=== PATIENT | male | born 1940 | race Caucasian/White ===

== ENCOUNTER → 2016-09-16 | Outpatient (CLI) | payer OTHER, MEDICARE ==
[~2016-09-16] MED LIST: APR25 PO; ASPI81TA28 PO; CARV25TA PO; CHOL200010 PO; CTP1X PO; ISOS60TA25 PO; LORA1TAB13 PO; MAGN400T5 PO; MULT-513 PO
[2016-09-16 11:06] LABS: BASO % 0.4 %; BASO ABS # 0.02 K/uL (0-0.2); COMPLETE YES; HEMATOCRIT 42.3 % (42-52); IG% 0.2 %; LYMPH % 22.7 %; LYMPH ABS # 1.27 K/uL (1.2-3.4); MEAN CELL VOLUME 86.5 fL (80-100); MEAN CORPUSCULAR HEMOGLOBIN 29.4 pg (25-34); MEAN PLATELET VOLUME 10.4 fL (7.4-10.4); MONO % 8.2 %; NEUT % 65.5 %; PLATELET COUNT 146 K/uL (130-400); RED BLOOD COUNT 4.89 M/uL (4.7-6.1); WHITE BLOOD COUNT 5.59 K/uL (4.8-10.8)
[2016-09-16 11:40] LABS: ESTIMATED AVERAGE GLUCOSE 120 mg/dl; HA1C FLAG Normal (Normal)
[2016-09-16 11:41] LABS: BLOOD UREA NITROGEN 22 mg/dl (7-18); BUN/CREATININE RATIO 17.1 (10-20); CALCIUM 10.7 mg/dl (8.5-10.1); CARBON DIOXIDE 28 mmol/L (21-32); CHLORIDE 106 mmol/L (98-107); GLUCOSE 87 mg/dl (70-99); MAGNESIUM 2.4 mg/dl (1.8-2.4); POTASSIUM 4.2 mmol/L (3.5-5.1); SODIUM 140 mmol/L (136-145)
[2016-09-16 11:46] LABS: CHOLESTEROL 123 mg/dl (0-200); CHOLESTEROL/HDL RATIO 2.1; HDL CHOLESTEROL 58 mg/dl; LDL CHOLESTEROL CALCULATED 50 mg/dl; PHOSPHORUS 2.1 mg/dl (2.5-4.9); TRIGLYCERIDES 76 mg/dl (0-150); VERY LOW DENSITY LIPOPROT CALC 15 mg/dl
[2016-09-16 12:34] LABS: URINE PROTIEN/CREAT RATIO 0.2 (0-0.2); URINE TOTAL PROTEIN 18.4 mg/dl (0-11.9)
[2016-09-16 13:23] LABS: URINE APPEARANCE CLEAR (CLEAR); URINE BILIRUBIN NEG (NEG); URINE COLOR YELLOW; URINE NITRITE NEG (NEG); URINE SPECIFIC GRAVITY 1.016 (1.000-1.030); UROBILINOGEN NEG (NEG); ZZUR CULT IF INDIC CLEAN CATCH NO
[2016-09-16 13:41] LABS: MANUAL MICROSCOPIC REQUIRED? NO; REVIEW REQ? NO
== END | disposition home or self-care (01) ==
LOC: C.LAB 10:19
PROVIDERS: ATTEND Internal Medicine Nephrology
DX: N18.3 Chronic kidney disease, stage 3 (moderate) (principal); R73.09 Other abnormal glucose; I42.8 Other cardiomyopathies

== ENCOUNTER → 2016-11-02 | Outpatient (CLI) | payer OTHER, MEDICARE | END | disposition home or self-care (01) | LOC: C.MAMM 14:05 | PROVIDERS: ATTEND Internal Medicine Nephrology | DX: N18.3 Chronic kidney disease, stage 3 (moderate) (principal); M85.89 Other specified disorders of bone density and structure, multiple sites; M81.0 Age-related osteoporosis without current pathological fracture ==

== ENCOUNTER → 2016-12-01 | Outpatient (CLI) | payer OTHER, MEDICARE ==
[2016-12-01 13:41] LABS: BLOOD UREA NITROGEN 23 mg/dl (7-18); BUN/CREATININE RATIO 16.4 (10-20); CALCIUM 10.6 mg/dl (8.5-10.1); CARBON DIOXIDE 29 mmol/L (21-32); CHLORIDE 107 mmol/L (98-107); GLUCOSE 77 mg/dl (70-99); MAGNESIUM 2.3 mg/dl (1.8-2.4); PHOSPHORUS 2.1 mg/dl (2.5-4.9); POTASSIUM 4.6 mmol/L (3.5-5.1); SODIUM 142 mmol/L (136-145)
[2016-12-02 17:58] LABS: ALBUMIN 3.6 G/DL (3.8-4.8); TOTAL PROTEIN 6.4 G/DL (6.2-8.3)
== END | disposition home or self-care (01) ==
LOC: C.LAB 11:18
PROVIDERS: ATTEND Internal Medicine Nephrology
DX: N18.3 Chronic kidney disease, stage 3 (moderate) (principal)

== ENCOUNTER → 2017-02-16 | Outpatient (CLI) | payer OTHER, MEDICARE ==
[2017-02-16 13:49] LABS: BLOOD UREA NITROGEN 27 mg/dl (7-18); CALCIUM 11.2 mg/dl (8.5-10.1); CARBON DIOXIDE 29 mmol/L (21-32); CHLORIDE 107 mmol/L (98-107); GLUCOSE 88 mg/dl (70-99); POTASSIUM 4.8 mmol/L (3.5-5.1); SODIUM 139 mmol/L (136-145)
== END | disposition home or self-care (01) ==
LOC: C.LAB 12:50
PROVIDERS: ATTEND Physician Assistant Medical
DX: E03.9 Hypothyroidism, unspecified (principal); I10 Essential (primary) hypertension

== ENCOUNTER → 2017-07-16 | Outpatient (CLI) | payer OTHER, MEDICARE ==
[~2017-07-16] MED LIST changes: -ISOS60TA25 PO
[2017-07-16 14:40] LABS: HEMATOCRIT 44.2 % (42-52); HEMOGLOBIN 14.7 g/dL (14.0-18.0); MEAN CELL VOLUME 90.9 fL (80-100); MEAN CORPUSCULAR HEMOGLOBIN 30.2 pg (25-34); MEAN CORPUSCULAR HGB CONC 33.3 g/dl (32-36); MEAN PLATELET VOLUME 10.7 fL (7.4-10.4); PLATELET COUNT 175 K/uL (130-400); RED CELL DISTRIBUTION WIDTH CV 13.9 % (11.5-14.5); RED CELL DISTRIBUTION WIDTH SD 46.5 fL (36.4-46.3)
[2017-07-16 16:28] LABS: ALBUMIN 3.6 gm/dl (3.4-5.0); ALT/SGPT 32 U/L (12-78); AST/SGOT 20 U/L (15-37); BLOOD UREA NITROGEN 26 mg/dl (7-18); CALCIUM 11.1 mg/dl (8.5-10.1); CARBON DIOXIDE 28 mmol/L (21-32); GLUCOSE 64 mg/dl (70-99); POTASSIUM 4.4 mmol/L (3.5-5.1); SODIUM 139 mmol/L (136-145)
[2017-07-16 16:32] LABS: ALKALINE PHOSPHATASE 75 U/L (45-117); TOTAL PROTEIN 7.1 gm/dl (6.4-8.2)
== END | disposition home or self-care (01) ==
LOC: C.LAB 13:44
PROVIDERS: ATTEND Physician Assistant Medical
DX: I12.9 Hypertensive chronic kidney disease with stage 1 through stage 4 chronic kidney disease, or unspecified chronic kidney disease (principal); M10.9 Gout, unspecified; N18.3 Chronic kidney disease, stage 3 (moderate); D64.9 Anemia, unspecified

== ENCOUNTER → 2017-08-24 | Outpatient (CLI) | payer OTHER, MEDICARE ==
[2017-08-24 13:09] LABS: ALBUMIN 3.5 gm/dl (3.4-5.0); ALT/SGPT 33 U/L (12-78); BLOOD UREA NITROGEN 44 mg/dl (7-18); CALCIUM 11.3 mg/dl (8.5-10.1); CARBON DIOXIDE 33 mmol/L (21-32); CREATININE 2.17 mg/dl (0.60-1.40); GLUCOSE 155 mg/dl (70-99); POTASSIUM 3.7 mmol/L (3.5-5.1); SODIUM 137 mmol/L (136-145)
[2017-08-24 13:12] LABS: ALKALINE PHOSPHATASE 80 U/L (45-117); AST/SGOT 16 U/L (15-37); TOTAL PROTEIN 6.7 gm/dl (6.4-8.2)
== END | disposition home or self-care (01) ==
LOC: C.LAB 10:57
PROVIDERS: ATTEND Internal Medicine
DX: I10 Essential (primary) hypertension (principal); I42.8 Other cardiomyopathies; E11.22 Type 2 diabetes mellitus with diabetic chronic kidney disease; R60.0 Localized edema

== ENCOUNTER → 2017-08-31 | Outpatient (CLI) | payer OTHER, MEDICARE ==
[2017-08-31 12:39] LABS: BLOOD UREA NITROGEN 44 mg/dl (7-18); CALCIUM 11.3 mg/dl (8.5-10.1); CARBON DIOXIDE 29 mmol/L (21-32); CREATININE 1.88 mg/dl (0.60-1.40); GLUCOSE 104 mg/dl (70-99); POTASSIUM 4.3 mmol/L (3.5-5.1); SODIUM 139 mmol/L (136-145)
== END | disposition home or self-care (01) ==
LOC: C.LAB 09:45
PROVIDERS: ATTEND Internal Medicine
DX: N18.3 Chronic kidney disease, stage 3 (moderate) (principal); I50.32 Chronic diastolic (congestive) heart failure; I42.8 Other cardiomyopathies; R60.0 Localized edema; E11.22 Type 2 diabetes mellitus with diabetic chronic kidney disease

== ENCOUNTER → 2017-11-12 | Outpatient (CLI) | payer OTHER, MEDICARE ==
[2017-11-12 13:15] LABS: BLOOD UREA NITROGEN 30 mg/dl (7-18); CALCIUM 11.2 mg/dl (8.5-10.1); CARBON DIOXIDE 31 mmol/L (21-32); CREATININE 1.73 mg/dl (0.60-1.40); GLUCOSE 84 mg/dl (70-99); POTASSIUM 4.7 mmol/L (3.5-5.1); SODIUM 140 mmol/L (136-145)
== END | disposition home or self-care (01) ==
LOC: C.LAB 11:10
PROVIDERS: ATTEND Internal Medicine Cardiovascular Disease
DX: I10 Essential (primary) hypertension (principal); I48.2 Chronic atrial fibrillation; I50.32 Chronic diastolic (congestive) heart failure

== ENCOUNTER 2018-07-26 10:03 | Inpatient (IN) ==
[2018-07-26] MEDS ORDERED: ACETAMINOPHEN 325 MG TAB PO PRN (12:02)
[2018-07-26] MEDS ORDERED: ALUMINUM/MAGNESIUM SUSP 30 ML UDC PO PRN (12:02)
[2018-07-26] MEDS ORDERED: LORazepam 0.5 MG TAB PO PRN (12:13)
--- NOTE | 2018-07-26 12:20 | History & Physical Report ---
Date of Service July 26, 2018 Assessment & Plan (1) Acute on chronic diastolic (congestive) heart failure: Direct admitted for Dr. Retana for diuresis. Has been building fluid up for almost 1 year per family. Echo in 06/2017 showed 55%, Grade 2 diastolic dysfunction, and elevated RV pressure with PA systolic pressure of 51. Unclear why he has such severe right-sided failure. - Bumex 1mg IV BID - Daily weights, I&Os - Monitor electrolytes and Cr - CXR & BNP - Salt and fluid restriction - Cardiology consult (2) Cellulitis: Sees Wound Clinic and gets home health for chronic RLE wound and recurrent cellulitis due to edema. On Cipro at present with a few more days left (~3 per patient). - Vancomycin - Wound RN consult - Wound swab/culture (3) Atrial fibrillation: Permanent afib with fairly well-controlled rates. Declines anticoagulation due to voodoo beliefs (Buddhist) and not wanting to need a blood transfusion. - Continue ASA - Continue Coreg (some indication it was recently increased, but last PCP note indicates 25mg BID) (4) Hypertension: On home Coreg and hydralazine. - Continue home meds - Monitor BP (5) ROLLY (obstructive sleep apnea): Family reports that Dr. Retana wanted overnight O2 monitoring as the patient has suspected ROLLY, and this could be contributing to his right-sided heart failure. - Order overnight O2 monitoring (6) CKD (chronic kidney disease) stage 3, GFR 30-59 ml/min: Baseline Cr ~1.4. - Monitor with diuresis (7) Ventricular fibrillation: Episode of v-fib arrest in 2011, s/p [facility] [facility] ICD. Was shocked 4 times in 04/2012 due to afib with RVR. - No inpatient needs unless per cardiology (8) Anxiety disorder: - Continue home lorazepam. (9) History of DVT (deep vein thrombosis): Prior DVT, though unknown timeframe. Has IVC filter, though again, not sure when it was implanted. - Lovenox 40mg daily for DVT ppx History of Present Illness Primary Care Provider: Fracisco Eddy MD 77yo M w/ complex cardiac history including non-ischemic cardiomyopathy with EF as low as 15%, afib with occasional RVR, v-fib arrest s/p ICD, DVT s/p IVC filter who presents as a direct admission from Dr. Retana for diuresis. Per patient and family, this has been ongoing for almost 1 year. The patient reports that his legs have gradually been gettin gmore swollen, now up to his thighs and abdomen. He reports some shortness of breath to me, but only with bending over; however, to Dr. Retana, he admitted to having shortness of breath with any ambulation over 50' or so. He denies any fevers, chills, abdominal pain, nausea or vomiting, or any focal weakness. Allergies Allergy/AdvReac Type Severity Reaction Status Date / Time adhesive Allergy Intermediate REDDENED, Verified 12/22/17 19:15 ITCHY SKIN ALL OPIOIDS Allergy Severe "SEVERE" Uncoded 12/22/17 19:15 DELIRIUM Home Medications Home Medications Medication Instructions Recorded Confirmed Type CARVEDILOL (COREG) 25 mg PO BID #0 tab 12/28/11 07/26/18 History MAGNESIUM OXIDE (MAG-OX) 400 mg PO BID #0 tab 05/17/12 07/26/18 History LORAZEPAM 0.5 mg PO Q12 PRN #0 03/14/13 07/26/18 History CHOLECALCIFEROL (VITAMIN D) 6,000 unit PO DAILY #0 12/10/07/26/18 History ASPIRIN (ASPIRIN EC) 81 mg PO DAILY #0 04/09/15 07/26/18 History Multivitamins/Minerals (Mvi With 1 tab PO DAILY #0 tab 04/09/15 07/26/18 History Minerals) HYDRALAZINE HCL (APRESOLINE) 50 mg PO BID #0 tab 12/22/17 07/26/18 History Past Med/Surg History Medical History Atrial fibrillation CKD (chronic kidney disease) DVT (deep venous thrombosis) S/p IVC filter Diastolic heart failure Hypertension Nonischemic cardiomyopathy Ventricular fibrillation Surgical History ICD (implantable cardioverter-defibrillator) in place 06/2011; [facility] device Family History Father Hypertension Social History Current Living Situation: Spouse Other Information That Helps Us Care for You: No Feels Safe at Home: Yes Smoking Status: Never smoker Do You Dip or Chew Tobacco: No Second Hand Exposure: No Tobacco Cessation Education Requested by Patient: No Hx Alcohol Use: No Hx Substance Use: No Beliefs That Will Affect Care: Roman Catholic Roman Catholic Beliefs: Jevovah's witness - No blood products Preferred Language: [place]ese Communication Ability: Effective Network Analyst Required: No Review of Systems Constitutional: + fatigue; no fever, no chills and no sweats Eyes: no diplopia Ear, Nose, Mouth, Throat: no ear trauma, no nasal discharge and no dental pain Respiratory: no cough, no chest congestion and no dyspnea Cardiovascular: + dyspnea, + dyspnea on exertion and + edema; no chest pain, no palpitations and no syncope Gastrointestinal: no abdominal pain, no belching, no constipation, no diarrhea/ loose stools, no blood in stools and no melena Musculoskeletal: no back pain, no joint pain and no muscle weakness Integumentary: no rash, no skin ulcer and no erythema Neurologic: no generalized weakness, no loss of sensation, no numbness and no paresthesia Psychiatric: no depression and no anxiety Endocrine: no fatigue, no polydipsia and no polyphagia Physical Exam 2 Constitutional: WD/WN, vitals as above Eyes: EOM intact bilaterally; no conjunctival abnormality ENMT: external ear and nose normal, oropharynx normal Neck: trachea midline, no thyromegaly normal visual inspection Respiratory: normal respiratory effort, lungs clear to auscultation no respiratory distress Cardiovascular: Rate/Rhythm: regular rate; + abnormal rhythm Heart Sounds: normal S1 and normal S2 Vessels: + JVD (Unable to tell) Extremities: + edema (4+ to upper thighs) Gastrointestinal (Abdomen): Inspection/Auscultation: abdomen normal to inspection; abdomen not distended Musculoskeletal: no cyanosis or clubbing, extremities motor strength 5/5 Skin: no rashes, warm and dry Neurologic: moves all extremities and awake Psychiatric: Orientation: alert, oriented to person and cooperative
[2018-07-26 12:29] LABS: Basophils # (auto) 0.01 K/uL (0-0.2); Basophils % (auto) 0.2 %; Eosinophils # (auto) 0.11 K/uL (0-0.5); Hemoglobin 11.3 g/dL (14.0-18.0); Immature Granulocytes # (auto) 0.01 K/uL (0.00-0.02); Immature Granulocytes % (auto) 0.2 %; Lymphocytes # (auto) 0.83 K/uL (1.2-3.4); Mean Corpuscular Hgb Conc 31.4 g/dL (32-36); Mean Corpuscular Volume 85.5 fL (80-100); Mean Platelet Volume 10.3 fL (7.4-10.4); Monocytes # (auto) 0.68 K/uL (0.11-0.59); Monocytes % (auto) 12.3 %; Neutrophils # (auto) 3.89 K/uL (1.4-6.5); Neutrophils % (auto) 70.3 %; Platelet Count 136 K/uL (130-400); RDW Coefficient of Variation 15.2 % (11.5-14.5); RDW Standard Deviation 46.9 fL (36.4-46.3); Red Blood Count 4.21 M/uL (4.7-6.1); White Blood Count 5.53 K/uL (4.8-10.8)
[2018-07-26 12:40] LABS: INR 1.2 (0.9-1.1); Prothrombin Time 12.3 Seconds (9.0-12.0)
[2018-07-26] MEDS ORDERED: VANCOMYCIN CONSULT ACTIVE PRN (12:44)
[2018-07-26 12:53] LABS: Albumin Level 3.2 gm/dl (3.4-5.0); BUN Creatinine Ratio 21.8 (10-20); Calcium 11.3 mg/dl (8.5-10.1); Creatinine Clr Calc Pharmacy 52.3 ml/min; Est GFR (African American) 46.8; Est GFR (Non-African American) 40.4; Potassium 4.3 mmol/L (3.5-5.1)
[2018-07-26 12:58] LABS: Albumin Globulin Ratio 0.8 (0.9-2); Bilirubin,Total 1.3 mg/dl (0.2-1); Globulin 3.8 gm/dl (2.5-4.0)
[2018-07-26] MEDS ORDERED: PNEUMOCOCCAL ADMINISTRATION CHARGE ONE (13:45)
[2018-07-26] MEDS ORDERED: PNEUMOCOCCAL POLYSACCHARIDES 25 MCG/0.5 ML VIAL/SYR IM ONE (13:45)
--- NOTE | 2018-07-26 13:54 | XRay Report ---
XR chest 2V routine CLINICAL HISTORY: CHF COMPARISON STUDY: 12/22/2017 FINDINGS: The heart is markedly enlarged. There is a left subclavian single chamber central venous pa cemaker present. There is been interval resolution of the previously identified pulmonary edema. Ther e is no focal pulmonary consolidation. There is minimal intrafissural fluid. There are tiny pleural e ffusions.[ IMPRESSION: 1. Cardiomegaly and tiny pleural effusions 2. No evidence of focal pulmonary consolidation 3. Interval resolution of the previous identified interstitial edema Electronically signed by: Daniel Hoffman M.D. 07/26/2018 1:53 PM
[2018-07-26] MEDS: AMLODIPINE BESYLATE 5 MG TAB PO SCH (14:06)
[2018-07-26] MEDS ORDERED: VANCOMYCIN HCL 2,500 MG in SODIUM CHLORIDE 0.9% 500 ML IV ONE (15:30)
[2018-07-26] MEDS: CEFAZOLIN 1000MG 1,000 MG/7.5 ML SYR IV SCH ×2 (16:24→23:33)
[2018-07-26] MEDS: BUMETANIDE 1 MG in SYRINGE 0 ML IV SCH (16:59)
--- NOTE | 2018-07-26 18:04 | Consultation Report ---
DATE OF CONSULTATION: 07/26/2018 07/26/2017 REQUESTING PHYSICIAN: Dr. Silvestre Hoffman. PLASTIC AND RECONSTRUCTIVE SURGEON: Donovan Retana DO, [facility]. REASON FOR CONSULTATION: Anasarca and right-sided heart failure. Dear Dr. Hoffman: Thank you for requesting cardiology consultation on Teodoro with regards to a severely dilated right ventricle, RV dysfunction, at least moderate pulmonary hypertension, anasarca, chronic atrial fibrillation, refusing anticoagulation, and a history of a nonischemic cardiomyopathy with a most recent ejection fraction in the range of 55%. As you know, he was seen in the office yesterday for progressive anasarca. He probably has at least 30 pounds of water weight in his legs. He also has had cellulitis of his lower extremities and also has oozing from his edema, especially involving the right leg with the use of Collin wraps. In the office yesterday, we gave him 80 mg of furosemide. He peed approximately 1300 mL. His creatinine yesterday in the office was 1.37. Today, it is up to 1.6. His mag was 2.3. Sodium 137, potassium of 4.7 with a BUN of 37. His belly seems softer today. He has chronic dyspnea and is short of breath walking more than 20 feet or so. He has a lightheadedness/dizziness, presyncope, syncope, chest pain, chest pressure, chest heaviness. He sleeps on 1-1/2 pillows on a regular basis. There is a discussion in his previous records about having sleep apnea, although he has refused CPAP in the past. In addition, he is not on anticoagulation as he is a Protestant and had a history of a previous bleed and is unwilling to consider anticoagulation again. His appetite has been so-so. His weight has been up. The rest of the review of systems otherwise negative. FAMILY HISTORY: Noncontributory. PAST MEDICAL HISTORY: 1. Nonischemic cardiomyopathy with ejection fraction as low as 15%. 2. Echocardiogram 06/2018 with a severely dilated right ventricle, RV dysfunction with at least moderate pulmonary hypertension with moderate tricuspid regurgitation and flattening of the intraventricular septum in both systole and diastole, consistent with RV pressure and volume overload. 3. Preserved left ventricular systolic function with type 2 diastolic dysfunction. 4. History of VFib arrest status post ICD. 5. Status post 4 ICD shocks in 04/2012 secondary to atrial fibrillation with a rapid ventricular response. 6. Chronic atrial fibrillation, refusing anticoagulation. 7. History of frequent PVCs with self-discontinuation of amiodarone. 8. Single chamber defibrillator 06/2011 [employer] [facility] device. 9. Cardiac catheterization 06/2011 without evidence of epicardial coronary artery disease. 10. Renal artery duplex with moderate renal artery stenosis, 10/2012, repeated in 2013, which was negative for stenosis. 11. History of DVT status post IVC filter. 12. Anasarca. 13. Hypercalcemia. 14. Lumbar spinal stenosis. 15. [id number] right-sided heart failure. MEDICATIONS: Reviewed in electronic medical record. ALLERGIES: ADHESIVE BANDAGES, NARCOTICS, OXYBUTYNIN, WHICH CAUSED HALLUCINATIONS. PHYSICAL EXAMINATION: GENERAL: He is awake, alert and oriented x3. He is chronically ill. VITAL SIGNS: His heart rate is 67, blood pressure 144/80, respirations 18, his sats 96% on room air. HEENT: Carotid upstrokes 2+, no evidence of carotid bruits. His jugular venous pressure was significantly elevated. His sclerae is anicteric. LUNGS: Decreased breath sounds in the bases bilaterally. No rales, rhonchi, or wheezing. HEART: Irregular rate and rhythm with occasional ectopy. There is a holosystolic murmur at the left sternal border, which increases with inspiration and a holosystolic murmur at the apex. ABDOMEN: Soft, distended. Positive bowel sounds, nontender. EXTREMITIES: Marked lower extremity edema to the thighs bilaterally. PSYCHIATRIC: His affect appeared appropriate. DIAGNOSTIC STUDIES: Today sodium 137, potassium 4.3, BUN 35, creatinine 1.61. His calcium is 11.3, proBNP was 5095, hemoglobin 11.3, platelet count 136. His white count is 5.53. IMPRESSION: 1. History of nonischemic cardiomyopathy with ejection fraction as low as 15%, now with preserved left ventricular systolic function and type 2 diastolic dysfunction. 2. Echocardiogram 06/2018 with a severely dilated right ventricle, RV dysfunction, moderate pulmonary hypertension with moderate tricuspid regurgitation and flattening of interventricular septum in systole and diastole. 3. History of atrial fibrillation arrest status post implantable cardioverter-defibrillator. 2. Status post 4 implantable cardioverter-defibrillator shocks in 04/2012 secondary to atrial fibrillation with a rapid ventricular response. 4. Chronic atrial fibrillation, refusing anticoagulation due to history of previous gastrointestinal bleed and being a Protestant. 5. History of frequent premature ventricular contractions with self-discontinuation of amiodarone. 6. Single chamber defibrillator 06/2011 [employer] [facility] device. 7. [id number] right-sided heart failure. As we discussed by phone, we will start Bumex IV 1 mg b.i.d. to try to achieve adequate diuresis. He did pee approximately 1300 mL yesterday after 80 mg of Lasix. As I discussed with Teodoro, we will have to accept some degree of progressive prerenal azotemia in order to help with his significant right-sided heart failure. His baseline creatinine is in the 1.6 range. I will add amlodipine 2.5 mg daily to his medical regimen to try to lower his pulmonary artery pressures. We will have to be very careful though he is likely significantly preload dependent and if we drop his preload too much, we may cause significant worsening of his renal function. Additionally, I recommended a nocturnal pulse oximetry tonight. If he has significant hypoxemia associated with sleep. Then at least treating his sleep apnea with oxygen will help prevent vasoconstriction from hypoxemia at night. In addition, if we show significant hypoxemia, He may be agreeable to a CPAP after a formal sleep study, which would allow us to also hopefully unload his right ventricle and improve his right-sided heart failure. As I discussed with him in the office if he just has worsening renal dysfunction, unable to get fluid, improve his right-sided heart failure, then his prognosis becomes poor. Thank you for allowing us to participate in his care. RL
[2018-07-26] MEDS: HydrALAZINE TAB 50 MG TAB PO SCH (21:01)
[2018-07-26] MEDS: CARVEDILOL 25 MG TAB PO SCH (21:01)
[2018-07-27] MEDS: ENOXAPARIN INJ 40 MG/0.4 ML SYR SQ SCH (06:06)
[2018-07-27 06:48] LABS: Hematocrit (blood only) 34.6 % (42-52); Hemoglobin 10.8 g/dL (14.0-18.0); Mean Corpuscular Hgb Conc 31.2 g/dL (32-36); Mean Corpuscular Volume 86.5 fL (80-100); Mean Platelet Volume 10.5 fL (7.4-10.4); Platelet Count 136 K/uL (130-400); RDW Coefficient of Variation 15.1 % (11.5-14.5); RDW Standard Deviation 47.9 fL (36.4-46.3); White Blood Count 4.99 K/uL (4.8-10.8)
[2018-07-27 06:55] LABS: Base Excess VBG 5.6 mEq/L; Oxygen Saturation VBG 60.4 %; pH VBG 7.42 (7.36-7.41)
[2018-07-27 07:22] LABS: BUN Creatinine Ratio 20.3 (10-20); Calcium 10.6 mg/dl (8.5-10.1); Creatinine Clr Calc Pharmacy 47.6 ml/min; Est GFR (African American) 41.7; Magnesium 2.3 mg/dl (1.8-2.4); Potassium 4.3 mmol/L (3.5-5.1)
[2018-07-27] MEDS: BUMETANIDE 1 MG in SYRINGE 0 ML IV SCH ×2 (07:46→18:17)
[2018-07-27] MEDS: CEFAZOLIN 1000MG 1,000 MG/7.5 ML SYR IV SCH ×3 (07:47→23:46)
[2018-07-27] MEDS: HydrALAZINE TAB 50 MG TAB PO SCH ×2 (07:48→20:21)
[2018-07-27] MEDS: CARVEDILOL 25 MG TAB PO SCH ×2 (07:48→20:21)
[2018-07-27] MEDS: AMLODIPINE BESYLATE 5 MG TAB PO SCH (07:48)
[2018-07-27] MEDS: ASPIRIN 81 MG ECTAB PO SCH (07:48)
[2018-07-27] MEDS: CHOLECALCIFEROL 1,000 UNITS TAB PO SCH (07:49)
[2018-07-27] MEDS ORDERED: VANCOMYCIN HCL 1,500 MG in SODIUM CHLORIDE 0.9% 500 ML IV SCH (08:00)
--- NOTE | 2018-07-27 08:37 | Cardiology Progress Note ---
Date of Service July 27, 2018 He has less swelling today. He denies any chest pain chest pressure chest heaviness. He denies any lightheadedness or dizziness. Denies a cough fevers chills or sweats. He has had some loose stools. In discussion with the nursing staff his I's and O's are not accurate as he has had some urination toilet. Physical Exam 2 Vital Signs (Past 24 Hours): Last Vital Signs Temp 36.7 C 07/27/18 07:23 Pulse 74 07/27/18 07:46 Resp 18 07/27/18 07:23 BP 123/77 07/27/18 07:46 Pulse Ox 92 07/27/18 07:23 PHYSICAL EXAMINATION: GENERAL: He is awake, alert and oriented x3. He is chronically ill. HEENT: Carotid upstrokes 2+, no evidence of carotid bruits. His jugular venous pressure was significantly elevated. His sclerae is anicteric. LUNGS: Decreased breath sounds in the bases bilaterally. No rales, rhonchi, or wheezing. HEART: Irregular rate and rhythm with occasional ectopy. There is a holosystolic murmur at the left sternal border, which increases with inspiration and a holosystolic murmur at the apex. ABDOMEN: Soft, distended. Positive bowel sounds, nontender. EXTREMITIES: Marked lower extremity edema to the thighs bilaterally. PSYCHIATRIC: His affect appeared appropriate. IMPRESSION: 1. History of nonischemic cardiomyopathy with ejection fraction as low as 15%, now with preserved left ventricular systolic function and type 2 diastolic dysfunction. 2. Echocardiogram 06/2018 with a severely dilated right ventricle, RV dysfunction, moderate pulmonary hypertension with moderate tricuspid regurgitation and flattening of interventricular septum in systole and diastole. 3. History of atrial fibrillation arrest status post implantable cardioverter-defibrillator. 2. Status post 4 implantable cardioverter-defibrillator shocks in 04/2012 secondary to atrial fibrillation with a rapid ventricular response. 4. Chronic atrial fibrillation, refusing anticoagulation due to history of previous gastrointestinal bleed and being a Sabianism. 5. History of frequent premature ventricular contractions with self-discontinuation of amiodarone. 6. Single chamber defibrillator 06/2011 [facility] device. 7. Arfuv-bn-nfqhlsz right-sided heart failure. He has significant hypoxemia overnight with a sat less than 90% 21% of the time. We will need to discuss with the hospitalist service. At a minimum he will need oxygen at night when he sleeps and ultimately he should consider CPAP at night after a sleep study to help unload his right ventricle. By unloading his right ventricle we hopefully can improve his right-sided heart failure. I would continue with his diuresis with a milligram of Bumex IV be. He has adequate blood pressure room his BUN is not increased significantly. His creatinine has risen slightly although his outpatient baseline in the past was around 1.6. As I discussed with the patient I think we will have to accept a creatinine of close to 2 in order to try to improve his right-sided heart failure. We will continue to monitor his BMP. Otherwise I would not make any changes to his medical regimen at this point. Again he refuses anticoagulation for his chronic atrial fibrillation.
--- NOTE | 2018-07-27 20:27 | Hospitalist Progress Note ---
Date of Service July 27, 2018 Assessment & Plan (1) Acute on chronic right-sided congestive heart failure: cor pulmonale - due to sleep-disordered breathing of long-standing nature? VTE? other? overnight oximetry study with significant hypoxia c/w sleep-disordered breathing. NC O2 at HS ordered; needs formal sleep study after d/c. appreciate Dr. Retana's consultation. continue diuresis. continue BB. Present on Admission?: Yes (2) Acute on chronic diastolic (congestive) heart failure: Appreciate Dr. Retana's consultation. See discussion above in right-sided CHF. Present on Admission?: Yes (3) Cellulitis: RLE with chronic wound. Wound care consult requested. Ancef IV. Follow culture. (4) Atrial fibrillation: Cont BB for rate control. He declines anticoagulation due to nondenominational beliefs. (5) Hypertension: Acceptable control Cont home meds (6) ROLLY (obstructive sleep apnea): Overnight oximetry study c/w sleep-disordered breathing. I have ordered 2 l NC O2 at HS. needs formal sleep study after d/c (7) CKD (chronic kidney disease) stage 3, GFR 30-59 ml/min: Mild rise in creatinine likely due to bumex IV BMP in am (8) Ventricular fibrillation: Episode of v-fib arrest in 2011, s/p [facility] ICD. Was shocked 4 times in 04/2012 due to afib with RVR. (9) Anxiety disorder: Continue home lorazepam. (10) History of DVT (deep vein thrombosis): IVC filter is in place, Dr. Stanton implanted years ago. lovenox daily while here updated by phone this evening PT, GORDON winters requested Subjective patient w/o complaints during the visit he was sitting in the wheelchair upon my arrival states the right ankle wound has been present for a year and he is followed by wound care clinic in [place] has take cipro for this wound of late denies dyspnea during the visit reports LE edema present for "long time" Constitutional: no fever Respiratory: no dyspnea Cardiovascular: no chest pain Physical Exam 2 Vital Signs (Past 24 Hours): Last Vital Signs Temp 36.7 C 07/27/18 18:40 Pulse 51 L 07/27/18 18:40 Resp 18 07/27/18 18:40 BP 123/71 07/27/18 18:40 Pulse Ox 92 07/27/18 18:40 Constitutional: well developed, well nourished and average body habitus; no acute distress and not ill appearing ENMT: external ear and nose normal, oropharynx normal Respiratory: Auscultation: + diminished lung sounds (bases); no rales, no rhonchi and no wheezes Cardiovascular: Rate/Rhythm: regular rate and regular rhythm Heart Sounds: normal S1 and normal S2 Vessels: + JVD (to nearly the jaw), posterior tibial pulses present and dorsalis pedis pulses present Extremities: + edema (to the thighs b/l ) Gastrointestinal (Abdomen): normal bowel sounds, soft, nontender, no hepatosplenomegaly Skin: distal RLE wrapped in dressing Psychiatric: A+Ox3, euthymic affect Results & Data Laboratory Results Laboratory Results - last 24 hr 07/27/18 07/27/18 07/27/18 03:30 06:36 06:36 WBC 4.99 RBC 4.00 L Hgb 10.8 L Hct 34.6 L MCV 86.5 MCH 27.0 MCHC 31.2 L RDW Std Deviation 47.9 H RDW Coeff of Joshua 15.1 H Plt Count 136 MPV 10.5 H VBG pH VBG pCO2 VBG pO2 VBG HCO3 VBG O2 Saturation VBG Base Excess Barometric Pressure Sodium 137 Potassium 4.3 Chloride 102 Carbon Dioxide 30 Anion Gap 5.0 BUN 36 H Creatinine 1.77 H Est Cr Clr Drug Dosing 47.6 Est GFR ( Amer) 41.7 Est GFR (Non-Af Amer) 36.0 BUN/Creatinine Ratio 20.3 H Glucose 89 Calcium 10.6 H Magnesium 2.3 Urine Microalbumin 96.7 07/27/18 06:40 WBC RBC Hgb Hct MCV MCH MCHC RDW Std Deviation RDW Coeff of Joshua Plt Count MPV VBG pH 7.42 H VBG pCO2 49 VBG pO2 32 VBG HCO3 31 VBG O2 Saturation 60.4 VBG Base Excess 5.6 Barometric Pressure 726.1 Sodium Potassium Chloride Carbon Dioxide Anion Gap BUN Creatinine Est Cr Clr Drug Dosing Est GFR ( Amer) Est GFR (Non-Af Amer) BUN/Creatinine Ratio Glucose Calcium Magnesium Urine Microalbumin _ (1) Atrial fibrillation Atrial fibrillation type: permanent Qualified Code(s): I48.2 - Chronic atrial fibrillation (2) Cellulitis Site of cellulitis: extremity Site of cellulitis of extremity: lower extremity Laterality: right Qualified Code(s): L03.115 - Cellulitis of right lower limb
[2018-07-28] MEDS: ENOXAPARIN INJ 40 MG/0.4 ML SYR SQ SCH (06:02)
[2018-07-28 06:26] LABS: BUN Creatinine Ratio 22.5 (10-20); Calcium 10.6 mg/dl (8.5-10.1); Creatinine Clr Calc Pharmacy 55.1 ml/min; Est GFR (African American) 49.7; Est GFR (Non-African American) 42.9; Magnesium 2.4 mg/dl (1.8-2.4); Potassium 4.1 mmol/L (3.5-5.1)
[2018-07-28] MEDS: CEFAZOLIN 1000MG 1,000 MG/7.5 ML SYR IV SCH (08:13)
[2018-07-28] MEDS: ASPIRIN 81 MG ECTAB PO SCH (08:14)
[2018-07-28] MEDS: CARVEDILOL 25 MG TAB PO SCH ×2 (08:14→20:33)
[2018-07-28] MEDS: CHOLECALCIFEROL 1,000 UNITS TAB PO SCH (08:14)
[2018-07-28] MEDS: BUMETANIDE 1 MG in SYRINGE 0 ML IV SCH ×2 (08:14→18:21)
[2018-07-28] MEDS: AMLODIPINE BESYLATE 5 MG TAB PO SCH ×2 (08:14→10:03)
[2018-07-28] MEDS: HydrALAZINE TAB 50 MG TAB PO SCH (08:15)
--- NOTE | 2018-07-28 09:24 | Cardiology Progress Note ---
Date of Service July 28, 2018 He looks slightly better this morning his thigh edema has improved his edema below the knee is mildly improved. He appears less dyspneic talking in sentences. Denies any chest pain chest pressure chest heaviness. Denies any PND orthopnea he did sleep with oxygen last night. He inquired with regards to ambulation. He denies any fevers or chills or sweats. He denies any palpitations with his chronic atrial fibrillation. Physical Exam 2 Vital Signs (Past 24 Hours): Last Vital Signs Temp 36.5 C 07/28/18 06:47 Pulse 67 07/28/18 08:11 Resp 24 07/28/18 06:47 BP 112/76 07/28/18 08:11 Pulse Ox 96 07/28/18 06:47 PHYSICAL EXAMINATION: GENERAL: He is awake, alert and oriented x3. He is chronically ill. HEENT: Carotid upstrokes 2+, no evidence of carotid bruits. His jugular venous pressure was significantly elevated. His sclerae is anicteric. LUNGS: Decreased breath sounds in the bases bilaterally. No rales, rhonchi, or wheezing. HEART: Irregular rate and rhythm with occasional ectopy. There is a holosystolic murmur at the left sternal border, which increases with inspiration and a holosystolic murmur at the apex. ABDOMEN: Soft, distended. Positive bowel sounds, nontender. EXTREMITIES: Moderate lower extremity edema with less edema in his thighs PSYCHIATRIC: His affect appeared appropriate. IMPRESSION: 1. History of nonischemic cardiomyopathy with ejection fraction as low as 15%, now with preserved left ventricular systolic function and type 2 diastolic dysfunction. 2. Echocardiogram 06/2018 with a severely dilated right ventricle, RV dysfunction, moderate pulmonary hypertension with moderate tricuspid regurgitation and flattening of interventricular septum in systole and diastole. 3. History of ventricular fibrillation arrest status post implantable cardioverter-defibrillator. 2. Status post 4 implantable cardioverter-defibrillator shocks in 04/2012 secondary to atrial fibrillation with a rapid ventricular response. 4. Chronic atrial fibrillation, refusing anticoagulation due to history of previous gastrointestinal bleed and being a Protestant. 5. History of frequent premature ventricular contractions with self-discontinuation of amiodarone. 6. Single chamber defibrillator 06/2011 [employer] [facility] device. 7. [id number] right-sided heart failure. His weight today was after he actually ate breakfast. It is still negative compared to yesterday. His creatinine is actually improved. Hopefully this is a combination of vasodilation from his calcium channel jane as well as the use of oxygen last night. In light of that it made the following recommendations: 1. Increase his amlodipine to 5 mg daily. 2. Increase his Bumex to 2 mg IV twice daily with close monitoring of his creatinine 3. Reduce his hydralazine to 25 mg twice daily Hopefully we can continue to diurese him without worsening his renal function. I again discussed with him as the hospitalist service did as well that he needs to have a formal sleep study as an outpatient and wear CPAP in order to unload his right ventricle. Without this he will just have progressive right-sided heart failure that is refractory to treatment. I discussed with him that life is about choices and ultimately it is his choice whether he wants to proceed with CPAP or continue to decline.
[2018-07-28] MEDS ORDERED: BUMETANIDE 1 MG in SYRINGE 0 ML IV ONE (09:45)
[2018-07-28] MEDS ORDERED: DOXYCYCLINE HYCLATE 100 MG CAP PO STA (15:33)
[2018-07-28] MEDS: DOXYCYCLINE HYCLATE 100 MG CAP PO SCH (20:34)
[2018-07-29] MEDS: ENOXAPARIN INJ 40 MG/0.4 ML SYR SQ SCH (06:49)
--- NOTE | 2018-07-29 07:39 | Hospitalist Progress Note ---
Date of Service late entry for visit - July 28, 2018 Assessment & Plan (1) Acute on chronic right-sided congestive heart failure: Volume status improving. cor pulmonale - due to sleep-disordered breathing of long-standing nature? VTE? other? overnight oximetry study with significant hypoxia c/w sleep-disordered breathing. NC O2 at HS ordered; needs formal sleep study after d/c. I have also ordered an AM ABG and if hypercarbia is present may be candidate for BIPAP at time of discharge. appreciate Dr. Retana's consultation. continue diuresis; repeat labs in am. continue BB. (2) Acute on chronic diastolic (congestive) heart failure: Appreciate Dr. Retana's consultation. See discussion above in right-sided CHF. (3) Cellulitis: RLE with chronic wound. Cellulitis resolved. Cx with coag negative staph. Stop ancef; change to doxycycline as most of our coag neg staph isolates are doxy sensitive. Wound care consult requested. (4) Atrial fibrillation: Controlled. Cont BB for rate control. He declines anticoagulation due to adventism beliefs. (5) Hypertension: Controlled Cont home meds (6) ROLLY (obstructive sleep apnea): Overnight oximetry study c/w sleep-disordered breathing. I have ordered 2 l NC O2 at HS. needs formal sleep study after d/c AM ABG tomorrow AM to see if hypercarbia is present; if yes we may be able to secure BIPAP at discharge (7) CKD (chronic kidney disease) stage 3, GFR 30-59 ml/min: Mild rise in creatinine likely due to bumex IV BMP in am for stability (8) Ventricular fibrillation: Episode of v-fib arrest in 2011, s/p [employer] ICD. Was shocked 4 times in 04/2012 due to afib with RVR. no ventricular dysrhythmias while here (9) Anxiety disorder: Continue home lorazepam. (10) Anemia: check iron studies, b12, folate in am may be chronic disease anemia due to CKD (11) History of DVT (deep vein thrombosis): IVC filter is in place, Dr. Stanton implanted years ago. lovenox daily while here updated at bedside today PT, OT Subjective patient w/o dyspnea he states he is "peeing alot" LE edema mildly better in his estimation at bedside with numerous questions Constitutional: no fever Respiratory: no cough and no dyspnea Cardiovascular: no chest pain Gastrointestinal: no abdominal pain Physical Exam 2 Vital Signs (Past 24 Hours): Last Vital Signs Temp 36.7 C 07/29/18 04:00 Pulse 78 07/29/18 04:00 Resp 20 07/29/18 04:00 BP 114/73 07/29/18 04:00 Pulse Ox 94 07/29/18 04:00 Constitutional: well developed, well nourished and average body habitus; no acute distress and not ill appearing ENMT: external ear and nose normal, oropharynx normal Respiratory: Auscultation: + diminished lung sounds (bases); no rales, no rhonchi and no wheezes Cardiovascular: Rate/Rhythm: regular rate and regular rhythm Heart Sounds: normal S1 and normal S2 Vessels: + JVD (to nearly the jaw), posterior tibial pulses present and dorsalis pedis pulses present Extremities: + edema (to the thighs b/l with a lymphedema appearance throughout) Gastrointestinal (Abdomen): normal bowel sounds, soft, nontender, no hepatosplenomegaly Skin: venous stasis hyperpigmentation on both shins; right posterior distal leg - near the achilles - <1cm area of ulceration with minimal exudate covering this ulcer; no cellulitis, no drainage, no odor Psychiatric: A+Ox3, euthymic affect _ (1) Cellulitis Site of cellulitis: extremity Site of cellulitis of extremity: lower extremity Site of cellulitis of trunk: Laterality: right Qualified Code(s): L03.115 - Cellulitis of right lower limb (2) Atrial fibrillation Atrial fibrillation type: permanent Qualified Code(s): I48.2 - Chronic atrial fibrillation
[2018-07-29 07:59] LABS: Allen Test Pos (Pos); HCO3 ABG 30 mmol/L (19-24); Oxygen Saturation ABG 95.2 % (90-95); PCO2 ABG 45 mmHg (35-46); PO2 ABG 77 mm/Hg (80-95); pH ABG 7.43 (7.35-7.45)
[2018-07-29] MEDS: CARVEDILOL 25 MG TAB PO SCH ×2 (08:16→21:07)
[2018-07-29] MEDS: ASPIRIN 81 MG ECTAB PO SCH (08:16)
[2018-07-29] MEDS: BUMETANIDE 1 MG in SYRINGE 0 ML IV SCH (08:17)
[2018-07-29] MEDS: AMLODIPINE BESYLATE 5 MG TAB PO SCH (08:17)
[2018-07-29] MEDS: CHOLECALCIFEROL 1,000 UNITS TAB PO SCH (08:18)
[2018-07-29] MEDS: DOXYCYCLINE HYCLATE 100 MG CAP PO SCH ×2 (08:18→21:08)
[2018-07-29 08:33] LABS: BUN Creatinine Ratio 20.8 (10-20); Calcium 10.3 mg/dl (8.5-10.1); Creatinine Clr Calc Pharmacy 49.2 ml/min; Est GFR (African American) 43.8; Est GFR (Non-African American) 37.8; Potassium 3.8 mmol/L (3.5-5.1)
[2018-07-29 08:38] LABS: Ferritin 85.6 ng/ml (8-388)
[2018-07-29 08:48] LABS: Folate (Folic Acid) 9.12 ng/ml (>5.38)
--- NOTE | 2018-07-29 09:05 | Cardiology Progress Note ---
Date of Service July 29, 2018 His legs are mildly improved this morning. He notes he urinated frequently yesterday. He denies any chest pain or chest pressure or shortness of breath. Denies any palpitations lightheadedness or dizziness. Physical Exam 2 Vital Signs (Past 24 Hours): Last Vital Signs Temp 36.5 C 07/29/18 08:13 Pulse 73 07/29/18 08:13 Resp 18 07/29/18 08:13 BP 139/85 07/29/18 08:13 Pulse Ox 95 07/29/18 08:13 PHYSICAL EXAMINATION: GENERAL: He is awake, alert and oriented x3. He is chronically ill. HEENT: Carotid upstrokes 2+, no evidence of carotid bruits. His jugular venous pressure was significantly elevated. His sclerae is anicteric. LUNGS: Decreased breath sounds in the bases bilaterally. No rales, rhonchi, or wheezing. HEART: Irregular rate and rhythm with occasional ectopy. There is a holosystolic murmur at the left sternal border, which increases with inspiration and a holosystolic murmur at the apex. ABDOMEN: Soft, distended. Positive bowel sounds, nontender. EXTREMITIES: Moderate lower extremity edema with less edema in his thighs PSYCHIATRIC: His affect appeared appropriate. IMPRESSION: 1. History of nonischemic cardiomyopathy with ejection fraction as low as 15%, now with preserved left ventricular systolic function and type 2 diastolic dysfunction. 2. Echocardiogram 06/2018 with a severely dilated right ventricle, RV dysfunction, moderate pulmonary hypertension with moderate tricuspid regurgitation and flattening of interventricular septum in systole and diastole. 3. History of ventricular fibrillation arrest status post implantable cardioverter-defibrillator. 2. Status post 4 implantable cardioverter-defibrillator shocks in 04/2012 secondary to atrial fibrillation with a rapid ventricular response. 4. Chronic atrial fibrillation, refusing anticoagulation due to history of previous gastrointestinal bleed and being a Zoroastrian. 5. History of frequent premature ventricular contractions with self-discontinuation of amiodarone. 6. Single chamber defibrillator 06/2011 [employer] [employer] device. 7. Hcllu-ej-yqysdbp right-sided heart failure. His creatinine is stable at 1.7. His weight is down a kilogram. I would change his Bumex to 2 mg in the morning and 1 mg in the evening. We will continue with amlodipine. His ABG this morning does not show significant hypercapnia. He will continue with oxygen nightly. I again discussed the importance of a formal sleep study as an outpatient and treatment with CPAP. He again remains reluctant to consider this. I discussed that if he does not treat his sleep apnea he will have refractory right-sided heart failure that will only progress further.
[2018-07-29] MEDS ORDERED: BUMETANIDE 1 MG in SYRINGE 0 ML IV ONE (09:45)
[2018-07-29] MEDS ORDERED: BUMETANIDE 1 MG in SYRINGE 0 ML IV SCH (15:00)
--- NOTE | 2018-07-29 20:46 | Hospitalist Progress Note ---
Date of Service July 29, 2018 Assessment & Plan (1) Acute on chronic right-sided congestive heart failure: Volume status improved. IV bumex today; then bumex 2mg PO BID starting in am; this was d/w Dr. Retana. Cont BB. cor pulmonale - due to sleep-disordered breathing of long-standing nature? VTE? other? overnight oximetry study with significant hypoxia c/w sleep-disordered breathing. NC O2 at HS ordered; needs formal sleep study after d/c. (2) Acute on chronic diastolic (congestive) heart failure: Appreciate Dr. Retana's consultation. See discussion above in right-sided CHF. (3) Cellulitis: RLE with chronic wound. Cellulitis resolved. Cx with coag negative staph. Cont doxy; stopped cipro. Appreciate wound care team recs. (4) Atrial fibrillation: Controlled. Cont BB for rate control. He declines anticoagulation due to anabaptism beliefs. (5) Hypertension: Controlled Cont home meds (6) ROLLY (obstructive sleep apnea): Overnight oximetry study c/w sleep-disordered breathing. Cont 2 l NC O2 at HS. needs formal sleep study after d/c ABG w/o significant hypercarbia - we cannot qualify him for BIPAP right from the hospital. (7) CKD (chronic kidney disease) stage 3, GFR 30-59 ml/min: creatinine relatively stable bmp in am (8) Ventricular fibrillation: Episode of v-fib arrest in 2011, s/p [employer] ICD. Was shocked 4 times in 04/2012 due to afib with RVR. no ventricular dysrhythmias while here (9) Anxiety disorder: Continue home lorazepam. (10) Anemia: b12, folate wnl trans sat on Fe studies <10% supplement Fe anemia likely due to CKD (11) History of DVT (deep vein thrombosis): IVC filter is in place, Dr. Stanton implanted years ago. lovenox daily while here updated at bedside today PT, OT state he can return home d/c home tomorrow AM Subjective patient feeling well today no dyspnea wound care has seen - continuing to recommend aquacel ag to RLE wound eating well he is aware of need for home O2 at night-time for sleep and need for formal sleep study at bedside and updated Constitutional: no fever Respiratory: no cough and no dyspnea Cardiovascular: + edema; no orthopnea and no paroxysmal nocturnal dyspnea Physical Exam 2 Vital Signs (Past 24 Hours): Last Vital Signs Temp 36.8 C 07/29/18 19:08 Pulse 77 07/29/18 19:08 Resp 22 07/29/18 19:08 BP 145/86 H 07/29/18 19:08 Pulse Ox 95 07/29/18 19:08 Constitutional: well developed, well nourished and average body habitus; no acute distress and not ill appearing ENMT: external ear and nose normal, oropharynx normal Respiratory: normal respiratory effort, lungs clear to auscultation Auscultation: no rales, no rhonchi and no wheezes Cardiovascular: Rate/Rhythm: regular rate; + abnormal rhythm (irregular ) Heart Sounds: normal S1 and normal S2 Vessels: + JVD (to nearly the jaw), posterior tibial pulses present and dorsalis pedis pulses present Extremities : + edema (to the thighs b/l with a lymphedema appearance throughout) no change in edema today Gastrointestinal (Abdomen): normal bowel sounds, soft, nontender, no hepatosplenomegaly Skin: venous stasis changes/hyperpigmentation both legs unchanged; no active cellulitis in any location Psychiatric: A+Ox3, euthymic affect Results & Data Laboratory Results Laboratory Results - last 24 hr 07/29/18 07/29/18 07/29/18 07:45 07:45 07:45 ABG pH 7.43 ABG pCO2 45 ABG pO2 77 L ABG HCO3 30 H ABG O2 Saturation 95.2 H ABG Base Excess 4.7 H Jerrell Test Pos Barometric Pressure 740.1 Oxygen Given ROOM AIR Sodium 136 Potassium 3.8 Chloride 101 Carbon Dioxide 29 Anion Gap 6.0 BUN 35 H Creatinine 1.70 H Est Cr Clr Drug Dosing 49.2 Est GFR ( Amer) 43.8 Est GFR (Non-Af Amer) 37.8 BUN/Creatinine Ratio 20.8 H Glucose 116 H Calcium 10.3 H Iron 36 TIBC 349 Transferrin 284 Transferrin % Sat 9 L Ferritin 85.6 Vitamin B12 659 Folate 9.12 _ (1) Atrial fibrillation Atrial fibrillation type: permanent Qualified Code(s): I48.2 - Chronic atrial fibrillation (2) Cellulitis Laterality: right Site of cellulitis: extremity Site of cellulitis of extremity: lower extremity Site of cellulitis of trunk: Qualified Code(s): L03.115 - Cellulitis of right lower limb
[2018-07-29] MEDS: POTASSIUM CHLORIDE 20 MEQ TABCR PO SCH (21:08)
[2018-07-30] MEDS: ENOXAPARIN INJ 40 MG/0.4 ML SYR SQ SCH (05:30)
[2018-07-30 06:56] LABS: Hematocrit (blood only) 34.6 % (42-52); Mean Corpuscular Hgb Conc 31.8 g/dL (32-36); Mean Corpuscular Volume 85.6 fL (80-100); Mean Platelet Volume 10.3 fL (7.4-10.4); Platelet Count 129 K/uL (130-400); RDW Coefficient of Variation 14.9 % (11.5-14.5); RDW Standard Deviation 46.9 fL (36.4-46.3); Red Blood Count 4.04 M/uL (4.7-6.1); White Blood Count 5.06 K/uL (4.8-10.8)
[2018-07-30 07:27] LABS: BUN Creatinine Ratio 22.4 (10-20); Calcium 10.6 mg/dl (8.5-10.1); Creatinine Clr Calc Pharmacy 54.4 ml/min; Est GFR (African American) 49.7; Est GFR (Non-African American) 42.9; Potassium 3.7 mmol/L (3.5-5.1)
[2018-07-30] MEDS: POTASSIUM CHLORIDE 20 MEQ TABCR PO SCH (08:12)
[2018-07-30] MEDS: ASPIRIN 81 MG ECTAB PO SCH (08:12)
[2018-07-30] MEDS: AMLODIPINE BESYLATE 5 MG TAB PO SCH (08:12)
[2018-07-30] MEDS: CARVEDILOL 25 MG TAB PO SCH (08:12)
[2018-07-30] MEDS: CHOLECALCIFEROL 1,000 UNITS TAB PO SCH (08:13)
[2018-07-30] MEDS: DOXYCYCLINE HYCLATE 100 MG CAP PO SCH (08:13)
[2018-07-30] MEDS ORDERED: BUMETANIDE 2 MG in SYRINGE 0 ML IV SCH (09:00)
[2018-07-30] MEDS ORDERED: BUMETANIDE 1 MG TAB PO SCH (09:00)
[2018-07-30] MEDS ORDERED: FERROUS SULFATE 325 MG TAB PO SCH (18:00)
--- NOTE | 2018-08-06 20:01 | Discharge Summary ---
Date of Service date of admission - July 26, 2018 date of discharge - July 30, 2018 Admission HPI Per Admitting Provider 77yo male with complex cardiac history including prior cardiomyopathy with EF as low as 15% now with normalized EF, chronic cor pulmonale, afib with occasional RVR, v-fib arrest s/p ICD, DVT s/p IVC filter, and CKD stage 3 who presents as a direct admission from Dr. Retana ([facility]) for diuresis. Per patient and family his struggles with fluid retention have been ongoing for almost 1 year. The patient reported that his legs have gradually been getting more swollen with fluid now up to his thighs and abdomen. He reported dyspnea on exertion as well. He denied any fevers, chills, abdominal pain, nausea or vomiting, or any focal weakness. Lastly, he has also been following with the wound care center in [place] for a right lower extremity ulceration. He is concerned that there is now skin infection of this same area. Principal Diagnosis acute/chronic right-sided congestive heart failure Discharge Exam Constitutional well developed, well nourished and average body habitus; no acute distress and not ill appearing ENMT external ear and nose normal, oropharynx normal Respiratory normal respiratory effort, lungs clear to auscultation Auscultation: no rales, no rhonchi and no wheezes Cardiovascular Rate/Rhythm: regular rate; + abnormal rhythm (irregular ) Heart Sounds: normal S1 and normal S2 Vessels: + JVD (to nearly the jaw), posterior tibial pulses present and dorsalis pedis pulses present Extremities: + edema (to the thighs b/l with a lymphedema appearance throughout) Gastrointestinal (Abdomen) normal bowel sounds, soft, nontender, no hepatosplenomegaly Skin venous stasis changes of both legs with hyperpigmentation; resolution of mild RLE cellulitis; ulceration posterior right achilles region, about 1cm in size or less, with no drainage or odor Psychiatric A+Ox3, euthymic affect Discharge Data Allergies Allergy/AdvReac Type Severity Reaction Status Date / Time adhesive Allergy Intermediate REDDENED, Verified 12/22/17 19:15 ITCHY SKIN ALL OPIOIDS Allergy Severe "SEVERE" Uncoded 12/22/17 19:15 DELIRIUM Consultations [facility] - Donovan Retana DO PT, OT Wound care team Hospital Course (1) Acute on chronic right-sided congestive heart failure: The patient was diuresed with IV bumex and had at least a net negative 3 kg weight loss while hospitalized. He was seen in consult by Dr. Donovan Retana, [facility], and recommended transitioning to bumex 2mg BID at discharge. Echo was deferred during this stay as he had undergone outpatient echo in early June 2018. This showed EF 55% with moderate RV dysfunction, severely dilated RV, and moderate pulmonary HTN. The cause of his cor pulmonale may be due to long-standing, untreated sleep- disordered breathing. He has a history of DVT but not PEs. The patient underwent an overnight oximetry study with significant hypoxia consistent with sleep-disordered breathing/ROLLY. He was advised to use 2 liters of NC O2 with sleep. A formal sleep study after discharge was also recommended. Home O2 was arranged for him. He did NOT need daytime O2. He will remain on beta jane as well. (2) Acute on chronic diastolic (congestive) heart failure: See discussion above in right-sided CHF. BPs were controlled while hospitalized. He was given CHF instructions at discharge, counseled to check daily weights, reminded about fluid/salt restriction, etc. (3) Cellulitis: RLE with chronic wound. Cellulitis resolved. Culture with coag negative staph. His previous cipro was STOPPED and he was changed to doxycycline. His wound looked very good during this stay. He was seen by the wound care team who recommended Aquacel Ag, ABD pad, and kerlix. Dressing changes can be made every 2-3 days. He will follow-up in the [place] [facility] after discharge. (4) Atrial fibrillation: Controlled during this stay. He will continue beta jane for rate control. He declines anticoagulation due to oriental orthodox beliefs. (5) Hypertension: Controlled; continue home meds. (6) ROLLY (obstructive sleep apnea): Overnight oximetry study was consistent with sleep-disordered breathing. Prescribed 2 liters NC O2 at HS and with naps. Needs formal sleep study after d/c. ABG w/o significant hypercarbia - we could not qualify him for BIPAP right from the hospital. (7) CKD (chronic kidney disease) stage 3, GFR 30-59 ml/min: Creatinine relatively stable during this stay with discharge creatinine of 1.5. (8) Ventricular fibrillation: Episode of v-fib arrest in 2011, s/p [employer] ICD. Was shocked 4 times in 04/2012 due to afib with RVR. no ventricular dysrhythmias while here. (9) Anxiety disorder: Continue home lorazepam. (10) Anemia: b12, folate wnl transferrin sat on Fe studies was <10% supplement iron after discharge anemia likely due to CKD (11) History of DVT (deep vein thrombosis): IVC filter is in place, Dr. Stanton implanted years ago. (12) Hypercalcemia: Likely due to hyperparathyroidism. intact PTH level was 283. Total calcium ranged from 10.3 to 11.3. He was asymptomatic from this. Calcium levels have been high at least since 2011. He will need continued surveillance of this issue. Total Time Total Time Spent Total Time Spent (In Minutes): 40 Total Time Includes: Examination of the Patient, Discharge Planning, Medication Reconciliation and Communication With Other Providers Discharge Plan Discharge Items Patient Disposition: Home - Home Health Services Reason For Visit: congestive heart failure; cellulitis of right leg Discharge Diagnosis: right-sided congestive heart failure - fluid improved; cellulitis and ulcer of right leg - improved. Discharge Goals: Diagnostic testing and Therapeutic intervention Activity: Resume your previous activity Non-emergency contact: Primary Care Provider and Market Specialist Call non-emergency contact if: you have any medication questions, your temperature is above 100.5, your wound has increased redness, your wound has increased drainage and your wound pain has increased Follow-up/Referrals: [facility] [Outside] - 08/01/18 11:00 am (Please, follow up at the [facility] on WednesdayAugust 01 at 11:00 am. *The wound clinic phone number is [phone].) Fracisco Eddy MD [Primary Care Provider] - 08/04/18 11:00 am (Please, follow up at Dr. Fracisco Eddy's office with Krissy Valdez PA-C, on August 04 at 11:00 am. *If you need to change this appointment, call the office at [phone].) Donovan Retana, [Physician] - (Please, follow up with Dr. Retana- his nurse is to call you with the appointment information. *If you have any questions, call the office at [phone].) Diet: Heart Healthy Fluids: 1800ml (7 cups) Addtl Provider Instructions: From Prasad Rosales - Hospitalist - You were treated for right-sided congestive heart failure, mild right leg cellulitis (skin infection), and your right lower leg ulcer was also treated. You improved with antibiotics, diuretics, and time. You were seen by your receiving specialist, Dr. Retana. At this time we recommend the followin. congestive heart failure - * please LOWER your hydralazine dose to 25mg twice a day * please ADD amlodipine 5mg once daily in the morning; new prescription provided * please START bumetanide 2mg twice a day; take your first dose upon return home today; it is best to take this first thing in the AM upon awakening, and then again in the late afternoon. This is your fluid pill to keep fluid from building up in your legs, etc. * take a potassium supplement twice a day; take your fist dose upon return home today 2. right leg skin infection - take doxycycline 100mg twice a day for 8 more days. This antibiotic can cause heartburn symptoms. It can also cause a rash if you go out in the sun. This is typically not a problem during this time of year. 3. right leg ulceration - continue the dressing changes as recommended by the [facility] Wound Care Team as well as the Wound Care Clinic in [place]. 4. Check your weight every day upon awakening. If you gain more than 3 pounds in 1-2 days I would assume this is fluid weight gain. If you see your weight rising please let Dr. Retana's office know right away. 5. Oxygen - please use 2 liters of Nasal Cannula oxygen at night during sleep and with naps. Your oxygen level testing during your sleep shows that your oxygen drops frequently below 90%. This is a sign you likely have sleep apnea. Please ask Dr. Eddy for a referral for a formal sleep study. 6. Congestive heart failure instructions - Call 911 and go to the Emergency Room if: * You have tightness or pain in your chest that does not go away with rest or Nitroglycerin * You are very short of breath even with rest Call your doctor if any of the following symptoms or problems start or get worse: * Shortness of breath or difficulty breathing * Wake up at night short of breath * Chest pain * Cough * Swelling of your hands, fee, or legs * More fatigued or tired with your normal activity * Palpitations - sudden fast heart beats WEIGHT * Weigh yourself every morning after using the bathroom. * Use the same scale. * Wear the same amount of clothing. * Write your weight down on your chart. * Call your doctor if you gain more than 3 pounds in 1-2 days. This is usually a sign of fluid weight gain. MEDICATIONS * Use this discharge instruction sheet for instructions. * Take your medications at the time your doctor ordered. * Do not skip a dose of your medicines. * If you miss a dose of medicine, take as soon as possible, but DO NOT DOUBLE A DOSE. * Read your medicine information when you get home. * Know all of the side effects of your medicine. * Call your doctor's office if you have any side effects. * Be sure all of your doctors know what medicine and herbs you take (including cold, flu, and herbal medicine). * Pain Medicine: If you do not get relief from your pain, please call your doctor for help. Take the following with you to your follow-up doctor appointments: * Weight Chart * Medication List * List of questions Do not drink excessive alcohol, beer or wine. 7. Follow-up - see separate section. 8. Take an [id number] iron supplement twice a day for 1-2 months. I have included the name and dose of this supplement. Ask the pharmacist to show you where it is on the shelf. Iron can cause constipation and cause your stools to look dark. 9. You have mildly elevated calcium levels in your blood. It has been like this for some time (well over a year). It is not in a dangerous range but Dr. Eddy and your other doctors can continue to monitor this over time. 10. Return to [facility] if - * your right leg skin infection is worsening * you have significant worsening of your fluid * you have worsening shortness of breath * you have fevers over 100.5 degrees * any other concerns Prescriptions: New doxycycline hyclate 100 mg Capsule 100 mg PO BID 8 Days Qty: 16 RF: 0 ferrous sulfate 325 mg (65 mg iron) Tablet,Delayed Release (Dr/Ec) 325 mg PO BID Qty: 60 RF: 1 amlodipine [Norvasc] 5 mg Tablet 5 mg PO QAM Qty: 30 RF: 2 potassium chloride [Klor-Con M20] 20 mEq Tablet,Er Particles/Crystals 20 meq PO BID Qty: 60 RF: 2 bumetanide 1 mg Tablet 2 mg PO BID Qty: 60 RF: 2 Continue CARVEDILOL (COREG) 25 MG tablet 25 mg PO BID Qty: 0 RF: 0 MAGNESIUM OXIDE (MAG-OX) 400 MG tablet 400 mg PO BID Qty: 0 RF: 0 LORAZEPAM 1 MG tablet 0.5 mg PO Q12 PRN (Reason: Anxiety) Qty: 0 RF: 0 CHOLECALCIFEROL (VITAMIN D) 2,000 UNIT capsule 6,000 unit PO DAILY Qty: 0 RF: 0 ASPIRIN (ASPIRIN EC) 81 MG tablet 81 mg PO DAILY Qty: 0 RF: 0 Multivitamins/Minerals (Mvi With Minerals) tablet 1 tab PO DAILY Qty: 0 RF: 0 Changed HYDRALAZINE HCL (APRESOLINE) 50 MG tablet 25 mg PO BID Qty: 60 RF: 0 Stand-Alone Forms: [facility]charge Orders: Discharge Order (Routine); Ordered 07/30/18 Ordered By: Prasad Rosales Admission Data Admit Date/Time: 07/26/18 11:18 Attending Provider: Prasad Rosales Admit Provider: Donovan Retana Primary Care Provider: Fracisco Eddy Other Providers: Donovan Retana Service: Telemetry Other Interventions: Discharge Summary Assessment (RN) Last Done: 07/30/18 12:19 Pending Studies at Discharge: No DC Date/Time DO NOT enter until pt leaves facility: 07/30/18 13:57
== END 2018-07-30 13:57 | disposition home health service (06) ==
LOC: SUATTDRO 11:18 → 2W 11:18

== ENCOUNTER 2018-09-06 16:02 | Inpatient (IN) ==
[2018-09-06] MEDS ORDERED: BUMETANIDE 1 MG in SYRINGE 0 ML IV SCH (16:30)
--- NOTE | 2018-09-06 16:50 | XRay Report ---
XR chest 1V portable CLINICAL HISTORY: Dyspnea COMPARISON STUDY: 09/01/2018 FINDINGS: The heart is enlarged. There is evidence for left atrial enlargement. There is a left subcl amarilis single chamber central venous pacemaker present. There is no focal pulmonary consolidation. The re are no pleural effusions. There is no overt failure. There is minimal right basilar atelectasis.[ IMPRESSION: 1. Stable moderate to marked cardiomegaly, with evidence of left atrial enlargement.. No overt failur e. No acute parenchymal consolidation. Electronically signed by: Daniel Hoffman M.D. 09/06/2018 4:49 PM
[2018-09-06 17:19] LABS: Basophils # (auto) 0.01 K/uL (0-0.2); Basophils % (auto) 0.2 %; Eosinophils % (auto) 4.3 %; Hemoglobin 9.8 g/dL (14.0-18.0); Immature Granulocytes # (auto) 0.01 K/uL (0.00-0.02); Immature Granulocytes % (auto) 0.2 %; Lymphocytes # (auto) 0.78 K/uL (1.2-3.4); Lymphocytes % (auto) 16.9 %; Mean Corpuscular Hgb Conc 31.6 g/dL (32-36); Mean Corpuscular Volume 86.1 fL (80-100); Mean Platelet Volume 10.9 fL (7.4-10.4); Monocytes # (auto) 0.49 K/uL (0.11-0.59); Monocytes % (auto) 10.6 %; Neutrophils # (auto) 3.12 K/uL (1.4-6.5); Neutrophils % (auto) 67.8 %; Platelet Count 107 K/uL (130-400); RDW Coefficient of Variation 16.7 % (11.5-14.5); RDW Standard Deviation 52.4 fL (36.4-46.3); White Blood Count 4.61 K/uL (4.8-10.8)
[2018-09-06 17:39] LABS: Alanine Aminotransferase 34 U/L (12-78); Aspartate Aminotransferase 18 U/L (15-37); BUN Creatinine Ratio 25.4 (10-20); Blood Urea Nitrogen 49 mg/dl (7-18); Calcium 10.3 mg/dl (8.5-10.1); Carbon Dioxide 27 mmol/L (21-32); Chloride 106 mmol/L (98-107); Creatinine Clr Calc Pharmacy 43.9 ml/min; Est GFR (Non-African American) 32.8; Glucose 104 mg/dl (70-99); Magnesium 2.4 mg/dl (1.8-2.4); Potassium 4.1 mmol/L (3.5-5.1); Sodium 139 mmol/L (136-145)
[2018-09-06 17:44] LABS: Albumin Globulin Ratio 0.8 (0.9-2); Alkaline Phosphatase 210 U/L (45-117); Globulin 3.7 gm/dl (2.5-4.0); Total Protein 6.7 gm/dl (6.4-8.2); Troponin I < 0.015 ng/ml (0-0.045)
--- NOTE | 2018-09-06 21:33 | History & Physical Report ---
Date of Service September 06, 2018 Assessment & Plan (1) CHF (congestive heart failure): Patient with history of right sided heart failure, severely dilated RV with RV dysfunction and moderate pulmonary hypertension. LV function is preserved. He presents today with complaint of increased LE edema, weight gain of approximately 20# in the last month, BOYER and decreased exercise tolerance. Physical exam significant for +JVD as well as 3+ edema with chronic skin changes. Lungs are clear. Patient is non-adherent with his home medications. He reports that he eats a low sodium diet at home. Per cardiology records his weight at home ranges 246 - 250#. Today he weighs in at 264# -Continue Carvedilol 25mg po BID -Bumex 2mg IV BID -Daily weights -Strict intake and output monitoring -Low Na diet as tolerated -BID BMP and Magnesium with repletion as needed, close monitoring of renal function (2) Hypertension: Blood pressure presently stable -Continue Carvedilol as above -Diuresis as above -Continue to monitor (3) Atrial fibrillation: History of chronic atrial fibrillation. Patient presently rate controlled. He continues to decline anticoagulation therapy. Patient follows with Cardiology, last seen 19 August 2018. -Continue Carvedilol 25mg po BID -Continue to monitor -EKG in AM (4) CKD (chronic kidney disease) stage 3, GFR 30-59 ml/min: Patient with CKD-III, BUN and Cr today 49 and 1.91, respectively, which is near baseline. He reports adequate UOP daily. Reports response to diuretic therapy -Diuresis as above -BID BMP with close monitoring of renal function and electrolytes -Avoid nephrotoxic agents -Renal dosing where appropriate (5) Anxiety disorder: Patient appears mildly anxious at present -Continue Ativan BID PRN (6) ROLLY (obstructive sleep apnea): Chronic. Patient states that he wears his CPAP occasionally at home. Sometimes it makes him feel claustrophobic and anxious -CPAP qHS -Encourage compliance with prescribed medical therapies (7) Hypercalcemia: Patient with mildlyl elevated calcium level today at 10.3, Albumin within normal range. Alkaline phos elevated at 210. Calcium has been elevated in the past -Check ionized calcium F/E/N - Diuresis as above. Monitor electrolytes and replete as needed. Low Na diet as tolerated Ppx - Lovenox Code - Full Dispo - Admit to medical floor History of Present Illness Chief Complaint: edema Primary Care Provider: Fracisco Eddy MD 77yo male with history of NICM, chronic diastolic CHF, CKD III, HTN, Hypothyroidism presenting with increase in bilateral LE edema and weight gain. Patient's and a family fried are at the bedside and provided details of the history as well. Patient has had longstanding history of bilateral LE edema. He follows with Cardiology and has had several adjustments made to his diuretic regimen in attempt to optimize medical management. However, patient states that it is very difficult for him to take his diuretic as prescribed as it frequently interferes with his activities of daily living and social outings. He is presently to be taking Bumex 2mg po qAM and 1 mg po qPM. He cannot clearly tell me how many doses he is missing per week. Reports that his legs have become quite swollen over the last few weeks with acute worsening over the last two days. He also reports difficulty ambulating due to his swollen, heavy legs as well as a 20# weight gain over the last month. Also with BOYER and decreased exercise tolerance. He denies chest pain, palpitations, abdominal pain, nausea, vomiting, diarrhea or constipation. Denies urinary complaints. Denies decrease in UOP or foamy urine. Patient with history of NICM with history of EF of 15% in the past. Has had recovery of EF, Echo 06/2018 with severely dilated RV with RV dysfunction, moderate pulmonary hypertension with moderate TR. Type II diastolic dysfunction. History of VF arrest s/p AICD placement. No AICD discharges reported. ER Course: Bumex 1mg IV Allergies Allergy/AdvReac Type Severity Reaction Status Date / Time adhesive Allergy Intermediate REDDENED, Verified 08/24/18 07:27 ITCHY SKIN ALL OPIOIDS Allergy Severe "SEVERE" Uncoded 08/24/18 07:27 DELIRIUM Home Medications Home Medications Medication Instructions Recorded Confirmed Type amlodipine 5 mg PO QAM 08/10/18 09/06/18 History aspirin 81 mg PO QAM 08/10/18 09/06/18 History bumetanide 2 mg PO QAM 08/10/18 09/06/18 History carvedilol 25 mg PO BID 08/10/18 09/06/18 History cholecalciferol (vitamin D3) 6,000 unit PO QAM 08/10/18 09/06/18 History ferrous sulfate 325 mg PO BID 08/10/18 09/06/18 History lorazepam 0.5 mg PO BID PRN 08/10/18 09/06/18 History magnesium oxide 400 mg PO QAM 08/10/18 09/06/18 History multivitamin with minerals 1 tab PO QAM 08/10/18 09/06/18 History amoxicillin 2,000 mg PO UD PRN 09/06/18 09/06/18 History bumetanide 1 mg PO QPM 09/06/18 09/06/18 History sertraline 25 mg PO DAILY 09/06/18 09/06/18 History Past Med/Surg History Medical History Anemia Anxiety Atrial fibrillation Basal cell carcinoma removed in office CKD (chronic kidney disease) DVT (deep venous thrombosis) S/p IVC filter Deep vein thrombosis Diastolic heart failure Hypertension Kidney stones Nonischemic cardiomyopathy recent hospital admission. see cardiology consult note for this patient. On home oxygen therapy 02 at 2L n/c hs Osteoarthritis Sleep apnea 02 at 2L n/c Spinal stenosis Ventricular fibrillation Surgical History Laurel filter in place @ [facility] History of blepharoplasty bilt History of cardiac cath at least 20yrs ago, no stents History of kidney surgery 06/30 right kidney removed--"bloody mass that was removed" History of tooth extraction History of total right knee replacement (TKR) ICD (implantable cardioverter-defibrillator) in place 06/2011; [facility] device Family History Father Hypertension Other No family history of adverse response to anesthesia Social History Preferred Language: Wolof Communication Ability: Effective Beliefs That Will Affect Care: Anabaptist marital status: Current Living Situation: Spouse Feels Safe at Home: Yes Smoking Status: Never smoker Hx Alcohol Use: Yes Hx Substance Use: No Review of Systems All systems reviewed & are unremarkable except as noted in HPI & below Physical Exam Vital Signs (Past 24 Hours): Last Vital Signs Temp 36.3 C L 09/06/18 16:08 Pulse 110 H 09/06/18 20:43 Resp 26 H 09/06/18 20:43 BP 140/71 09/06/18 20:43 Pulse Ox 97 09/06/18 20:43 Physical Exam: General: patient resting comfortably, NAD, non-toxic in appearance, AA&O x 4, anxious Skin: warm, dry, intact, no rashes HEENT: NC/AT, PERRL, EOMI, anicteric sclera, conjunctiva without injection, external ear normal to inspection and nontender, nares patent, moist mucus membranes, dentition intact, no oropharyngeal lesions, neck supple, trachea midline, no LAD, no thyromegaly, +JVD noted to the angle of the jaw on left with bed at 45 degrees Heart: +S1/S2, regular, no m/r/g Lungs: equal air entry bilaterally, no rales/rhonchi/wheezes Abd: +BS, soft, NT/ND, no masses/organomegaly/ascites, slight edema of abdominal wall Ext: warm, 2+ pulses in UE/LE bilaterally, 3+ edema of bilateral LEs, skin thickening with dull redness of bilateral LE, no crepitus/bullae/lymphangitic streaking Neuro: nonfocal, patient AA&O x 4, speech intact, no facial droop, moving all extremities on command with equal strength 5/5 Results & Data Laboratory Results Lab Results 09/06/18 09/06/18 Range/Units 17:00 17:00 WBC 4.61 L (4.8-10.8) K/uL RBC 3.60 L (4.7-6.1) M/uL Hgb 9.8 L (14.0-18.0) g/dL Hct 31.0 L (42-52) % MCV 86.1 (80-100) fL MCH 27.2 (25-34) pg MCHC 31.6 L (32-36) g/dL RDW Std Deviation 52.4 H (36.4-46.3) fL RDW Coeff of Joshua 16.7 H (11.5-14.5) % Plt Count 107 L (130-400) K/uL MPV 10.9 H (7.4-10.4) fL Immature Gran % (Auto) 0.2 % Neut % (Auto) 67.8 % Lymph % (Auto) 16.9 % [place] % (Auto) 10.6 % Eos % (Auto) 4.3 % Baso % (Auto) 0.2 % Immature Gran # (Auto) 0.01 (0.00-0.02) K/uL Neut # (Auto) 3.12 (1.4-6.5) K/uL Lymph # (Auto) 0.78 L (1.2-3.4) K/uL [place] # (Auto) 0.49 (0.11-0.59) K/uL Eos # (Auto) 0.20 (0-0.5) K/uL Baso # (Auto) 0.01 (0-0.2) K/uL Sodium 139 (136-145) mmol/L Potassium 4.1 (3.5-5.1) mmol/L Chloride 106 (98-107) mmol/L Carbon Dioxide 27 (21-32) mmol/L Anion Gap 5.0 (3-11) BUN 49 H (7-18) mg/dl Creatinine 1.91 H (0.6-1.4) mg/dl Est Cr Clr Drug Dosing 43.9 ml/min Est GFR ( Amer) 38.0 Est GFR (Non-Af Amer) 32.8 BUN/Creatinine Ratio 25.4 H (10-20) Glucose 104 H (70-99) mg/dl Calcium 10.3 H (8.5-10.1) mg/dl Magnesium 2.4 (1.8-2.4) mg/dl Total Bilirubin 1.0 (0.2-1) mg/dl AST 18 (15-37) U/L ALT 34 (12-78) U/L Alkaline Phosphatase 210 H (45-117) U/L Troponin I < 0.015 (0-0.045) ng/ml Total Protein 6.7 (6.4-8.2) gm/dl Albumin 3.0 L (3.4-5.0) gm/dl Globulin 3.7 (2.5-4.0) gm/dl Albumin/Globulin Ratio 0.8 L (0.9-2) Diagnostic Findings XR chest 1V portable CLINICAL HISTORY: Dyspnea COMPARISON STUDY: 09/01/2018 FINDINGS: The heart is enlarged. There is evidence for left atrial enlargement. There is a left subclavian single chamber central venous pacemaker present. There is no focal pulmonary consolidation. There are no pleural effusions. There is no overt failure. There is minimal right basilar atelectasis.[ IMPRESSION: 1. Stable moderate to marked cardiomegaly, with evidence of left atrial enlargement.. No overt failure. No acute parenchymal consolidation. Electronically signed by: Daniel Hoffman M.D. 09/06/2018 4:49 PM Dictated: 09/06/181645 Transcribed: 09/06/181645 ECG Additional Comments: The study shows atrial fibrillation with PVCs, rate of 75bpm, left axis deviation, GMY=459, GIp=553. Code Status & VTE Plan Code Status FULL VTE Prophylaxis Plan VTE Prophylaxis will be ordered: Yes Critical Care Time Critical Care Time: No (1) CHF (congestive heart failure) Heart failure chronicity: acute on chronic Heart failure type: unspecified Qualified Code(s): I50.9 - Heart failure, unspecified (2) Anxiety disorder Anxiety disorder type: unspecified anxiety disorder Qualified Code(s): F41.9 - Anxiety disorder, unspecified (3) Atrial fibrillation Atrial fibrillation type: permanent Qualified Code(s): I48.2 - Chronic atrial fibrillation (4) Hypertension Hypertension type: essential hypertension Qualified Code(s): I10 - Essential (primary) hypertension
--- NOTE | 2018-09-06 21:45 | Emergency Department Note ---
Entered by Amarjit Seo acting as a scribe for Paty Newsome MD History of Present Illness General Chief complaint: Shortness of Breath/Dyspnea Stated complaint: DIFFICULTY BREATHING, WALKING, HEART Source: patient and family History of Present Illness Onset (ago): day(s) (weight gain of 20 pounds since 08/24/18) Location: chest (lungs) Pain Consistency: + other (persistent) Quality: + other (weight gain and shortness of breath) Associated symptoms: + weakness and + other (diarrhea; denies rectal bleeding or black stools) The patient is a 77 year old male who presents to the Emergency Room with complaints of persistent weight gain and shortness of breath. Per medical records, the patient has gained about 20 pounds since 08/24/18. The patient reports that he has been gaining weight since the time of his recent cellulitis. He also reports persistent shortness of breath and weakness. He states that he regularly takes Bumex and reports a history of heart failure and atrial fibrillation. He notes that he has a pacemaker and regularly takes aspirin but no other blood thinners. He reports that he has also been feeling somewhat off-balance in the past couple months, and he notes diarrhea for the past two weeks. He denies rectal bleeding or black stools. He states that he uses CPAP at night but does not wear supplemental oxygen during the day. He notes that recent bloodwork showed elevated potassium and slightly elevated magnesium. He reports that he follows Dr. Eddy PCP and Dr. Retana [facility]iology. Home Medications Home Medications Medication Instructions Recorded Confirmed Type amlodipine 5 mg PO QAM 08/10/18 09/06/18 History aspirin 81 mg PO QAM 08/10/18 09/06/18 History bumetanide 2 mg PO QAM 08/10/18 09/06/18 History carvedilol 25 mg PO BID 08/10/18 09/06/18 History cholecalciferol (vitamin D3) 6,000 unit PO QAM 08/10/18 09/06/18 History ferrous sulfate 325 mg PO BID 08/10/18 09/06/18 History lorazepam 0.5 mg PO BID PRN 08/10/18 09/06/18 History magnesium oxide 400 mg PO QAM 08/10/18 09/06/18 History multivitamin with minerals 1 tab PO QAM 08/10/18 09/06/18 History amoxicillin 2,000 mg PO UD PRN 09/06/18 09/06/18 History bumetanide 1 mg PO QPM 09/06/18 09/06/18 History sertraline 25 mg PO DAILY 09/06/18 09/06/18 History Allergies Allergy/AdvReac Type Severity Reaction Status Date / Time adhesive Allergy Intermediate REDDENED, Verified 08/24/18 07:27 ITCHY SKIN ALL OPIOIDS Allergy Severe "SEVERE" Uncoded 08/24/18 07:27 DELIRIUM Past Med/Surg History Medical History Anemia Anxiety Atrial fibrillation Basal cell carcinoma removed in office CKD (chronic kidney disease) DVT (deep venous thrombosis) S/p IVC filter Deep vein thrombosis Diastolic heart failure Hypertension Kidney stones Nonischemic cardiomyopathy recent hospital admission. see cardiology consult note for this patient. On home oxygen therapy 02 at 2L n/c hs Osteoarthritis Sleep apnea 02 at 2L n/c Spinal stenosis Ventricular fibrillation Surgical History [place] filter in place @ [facility] History of blepharoplasty bilt History of cardiac cath at least 20yrs ago, no stents History of kidney surgery 06/30 right kidney removed--"bloody mass that was removed" History of tooth extraction History of total right knee replacement (TKR) ICD (implantable cardioverter-defibrillator) in place 06/2011; [facility] device Family History Father Hypertension Other No family history of adverse response to anesthesia Social History Communication Ability: Effective Beliefs That Will Affect Care: Worship marital status: Current Living Situation: Spouse Other Information That Helps Us Care for You: No Feels Safe at Home: Yes Safety Concerns: Feels Safe At This Time Smoking Status: Never smoker Hx Alcohol Use: Yes Hx Substance Use: No Review of Systems See HPI for pertinent positives & negatives. and A total of 10 systems reviewed and were otherwise negative Physical Exam Vital Signs Vital Signs - 24 hr 09/06/18 22:32 09/06/18 23:53 09/07/18 03:58 Temperature 36.5 C 36.4 C L 36.4 C L Temperature Source Oral Oral Oral Pulse Rate Pulse Rate [Finger] 57 L 64 71 Pulse Rhythm [Finger] Regular Pulse Strength [Finger] Normal Respiratory Rate 20 18 20 Respiratory Effort / Characteristics Non-Labored Spontaneous Respiratory Depth Normal Respiratory Pattern Regular Blood Pressure [Right Arm] 125/75 117/76 118/76 Blood Pressure Mean [Right Arm] 91 89 90 Blood Pressure Position [Right Arm] Lying Lying Lying Pulse Oximetry 95 93 94 Oxygen Delivery Method Room Air Room Air Room Air 09/07/18 08:00 09/07/18 08:07 09/07/18 11:25 Temperature 36.6 C 36.3 C L Temperature Source Oral Oral Pulse Rate 64 Pulse Rate [Finger] 92 H 58 L Pulse Rhythm [Finger] Pulse Strength [Finger] Respiratory Rate 16 16 Respiratory Effort / Characteristics Non-Labored Respiratory Depth Normal Respiratory Pattern Blood Pressure [Right Arm] 110/69 106/74 Blood Pressure Mean [Right Arm] 82 84 Blood Pressure Position [Right Arm] Lying Lying Pulse Oximetry 98 94 Oxygen Delivery Method Room Air Room Air Room Air 09/07/18 14:42 09/07/18 15:30 09/07/18 18:54 Temperature 36.4 C L 36.3 C L Temperature Source Oral Oral Pulse Rate Pulse Rate [Finger] 65 51 L Pulse Rhythm [Finger] Pulse Strength [Finger] Respiratory Rate 16 20 Respiratory Effort / Characteristics Non-Labored Spontaneous Respiratory Depth Normal Respiratory Pattern Regular Blood Pressure [Right Arm] 101/66 106/69 Blood Pressure Mean [Right Arm] 77 81 Blood Pressure Position [Right Arm] Lying Pulse Oximetry 96 95 Oxygen Delivery Method Room Air Nasal Cannula 09/07/18 19:51 09/07/18 19:52 Temperature 36.5 C Temperature Source Oral Pulse Rate 76 Pulse Rate [Finger] 67 Pulse Rhythm [Finger] Pulse Strength [Finger] Respiratory Rate 22 Respiratory Effort / Characteristics Respiratory Depth Respiratory Pattern Blood Pressure [Right Arm] 110/70 Blood Pressure Mean [Right Arm] 83 Blood Pressure Position [Right Arm] Pulse Oximetry 94 Oxygen Delivery Method Vital signs reviewed. General: Elderly and chronically ill-appearing male, in no significant distress. HEENT: No scleral icterus, PERRLA, neck supple. Atraumatic. Cardiovascular: Regular rate and rhythm, no extra sounds. Pulmonary: Crackles at the bases bilaterally, normal work of breathing. Abdomen: Soft, nontender, nondistended, positive bowel sounds. Rectal: Stool is guaiac negative. Musculoskeletal: Atraumatic, venous stasis changes of the bilateral lower extrem ities, 1+ to 2+ pitting edema of the lower extremities. Neurologic: Patient awake alert and oriented x 3, equal strength in all 4 extremities. Cranial nerves 2 through 12 grossly intact. Skin: Warm, dry, no rash Course 162: Past medical records reviewed. The patient was evaluated in room C5, and a complete history and physical examination were performed. 1858: I updated the patient and family on results. 6: I consulted Dr. Roc Tovar [facility] Hospitalist. She will reevaluate the patient for hospitalization. Consultations Consultation #1: I consulted Dr. Roc Tovar [facility] Hospitalist. She will reevaluate the patient for hospitalization. Time: 19:26 Administered Medications A[facility]odip[facility] ([facility]) [facility] Stop: 10/07/18 08:59 Last Admin: 09/07/18 07:23 Dose: 5 mg Documented by: [id number] Aspirin (Ecotrin Ectab) [facility] Stop: 10/07/18 08:59 Last Admin: 09/07/18 07:23 Dose: 81 mg Documented by: [id number] Carvedilol (Coreg) 25 mg PO BID [facility] Stop: 10/06/18 22:26 Last Admin: 09/07/18 20:56 Dose: 25 mg Documented by: [id number] Admin: 09/07/18 07:23 Dose: 25 mg Documented by: [id number] Admin: 09/06/18 23:54 Dose: 25 mg Documented by: [id number] Enoxaparin Sodium (Lovenox) 40 mg SQ Q24H [facility] Stop: 10/07/18 11:59 Last Admin: 09/07/18 11:58 Dose: Not Given Documented by: [id number] Ferrous Sulfate (Feosol) 325 mg PO BIDM [facility] Stop: 10/07/18 07:59 Last Admin: 09/07/18 16:20 Dose: 325 mg Documented by: [id number] Admin: 09/07/18 07:23 Dose: 325 mg Documented by: [id number] Bumetanide 2 mg/ Syringe 8 mls @ 4 mls/min IV BIDM [facility] Stop: 10/06/18 22:59 Last Admin: 09/07/18 16:20 Dose: 4 mls/min Documented by: [id number] Admin: 09/07/18 07:23 Dose: 4 mls/min Documented by: [id number] Admin: 09/06/18 23:55 Dose: 4 mls/min Documented by: [id number] Magnesium Oxide (Mag-Ox) 400 mg PO DAILY [facility] Stop: 10/07/18 08:59 Last Admin: 09/07/18 07:23 Dose: 400 mg Documented by: [id number] Multivitamins/Minerals (Multivitamin W/ Minerals Tab) 1 tab PO QAM [facility] Stop: 10/07/18 08:59 Last Admin: 09/07/18 07:23 Dose: 1 tab Documented by: [id number] Potassium Chloride (Klor-Con M20) 20 meq PO QAM [facility] Stop: 10/07/18 08:59 Last Admin: 09/07/18 07:23 Dose: 20 meq Documented by: [id number] Vitamin D (Vitamin D3) 6,000 units PO QAM [facility] Stop: 10/07/18 08:59 Last Admin: 09/07/18 07:23 Dose: 6,000 units Documented by: [id number] Discontinued Medications Enoxaparin Sodium (Lovenox) 40 mg SQ Q24H [facility] Stop: 10/07/18 08:59 Last Admin: 09/07/18 07:24 Dose: Not Given Documented by: [id number] Bumetanide 1 mg/ Syringe 4 mls @ 4 mls/min IV NOW [facility] Stop: 10/06/18 16:29 Last Admin: 09/06/18 18:19 Dose: 4 mls/min Documented by: [id number] Medical Decision Making Differential Diagnosis Differential diagnosis: Etiologies such as infections, reactive airway disease, pneumonia, pneumothorax, COPD, CHF, cardiac ischemia, pulmonary embolism, musculoskeletal, gastrointes tinal, as well as others were entertained. Medical Records Attestation: I reviewed the patient's medical records. Home Medications Current Medication List: was personally reviewed by me Laboratory Data Attestation: I reviewed the patient's lab results. Result diagrams: 09/07/18 08:26 09/06/18 22:42 Lab Results 09/06/18 09/06/18 09/06/18 Range/Units 17:00 17:00 22:42 WBC 4.61 L (4.8-10.8) K/uL RBC 3.60 L (4.7-6.1) M/uL Hgb 9.8 L (14.0-18.0) g/dL Hct 31.0 L (42-52) % MCV 86.1 (80-100) fL MCH 27.2 (25-34) pg MCHC 31.6 L (32-36) g/dL RDW Std Deviation 52.4 H (36.4-46.3) fL RDW Coeff of Joshua 16.7 H (11.5-14.5) % Plt Count 107 L (130-400) K/uL MPV 10.9 H (7.4-10.4) fL Immature Gran % (Auto) 0.2 % Neut % (Auto) 67.8 % Lymph % (Auto) 16.9 % [place] % (Auto) 10.6 % Eos % (Auto) 4.3 % Baso % (Auto) 0.2 % Immature Gran # (Auto) 0.01 (0.00-0.02) K/uL Neut # (Auto) 3.12 (1.4-6.5) K/uL Lymph # (Auto) 0.78 L (1.2-3.4) K/uL [place] # (Auto) 0.49 (0.11-0.59) K/uL Eos # (Auto) 0.20 (0-0.5) K/uL Baso # (Auto) 0.01 (0-0.2) K/uL PT (9.0-12.0) Seconds INR (0.9-1.1) Sodium 139 140 (136-145) mmol/L Potassium 4.1 3.9 (3.5-5.1) mmol/L Chloride 106 106 (98-107) mmol/L Carbon Dioxide 27 28 (21-32) mmol/L Anion Gap 5.0 6.0 (3-11) BUN 49 H 48 H (7-18) mg/dl Creatinine 1.91 H 1.92 H (0.6-1.4) mg/dl Est Cr Clr Drug Dosing 43.9 43.5 ml/min Est GFR ( Amer) 38.0 37.8 Est GFR (Non-Af Amer) 32.8 32.6 BUN/Creatinine Ratio 25.4 H 25.1 H (10-20) Glucose 104 H 159 H (70-99) mg/dl Calcium 10.3 H 10.1 (8.5-10.1) mg/dl Ionized Calcium (1.12-1.32) mmol/L Phosphorus 3.2 (2.5-4.9) mg/dl Magnesium 2.4 2.2 (1.8-2.4) mg/dl Total Bilirubin 1.0 (0.2-1) mg/dl AST 18 (15-37) U/L ALT 34 (12-78) U/L Alkaline Phosphatase 210 H (45-117) U/L Troponin I < 0.015 (0-0.045) ng/ml Total Protein 6.7 (6.4-8.2) gm/dl Albumin 3.0 L (3.4-5.0) gm/dl Globulin 3.7 (2.5-4.0) gm/dl Albumin/Globulin Ratio 0.8 L (0.9-2) 09/06/18 09/07/18 09/07/18 Range/Units 22:42 08:26 08:26 WBC 4.98 (4.8-10.8) K/uL RBC 3.65 L (4.7-6.1) M/uL Hgb 10.0 L (14.0-18.0) g/dL Hct 31.4 L (42-52) % MCV 86.0 (80-100) fL MCH 27.4 (25-34) pg MCHC 31.8 L (32-36) g/dL RDW Std Deviation 52.6 H (36.4-46.3) fL RDW Coeff of Joshua 16.7 H (11.5-14.5) % Plt Count 112 L (130-400) K/uL MPV 10.7 H (7.4-10.4) fL Immature Gran % (Auto) 0.2 % Neut % (Auto) 69.1 % Lymph % (Auto) 14.9 % [place] % (Auto) 11.0 % Eos % (Auto) 4.2 % Baso % (Auto) 0.6 % Immature Gran # (Auto) 0.01 (0.00-0.02) K/uL Neut # (Auto) 3.44 (1.4-6.5) K/uL Lymph # (Auto) 0.74 L (1.2-3.4) K/uL [place] # (Auto) 0.55 (0.11-0.59) K/uL Eos # (Auto) 0.21 (0-0.5) K/uL Baso # (Auto) 0.03 (0-0.2) K/uL PT 12.6 H (9.0-12.0) Seconds INR 1.2 H (0.9-1.1) Sodium (136-145) mmol/L Potassium (3.5-5.1) mmol/L Chloride (98-107) mmol/L Carbon Dioxide (21-32) mmol/L Anion Gap (3-11) BUN (7-18) mg/dl Creatinine (0.6-1.4) mg/dl Est Cr Clr Drug Dosing ml/min Est GFR ( Amer) Est GFR (Non-Af Amer) BUN/Creatinine Ratio (10-20) Glucose (70-99) mg/dl Calcium (8.5-10.1) mg/dl Ionized Calcium 1.37 H (1.12-1.32) mmol/L Phosphorus (2.5-4.9) mg/dl Magnesium (1.8-2.4) mg/dl Total Bilirubin (0.2-1) mg/dl AST (15-37) U/L ALT (12-78) U/L Alkaline Phosphatase (45-117) U/L Troponin I (0-0.045) ng/ml Total Protein (6.4-8.2) gm/dl Albumin (3.4-5.0) gm/dl Globulin (2.5-4.0) gm/dl Albumin/Globulin Ratio (0.9-2) 09/07/18 Range/Units 08:52 WBC (4.8-10.8) K/uL RBC (4.7-6.1) M/uL Hgb (14.0-18.0) g/dL Hct (42-52) % MCV (80-100) fL MCH (25-34) pg MCHC (32-36) g/dL RDW Std Deviation (36.4-46.3) fL RDW Coeff of Joshua (11.5-14.5) % Plt Count (130-400) K/uL MPV (7.4-10.4) fL Immature Gran % (Auto) % Neut % (Auto) % Lymph % (Auto) % [place] % (Auto) % Eos % (Auto) % Baso % (Auto) % Immature Gran # (Auto) (0.00-0.02) K/uL Neut # (Auto) (1.4-6.5) K/uL Lymph # (Auto) (1.2-3.4) K/uL [place] # (Auto) (0.11-0.59) K/uL Eos # (Auto) (0-0.5) K/uL Baso # (Auto) (0-0.2) K/uL PT 13.0 H (9.0-12.0) Seconds INR 1.3 H (0.9-1.1) Sodium (136-145) mmol/L Potassium (3.5-5.1) mmol/L Chloride (98-107) mmol/L Carbon Dioxide (21-32) mmol/L Anion Gap (3-11) BUN (7-18) mg/dl Creatinine (0.6-1.4) mg/dl Est Cr Clr Drug Dosing ml/min Est GFR ( Amer) Est GFR (Non-Af Amer) BUN/Creatinine Ratio (10-20) Glucose (70-99) mg/dl Calcium (8.5-10.1) mg/dl Ionized Calcium (1.12-1.32) mmol/L Phosphorus (2.5-4.9) mg/dl Magnesium (1.8-2.4) mg/dl Total Bilirubin (0.2-1) mg/dl AST (15-37) U/L ALT (12-78) U/L Alkaline Phosphatase (45-117) U/L Troponin I (0-0.045) ng/ml Total Protein (6.4-8.2) gm/dl Albumin (3.4-5.0) gm/dl Globulin (2.5-4.0) gm/dl Albumin/Globulin Ratio (0.9-2) Imaging Data Radiologist's Impression: Radiology results as stated below per my review and the radiologist's interpretation: XR chest 1V portable CLINICAL HISTORY: Dyspnea COMPARISON STUDY: 09/01/2018 FINDINGS: The heart is enlarged. There is evidence for left atrial enlargement. There is a left subclavian single chamber central venous pacemaker present. There is no focal pulmonary consolidation. There are no pleural effusions. There is no overt failure. There is minimal right basilar atelectasis.[ IMPRESSION: 1. Stable moderate to marked cardiomegaly, with evidence of left atrial enlargement.. No overt failure. No acute parenchymal consolidation. Electronically signed by: Daniel Hoffman M.D. 09/06/2018 4:49 PM ECG Data Attestation: I personally reviewed and interpreted this ECG as follows: Indication: SOB/dyspnea Rate (beats per minute): 75 Rhythm: atrial fibrillation Findings: + other (previous inferior and anteroseptal infarct; QTc is 435) and + left axis deviation Blood Pressure Blood Pressure Findings: Elevated blood pressure Blood Pressure Disposition: further management by hospitalist MDM Narrative This patient was evaluated and appeared to be in no significant distress. IV access was obtained and laboratory work was drawn. Chest x-ray was performed and revealed cardiomegaly without evidence of significant failure. Patient's laboratory work reveals anemia. Patient's creatinine is 1.9, slightly above his baseline. Patient is noted to be guaiac negative from the rectum. Patient's family states he is excessively noncompliant with his medications. Patient's family has difficulty managing his care. Patient was given 1 mg of IV Bumex. He has begun to urinate in the emergency department. Vital signs have remained stable however in checking his weights, he has gained about 20 pounds. Patient was discussed with the hospitalist service. They will evaluate the patient for further management. Impression & Plan CHF (congestive heart failure) Discharge Plan Visit Data *Final* Discharge Date/Time: 09/06/18 21:26 Chief Complaint: Shortness of Breath/Dyspnea Stated Complaint: DIFFICULTY BREATHING, WALKING, HEART Other Complaint: Cardiac Assessment ED Provider: Paty Newsome Discharge Problem: CHF (congestive heart failure) Patient Disposition: Admitted As Inpatient Discharge Instructions Interventions: ED Discharge Assessment Last Done: 09/06/18 21:26 Discharge Problem: CHF (congestive heart failure) Qualifiers: Heart failure type: unspecified Heart failure chronicity: acute on chronic Qualified Code(s): I50.9 - Heart failure, unspecified The scribe's documentation has been prepared under my direction and personally reviewed by me in its entirety. I confirm that the note above accurately reflects all work, treatment, procedures, and medical decision making performed by me.
[2018-09-06] MEDS ORDERED: DOCUSATE SODIUM 100 MG CAP PO PRN (22:27)
[2018-09-06] MEDS ORDERED: LORazepam 0.5 MG TAB PO PRN (22:27)
[2018-09-06] MEDS ORDERED: ONDANSETRON INJ 2 MG/ML 2 ML VIAL IV PRN (22:27)
[2018-09-06 23:18] LABS: BUN Creatinine Ratio 25.1 (10-20); Calcium 10.1 mg/dl (8.5-10.1); Creatinine Clr Calc Pharmacy 43.5 ml/min; Est GFR (African American) 37.8; Est GFR (Non-African American) 32.6; Magnesium 2.2 mg/dl (1.8-2.4); Phosphorus 3.2 mg/dl (2.5-4.9); Potassium 3.9 mmol/L (3.5-5.1)
[2018-09-06] MEDS: CARVEDILOL 25 MG TAB PO SCH (23:54)
[2018-09-06] MEDS: BUMETANIDE 2 MG in SYRINGE 0 ML IV SCH (23:55)
[2018-09-07] MEDS: CARVEDILOL 25 MG TAB PO SCH ×2 (07:23→20:56)
[2018-09-07] MEDS: AMLODIPINE BESYLATE 5 MG TAB PO SCH (07:23)
[2018-09-07] MEDS: CEROVITE ADV FORMULA TAB PO SCH (07:23)
[2018-09-07] MEDS: BUMETANIDE 2 MG in SYRINGE 0 ML IV SCH ×2 (07:23→16:20)
[2018-09-07] MEDS: MAGNESIUM OXIDE 400 MG TAB PO SCH (07:23)
[2018-09-07] MEDS: CHOLECALCIFEROL 1,000 UNITS TAB PO SCH (07:23)
[2018-09-07] MEDS: FERROUS SULFATE 325 MG TAB PO SCH ×2 (07:23→16:20)
[2018-09-07] MEDS: POTASSIUM CHLORIDE 20 MEQ TABCR PO SCH (07:23)
[2018-09-07] MEDS: ASPIRIN 81 MG ECTAB PO SCH (07:23)
[2018-09-07 08:52] LABS: Basophils # (auto) 0.03 K/uL (0-0.2); Basophils % (auto) 0.6 %; Eosinophils # (auto) 0.21 K/uL (0-0.5); Eosinophils % (auto) 4.2 %; Hematocrit (blood only) 31.4 % (42-52); Immature Granulocytes # (auto) 0.01 K/uL (0.00-0.02); Immature Granulocytes % (auto) 0.2 %; Lymphocytes # (auto) 0.74 K/uL (1.2-3.4); Lymphocytes % (auto) 14.9 %; Mean Corpuscular Hgb Conc 31.8 g/dL (32-36); Mean Platelet Volume 10.7 fL (7.4-10.4); Monocytes # (auto) 0.55 K/uL (0.11-0.59); Neutrophils # (auto) 3.44 K/uL (1.4-6.5); Neutrophils % (auto) 69.1 %; Platelet Count 112 K/uL (130-400); RDW Coefficient of Variation 16.7 % (11.5-14.5); RDW Standard Deviation 52.6 fL (36.4-46.3); Red Blood Count 3.65 M/uL (4.7-6.1); White Blood Count 4.98 K/uL (4.8-10.8)
[2018-09-07] MEDS ORDERED: ENOXAPARIN INJ 40 MG/0.4 ML SYR SQ SCH (09:00)
[2018-09-07 09:01] LABS: INR 1.2 (0.9-1.1); Prothrombin Time 12.6 Seconds (9.0-12.0)
[2018-09-07 09:08] LABS: INR 1.3 (0.9-1.1)
[2018-09-07] MEDS: ENOXAPARIN INJ 40 MG/0.4 ML SYR SQ SCH (11:58)
--- NOTE | 2018-09-07 21:40 | Hospitalist Progress Note ---
Date of Service September 07, 2018 Assessment & Plan (1) Acute on chronic diastolic (congestive) heart failure: in setting of chronic cor pulmonale. significant noncompliance with meds, O2/CPAP at home, and probably diet (admits to eating today some form of dessert which was not on the heart healthy menu). cont IV bumex. would benefit from a CHF clinic for frequent visits or cardiac rehab. follows w/ Dr. Retana from [facility]. (2) Acute on chronic right-sided congestive heart failure: as above. cor pulmonale likely from long-standing untreated ROLLY, likely severe ROLLY. no h/o PE. (3) CKD (chronic kidney disease) stage 3, GFR 30-59 ml/min: creatinine stable BMP am. (4) Pacemaker: (5) History of DVT (deep vein thrombosis): has IVC filter (6) Atrial fibrillation: controlled cont beta jane (7) Hypertension: controlled with home med regimen (8) Hypercalcemia: chronic likely primary hyperparathyroidism this is mild and he has no symptoms follow (9) DVT prophylaxis: lovenox PT,OT while here diurese Subjective pt w/o significant complaints during the visit admits to noncompliance w/ diuretics at home following his admission in July he was d/c home with HS O2 he ultimately had some form of sleep study and was prescribed CPAP for HS use also noncompliant with HS CPAP Respiratory: no dyspnea Cardiovascular: no chest pain Gastrointestinal: no abdominal pain Physical Exam Vital Signs (Past 24 Hours): Last Vital Signs Temp 36.5 C 09/07/18 19:51 Pulse 76 09/07/18 19:52 Resp 22 09/07/18 19:51 BP 110/70 09/07/18 19:51 Pulse Ox 94 09/07/18 19:51 Constitutional: well developed, well nourished and + obese; no acute distress and not ill appearing Respiratory: normal respiratory effort, lungs clear to auscultation Cardiovascular: Rate/Rhythm: + abnormal rhythm (irregular) Heart Sounds: normal S1 and normal S2; no murmur Vessels: + JVD (to the jaw), posterior tibial pulses present and dorsalis pedis pulses present Extremities: + edema 3+ b/l to the thighs Gastrointestinal (Abdomen): normal bowel sounds, soft, nontender, no hepatosplenomegaly Psychiatric: A+Ox3, euthymic affect Results & Data Laboratory Results Laboratory Results - last 24 hr 09/06/18 09/06/18 09/07/18 22:42 22:42 08:26 WBC 4.98 RBC 3.65 L Hgb 10.0 L Hct 31.4 L MCV 86.0 MCH 27.4 MCHC 31.8 L RDW Std Deviation 52.6 H RDW Coeff of Joshua 16.7 H Plt Count 112 L MPV 10.7 H Immature Gran % (Auto) 0.2 Neut % (Auto) 69.1 Lymph % (Auto) 14.9 [place] % (Auto) 11.0 Eos % (Auto) 4.2 Baso % (Auto) 0.6 Immature Gran # (Auto) 0.01 Neut # (Auto) 3.44 Lymph # (Auto) 0.74 L [place] # (Auto) 0.55 Eos # (Auto) 0.21 Baso # (Auto) 0.03 PT INR Sodium 140 Potassium 3.9 Chloride 106 Carbon Dioxide 28 Anion Gap 6.0 BUN 48 H Creatinine 1.92 H Est Cr Clr Drug Dosing 43.5 Est GFR ( Amer) 37.8 Est GFR (Non-Af Amer) 32.6 BUN/Creatinine Ratio 25.1 H Glucose 159 H Calcium 10.1 Ionized Calcium 1.37 H Phosphorus 3.2 Magnesium 2.2 09/07/18 09/07/18 08:26 08:52 WBC RBC Hgb Hct MCV MCH MCHC RDW Std Deviation RDW Coeff of Joshua Plt Count MPV Immature Gran % (Auto) Neut % (Auto) Lymph % (Auto) [place] % (Auto) Eos % (Auto) Baso % (Auto) Immature Gran # (Auto) Neut # (Auto) Lymph # (Auto) [place] # (Auto) Eos # (Auto) Baso # (Auto) PT 12.6 H 13.0 H INR 1.2 H 1.3 H Sodium Potassium Chloride Carbon Dioxide Anion Gap BUN Creatinine Est Cr Clr Drug Dosing Est GFR ( Amer) Est GFR (Non-Af Amer) BUN/Creatinine Ratio Glucose Calcium Ionized Calcium Phosphorus Magnesium (1) Atrial fibrillation Atrial fibrillation type: permanent Qualified Code(s): I48.2 - Chronic atrial fibrillation (2) Hypertension Hypertension type: essential hypertension Qualified Code(s): I10 - Essential (primary) hypertension
[2018-09-08] MEDS: FERROUS SULFATE 325 MG TAB PO SCH ×2 (08:00→18:08)
[2018-09-08] MEDS: BUMETANIDE 2 MG in SYRINGE 0 ML IV SCH (08:00)
[2018-09-08] MEDS: CHOLECALCIFEROL 1,000 UNITS TAB PO SCH (09:00)
[2018-09-08] MEDS: ASPIRIN 81 MG ECTAB PO SCH (09:00)
[2018-09-08] MEDS: POTASSIUM CHLORIDE 20 MEQ TABCR PO SCH (09:00)
[2018-09-08] MEDS: AMLODIPINE BESYLATE 5 MG TAB PO SCH (09:00)
[2018-09-08] MEDS: CARVEDILOL 25 MG TAB PO SCH ×2 (09:00→20:22)
[2018-09-08] MEDS: CEROVITE ADV FORMULA TAB PO SCH (09:00)
[2018-09-08] MEDS: MAGNESIUM OXIDE 400 MG TAB PO SCH (09:00)
[2018-09-08] MEDS: ENOXAPARIN INJ 40 MG/0.4 ML SYR SQ SCH (13:38)
[2018-09-08] MEDS ORDERED: HYDROCODONE/ACETAMOPHEN 5/325MG TAB PO PRN (16:13)
[2018-09-08] MEDS: BUMETANIDE 3 MG in SYRINGE 0 ML IV SCH (18:08)
--- NOTE | 2018-09-08 20:43 | Hospitalist Progress Note ---
Date of Service September 08, 2018 Assessment & Plan (1) Acute on chronic diastolic (congestive) heart failure: in setting of chronic cor pulmonale. significant noncompliance with meds, O2/CPAP at home, and probably diet as well. has gained 20-30 pounds since previous hospital stay in early July. will try higher dose of bumex 3mg IV BID. follow response. would benefit from a CHF clinic for frequent visits or cardiac rehab. they DO have cardiac rehab program at [facility] -- patient lives in [place]. follows w/ Dr. Retana from [facility]. I spoke with Dr Retana today - recommends ongoing diuresis. (2) Acute on chronic right-sided congestive heart failure: as above. cor pulmonale likely from long-standing untreated ROLLY, probably severe ROLLY. no h/o PE. (3) CKD (chronic kidney disease) stage 3, GFR 30-59 ml/min: creatinine stable BMP am. (4) Pacemaker: pacer interrogation requested to ensure no rapid a.fib/flutter at home contributing to decompensated CHF tele this admission - a.fib/flutter, PVCs(frequent),nonsustained VT -- similar to past hospital stays (5) History of DVT (deep vein thrombosis): has IVC filter no anticoagulation due to h/o Jehova's Witness suellen (6) Atrial fibrillation: controlled cont beta jane pacer interrogation requested (7) Hypertension: controlled with home med regimen (8) Hypercalcemia: chronic going back several years likely primary hyperparathyroidism - previous iPTH high this is mild and he has no symptoms follow (9) Wound of right foot: healed/resolved previously followed by wound care in [place] (10) Altered mental status: ammonia and u/a wnl I suspect he has underlying mild cognitive impairment and/or early dementia neuro referral after discharge (11) DVT prophylaxis: lovenox PT,OT while here - but pt has declined them thus far jenniferisidoro extensively updated by phone today Subjective patient agitated (and slightly confused) during the visit he states "why can't I go home?" he also was upset saying "why isn't the fluid coming off faster?" he declined to work with PT today staff report he has been declining CPAP at HS he openly admits to noncompliance with bumex at home Respiratory: no dyspnea Cardiovascular: + edema; no chest pain Gastrointestinal: no abdominal pain Physical Exam Vital Signs (Past 24 Hours): Last Vital Signs Temp 36.3 C L 09/08/18 19:33 Pulse 80 09/08/18 19:33 Resp 18 09/08/18 19:33 BP 124/75 09/08/18 19:33 Pulse Ox 96 09/08/18 19:33 Constitutional: well developed, well nourished and + obese; no acute distress and not ill appearing Respiratory: normal respiratory effort, lungs clear to auscultation Cardiovascular: Rate/Rhythm: + abnormal rhythm (irregular) Heart Sounds: normal S1 and normal S2; no murmur Vessels: + JVD (to the jaw), posterior tibial pulses present and dorsalis pedis pulses present Extremities: + edema Gastrointestinal (Abdomen): normal bowel sounds, soft, nontender, no hepatosplenomegaly Psychiatric: A+Ox3, euthymic affect Results & Data Laboratory Results ammonia wnl BMP acceptable u/a negative (1) Atrial fibrillation Atrial fibrillation type: permanent Qualified Code(s): I48.2 - Chronic atrial fibrillation (2) Hypertension Hypertension type: essential hypertension Qualified Code(s): I10 - Essential (primary) hypertension (3) Altered mental status Altered mental status type: unspecified Qualified Code(s): R41.82 - Altered mental status, unspecified
[2018-09-08 22:57] LABS: Appearance Urine Clear (Clear); Bilirubin Urine Negative (Negative); Blood Urine Negative (Negative); Color Urine Yellow; Glucose Urine UA Negative (Negative); Ketones Urine Negative (Negative); Leukocyte Esterase Urine Negative (Negative); Nitrite Urine Negative (Negative); Protein Urine Negative (Negative); Specific Gravity Urine 1.014 (1.000-1.030); Urobilinogen Urine Negative (Negative)
[2018-09-09] MEDS: ACETAMINOPHEN 325 MG TAB PO PRN ×2 (01:55→10:28)
[2018-09-09 06:23] LABS: BUN Creatinine Ratio 27.2 (10-20); Calcium 10.3 mg/dl (8.5-10.1); Creatinine Clr Calc Pharmacy 50.3 ml/min; Est GFR (African American) 44.1; Est GFR (Non-African American) 38.1; Potassium 3.7 mmol/L (3.5-5.1)
[2018-09-09] MEDS: CHOLECALCIFEROL 1,000 UNITS TAB PO SCH (08:05)
[2018-09-09] MEDS: CEROVITE ADV FORMULA TAB PO SCH (08:05)
[2018-09-09] MEDS: AMLODIPINE BESYLATE 5 MG TAB PO SCH (08:06)
[2018-09-09] MEDS: CARVEDILOL 25 MG TAB PO SCH ×2 (08:06→21:34)
[2018-09-09] MEDS: ASPIRIN 81 MG ECTAB PO SCH (08:06)
[2018-09-09] MEDS: FERROUS SULFATE 325 MG TAB PO SCH ×2 (08:06→17:17)
[2018-09-09] MEDS: MAGNESIUM OXIDE 400 MG TAB PO SCH (08:06)
[2018-09-09] MEDS: POTASSIUM CHLORIDE 20 MEQ TABCR PO SCH ×2 (08:06→21:35)
[2018-09-09] MEDS ORDERED: BUMETANIDE 3 MG in SYRINGE 0 ML IV ONE (09:13)
[2018-09-09] MEDS: ENOXAPARIN INJ 40 MG/0.4 ML SYR SQ SCH (12:01)
[2018-09-09] MEDS: BUMETANIDE 3 MG in SYRINGE 0 ML IV SCH (17:17)
--- NOTE | 2018-09-09 20:16 | Hospitalist Progress Note ---
Date of Service September 09, 2018 Assessment & Plan (1) Acute on chronic diastolic (congestive) heart failure: in setting of chronic cor pulmonale. significant noncompliance with meds, O2/CPAP at home, and probably diet as well. has gained 20-30 pounds since previous hospital stay in early July. Weight here not changed from yesterday but is urinating quite a bit more renal function improved from previous since starting higher dose of Bumex -continue bumex 3mg IV BID. -follow I/Os, daily weights, low Na+ diet would benefit from a CHF clinic for frequent visits or cardiac rehab. they DO have cardiac rehab program at [facility] -- patient lives in [place]. follows w/ Dr. Retana from [facility]-no need to consult today (2) Acute on chronic right-sided congestive heart failure: as above. cor pulmonale likely from long-standing untreated ROLLY, probably severe ROLLY. no h/o PE. (3) CKD (chronic kidney disease) stage 3, GFR 30-59 ml/min: creatinine stable BMP am. (4) Pacemaker: pacer interrogation does not show frequent rapid a.fib/flutter at home contributing to decompensated CHF tele this admission -continues with a.fib/flutter, PVCs(frequent),nonsustained VT -- similar to past hospital stays (5) History of DVT (deep vein thrombosis): has IVC filter no anticoagulation due to h/o Jehova's Witness suellen (6) Atrial fibrillation: controlled rates cont beta jane no anticoagulation as above due to L[employer] day/not able to get blood payne sfusions if needed (7) Hypertension: controlled with home med regimen Coreg, amlodipine, Bumex (8) Hypercalcemia: chronic going back several years Ca++ 10.3 likely primary hyperparathyroidism - previous iPTH high this is mild and he has no symptoms follow (9) Wound of right foot: healed/resolved previously followed by wound care in [place] (10) Altered mental status: ammonia and u/a wnl Resolved, likely has some underlying dementia/cognitive impairment neuro referral after discharge (11) DVT prophylaxis: lovenox, add SCDs PT,OT while here -participated today and recommends return home with Home Health Dispo-remain on tele Subjective Pt reports feelin gbetter, less distended in his abd and feels legs are less swo llen No chest pain or SOB Tele with Afib, PVCs, frequent short runs of VT 3-5 beats Pacer interrogation reviewed and no alarming arrhythmias Pt feels he is steady on his feet and wants his red socks removed as he feels he is getting weaker here by not being able to move freely. Reviewed PT notes and he required a cane and minimal assistance-discussed with RN about walking him in halls with supervision and can change socks Pt also reports he does NOT take sertraline at home, but does seem confused about this and starts telling me a story about something else when asked if he takes medicine for depression Pt also reports that he does wear CPAP and O2 at home, but absolutely refuses to wear it while here, stating that "my oxygen levels here have been fine." Review of Systems All systems reviewed & are unremarkable except as noted in HPI & below Physical Exam Vital Signs (Past 24 Hours): Last Vital Signs Temp 36.5 C 09/09/18 19:00 Pulse 46 L 09/09/18 19:00 Resp 20 09/09/18 19:00 BP 121/61 09/09/18 19:00 Pulse Ox 94 09/09/18 19:00 Constitutional: WD/WN, vitals as above Eyes: PERRL, conjunctivae normal, anicteric sclerae ENMT: external ear and nose normal, oropharynx normal Neck: trachea midline, no thyromegaly Respiratory: normal respiratory effort, lungs clear to auscultation Cardiovascular: Rate/Rhythm: regular rate; + abnormal rhythm (irreg irreg) Heart Sounds: + murmur Extremities: + edema (3+ pitting edema to thighs bilat) Gastrointestinal (Abdomen): normal bowel sounds, soft, nontender, no hepatosplenomegaly (mildly distended) Musculoskeletal: Extremities: no cyanosis and no clubbing Skin: no rashes, warm and dry Neurologic: moves all extremities and awake; no focal motor deficits Psychiatric: A+Ox3, euthymic affect Results & Data Laboratory Results K+ 3.7, supervisor maintenance and custodians down to 1.69 Ca++ 10.3 (1) Atrial fibrillation Atrial fibrillation type: permanent Qualified Code(s): I48.2 - Chronic atrial fibrillation (2) Altered mental status Altered mental status type: unspecified Qualified Code(s): R41.82 - Altered mental status, unspecified (3) Hypertension Hypertension type: essential hypertension Qualified Code(s): I10 - Essential (primary) hypertension
[2018-09-10] MEDS: ACETAMINOPHEN 325 MG TAB PO PRN ×2 (00:24→21:18)
[2018-09-10 07:48] LABS: Hematocrit (blood only) 30.7 % (42-52); Hemoglobin 9.7 g/dL (14.0-18.0); Mean Corpuscular Hgb Conc 31.6 g/dL (32-36); Mean Platelet Volume 10.5 fL (7.4-10.4); Platelet Count 111 K/uL (130-400); RDW Coefficient of Variation 16.7 % (11.5-14.5); RDW Standard Deviation 52.4 fL (36.4-46.3); Red Blood Count 3.61 M/uL (4.7-6.1); White Blood Count 3.96 K/uL (4.8-10.8)
[2018-09-10 08:25] LABS: Calcium 10.3 mg/dl (8.5-10.1); Creatinine Clr Calc Pharmacy 49.8 ml/min; Est GFR (African American) 43.5; Est GFR (Non-African American) 37.5; Magnesium 2.2 mg/dl (1.8-2.4)
[2018-09-10] MEDS: AMLODIPINE BESYLATE 5 MG TAB PO SCH (08:31)
[2018-09-10] MEDS: CARVEDILOL 25 MG TAB PO SCH ×2 (08:32→21:17)
[2018-09-10] MEDS: FERROUS SULFATE 325 MG TAB PO SCH ×2 (08:32→17:39)
[2018-09-10] MEDS: MAGNESIUM OXIDE 400 MG TAB PO SCH (08:32)
[2018-09-10] MEDS: ASPIRIN 81 MG ECTAB PO SCH (08:32)
[2018-09-10] MEDS: POTASSIUM CHLORIDE 20 MEQ TABCR PO SCH ×2 (08:32→21:18)
[2018-09-10] MEDS: CEROVITE ADV FORMULA TAB PO SCH (08:32)
[2018-09-10] MEDS: CHOLECALCIFEROL 1,000 UNITS TAB PO SCH (08:33)
[2018-09-10] MEDS: BUMETANIDE 3 MG in SYRINGE 0 ML IV SCH ×2 (08:34→17:43)
[2018-09-10] MEDS: ENOXAPARIN INJ 40 MG/0.4 ML SYR SQ SCH (11:13)
--- NOTE | 2018-09-10 16:35 | Hospitalist Progress Note ---
Date of Service September 10, 2018 Assessment & Plan (1) Acute on chronic diastolic (congestive) heart failure: In the setting of chronic cor pulmonale. significant noncompliance with meds, O2/CPAP at home, and probably diet as well. has gained 20-30 pounds since previous hospital stay in early July. Weight here finally down 0.4 kg from yesterday and continues to have good urine output renal function remains stable from previous since starting higher dose of Bumex -continue bumex 3mg IV BID. -follow I/Os, daily weights, low Na+ diet -Stressed the importance of receiving IV loop diuretic as the bioavailability of oral diuretic is likely less than 50% given that he would have got edema-told him that if he goes home and tries to take oral Bumex, he will not have improvement and will likely have to come back to the hospital with worsening symptoms-patient begrudgingly accepts to stay another night in the family is in agreement would benefit from a CHF clinic for frequent visits or cardiac rehab. they DO have cardiac rehab program at [facility] -- patient lives in [place]. follows w/ Dr. Retana from [facility] (2) Acute on chronic right-sided congestive heart failure: as above. cor pulmonale likely from long-standing untreated ROLLY, probably severe ROLLY. no h/o PE. (3) CKD (chronic kidney disease) stage 3, GFR 30-59 ml/min: creatinine stable at 1.7 which is around his baseline BMP am. 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 twice daily no anticoagulation as above due to Confucianist/not able to get blood transfusions if needed (7) Hypertension: controlled with home med regimen Coreg, amlodipine, Bumex (8) Hypercalcemia: chronic going back several years Ca++ 10.3 and stable likely primary hyperparathyroidism - previous iPTH high this is mild and he has no symptoms follow (9) Wound of right foot: healed/resolved previously followed by wound care in [place] (10) Altered mental status: ammonia and u/a wnl Resolved, likely has some underlying dementia/cognitive impairment neuro referral after discharge (11) DVT prophylaxis: lovenox,SCDs PT,OT while here -participated (after initially declining) and recommends return home with Home Health Dispo-remain on tele, I believe that he would likely need many more days of IV diuresis, however he implies to me today that he will be leaving the hospital in the next day or so-I believe this would be AGAINST MEDICAL ADVICE and I told him as such today. Had extensive 45-minute conversation today in the room with the patient, his , his son, and [id number] about all of these issues and reviewed his case in detail with them Subjective Patient very anxious about having to remain in the hospital. Reports that he feels he can do just the same thing at home. His son, [id number], and are all in the room and asked a lot of questions today. They are concerned that his weight is not going down. The patient denies chest pain or shortness of breath. His leg swelling is still significant and family reports it is not improved from before admission. Patient is fairly adamant about going home in the very near future, however his is able to convince him to stay at least 1 more day. I discussed his case with his primary patternmaker hand on the phone. Patient reports that he has put out "5 of those urinals" however his weight is only gone down 0.4 kg and the I's and O's do not reflect this amount of urine being put out. Telemetry with atrial fibrillation with rates in the 70s with frequent PVCs sometimes with runs of V. tach from 2-4 beats Review of Systems All systems reviewed & are unremarkable except as noted in HPI & below Physical Exam Vital Signs (Past 24 Hours): Last Vital Signs Temp 36.4 C L 09/10/18 14:56 Pulse 81 09/10/18 16:09 Resp 20 09/10/18 14:56 BP 133/87 09/10/18 14:56 Pulse Ox 94 09/10/18 14:56 Constitutional: WD/WN, vitals as above Eyes: PERRL, conjunctivae normal, anicteric sclerae ENMT: external ear and nose normal, oropharynx normal Neck: trachea midline, no thyromegaly Respiratory: normal respiratory effort, lungs clear to auscultation Cardiovascular: Rate/Rhythm: regular rate; + abnormal rhythm (irreg irreg) Heart Sounds: + murmur Extremities: + edema (3+ pitting edema to thighs bilat) Gastrointestinal (Abdomen): normal bowel sounds, soft, nontender, no hepatosplenomegaly (mildly distended) Musculoskeletal: Extremities: no cyanosis and no clubbing Skin: no rashes, warm and dry Neurologic: moves all extremities and awake; no focal motor deficits Psychiatric: Orientation: alert, oriented to person and oriented to place Eye Contact: + fair eye contact Affect: + irritable affect Mood: + depressed mood Results & Data Laboratory Results 09/10/18 09/10/18 Range/Units 07:29 07:29 WBC 3.96 L (4.8-10.8) K/uL RBC 3.61 L (4.7-6.1) M/uL Hgb 9.7 L (14.0-18.0) g/dL Hct 30.7 L (42-52) % MCV 85.0 (80-100) fL MCH 26.9 (25-34) pg MCHC 31.6 L (32-36) g/dL RDW Std Deviation 52.4 H (36.4-46.3) fL RDW Coeff of Joshua 16.7 H (11.5-14.5) % Plt Count 111 L (130-400) K/uL MPV 10.5 H (7.4-10.4) fL Sodium 141 (136-145) mmol/L Potassium 4.0 (3.5-5.1) mmol/L Chloride 108 H (98-107) mmol/L Carbon Dioxide 27 (21-32) mmol/L Anion Gap 6.0 (3-11) BUN 46 H (7-18) mg/dl Creatinine 1.71 H (0.6-1.4) mg/dl Est Cr Clr Drug Dosing 49.8 ml/min Est GFR ( Amer) 43.5 Est GFR (Non-Af Amer) 37.5 BUN/Creatinine Ratio 27.0 H (10-20) Glucose 128 H (70-99) mg/dl Calcium 10.3 H (8.5-10.1) mg/dl Magnesium 2.2 (1.8-2.4) mg/dl (1) Atrial fibrillation Atrial fibrillation type: permanent Qualified Code(s): I48.2 - Chronic atrial fibrillation (2) Altered mental status Altered mental status type: unspecified Qualified Code(s): R41.82 - Altered mental status, unspecified (3) Hypertension Hypertension type: essential hypertension Qualified Code(s): I10 - Essential (primary) hypertension
[2018-09-11 06:42] LABS: Basophils # (auto) 0.02 K/uL (0-0.2); Basophils % (auto) 0.5 %; Eosinophils # (auto) 0.16 K/uL (0-0.5); Eosinophils % (auto) 4.1 %; Hematocrit (blood only) 32.6 % (42-52); Hemoglobin 10.2 g/dL (14.0-18.0); Immature Granulocytes # (auto) 0.01 K/uL (0.00-0.02); Immature Granulocytes % (auto) 0.3 %; Lymphocytes # (auto) 0.85 K/uL (1.2-3.4); Mean Corpuscular Hgb Conc 31.3 g/dL (32-36); Mean Corpuscular Volume 85.8 fL (80-100); Mean Platelet Volume 10.8 fL (7.4-10.4); Monocytes # (auto) 0.41 K/uL (0.11-0.59); Monocytes % (auto) 10.6 %; Neutrophils # (auto) 2.41 K/uL (1.4-6.5); Neutrophils % (auto) 62.5 %; Platelet Count 112 K/uL (130-400); RDW Coefficient of Variation 16.9 % (11.5-14.5); RDW Standard Deviation 52.7 fL (36.4-46.3); White Blood Count 3.86 K/uL (4.8-10.8)
[2018-09-11 07:07] LABS: BUN Creatinine Ratio 26.5 (10-20); Calcium 10.1 mg/dl (8.5-10.1); Creatinine Clr Calc Pharmacy 46.4 ml/min; Est GFR (African American) 40.1; Est GFR (Non-African American) 34.6; Magnesium 2.2 mg/dl (1.8-2.4); Potassium 4.1 mmol/L (3.5-5.1)
[2018-09-11 07:18] LABS: Ferritin 116.7 ng/ml (8-388)
[2018-09-11] MEDS: CARVEDILOL 25 MG TAB PO SCH ×2 (08:33→19:29)
[2018-09-11] MEDS: FERROUS SULFATE 325 MG TAB PO SCH ×2 (08:33→16:42)
[2018-09-11] MEDS: BUMETANIDE 3 MG in SYRINGE 0 ML IV SCH ×3 (08:33→18:44)
[2018-09-11] MEDS: AMLODIPINE BESYLATE 5 MG TAB PO SCH (08:34)
[2018-09-11] MEDS: POTASSIUM CHLORIDE 20 MEQ TABCR PO SCH (08:34)
[2018-09-11] MEDS: MAGNESIUM OXIDE 400 MG TAB PO SCH (08:34)
[2018-09-11] MEDS: CEROVITE ADV FORMULA TAB PO SCH (08:34)
[2018-09-11] MEDS: ASPIRIN 81 MG ECTAB PO SCH (08:35)
[2018-09-11] MEDS: CHOLECALCIFEROL 1,000 UNITS TAB PO SCH (08:35)
[2018-09-11 09:14] LABS: Folate (Folic Acid) 9.51 ng/ml (>5.38)
[2018-09-11] MEDS: ENOXAPARIN INJ 40 MG/0.4 ML SYR SQ SCH (10:59)
--- NOTE | 2018-09-11 12:22 | Hospitalist Progress Note ---
Date of Service September 11, 2018 Assessment & Plan (1) Acute on chronic diastolic (congestive) heart failure: In the setting of chronic cor pulmonale. With significant noncompliance with meds, O2/CPAP at home, and probably diet as well. has gained 20-30 pounds since previous hospital stay in early July. Weight here finally down 1 kg in the last 2 days and continues to have good urine output renal function slightly worse from previous since starting higher dose of Bumex -continue bumex 3mg IV BID. -follow I/Os, daily weights, low Na+ diet -consult Dietaician about counseling on low sodium diet -Stressed the importance of receiving IV loop diuretic as the bioavailability of oral diuretic is likely less than 50% given that he would have gut edema-told him that if he goes home and tries to take oral Bumex (as he has been insisting), he will not have improvement and will likely have to come back to the hospital with worsening symptoms-patient begrudgingly accepts to stay another night- family is in agreement -also discussed option of enrolling in Hospice if he truly does not want to remain hospitalized or return to the hospital repeatedly-he and his are thinking things over -d/w Nephro about dc-ing amlodipine as perhaps this is worsening his LE edema as well-will do so today follows w/ Dr. Retana from [facility]-not consulted but discussed the case on [address] Retana who is in agreement with my plan (2) Acute on chronic right-sided congestive heart failure: as above. cor pulmonale likely from long-standing untreated ROLLY, probably severe ROLLY. no h/o PE. (3) CKD (chronic kidney disease) stage 3, GFR 30-59 ml/min: creatinine slightly worse today at 1.83, baseline is 1.7 Severely volume overloaded, BPs controlled, not acidotic, K+ appropriate BMP am. -Avoid nephrotoxins -Renally dose medications when appropriate -consult Nephrology appreciated -dc standing order of KCl and replace prn -broached topic of future hemodialysis as in order to get volume off with diuretics, he may end up suffering worsening renal function Anemia of chronic disease--> Hgb 9-10, Fe studies consistent with chronic disease, transferrin sat mildly low at 9% B12 folate normal.TSH mildly elevated at 5.75 -follow CBC -continue Ferrous sulfate (4) Pacemaker: pacer interrogation does not show frequent rapid a.fib/flutter at home contributing to decompensated CHF tele this admission -continues with rate controlled A.fib/flutter, PVCs(frequent),nonsustained VT with small runs 3-5 beats and one 13 beat run today -continue Coreg 25mg bid Nonsustained VT--> asymptomatic, has ICD in place -continue beta jane (5) History of DVT (deep vein thrombosis): has IVC filter no 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 twice daily no anticoagulation as above due to Adventism/not able to get blood transfusions if needed (7) Hypertension: controlled with home med regimen Coreg, amlodipine, Bumex -will dc of amlodipine as above for LE edema (8) Hypercalcemia: chronic going back several years Ca++ 10.1-10.3 and stable likely primary hyperparathyroidism - previous iPTH high at 283 this is mild and he has no symptoms follow -check iPTH in AM, check Vit D in AM (9) Wound of right foot: healed/resolved previously followed by wound care in [place] (10) Altered mental status: ammonia and u/a wnl Resolved, likely has some underlying dementia/cognitive impairment neuro referral after discharge (11) DVT prophylaxis: lovenox,SCDs PT,OT while here -participated (after initially declining) and recommends return home with Home Health Dispo-remain on tele, I believe that he would likely need many more days of IV diuresis, however he implies to me today that he will be leaving the hospital in the next 1-2 days Subjective Feeling fine today, complains that he got no sleep last night. He is somewhat pleased that he lost a little bit of weight since yesterday. Reports making plenty of urine. Denies CP or SOB. Discussed the case with Nephrology Tele with Afib with runs of PVS, one VT run was 13 beats. Review of Systems All systems reviewed & are unremarkable except as noted in HPI & below Physical Exam Vital Signs (Past 24 Hours): Last Vital Signs Temp 36.4 C L 09/11/18 12:05 Pulse 71 09/11/18 12:05 Resp 20 09/11/18 12:05 BP 109/69 09/11/18 12:05 Pulse Ox 95 09/11/18 12:05 Constitutional: WD/WN, vitals as above Eyes: PERRL, conjunctivae normal, anicteric sclerae ENMT: external ear and nose normal, oropharynx normal Neck: trachea midline, no thyromegaly Respiratory: normal respiratory effort, lungs clear to auscultation Cardiovascular: Rate/Rhythm: regular rate; + abnormal rhythm (irreg irreg) Heart Sounds: + murmur Extremities: + edema (3+ pitting edema to thighs bilat not much improved from previous) Gastrointestinal (Abdomen): normal bowel sounds, soft, nontender, no hepatosplenomegaly (mildly distended) Musculoskeletal: Extremities: no cyanosis and no clubbing Skin: no rashes, warm and dry Neurologic: moves all extremities and awake; no focal motor deficits Psychiatric: Orientation: alert, oriented to person and oriented to place Eye Contact: + fair eye contact Affect: + irritable affect Mood: + depressed mood Results & Data Laboratory Results 09/11/18 09/11/18 09/11/18 Range/Units 06:26 06:26 06:26 WBC (4.8-10.8) K/uL RBC (4.7-6.1) M/uL Hgb (14.0-18.0) g/dL Hct (42-52) % MCV (80-100) fL MCH (25-34) pg MCHC (32-36) g/dL RDW Std Deviation (36.4-46.3) fL RDW Coeff of Joshua (11.5-14.5) % Plt Count (130-400) K/uL MPV (7.4-10.4) fL Immature Gran % (Auto) % Neut % (Auto) % Lymph % (Auto) % Russell % (Auto) % Eos % (Auto) % Baso % (Auto) % Immature Gran # (Auto) (0.00-0.02) K/uL Neut # (Auto) (1.4-6.5) K/uL Lymph # (Auto) (1.2-3.4) K/uL Russell # (Auto) (0.11-0.59) K/uL Eos # (Auto) (0-0.5) K/uL Baso # (Auto) (0-0.2) K/uL Sodium 139 (136-145) mmol/L Potassium 4.1 (3.5-5.1) mmol/L Chloride 106 (98-107) mmol/L Carbon Dioxide 30 (21-32) mmol/L Anion Gap 3.0 (3-11) BUN 48 H (7-18) mg/dl Creatinine 1.83 H (0.6-1.4) mg/dl Est Cr Clr Drug Dosing 46.4 ml/min Est GFR ( Amer) 40.1 Est GFR (Non-Af Amer) 34.6 BUN/Creatinine Ratio 26.5 H (10-20) Glucose 132 H (70-99) mg/dl Calcium 10.1 (8.5-10.1) mg/dl Magnesium 2.2 (1.8-2.4) mg/dl Iron 33 L (35-175) mcg/dl TIBC 334 (250-450) mcg/dl Transferrin 257 (200-360) mg/dl Transferrin % Sat 9 L (20-50) % Ferritin 116.7 (8-388) ng/ml Vitamin B12 688 (211-911) pg/ml Folate 9.51 Cancelled TSH 5.750 H (0.300-4.500) uIu/ml 09/11/18 Range/Units 06:26 WBC 3.86 L (4.8-10.8) K/uL RBC 3.80 L (4.7-6.1) M/uL Hgb 10.2 L (14.0-18.0) g/dL Hct 32.6 L (42-52) % MCV 85.8 (80-100) fL MCH 26.8 (25-34) pg MCHC 31.3 L (32-36) g/dL RDW Std Deviation 52.7 H (36.4-46.3) fL RDW Coeff of Joshua 16.9 H (11.5-14.5) % Plt Count 112 L (130-400) K/uL MPV 10.8 H (7.4-10.4) fL Immature Gran % (Auto) 0.3 % Neut % (Auto) 62.5 % Lymph % (Auto) 22.0 % Russell % (Auto) 10.6 % Eos % (Auto) 4.1 % Baso % (Auto) 0.5 % Immature Gran # (Auto) 0.01 (0.00-0.02) K/uL Neut # (Auto) 2.41 (1.4-6.5) K/uL Lymph # (Auto) 0.85 L (1.2-3.4) K/uL Russell # (Auto) 0.41 (0.11-0.59) K/uL Eos # (Auto) 0.16 (0-0.5) K/uL Baso # (Auto) 0.02 (0-0.2) K/uL Sodium (136-145) mmol/L Potassium (3.5-5.1) mmol/L Chloride (98-107) mmol/L Carbon Dioxide (21-32) mmol/L Anion Gap (3-11) BUN (7-18) mg/dl Creatinine (0.6-1.4) mg/dl Est Cr Clr Drug Dosing ml/min Est GFR ( Amer) Est GFR (Non-Af Amer) BUN/Creatinine Ratio (10-20) Glucose (70-99) mg/dl Calcium (8.5-10.1) mg/dl Magnesium (1.8-2.4) mg/dl Iron (35-175) mcg/dl TIBC (250-450) mcg/dl Transferrin (200-360) mg/dl Transferrin % Sat (20-50) % Ferritin (8-388) ng/ml Vitamin B12 (211-911) pg/ml Folate TSH (0.300-4.500) uIu/ml (1) Atrial fibrillation Atrial fibrillation type: permanent Qualified Code(s): I48.2 - Chronic atrial fibrillation (2) Altered mental status Altered mental status type: unspecified Qualified Code(s): R41.82 - Altered mental status, unspecified (3) Hypertension Hypertension type: essential hypertension Qualified Code(s): I10 - Essential (primary) hypertension
--- NOTE | 2018-09-11 13:06 | Nephrology Consultation ---
Date of Consultation September 11, 2018 Assessment & Plan (1) CKD (chronic kidney disease) stage 3, GFR 30-59 ml/min: -- Patient has not been seen in [facility] Nephrology office for ~ 2 years. He was lost to follow up -- Kidney function remains stable at this time w/ baseline creatinine 1.8 -- Urinalysis is negative for blood or protein -- Continue to monitor serial PRP (2) Acute on chronic right-sided congestive heart failure: -- Recommend consulting Cardiology as they have actively managed his R heart failure as outpatient -- Stop Amlodipine as this may contribute to LE swelling -- Recommend consultation w/ dietitian to provide education on low sodium diet -- Consider LE compression stockings -- Continue Bumex 3 mg IV BID. Monitor I&O's and physical exam. Weight is incongruent with I&O's. Suspect weights are in error (no change since admission to hospital despite documented 4 L net diuresis) -- Hold Metolazone as patient appears to be responding to loop diuretic. [place] aggressive diuresis may predispose to PARTH -- Patient w/ documented history of poor medical adherence. Extensive discussion this afternoon about low sodium diet, importance of taking diuretics on a regular basis/keeping OV's and using CPAP machine. We touched briefly on the role of HD for cardiorenal syndrome. Patient is a poor candidate for HD due to his h/o poor medical adherence History of Present Illness Reason for Consultation: CKD, LE edema Attending Physician: Guerita Whyte MD History of Present Illness Mr. Benavides is a 77 year old white male who is seen at the request of Dr. Whyte for evaluation of CKD and LE swelling. Medical records in the EMR were reviewed today and are summarized as follows: Mr. Benavides has stage III CKD w/ baseline creatinin 1.8, EGFR 40 - 45 cc/min dating back to 2012. His Town Planner has been Dr. Lopez. Previous evaluation has revealed HTN, unilateral FREDA, multicystic kidney disease, s/p partial L nephrectomy, hyperparathyroidism and nephrolithiasis. His last Nephrology OV was 10/12. He was advised to return in 2 months but was lost to follow up. Mr. Benavides's medical history is also significant for medical noncompliance, ROLLY, DVT s/p Sharla filter. Mr. Benavides has pulmonary hypertension and cor pulmonale. He has been managed by [facility]. His outpatient diuretic regimen has been Bumex 2 mg each morning and 1 mg each evening. Mr. Benavides notes that over the last month he has missed several doses of his oral diuretic. His weight has risen from 114 kg (251 lbs) to 123 kg (270 lbs). He developed tense LE swelling that limited his ability to ambulate. Mr. Benavides presented to [facility] 09/06 for evaluation. He was admitted to the hospitalist service and placed on Bumex 3 mg IV BID. Cumulative I&O's reveal net 4 L volume loss although weight is unchanged. Mr. Benavides notes that his edema is mildly improved. He repeatedly states that he is anxious to return home and may leave the hospital AMA. Allergies Allergy/AdvReac Type Severity Reaction Status Date / Time adhesive Allergy Intermediate REDDENED, Verified 08/24/18 07:27 ITCHY SKIN ALL OPIOIDS Allergy Severe "SEVERE" Uncoded 08/24/18 07:27 DELIRIUM Home Medications Home Medications Medication Instructions Recorded Confirmed Type amlodipine 5 mg PO QAM 08/10/18 09/06/18 History aspirin 81 mg PO QAM 08/10/18 09/06/18 History bumetanide 2 mg PO QAM 08/10/18 09/06/18 History carvedilol 25 mg PO BID 08/10/18 09/06/18 History cholecalciferol (vitamin D3) 6,000 unit PO QAM 08/10/18 09/06/18 History ferrous sulfate 325 mg PO BID 08/10/18 09/06/18 History lorazepam 0.5 mg PO BID PRN 08/10/18 09/06/18 History magnesium oxide 400 mg PO QAM 08/10/18 09/06/18 History multivitamin with minerals 1 tab PO QAM 08/10/18 09/06/18 History amoxicillin 2,000 mg PO UD PRN 09/06/18 09/06/18 History bumetanide 1 mg PO QPM 09/06/18 09/06/18 History Patient History Medical History Anemia Anxiety Atrial fibrillation Basal cell carcinoma removed in office CKD (chronic kidney disease) DVT (deep venous thrombosis) S/p IVC filter Deep vein thrombosis Diastolic heart failure Hypertension Kidney stones Nonischemic cardiomyopathy recent hospital admission. see cardiology consult note for this patient. On home oxygen therapy 02 at 2L n/c hs Osteoarthritis Sleep apnea 02 at 2L n/c Spinal stenosis Ventricular fibrillation Surgical History Mantador filter in place @ [facility] History of blepharoplasty bilt History of cardiac cath at least 20yrs ago, no stents History of kidney surgery 06/30 right kidney removed--"bloody mass that was removed" History of tooth extraction History of total right knee replacement (TKR) ICD (implantable cardioverter-defibrillator) in place 06/2011; [employer] device Family History Father Hypertension Other No family history of adverse response to anesthesia Social History Communication Ability: Effective Beliefs That Will Affect Care: Congregation marital status: Current Living Situation: Spouse Other Information That Helps Us Care for You: No Feels Safe at Home: Yes Safety Concerns: Feels Safe At This Time Smoking Status: Never smoker Hx Alcohol Use: Yes Hx Substance Use: No Review of Systems Respiratory: no cough and no dyspnea Cardiovascular: + edema; no chest pain and no dyspnea Gastrointestinal: no vomiting and no diarrhea/loose stools Physical Exam Vital Signs (Past 24 Hours): Last Vital Signs Temp 36.4 C L 09/11/18 12:05 Pulse 71 09/11/18 12:05 Resp 20 09/11/18 12:05 BP 109/69 09/11/18 12:05 Pulse Ox 95 09/11/18 12:05 Constitutional: + overweight Eyes: PERRL Neck: trachea midline, no thyromegaly JVD to the angle of the jaw while seated upright Respiratory: normal respiratory effort, lungs clear to auscultation Cardiovascular: Rate/Rhythm: regular rate and regular rhythm Gastrointestinal (Abdomen): Inspection/Auscultation: + abdomen distended Results & Data Laboratory Results Laboratory Tests 09/08/18 09/11/18 09/11/18 19:20 06:26 06:26 WBC 3.86 L Hgb 10.2 L Hct 32.6 L Plt Count 112 L Sodium 139 Potassium 4.1 Chloride 106 Carbon Dioxide 30 BUN 48 H Creatinine 1.83 H Glucose 132 H Urine Color Yellow Urine Appearance Clear Urine pH 5.0 Ur Specific [place] 1.014 Urine Protein Negative Urine Glucose (UA) Negative Urine Blood Negative Urine Nitrite Negative Ur Leukocyte Esterase Negative
[2018-09-11] MEDS: ACETAMINOPHEN 325 MG TAB PO PRN (19:25)
--- NOTE | 2018-09-11 22:56 | Ultrasound Report ---
US venous doppler LE BI CLINICAL HISTORY: Lower extremity edema. History of prior DVT. COMPARISON STUDY: November 2017 FINDINGS: Real-time and color flow Doppler imaging were performed. Flow was seen within the femoral, popliteal and calf veins with no intraluminal thrombus demonstrated. The saphenous vein is patent. Th e examination was moderately limited from a technical standpoint due to the patient's body habitus an d lower extremity edema. IMPRESSION: No evidence of lower extremity DVT. Electronically signed by: Daniel Hoffman M.D. 09/11/2018 10:55 PM
[2018-09-12] MEDS: CARVEDILOL 25 MG TAB PO SCH ×2 (07:42→20:11)
[2018-09-12] MEDS: CHOLECALCIFEROL 1,000 UNITS TAB PO SCH (07:44)
[2018-09-12] MEDS: CEROVITE ADV FORMULA TAB PO SCH (07:44)
[2018-09-12] MEDS: ASPIRIN 81 MG ECTAB PO SCH (07:44)
[2018-09-12] MEDS: MAGNESIUM OXIDE 400 MG TAB PO SCH (07:44)
[2018-09-12 08:17] LABS: BUN Creatinine Ratio 27.9 (10-20); Calcium 10.4 mg/dl (8.5-10.1); Creatinine Clr Calc Pharmacy 51.2 ml/min; Est GFR (African American) 45.1; Est GFR (Non-African American) 38.9; Potassium 4.2 mmol/L (3.5-5.1)
[2018-09-12] MEDS: FERROUS SULFATE 325 MG TAB PO SCH ×2 (09:17→17:52)
[2018-09-12] MEDS: BUMETANIDE 3 MG in SYRINGE 0 ML IV SCH (09:17)
[2018-09-12] MEDS: ENOXAPARIN INJ 40 MG/0.4 ML SYR SQ SCH (11:17)
--- NOTE | 2018-09-12 11:44 | Nephrology Progress Note ---
Date of Service September 12, 2018 Assessment & Plan (1) CKD (chronic kidney disease) stage 3, GFR 30-59 ml/min: -- Patient has not been seen in [facility] office for ~ 2 years. He was lost to follow up -- Kidney function remains stable at this time w/ baseline creatinine 1.8 -- Urinalysis is negative for blood or protein -- Continue to monitor serial PRP (2) Acute on chronic right-sided congestive heart failure: -- Continue Bumex 3 mg IV BID., has been net - >1 L/24 h -- explained to pt the need for IV du=]iuretics for few motre days but pt reluctant to stay. If pt decides to leave, would continue on Bumex 3 mg BId as an out pt and he will need close monitoring of lab and volume status by heart failure clinic. -- Patient w/ documented history of poor medical adherence. Extensive discussion this afternoon about low sodium diet, importance of taking diuretics on a regular basis/keeping OV's and using CPAP machine. We touched briefly on the role of HD for cardiorenal syndrome. Patient is a poor candidate for HD due to his h/o poor medical adherence Subjective Teodoro was seen and examined in his room this am. He has been bothered by not being able to sleep here. Denies SOB, CP. LE edema improving. >1 L net - Review of Systems Detail ROS was unremarkable. Cardiovascular: + edema; no chest pain and no dyspnea Physical Exam Vital Signs (Past 24 Hours): Last Vital Signs Temp 36.5 C 09/12/18 11:21 Pulse 88 09/12/18 11:21 Resp 18 09/12/18 11:21 BP 112/75 09/12/18 11:21 Pulse Ox 76 L 09/12/18 11:21 Constitutional: WD/WN, vitals as above Neck: supple Respiratory: Auscultation: + diminished lung sounds and + rales Cardiovascular: Heart Sounds: normal S1 and normal S2 Extremities: + edema
--- NOTE | 2018-09-12 17:36 | Hospitalist Progress Note ---
Date of Service September 12, 2018 Assessment & Plan (1) Acute on chronic diastolic (congestive) heart failure: In the setting of chronic cor pulmonale. With significant noncompliance with meds, O2/CPAP at home, and probably diet as well. has gained 20-30 pounds since previous hospital stay in early July. Weight has been stubborn, down 1 a kg total, 5L -continue bumex 3mg IV BID. -follow I/Os, daily weights, low Na+ diet -consult Dietaician about counseling on low sodium diet -Long discussion involving myself, Dr. Shields, patient and his . They do not seem ready yet for hospice but they are also unhappy with frequent hospitalizations and also maintaining heart failure regimen. In the end, patient agreed to stay for a few more nights to get him optimized for home and hopefully will have renewed incentive to keep with his medication regimen as he does not want to come to the hospital again. -d/c'd amlodipine d/t leg swelling - Consulted Dr. Retana who patient sees outpatient (2) Acute on chronic right-sided congestive heart failure: as above. cor pulmonale likely from long-standing ROLLY - patient does say he has CPAP set up at home which he is using no h/o PE. (3) CKD (chronic kidney disease) stage 3, GFR 30-59 ml/min: Creat stable at 1.66 Severely volume overloaded, BPs controlled, not acidotic, K+ appropriate BMP am. -Avoid nephrotoxins -Renally dose medications when appropriate -consulted Nephrology -dc'd standing order of KCl and replace prn -per nephro - not a dialysis candidate should his renal function worsen (4) Pacemaker: pacer interrogation does not show frequent rapid a.fib/flutter at home contributing to decompensated CHF tele this admission -continues with rate controlled A.fib/flutter, PVCs(frequent),nonsustained VT with small runs 3-5 beats -continue Coreg 25mg bid - patient is not anticoagulated due to [employer]hova's Witness suellen Nonsustained VT--> asymptomatic, has ICD in place -continue beta jane (5) History of DVT (deep vein thrombosis): has IVC filter no anticoagulation due to h/o Jehova's Witness suellen LE US negative for DVT (6) Atrial fibrillation: controlled rates cont carvedilol 25 mg p.o. twice daily no anticoagulation as above due to Hoahaoism/not able to get blood transfusions if needed (7) Hypertension: controlled with home med regimen Coreg, amlodipine, Bumex -will dc of amlodipine as above for LE edema (8) Hypercalcemia: chronic going back several years Ca++ 10.1-10.4 and stable likely primary hyperparathyroidism - previous iPTH high at 283, repeated 09/12 at 204 this is mild and he has no symptoms follow -Vitamin D high 106 - discontinue cholecalciferol - patient was taking 6000 units daily (9) Wound of right foot: healed/resolved previously followed by wound care in [place] (10) Altered mental status: Resolved ammonia and u/a wnl Likely has some underlying dementia/cognitive impairment neuro referral after discharge (11) Anemia in chronic kidney disease: Anemia of chronic disease--> Hgb 9-10, Fe studies consistent with chronic disease, transferrin sat mildly low at 9% B12 folate normal.TSH mildly elevated at 5.75 -follow CBC -continue Ferrous sulfate (12) DVT prophylaxis: lovenox, SCDs PT,OT while here -participated (after initially declining) and recommends return home with Home Health Dispo-remain on tele Subjective Mr. Benavides is frustrated with his continued stay in the hospital. He continues to have edema in his lower extremities. He has been in atrial fibrillation while inpatient, rate controlled. He had a 6 beat run of V tach this morning, asymptomatic Review of Systems All systems reviewed & are unremarkable except as noted in HPI & below Physical Exam Vital Signs (Past 24 Hours): Last Vital Signs Temp 36.5 C 09/12/18 11:21 Pulse 69 09/12/18 15:39 Resp 18 09/12/18 11:21 BP 112/75 09/12/18 11:21 Pulse Ox 76 L 09/12/18 11:21 Physical Exam: General: no distress Eyes: normal inspection, PERLL Respiratory: chest non tender, clear to auscultation, normal breath sounds, some respiratory effort especially with speech Cardiac: irregular rate and rhythm, no rub or gallop, no murmur, +2 pitting edema lower extremities GI/: active bowel sounds, no abd pain or tenderness, soft, distended Extremities: normal range of motion, normal strength, non tender Neuro/Psych: alert and oriented x 3, normal mood and affect Skin: normal color, dry, lower extremities with chronic pvd changes - reddened bilaterally Results & Data Laboratory Results Abnormal lab results 09/12/18 09/12/18 09/12/18 Range/Units 07:30 07:30 07:30 BUN 46 H (7-18) mg/dl Creatinine 1.66 H (0.6-1.4) mg/dl BUN/Creatinine Ratio 27.9 H (10-20) Calcium 10.4 H (8.5-10.1) mg/dl 25-OH Vitamin D Total 106.3 H (30-100) ng/ml PTH Intact 204.6 H (18.4-80.1) pg/ml (1) Atrial fibrillation Atrial fibrillation type: permanent Qualified Code(s): I48.2 - Chronic atrial fibrillation (2) Hypertension Hypertension type: essential hypertension Qualified Code(s): I10 - Essential (primary) hypertension (3) Altered mental status Altered mental status type: unspecified Qualified Code(s): R41.82 - Altered mental status, unspecified
[2018-09-12] MEDS: BUMETANIDE SOLN 1 MG/4 ML VIAL IV SCH (17:51)
[2018-09-13] MEDS: CARVEDILOL 25 MG TAB PO SCH (08:28)
[2018-09-13] MEDS: ASPIRIN 81 MG ECTAB PO SCH (08:29)
[2018-09-13] MEDS: FERROUS SULFATE 325 MG TAB PO SCH ×2 (08:29→17:56)
[2018-09-13] MEDS: MAGNESIUM OXIDE 400 MG TAB PO SCH (08:29)
[2018-09-13 08:52] LABS: Basophils # (auto) 0.03 K/uL (0-0.2); Basophils % (auto) 0.7 %; Eosinophils # (auto) 0.16 K/uL (0-0.5); Eosinophils % (auto) 3.8 %; Hematocrit (blood only) 32.2 % (42-52); Hemoglobin 10.1 g/dL (14.0-18.0); Immature Granulocytes # (auto) 0.01 K/uL (0.00-0.02); Immature Granulocytes % (auto) 0.2 %; Lymphocytes % (auto) 18.8 %; Mean Corpuscular Hgb Conc 31.4 g/dL (32-36); Mean Corpuscular Volume 86.8 fL (80-100); Mean Platelet Volume 10.7 fL (7.4-10.4); Monocytes # (auto) 0.39 K/uL (0.11-0.59); Monocytes % (auto) 9.2 %; Neutrophils # (auto) 2.86 K/uL (1.4-6.5); Neutrophils % (auto) 67.3 %; Platelet Count 106 K/uL (130-400); RDW Coefficient of Variation 16.8 % (11.5-14.5); RDW Standard Deviation 53.6 fL (36.4-46.3); Red Blood Count 3.71 M/uL (4.7-6.1); White Blood Count 4.25 K/uL (4.8-10.8)
[2018-09-13 09:27] LABS: BUN Creatinine Ratio 24.7 (10-20); Calcium 10.6 mg/dl (8.5-10.1); Creatinine Clr Calc Pharmacy 47.3 ml/min; Est GFR (African American) 41.1; Est GFR (Non-African American) 35.5; Potassium 4.1 mmol/L (3.5-5.1)
[2018-09-13] MEDS: CEROVITE ADV FORMULA TAB PO SCH (09:32)
[2018-09-13] MEDS: BUMETANIDE SOLN 1 MG/4 ML VIAL IV SCH ×2 (09:33→17:56)
[2018-09-13] MEDS: ENOXAPARIN INJ 40 MG/0.4 ML SYR SQ SCH (10:26)
--- NOTE | 2018-09-13 11:30 | Nephrology Progress Note ---
Date of Service September 13, 2018 Assessment & Plan (1) CKD (chronic kidney disease) stage 3, GFR 30-59 ml/min: -- Kidney function remains stable at this time w/ baseline creatinine 1.8 (2) Acute on chronic right-sided congestive heart failure: -- Continue Bumex 3 mg IV BID, has been net - >2 L/24 h -- explained to pt the need for IV diuretics for few more days but pt reluctant to stay. If pt decides to leave, would continue on Bumex 3 mg BId as an out pt and he will need close monitoring of lab and volume status by heart failure clinic. -- suggest parathyroid scan Subjective Teodoro was seen and examined in his room this am with his at bedside. Denies SOB, CP. Continues to significant LE edema but there has been some slow improvement, persistently net negative, more than 2 L negative overnight. Renal function remained stable. Cardiovascular: + edema; no chest pain and no dyspnea Physical Exam Vital Signs (Past 24 Hours): Last Vital Signs Temp 36.5 C 09/13/18 07:26 Pulse 79 09/13/18 09:27 Resp 18 09/13/18 07:26 BP 118/65 09/13/18 09:27 Pulse Ox 94 09/13/18 07:26 Constitutional: WD/WN, vitals as above Respiratory: Auscultation: + diminished lung sounds and + rales Cardiovascular: Heart Sounds: normal S1 and normal S2 Extremities: + edema
--- NOTE | 2018-09-13 14:40 | Palliative Care Consultation ---
Date of Consultation September 13, 2018 Assessment & Plan (1) Goals of care, counseling/discussion: -77 year old male with PMH chronic diastolic congestive heart failure, chronic lower extremity edema, recurrent lower extremity cellulitis, Afib, Vfib and cardiac arrest s/p pacer/AICD placement, nonischemic cardiomyopathy with recovered EF 50-55% (was 15% at one point), obstructive sleep apnea on CPAP, supposed to be on oxygen 2L at night. Presented with increased LE edema from his chargemaster analyst's office. H&P states that most recent echo 06/2018 showed severely dilated RV with RV dysfunction, moderate pulmonary hypertension with moderate TR and type II diastolic dysfunction. Patient has had multiple failed treatments with different cardiac medications, complicated by patient's nonadherence to medical treatment plan for different reasons. Now, patient's kidney function is worsening as evidenced by a climbing creatinine. Nephrology has been involved during this admission. Creatinine is thankfully remaining stable at 1.6-1.8 the last few days while being diuresed on IV Bumex. If renal function continues to worsen, prognosis is poor. Palliative care is consulted to discuss goals of care and possible hospice. -Met with patient and his , Kimmie, in room 262. -Patient immediately began asking about hospice when I sat down to talk. He stated that his goal is to be at home and does not want to keep coming back and forth to hospital. However, he is still reluctant to say with 100% certainty that he would not come back to the hospital for treatment. Patient and his did verbalize understanding that there are limited treatment options left for him at this point. Overall, goal is for comfort and quality of life. -Patient wants to give home hospice a try. The child welfare caseworker will have [facility] hospice evaluate patient, as he already has them for home health. Based on patient's right sided heart failure, increasing LE edema and recurrent cellulitis, worsening renal function, and readmissions to hospital, I do believe patient could have a prognosis of six months or less. We will see what hospice's evaluation is. -Discussed CODE STATUS. Patient said, "If it were only up to me, I wouldn't want anything done, but my wants me around for as long as possible." After much discussion with patient and his , we will change him to DO NOT RESUSCITATE per his wishes. -For now, continue current treatment and work towards a medication regimen for home. Patient stated that logistically, Wednesday morning at 1000 would work well for him for discharge. (2) Anemia in chronic kidney disease: (3) Acute on chronic right-sided congestive heart failure: (4) CKD (chronic kidney disease) stage 3, GFR 30-59 ml/min: (5) ROLLY (obstructive sleep apnea): (6) Ventricular fibrillation: Supervising Physician Co-Signing Physician Notes Chart reviewed, patient seen and examined. Collaborated with JOSUE Brandon Patient examined in his room, no family at bedside. Patient reiterated his decision for going home under hospice care. PE: No acute distress HEENT: EOMI, hearing within normal limits CV: Regular rate, irregular rhythm, 3+ pitting edema, not currently weeping Abdomen: Positive bowel sounds Neuro: Alert and oriented x4 Agree with above note, assessment and plan as per JOSUE Brandon. Will continue to follow and provide support for continued medical decision making. Plan is for discharge home with hospice. History of Present Illness Attending Physician: Randy Shields MD History of Present Illness This 77 year old male with PMH chronic diastolic congestive heart failure, chronic lower extremity edema, recurrent lower extremity cellulitis, Afib, Vfib and cardiac arrest s/p pacer/AICD placement, nonischemic cardiomyopathy with recovered EF 50-55% (was 15% at one point), obstructive sleep apnea on CPAP, supposed to be on oxygen 2L at night. Presented with increased LE edema from his chargemaster analyst's office. H&P states that most recent echo 06/2018 showed severely dilated RV with RV dysfunction, moderate pulmonary hypertension with moderate TR and type II diastolic dysfunction. Patient has had multiple failed treatments with different cardiac medications, complicated by patient's nonadherence to medical treatment plan for different reasons. Now, patient's kidney function is worsening as evidenced by a climbing creatinine. Nephrology has been involved during this admission. Creatinine is thankfully remaining stable at 1.6-1.8 the last few days while being diuresed on IV Bumex. If renal function continues to worsen, prognosis is poor. Palliative care is consulted to discuss goals of care and possible hospice. Thank you kindly for this consult. I will follow during hospitalization. Allergies Allergy/AdvReac Type Severity Reaction Status Date / Time adhesive Allergy Intermediate REDDENED, Verified 08/24/18 07:27 ITCHY SKIN ALL OPIOIDS Allergy Severe "SEVERE" Uncoded 08/24/18 07:27 DELIRIUM Home Medications Home Medications Medication Instructions Recorded Confirmed Type amlodipine 5 mg PO QAM 08/10/18 09/06/18 History aspirin 81 mg PO QAM 08/10/18 09/06/18 History bumetanide 2 mg PO QAM 08/10/18 09/06/18 History carvedilol 25 mg PO BID 08/10/18 09/06/18 History cholecalciferol (vitamin D3) 6,000 unit PO QAM 08/10/18 09/06/18 History ferrous sulfate 325 mg PO BID 08/10/18 09/06/18 History lorazepam 0.5 mg PO BID PRN 08/10/18 09/06/18 History magnesium oxide 400 mg PO QAM 08/10/18 09/06/18 History multivitamin with minerals 1 tab PO QAM 08/10/18 09/06/18 History amoxicillin 2,000 mg PO UD PRN 09/06/18 09/06/18 History bumetanide 1 mg PO QPM 09/06/18 09/06/18 History Patient History Medical History Anemia Anxiety Atrial fibrillation Basal cell carcinoma removed in office CKD (chronic kidney disease) DVT (deep venous thrombosis) S/p IVC filter Deep vein thrombosis Diastolic heart failure Hypertension Kidney stones Nonischemic cardiomyopathy recent hospital admission. see cardiology consult note for this patient. On home oxygen therapy 02 at 2L n/c hs Osteoarthritis Sleep apnea 02 at 2L n/c Spinal stenosis Ventricular fibrillation Surgical History Sharla filter in place @ [facility] [place] History of blepharoplasty bilt History of cardiac cath at least 20yrs ago, no stents History of kidney surgery 06/30 right kidney removed--"bloody mass that was removed" History of tooth extraction History of total right knee replacement (TKR) ICD (implantable cardioverter-defibrillator) in place 06/2011; [employer] device Family History Father Hypertension Other No family history of adverse response to anesthesia Social History Communication Ability: Effective Beliefs That Will Affect Care: [employer] marital status: Current Living Situation: Spouse Other Information That Helps Us Care for You: No Feels Safe at Home: Yes Safety Concerns: Feels Safe At This Time Smoking Status: Never smoker Hx Alcohol Use: Yes Hx Substance Use: No Review of Systems Constitutional: + weakness and + weight gain Ear, Nose, Mouth, Throat: no dysphagia Respiratory: + dyspnea on exertion; no cough Cardiovascular: + edema; no chest pain Gastrointestinal: no abdominal pain and no nausea Genitourinary (Male): + urinary frequency (due to diuretic medications) and + urinary urgency Neurologic: no confusion Psychiatric: + depression; no anxiety Physical Exam Vital Signs (Past 24 Hours): Last Vital Signs Temp 36.5 C 09/13/18 11:46 Pulse 70 09/13/18 11:46 Resp 18 09/13/18 11:46 BP 116/60 09/13/18 11:46 Pulse Ox 94 09/13/18 11:46 Constitutional: + ill appearing (chronically) and + obese; no acute distress ENMT: external ear and nose normal, oropharynx normal Neck: normal visual inspection and trachea midline Respiratory: normal respiratory effort, lungs clear to auscultation Auscultation: + diminished lung sounds Cardiovascular: Rate/Rhythm: regular rate; + abnormal rhythm Extremities: + edema (> +4 pitting edema to BLE) Gastrointestinal (Abdomen): Inspection/Auscultation: abdomen normal to inspection and normal bowel sounds Percussion/Palpation: abdomen soft Neurologic: awake; not confused Psychiatric: Orientation: alert and oriented x 3 Affect: + depressed affect Time Spent Midlevel 105 minutes with >50% of time spent at bedside with patient and his discussing medical condition, GOC, and CODE STATUS.
--- NOTE | 2018-09-13 18:53 | Hospitalist Progress Note ---
Date of Service September 13, 2018 Assessment & Plan (1) Acute on chronic diastolic (congestive) heart failure: In the setting of chronic cor pulmonale. With significant noncompliance with meds, O2/CPAP at home, and probably diet as well. has gained 20-30 pounds since previous hospital stay in early July. Weight has been stubborn, down 2 a kg total, 7L -continue bumex 3mg IV BID. -follow I/Os, daily weights, low Na+ diet -consult Dietaician about counseling on low sodium diet -d/c'd amlodipine d/t leg swelling - Consulted Dr. Retana who patient sees outpatient - increase Coreg by 6.25 - consulted palliative care - patient will go home on hospice but would like to finish being treated here first. (2) Acute on chronic right-sided congestive heart failure: as above. cor pulmonale likely from long-standing ROLLY - patient does say he has CPAP set up at home which he is using no h/o PE. (3) CKD (chronic kidney disease) stage 3, GFR 30-59 ml/min: Creat stable at 1.66 Severely volume overloaded, BPs controlled, not acidotic, K+ appropriate BMP am. -Avoid nephrotoxins -Renally dose medications when appropriate -consulted Nephrology -dc'd standing order of KCl and replace prn -per nephro - not a dialysis candidate should his renal function worsen (4) Pacemaker: pacer interrogation does not show frequent rapid a.fib/flutter at home contributing to decompensated CHF tele this admission -continues with rate controlled A.fib/flutter, PVCs(frequent),nonsustained VT with small runs 3-5 beats -continue Coreg 25mg bid - patient is not anticoagulated due to [employer] suellen Nonsustained VT--> asymptomatic, has ICD in place -continue beta jane (5) History of DVT (deep vein thrombosis): has IVC filter no anticoagulation due to h/o Jeh[employer]'s Witness suellen LE US negative for DVT (6) Atrial fibrillation: controlled rates Carvedilol increased as above no anticoagulation as above due to [employer]/not able to get blood transfusions if needed (7) Hypertension: controlled with home med regimen Coreg, amlodipine, Bumex -will dc of amlodipine as above for LE edema (8) Hypercalcemia: chronic going back several years Ca++ 10.1-10.4 - 10.6 today, corrected for albumin is 11.4 likely primary hyperparathyroidism - previous iPTH high at 283, repeated 09/12 at 204 this is mild and he has no symptoms - will defer on work up given his wish for hospice at discharge -Vitamin D high 106 - discontinue cholecalciferol - patient was taking 6000 units daily - will hold off on treating with bisphosphonate due to renal function (9) Hyperparathyroidism: As above (10) Wound of right foot: healed/resolved previously followed by wound care in [place] (11) Altered mental status: Resolved ammonia and u/a wnl Likely has some underlying dementia/cognitive impairment neuro referral after discharge (12) Anemia in chronic kidney disease: Anemia of chronic disease--> Hgb 9-10, Fe studies consistent with chronic disease, transferrin sat mildly low at 9% B12 folate normal.TSH mildly elevated at 5.75 -follow CBC -continue Ferrous sulfate (13) DVT prophylaxis: lovenox, SCDs Dispo- home with home health Subjective Mr. Benavides is very fatigued today. He has been having frequent short bursts of wide complex runs on the monitor which he is asymptomatic for. Review of Systems All systems reviewed & are unremarkable except as noted in HPI & below Physical Exam Vital Signs (Past 24 Hours): Last Vital Signs Temp 36.5 C 09/13/18 15:13 Pulse 76 09/13/18 17:55 Resp 18 09/13/18 15:13 BP 149/100 H 09/13/18 17:55 Pulse Ox 94 09/13/18 15:13 Physical Exam: General: no distress Eyes: normal inspection, PERLL Respiratory: chest non tender, clear to auscultation, normal breath sounds, no respiratory distress, no accessory muscle use Cardiac: regular rate and rhythm, no rub or gallop, no murmur, +2 pitting edema lower extremities GI/: active bowel sounds, no abd pain or tenderness, soft, non distended Extremities: normal range of motion, normal strength, non tender Neuro/Psych: alert and oriented x 3, normal mood and affect Skin: normal color, dry Results & Data Laboratory Results Abnormal lab results 09/13/18 09/13/18 Range/Units 08:36 08:36 WBC 4.25 L (4.8-10.8) K/uL RBC 3.71 L (4.7-6.1) M/uL Hgb 10.1 L (14.0-18.0) g/dL Hct 32.2 L (42-52) % MCHC 31.4 L (32-36) g/dL RDW Std Deviation 53.6 H (36.4-46.3) fL RDW Coeff of Joshua 16.8 H (11.5-14.5) % Plt Count 106 L (130-400) K/uL MPV 10.7 H (7.4-10.4) fL Lymph # (Auto) 0.80 L (1.2-3.4) K/uL Carbon Dioxide 33 H (21-32) mmol/L Anion Gap 2.0 L (3-11) BUN 44 H (7-18) mg/dl Creatinine 1.79 H (0.6-1.4) mg/dl BUN/Creatinine Ratio 24.7 H (10-20) Glucose 150 H (70-99) mg/dl Calcium 10.6 H (8.5-10.1) mg/dl (1) Atrial fibrillation Atrial fibrillation type: permanent Qualified Code(s): I48.2 - Chronic atrial fibrillation (2) Hypertension Hypertension type: essential hypertension Qualified Code(s): I10 - Essential (primary) hypertension (3) Altered mental status Altered mental status type: unspecified Qualified Code(s): R41.82 - Altered mental status, unspecified
[2018-09-13] MEDS ORDERED: PAMIDRONATE DISODIUM 60 MG in SODIUM CHLORIDE 0.9% 1000ML 1,000 ML IV ONE (19:04)
[2018-09-13] MEDS: CARVEDILOL 12.5 MG TAB PO SCH (20:08)
[2018-09-13] MEDS: ACETAMINOPHEN 325 MG TAB PO PRN (20:11)
--- NOTE | 2018-09-14 01:48 | Consultation Report ---
DATE OF CONSULTATION: 09/13/2018 REQUESTING: YOHAN Thomas CARE MANAGEMENT COORDINATOR: Donovan Retana DO, [facility] Cardiology. REASON FOR CONSULTATION: Refractory right-sided heart failure. Dear Hortencia: Thank you for requesting cardiology consultation on Teodoro with regards to his end-stage right-sided heart failure. As you know, he was admitted at the end of 06/2018 secondary to progressive right-sided heart failure and anasarca. During that hospitalization, it was recommended that he use oxygen at home due to significant hypoxemia, especially when he sleeps and a sleep study was positive for moderate obstructive sleep apnea that required treatment with CPAP. He has been noncompliant with his diuretics at home, taking them when he chooses to take them. In addition, he has been unwilling to wear his oxygen and CPAP on a regular basis. We had encouraged him to come to the hospital approximately 3 weeks ago for additional diuretics. He did not wish to be readmitted at that point. A week ago Wednesday, we encouraged him to go to the hospital to try to improve his diuresis. Of note, his weight is up 16 pounds upon admission from his last admission weight before he was diuresed. He has been on high dose Bumex 3 mg b.i.d. since he has been admitted without any dramatic improvement in his heart failure status or even dramatic weight loss. He has only lost about 3-4 kg. He denies any shortness of breath, talking in sentences. He is sleeping an awful lot and looks tired and fatigued. He denies any chest pain or chest pressure. He has significant abdominal distention and marked lower extremity edema. I have been in contact with the hospitalist throughout his entire hospitalization. In reviewing his aml analyst, he is actually having more ventricular ectopy than his [place] beats currently. I was asked to see the patient today with regards to discussion of palliative care and/or hospice, given in the past, he has not been ready for this. The rest of his review of systems otherwise negative. PAST MEDICAL HISTORY: 1. Nonischemic cardiomyopathy with ejection fraction as low as 15%. 2. Echocardiogram, 06/2018 with a severely dilated right ventricle, RV dysfunction, moderate pulmonary hypertension, moderate tricuspid regurgitation with flattening of the interventricular septum in both systole and diastole consistent with RV volume and pressure overload. 3. Preserved left ventricular systolic function with type 2 diastolic dysfunction. 4. History of VFib arrest status post ICD. 5. Status post 4 ICD shocks in 04/2012 secondary to atrial fibrillation with a rapid ventricular response. 6. Chronic atrial fibrillation, refusing anticoagulation. 7. History of frequent PVCs with self-discontinuation of amiodarone. 8. Single chamber defibrillator 06/2011. 9. Cardiac catheterization 06/2011 without evidence of epicardial coronary artery disease. 10. Renal artery duplex with moderate renal artery stenosis in 10/2012 repeated in 2013, which was negative. 11. History of DVT. 12. Anasarca. 13. Hypercalcemia. 14. Lumbar spinal stenosis. 15. Chronic right-sided heart failure. MEDICATIONS: See electronic medical record. ALLERGIES: ADHESIVE BANDAGE, NARCOTICS AND OXYBUTYNIN. SOCIAL HISTORY: He is . He lives with his . He is retired. FAMILY HISTORY: Noncontributory. PHYSICAL EXAMINATION: GENERAL: He is awake and alert and oriented x3. He looks chronically ill. He is very sleepy and even falls asleep while having a conversation. I will come back to his vitals. HEENT: 2+ carotid upstrokes, no evidence of carotid bruits. His jugular venous pressure was significantly elevated. Sclerae is anicteric. LUNGS: Decreased breath sounds in the bases bilaterally. No rales, rhonchi or wheezing. HEART: Irregular rate and rhythm with frequent ectopy. There is a holosystolic murmur at the left sternal border, which increases with inspiration. ABDOMEN: Soft and nontender, chronically distended but worse than his last exam. Positive bowel sounds. EXTREMITIES: Marked bilateral lower extremity edema to his thighs bilaterally. SKIN: Chronic stasis changes. PSYCHIATRIC: He appeared depressed. VITALS: Pulse 76, respirations 18, sat 94% on room air, blood pressure 149/100. LABORATORY STUDIES: Reviewed in detail. BUN of 44 with a creatinine of 1.79. Sodium 141, potassium 4.1. His aml analyst was reviewed. He is having frequent episodes of nonsustained VT, along with accelerated idioventricular rhythms, frequent PVCs, ventricular triplets and ventricular quads. His underlying rhythm is atrial fibrillation. Venous duplex 09/11/2018. No evidence of DVT. IMPRESSION: 1. End-stage right-sided heart failure. 2. Patient noncompliance with CPAP, oxygen and diuretics. 3. Implantable cardioverter-defibrillator secondary to previous ventricular tachycardia arrest. 4. Progressive renal dysfunction with minimal change in his lower extremity edema and heart failure status with profound anasarca. I spent well over 30 minutes of the visit discussing with Teodoro and his the benefits of palliative care with the idea of hospice. He does not wish to be in the hospital. He does not wish to be poked and prodded and he is frustrated that he is unable to lose significant amount of weight and feel better. He notes he would just like to go home and enjoy the time he has with his family. After a long discussion, he seems very agreeable to hospice and so does his family. As you and I had discussed, we had recommended palliative care seeing him. At the time of this dictation he has agreed in consultation with palliative care to go home with hospice. I discussed the benefits of hospice with him when I was in the room, with regards to reduced anxiety and depression and improved quality of life at the end of life and bereavement care for his family after he may pass away. We discussed that hospice does not mean no care, but rather means trying to treat his symptoms and manage his symptoms as best we can with the understanding that he would not return to the hospital. He does have a defibrillator, a single lead defibrillator. I would recommend turning off the ICD portion of his defibrillator before he goes home and just leave on backup pacing at VVI 40. He has a [place] device, which can be reprogrammed prior to discharge. We will continue to follow him with you. Thank you for allowing us to participate in his care. RL
[2018-09-14] MEDS: POTASSIUM CHLORIDE 20 MEQ TABCR PO SCH (08:08)
[2018-09-14] MEDS: ASPIRIN 81 MG ECTAB PO SCH (08:08)
[2018-09-14] MEDS: CARVEDILOL 12.5 MG TAB PO SCH ×2 (08:08→20:33)
[2018-09-14] MEDS: FERROUS SULFATE 325 MG TAB PO SCH ×2 (08:08→15:47)
[2018-09-14] MEDS: MAGNESIUM OXIDE 400 MG TAB PO SCH (08:09)
[2018-09-14] MEDS: BUMETANIDE SOLN 1 MG/4 ML VIAL IV SCH ×2 (08:09→15:47)
[2018-09-14] MEDS: CEROVITE ADV FORMULA TAB PO SCH (08:09)
[2018-09-14] MEDS: ACETAMINOPHEN 325 MG TAB PO PRN (08:17)
[2018-09-14 08:19] LABS: Basophils # (auto) 0.01 K/uL (0-0.2); Basophils % (auto) 0.2 %; Eosinophils # (auto) 0.15 K/uL (0-0.5); Eosinophils % (auto) 3.6 %; Hematocrit (blood only) 31.3 % (42-52); Hemoglobin 9.8 g/dL (14.0-18.0); Immature Granulocytes # (auto) 0.01 K/uL (0.00-0.02); Immature Granulocytes % (auto) 0.2 %; Lymphocytes # (auto) 1.01 K/uL (1.2-3.4); Lymphocytes % (auto) 24.5 %; Mean Corpuscular Hgb Conc 31.3 g/dL (32-36); Mean Corpuscular Volume 86.2 fL (80-100); Mean Platelet Volume 10.4 fL (7.4-10.4); Monocytes # (auto) 0.51 K/uL (0.11-0.59); Monocytes % (auto) 12.4 %; Neutrophils # (auto) 2.43 K/uL (1.4-6.5); Neutrophils % (auto) 59.1 %; Platelet Count 103 K/uL (130-400); RDW Coefficient of Variation 16.7 % (11.5-14.5); RDW Standard Deviation 52.6 fL (36.4-46.3); Red Blood Count 3.63 M/uL (4.7-6.1); White Blood Count 4.12 K/uL (4.8-10.8)
[2018-09-14 08:48] LABS: BUN Creatinine Ratio 25.8 (10-20); Calcium 10.7 mg/dl (8.5-10.1); Creatinine Clr Calc Pharmacy 49.2 ml/min; Est GFR (African American) 43.5; Est GFR (Non-African American) 37.5; Potassium 3.9 mmol/L (3.5-5.1)
--- NOTE | 2018-09-14 10:37 | Nephrology Progress Note ---
Date of Service September 14, 2018 Assessment & Plan (1) CKD (chronic kidney disease) stage 3, GFR 30-59 ml/min: -- Kidney function remains stable at this time w/ baseline creatinine 1.8 (2) Acute on chronic right-sided congestive heart failure: -- Continue Bumex 3 mg IV BID, has been net - >2 L/24 h -- Zometa 4 milligram IV x1 dose -- avoid all calcium and vitamin-D supplement -- as patient make the decision to continue with hospice care at home, can be discharged any time with Bumex 3 milligram orally twice a day. -- No further outpatient Nephrology follow-up needed will sign off. thank you for the consultation Subjective Teodoro was seen and examined in his room this am with his Son at bedside. Denies SOB, CP. Continues to significant LE edema but there has been some slow improvement, persistently net negative, more than 1 L negative overnight. Renal function remained stable. calcium has been high Cardiovascular: + edema; no chest pain and no dyspnea Physical Exam Vital Signs (Past 24 Hours): Last Vital Signs Temp 36.4 C L 09/14/18 07:54 Pulse 56 L 09/14/18 07:54 Resp 18 09/14/18 07:54 BP 109/69 09/14/18 07:54 Pulse Ox 91 09/14/18 07:54 Constitutional: WD/WN, vitals as above Respiratory: Auscultation: + diminished lung sounds and + rales Cardiovascular: Heart Sounds: normal S1 and normal S2 Extremities: + edema
[2018-09-14] MEDS: ZOLEDRONIC ACID 4 MG in 0.9 % SODIUM CHLORIDE 100 ML IV ONE ×2 (11:28→11:39)
[2018-09-14] MEDS: ENOXAPARIN INJ 40 MG/0.4 ML SYR SQ SCH (11:40)
--- NOTE | 2018-09-14 12:43 | Palliative Care Progress Note ---
Date of Service September 14, 2018 Assessment & Plan (1) Goals of care, counseling/discussion: -Met with patient and his son, Petros, in room 262. -Patient feeling okay today, about the same. -Plan remains for patient to go home with home hospice. He has not yet met with [facility] hospice. -Creatinine stable, nephrology following. -Will continue to follow and be supportive in any way. (2) Anemia in chronic kidney disease: (3) Acute on chronic right-sided congestive heart failure: (4) CKD (chronic kidney disease) stage 3, GFR 30-59 ml/min: (5) ROLLY (obstructive sleep apnea): (6) Ventricular fibrillation: Subjective Patient feeling okay today, about the same. No new complaints. Constitutional: + weakness and + weight gain Respiratory: + dyspnea on exertion; no cough Cardiovascular: + edema; no chest pain Genitourinary (Male): + urinary frequency (due to diuretic medications) and + urinary urgency Psychiatric: + depression; no anxiety Physical Exam Vital Signs (Past 24 Hours): Last Vital Signs Temp 36.4 C L 09/14/18 07:54 Pulse 56 L 09/14/18 07:54 Resp 18 09/14/18 07:54 BP 109/69 09/14/18 07:54 Pulse Ox 91 09/14/18 07:54 Constitutional: + ill appearing (chronically) and + obese; no acute distress ENMT: external ear and nose normal, oropharynx normal Neck: normal visual inspection and trachea midline Respiratory: normal respiratory effort, lungs clear to auscultation Auscultation: + diminished lung sounds Cardiovascular: Rate/Rhythm: regular rate; + abnormal rhythm Extremities: + edema (> +4 pitting edema to BLE) Gastrointestinal (Abdomen): Inspection/Auscultation: abdomen normal to inspection and normal bowel sounds Percussion/Palpation: abdomen soft Neurologic: awake; not confused Psychiatric: Orientation: alert and oriented x 3 Affect: + depressed affect Time Spent Midlevel 35 minutes with >50% of time spent at bedside with patient and family discussing GOC.
--- NOTE | 2018-09-14 12:44 | Hospitalist Progress Note ---
Date of Service September 14, 2018 Assessment & Plan (1) Acute on chronic diastolic (congestive) heart failure: In the setting of chronic cor pulmonale. With significant noncompliance with meds, O2/CPAP at home, and probably diet as well. has gained 20-30 pounds since previous hospital stay in early July. - down 3 kg and 8500 mls since admission -continue bumex 3mg IV BID. -follow I/Os, daily weights, low Na+ diet -consulted Dietaician about counseling on low sodium diet -d/c'd amlodipine d/t leg swelling - Consulted Dr. Retana who patient sees outpatient - increase Coreg by 6.25 and supported hospice decision as patient has endstage heart failure - consulted palliative care - patient will go home on hospice but would like to finish being treated here first. (2) Acute on chronic right-sided congestive heart failure: as above. cor pulmonale likely from long-standing ROLLY - patient does say he has CPAP set up at home which he is using no h/o PE. (3) CKD (chronic kidney disease) stage 3, GFR 30-59 ml/min: Creat stable Severely volume overloaded, BPs controlled, not acidotic, K+ appropriate BMP am. -Avoid nephrotoxins -Renally dose medications when appropriate -consulted Nephrology -dc'd standing order of KCl and replace prn -per nephro - not a dialysis candidate should his renal function worsen (4) Pacemaker: pacer interrogation does not show frequent rapid a.fib/flutter at home contributing to decompensated CHF tele this admission -continues with rate controlled A.fib/flutter, PVCs(frequent), nonsustained wide complex runs 3-5 beats -continue Coreg - patient is not anticoagulated due to [employer]hova's Witness suellen Nonsustained VT--> asymptomatic, has ICD in place -continue beta jane (5) History of DVT (deep vein thrombosis): has IVC filter no anticoagulation due to h/o [employer]'s Witness suellen LE US negative for DVT (6) Atrial fibrillation: controlled rates Carvedilol increased as above no anticoagulation as above due to [employer]/not able to get blood transfusions if needed (7) Hypertension: controlled with home med regimen Coreg, amlodipine, Bumex -will dc of amlodipine as above for LE edema (8) Hypercalcemia: chronic going back several years Ca++ 10.1-10.4 - 10.7 today, likely primary hyperparathyroidism - previous iPTH high at 283, repeated 09/12 at 204 this is mild and he has no symptoms - will defer on work up given his wish for hospice at discharge -Vitamin D high 106 - discontinue cholecalciferol - patient was taking 6000 units daily - Zolendronic acid ordered by nephrology (9) Hyperparathyroidism: As above (10) Wound of right foot: healed/resolved previously followed by wound care in [place] (11) Altered mental status: Resolved ammonia and u/a wnl Likely has some underlying dementia/cognitive impairment neuro referral after discharge (12) Anemia in chronic kidney disease: Anemia of chronic disease--> Hgb 9-10, Fe studies consistent with chronic disease, transferrin sat mildly low at 9% B12 folate normal.TSH mildly elevated at 5.75 -follow CBC -continue Ferrous sulfate (13) DVT prophylaxis: lovenox, SCDs Dispo- home with hospice Subjective Mr. Benavides continues to have edema in his lower legs. He appears better rested today, more awake, visitors at bedside. Review of Systems All systems reviewed & are unremarkable except as noted in HPI & below Physical Exam Vital Signs (Past 24 Hours): Last Vital Signs Temp 36.4 C L 09/14/18 07:54 Pulse 56 L 09/14/18 07:54 Resp 18 09/14/18 07:54 BP 109/69 09/14/18 07:54 Pulse Ox 91 09/14/18 07:54 Physical Exam: General: no distress Eyes: normal inspection, PERLL Respiratory: chest non tender, clear to auscultation, normal breath sounds, no respiratory distress, no accessory muscle use Cardiac: regular rate and rhythm, no rub or gallop, no murmur, +2 pitting edema lower extremities GI/: active bowel sounds, no abd pain or tenderness, soft, non distended Extremities: normal range of motion, normal strength, non tender Neuro/Psych: alert and oriented x 3, normal mood and affect Skin: normal color, dry Results & Data Laboratory Results Abnormal lab results 09/14/18 09/14/18 Range/Units 07:55 07:55 WBC 4.12 L (4.8-10.8) K/uL RBC 3.63 L (4.7-6.1) M/uL Hgb 9.8 L (14.0-18.0) g/dL Hct 31.3 L (42-52) % MCHC 31.3 L (32-36) g/dL RDW Std Deviation 52.6 H (36.4-46.3) fL RDW Coeff of Joshua 16.7 H (11.5-14.5) % Plt Count 103 L (130-400) K/uL Lymph # (Auto) 1.01 L (1.2-3.4) K/uL BUN 44 H (7-18) mg/dl Creatinine 1.71 H (0.6-1.4) mg/dl BUN/Creatinine Ratio 25.8 H (10-20) Calcium 10.7 H (8.5-10.1) mg/dl (1) Atrial fibrillation Atrial fibrillation type: permanent Qualified Code(s): I48.2 - Chronic atrial fibrillation (2) Hypertension Hypertension type: essential hypertension Qualified Code(s): I10 - Essential (primary) hypertension (3) Altered mental status Altered mental status type: unspecified Qualified Code(s): R41.82 - Altered mental status, unspecified
[2018-09-15 07:40] LABS: Basophils # (auto) 0.01 K/uL (0-0.2); Basophils % (auto) 0.1 %; Eosinophils # (auto) 0.06 K/uL (0-0.5); Eosinophils % (auto) 0.8 %; Hematocrit (blood only) 32.8 % (42-52); Hemoglobin 10.3 g/dL (14.0-18.0); Immature Granulocytes # (auto) 0.01 K/uL (0.00-0.02); Immature Granulocytes % (auto) 0.1 %; Lymphocytes # (auto) 0.26 K/uL (1.2-3.4); Lymphocytes % (auto) 3.6 %; Mean Corpuscular Hgb Conc 31.4 g/dL (32-36); Mean Corpuscular Volume 85.2 fL (80-100); Monocytes # (auto) 0.33 K/uL (0.11-0.59); Monocytes % (auto) 4.5 %; Neutrophils # (auto) 6.62 K/uL (1.4-6.5); Neutrophils % (auto) 90.9 %; Platelet Count 104 K/uL (130-400); RDW Coefficient of Variation 16.6 % (11.5-14.5); RDW Standard Deviation 51.4 fL (36.4-46.3); Red Blood Count 3.85 M/uL (4.7-6.1); White Blood Count 7.29 K/uL (4.8-10.8)
[2018-09-15 07:58] LABS: BUN Creatinine Ratio 24.9 (10-20); Calcium 10.3 mg/dl (8.5-10.1); Creatinine Clr Calc Pharmacy 47.5 ml/min; Est GFR (African American) 41.7
[2018-09-15] MEDS: CARVEDILOL 12.5 MG TAB PO SCH ×2 (08:57→20:05)
[2018-09-15] MEDS: POTASSIUM CHLORIDE 20 MEQ TABCR PO SCH (08:58)
[2018-09-15] MEDS: FERROUS SULFATE 325 MG TAB PO SCH ×2 (08:59→17:01)
[2018-09-15] MEDS: MAGNESIUM OXIDE 400 MG TAB PO SCH (08:59)
[2018-09-15] MEDS: ASPIRIN 81 MG ECTAB PO SCH (08:59)
[2018-09-15] MEDS: BUMETANIDE SOLN 1 MG/4 ML VIAL IV SCH ×2 (08:59→17:03)
[2018-09-15] MEDS: CEROVITE ADV FORMULA TAB PO SCH (08:59)
[2018-09-15] MEDS: ENOXAPARIN INJ 40 MG/0.4 ML SYR SQ SCH (09:00)
--- NOTE | 2018-09-15 12:00 | Hospitalist Progress Note ---
Date of Service September 15, 2018 Assessment & Plan (1) Acute on chronic diastolic (congestive) heart failure: In the setting of chronic cor pulmonale. With significant noncompliance with meds, O2/CPAP at home, and probably diet as well. had gained 20-30 pounds since previous hospital stay in early July. - down 3 kg and 7600 mls since admission -continue bumex 3mg IV BID. -follow I/Os, daily weights, low Na+ diet -consulted Ged Instructor about counseling on low sodium diet -d/c'd amlodipine d/t leg swelling - Consulted Dr. Retana who patient sees outpatient - increased Coreg by 6.25 and supported hospice decision as patient has endstage heart failure - consulted palliative care - patient will go home on hospice but would like to finish being treated here first. (2) Acute on chronic right-sided congestive heart failure: as above. cor pulmonale likely from long-standing ROLLY - patient does say he has CPAP set up at home which he is using no h/o PE. (3) CKD (chronic kidney disease) stage 3, GFR 30-59 ml/min: Creat stable BMP am. -Avoid nephrotoxins -Renally dose medications when appropriate -consulted Nephrology -dc'd standing order of KCl and replace prn -per nephro - not a dialysis candidate should his renal function worsen (4) Pacemaker: pacer interrogation does not show frequent rapid a.fib/flutter at home contributing to decompensated CHF tele this admission -continues with rate controlled A.fib/flutter, PVCs(frequent), nonsustained wide complex runs 3-5 beats -continue Coreg - patient is not anticoagulated due to Jehova's Witness suellen Nonsustained VT--> asymptomatic, has ICD in place -continue beta jane - patient declined to have ICD turned off before discharge, reports he understands how to shut it off with magnet when he gets home if he changes his mind. (5) History of DVT (deep vein thrombosis): has IVC filter no anticoagulation due to h/o Jehova's Witness suellen LE US negative for DVT (6) Atrial fibrillation: controlled rates Carvedilol increased as above no anticoagulation as above due to Yazidism/not able to get blood transfusions if needed (7) Hypertension: controlled with home med regimen Coreg, amlodipine, Bumex -will dc amlodipine as above for LE edema (8) Hypercalcemia: chronic going back several years Ca++ 10.2 after Zolendronic acid 09/14 likely primary hyperparathyroidism - previous iPTH high at 283, repeated 09/12 at 204 this is mild and he has no symptoms - will defer on work up given his wish for hospice at discharge -Vitamin D high 106 - discontinue cholecalciferol - patient was taking 6000 u nits daily (9) Hyperparathyroidism: As above (10) Wound of right foot: healed/resolved previously followed by wound care in [place] (11) Altered mental status: Resolved ammonia and u/a wnl (12) Anemia in chronic kidney disease: Anemia of chronic disease--> Hgb 9-10, Fe studies consistent with chronic disease, transferrin sat mildly low at 9% B12 folate normal.TSH mildly elevated at 5.75 -follow CBC -continue Ferrous sulfate (13) DVT prophylaxis: lovenox, SCDs Dispo- home with hospice Subjective Mr. Benavides is tired appearing today and also looks a bit short of breath. His only complaint is fatigue Physical Exam Vital Signs (Past 24 Hours): Last Vital Signs Temp 37.3 C 09/15/18 07:34 Pulse 92 H 09/15/18 07:39 Resp 18 09/15/18 07:34 BP 98/68 L 09/15/18 07:34 Pulse Ox 95 09/15/18 07:34 Results & Data Laboratory Results Abnormal lab results 09/15/18 09/15/18 Range/Units 07:09 07:09 RBC 3.85 L (4.7-6.1) M/uL Hgb 10.3 L (14.0-18.0) g/dL Hct 32.8 L (42-52) % MCHC 31.4 L (32-36) g/dL RDW Std Deviation 51.4 H (36.4-46.3) fL RDW Coeff of Joshua 16.6 H (11.5-14.5) % Plt Count 104 L (130-400) K/uL MPV 11.0 H (7.4-10.4) fL Neut # (Auto) 6.62 H (1.4-6.5) K/uL Lymph # (Auto) 0.26 L (1.2-3.4) K/uL BUN 44 H (7-18) mg/dl Creatinine 1.77 H (0.6-1.4) mg/dl BUN/Creatinine Ratio 24.9 H (10-20) Glucose 103 H (70-99) mg/dl Calcium 10.3 H (8.5-10.1) mg/dl (1) Atrial fibrillation Atrial fibrillation type: permanent Qualified Code(s): I48.2 - Chronic atrial fibrillation (2) Hypertension Hypertension type: essential hypertension Qualified Code(s): I10 - Essential (primary) hypertension (3) Altered mental status Altered mental status type: unspecified Qualified Code(s): R41.82 - Altered mental status, unspecified
--- NOTE | 2018-09-15 12:36 | Discharge Summary ---
Date of Service September 15, 2018 Admission HPI Per Admitting Provider 77yo male with history of NICM, chronic diastolic CHF, CKD III, HTN, Hypothyroidism presenting with increase in bilateral LE edema and weight gain. Patient's and a family fried are at the bedside and provided details of the history as well. Patient has had longstanding history of bilateral LE edema. He follows with Cardiology and has had several adjustments made to his diuretic regimen in attempt to optimize medical management. However, patient states that it is very difficult for him to take his diuretic as prescribed as it frequently interferes with his activities of daily living and social outings. He is presently to be taking Bumex 2mg po qAM and 1 mg po qPM. He cannot clearly tell me how many doses he is missing per week. Reports that his legs have become quite swollen over the last few weeks with acute worsening over the last two days. He also reports difficulty ambulating due to his swollen, heavy legs as well as a 20# weight gain over the last month. Also with BOYER and decreased exer cise tolerance. He denies chest pain, palpitations, abdominal pain, nausea, vomiting, diarrhea or constipation. Denies urinary complaints. Denies decrease in UOP or foamy urine. Patient with history of NICM with history of EF of 15% in the past. Has had recovery of EF, Echo 06/2018 with severely dilated RV with RV dysfunction, moderate pulmonary hypertension with moderate TR. Type II diastolic dysfunction. History of VF arrest s/p AICD placement. No AICD discharges reported. ER Course: Bumex 1mg IV Principal Diagnosis CHF exacerbation Discharge Exam Constitutional WD/WN, vitals as above Respiratory normal respiratory effort, lungs clear to auscultation Cardiovascular Rate/Rhythm: regular rate and regular rhythm Extremities: + edema (+2 pitting lower extremities ) Gastrointestinal (Abdomen) Percussion/Palpation: abdomen soft; abdomen nontender Musculoskeletal Extremities: extremities normal to inspection Skin no rashes, warm and dry Neurologic moves all extremities and awake Psychiatric A+Ox3, euthymic affect Discharge Data Allergies Allergy/AdvReac Type Severity Reaction Status Date / Time adhesive Allergy Intermediate REDDENED, Verified 08/24/18 07:27 ITCHY SKIN ALL OPIOIDS Allergy Severe "SEVERE" Uncoded 08/24/18 07:27 DELIRIUM Consultations 09/06/18 19:26 ED Decision to Admit Stat 09/06/18 22:27 Consult Case Management - Discharge Planning Routine 09/11/18 09:35 Consult Nephrology Routine 09/12/18 17:36 Consult Cardiology Routine 09/13/18 10:29 Consult Palliative Care Routine Ordered Studies 09/11/18 12:30 US venous doppler LE Routine Hospital Course (1) Acute on chronic diastolic (congestive) heart failure: In the setting of chronic cor pulmonale. With significant noncompliance with meds, O2/CPAP at home, and probably diet as well. had gained 20-30 pounds since previous hospital stay in early July. - down 3 kg and 7600 mls since admission -Given bumex 3mg IV BID inpatient - will discharge with increased Bumex po 3 mg BID, potassium 20 mg po daily -follow I/Os, daily weights, low Na+ diet -consulted Control Cabinet Assembler about counseling on low sodium diet -d/c'd amlodipine d/t leg swelling - Consulted Dr. Retana who patient sees outpatient - increased Coreg by 6.25 and supported hospice decision as patient has endstage heart failure - consulted palliative care - patient to home on hospice (2) Acute on chronic right-sided congestive heart failure: as above. cor pulmonale likely from long-standing ROLLY - patient does say he has CPAP set up at home which he is using no h/o PE. (3) CKD (chronic kidney disease) stage 3, GFR 30-59 ml/min: Creat stable with increased Bumex - 1.96 today, baseline around 1.8 -Avoid nephrotoxins -Renally dose medications when appropriate -consulted Nephrology -per nephro - not a dialysis candidate should his renal function worsen (4) Pacemaker: pacer interrogation does not show frequent rapid a.fib/flutter at home contributing to decompensated CHF tele this admission -continues with rate controlled A.fib/flutter, PVCs(frequent), nonsustained wide complex runs 3-5 beats -continue Coreg - patient is not anticoagulated due to Jehova's Witness suellen Nonsustained VT--> asymptomatic, has ICD in place -continue beta jane - patient declined to have ICD turned off before discharge, reports he understands how to shut it off with magnet when he gets home if he changes his mind. (5) History of DVT (deep vein thrombosis): has IVC filter no anticoagulation due to h/o Jehova's Witness suellen LE US negative for DVT (6) Atrial fibrillation: controlled rates Carvedilol increased as above no anticoagulation as above due to Zoroastrianism/not able to get blood transfusions if needed (7) Hypertension: controlled Coreg, Bumex -will dc amlodipine as above for LE edema (8) Hypercalcemia: chronic going back several years Ca++ 10.2 after Zolendronic acid 09/14 likely primary hyperparathyroidism - previous iPTH high at 283, repeated 09/12 at 204 this is mild and he has no symptoms - will defer on work up given his wish for hospice at discharge - patient does not wish to have any further testing -Vitamin D high 106 - discontinue cholecalciferol - patient was taking 6000 units daily (9) Hyperparathyroidism: As above (10) Wound of right foot: healed/resolved previously followed by wound care in [place] (11) Altered mental status: Resolved ammonia and u/a wnl (12) Anemia in chronic kidney disease: Anemia of chronic disease--> Hgb 9-10, Fe studies consistent with chronic disease, transferrin sat mildly low at 9% B12 folate normal.TSH mildly elevated at 5.75 -follow CBC -continue Ferrous sulfate (13) DVT prophylaxis: lovenox, SCDs inpatient Dispo- home with hospice Total Time Total Time Spent Total Time Spent (In Minutes): greater than 30 minutes Discharge Plan Discharge Items Patient Disposition: Hospice - Home Reason For Visit: CHF EXACERBATION Discharge Diagnosis: CHF exacerbation Discharge Goals: Decrease discomfort Activity: Resume your previous activity Activity Comment: gradually as tolerated Non-emergency contact: Primary Care Provider Call non-emergency contact if: you have any medication questions Follow-up/Referrals: Fracisco Eddy MD [Primary Care Provider] - 09/20/18 11:00 am (Please, follow up at Dr. Fracisco Eddy's office with his oral surgery assistant, Krissy Valdez PA-C, on WednesdaySeptember 20 at 11:00 am. *If you need to change this appointment, call the office at [phone].) Diet: Low Sodium (2gm) Addtl Provider Instructions: You are going home with increased bumetanide and Coreg. Your blood pressure is running just below normal. If you have any lightheadedness you should let Dr. Eddy know so that your medication can be adjusted. Take your time going from laying/sitting to standing to allow your pressure to adjust and to avoid falls. Call 911 and go to the Emergency Room if: * You have tightness or pain in your chest that does not go away with rest or Nitroglycerin * You are very short of breath even with rest Call your doctor if any of the following symptoms or problems start or get worse: * Shortness of breath or difficulty breathing * Wake up at night short of breath * Chest pain * Cough * Swelling of your hands, fee, or legs * More fatigued or tired with your normal activity * Palpitations - sudden fast heart beats WEIGHT * Weigh yourself every morning after using the bathroom. * Use the same scale. * Wear the same amount of clothing. * Write your weight down on your chart. * Call your doctor if you gain more than 2-3 pounds in 1-2 days. MEDICATIONS * Use this discharge instruction sheet for instructions. * Take your medications at the time your doctor ordered. * Do not skip a dose of your medicines. * If you miss a dose of medicine, take as soon as possible, but DO NOT DOUBLE A DOSE. * Read your medicine information when you get home. * Know all of the side effects of your medicine. * Call your doctor's office if you have any side effects. * Be sure all of your doctors know what medicine and herbs you take (including cold, flu, and herbal medicine). * Pain Medicine: If you do not get relief from your pain, please call your doctor for help. Take the following with you to your follow-up doctor appointments: * Weight Chart * Medication List * List of questions Do not drink excessive alcohol, beer or wine. Prescriptions: New potassium chloride [Klor-Con M20] 20 mEq Tablet,Er Particles/Crystals 20 meq PO QAM Qty: 30 RF: 0 Continued amlodipine 5 mg Tablet 5 mg PO QAM RF: 0 aspirin 81 mg Tablet,Delayed Release (Dr/Ec) 81 mg PO QAM RF: 0 lorazepam 0.5 mg Tablet 0.5 mg PO BID PRN (Reason: Anxiety) RF: 0 ferrous sulfate 325 mg (65 mg iron) Tablet 325 mg PO BID RF: 0 multivitamin with minerals Tablet 1 tab PO QAM RF: 0 magnesium oxide 400 mg Capsule 400 mg PO QAM RF: 0 amoxicillin 500 mg capsule 2,000 mg PO UD PRN (Reason: before dentist) RF: 0 Changed carvedilol 25 mg Tablet 31.2 mg PO BID Qty: 0 RF: 0 bumetanide 2 mg Tablet 3 mg PO QAM Qty: 0 RF: 0 bumetanide 1 mg tablet 3 mg PO QPM Qty: 0 RF: 0 Discontinued cholecalciferol (vitamin D3) 3,000 unit Tablet 6,000 unit PO QAM RF: 0 Stand-Alone Forms: [facility] Discharge Orders: Discharge Order (Routine); Ordered 09/16/18 Ordered By: Hortencia Eddy Admission Data Admit Date/Time: 09/06/18 20:11 Attending Provider: Randy Shields Admit Provider: Christen Brian Primary Care Provider: Fracisco Eddy Other Providers: Christen Brian ; Home[facility]ursing Agency ; [place] ; Guerita Whyte ; Donovan Retana ; Radha Laureano Service: Telemetry Medical
[2018-09-16 07:33] LABS: Basophils # (auto) 0.01 K/uL (0-0.2); Basophils % (auto) 0.2 %; Eosinophils % (auto) 3.7 %; Hemoglobin 10.1 g/dL (14.0-18.0); Immature Granulocytes # (auto) 0.01 K/uL (0.00-0.02); Immature Granulocytes % (auto) 0.2 %; Lymphocytes # (auto) 0.57 K/uL (1.2-3.4); Lymphocytes % (auto) 10.6 %; Mean Corpuscular Hgb Conc 31.6 g/dL (32-36); Mean Corpuscular Volume 85.1 fL (80-100); Mean Platelet Volume 10.9 fL (7.4-10.4); Monocytes # (auto) 0.25 K/uL (0.11-0.59); Monocytes % (auto) 4.6 %; Neutrophils # (auto) 4.35 K/uL (1.4-6.5); Neutrophils % (auto) 80.7 %; Platelet Count 100 K/uL (130-400); RDW Coefficient of Variation 16.8 % (11.5-14.5); RDW Standard Deviation 52.1 fL (36.4-46.3); Red Blood Count 3.76 M/uL (4.7-6.1); White Blood Count 5.39 K/uL (4.8-10.8)
[2018-09-16 08:06] LABS: Est GFR (African American) 36.9; Est GFR (Non-African American) 31.8
[2018-09-16] MEDS: FERROUS SULFATE 325 MG TAB PO SCH (08:08)
[2018-09-16] MEDS: CARVEDILOL 12.5 MG TAB PO SCH (08:09)
[2018-09-16] MEDS: CEROVITE ADV FORMULA TAB PO SCH (08:09)
[2018-09-16] MEDS: ASPIRIN 81 MG ECTAB PO SCH (08:09)
[2018-09-16] MEDS: MAGNESIUM OXIDE 400 MG TAB PO SCH (08:09)
[2018-09-16] MEDS: POTASSIUM CHLORIDE 20 MEQ TABCR PO SCH (08:09)
[2018-09-16] MEDS: BUMETANIDE SOLN 1 MG/4 ML VIAL IV SCH (08:10)
== END 2018-09-16 10:37 | disposition hospice, home (50) | DRG 291 ==
LOC: ED 16:02 → 2W 20:11 → SUATTDRO 20:11 → 2W 21:26

== ENCOUNTER 2020-02-26 15:41 | Inpatient (IN) ==
[2020-02-26] MEDS ORDERED: ACETAMINOPHEN 500 MG TAB PO STA (15:58)
[2020-02-26] MEDS ORDERED: DAPTOMYCIN CONSULT ACTIVE PRN (15:58)
[2020-02-26] MEDS ORDERED: DAPTOmycin 675 MG in SYRINGE 0 ML IV ONE (15:58)
[2020-02-26] MEDS ORDERED: cefTRIAXone SODIUM 2,000 MG/70 ML BAG IV STA (15:58)
[2020-02-26] MEDS ORDERED: SODIUM CHLORIDE 0.9% 1000ML 1,000 ML IV SCH (16:00)
--- NOTE | 2020-02-26 16:19 | XRay Report ---
XR chest 1V portable CLINICAL HISTORY: weakness COMPARISON STUDY: 09/06/2018 FINDINGS: The heart is symmetrically enlarged. There is a left subclavian pacer. There is no focal pu lmonary consolidation. There is no overt failure. There is minor basilar atelectasis.[ IMPRESSION: Stable marked cardiomegaly. No acute findings. ACT 112: Negative or not required by law. Electronically signed by: Daniel Hoffman M.D. 02/26/2020 4:17 PM
--- NOTE | 2020-02-26 16:34 | Emergency Department Note ---
Impression & Plan Cellulitis of left lower extremity, Weakness ED Provider Note INFORMANT: Patient ED PROVIDER(S): Amrik Vann MD CHIEF COMPLAINT: Weakness PLAN: Disposition: Admitted Condition: Good MEDICAL DECISION MAKING: Patient presented with chills and weakness. Physical examination was concerning for a developing cellulitis in the left lower extremity. The patient's confirmed that this is a new change. He was treated with Tylenol. He was given Rocephin and daptomycin after blood cultures obtained. His CBC and chemistry panel was unremarkable except for mild anemia. Chest x-ray was negative. A 12- lead ECG did show A. fib without acute ischemic change. I discussed further treatment in the hospital. The patient and were in agreement. I did consult with Dr. Espino of internal medicine. The patient was evaluated for further management. Triage Nursing notes reviewed and agree them. Additional history obtained from patient's Vital Signs: reviewed and remarkable for fever Differential diagnosis: Cellulitis, abscess, MRSA infection, DVT, necrotizing fasciitis, dermatitis, drug eruption, allergic reaction, as well as other pathologies. Diagnostics interpreted by me: ECG: Twelve-lead ECG reveals atrial fibrillation with PVCs at 100 bpm. Left anterior fascicular block. Inferior and anterior Q waves present. No ST elevation or depression. Cardiac Monitoring: Cardiac monitoring ordered by me: The patient was placed on continuous cardiac monitoring and observed. It revealed a atrial fibrillation at 92 beats per minute with with PVCs. Imaging studies: Chest x-ray. Findings: A chest x-ray was performed and revealed no pneumothorax, effusion, infiltrate, pulmonary edema, free air under the diaphragm, or wide mediastinum. Impression: No acute disease. Consultation(s): [facility] hospitalist HPI: The patient is a 79 year old male who presents to the Emergency Room with complaints of weakness. This started today and occurred prior to arrival. The patient also notes the following associated symptoms, chills and cellulitis of the left lower extremity. The patient has found no relieving factors. Current pain is rated as 0/10. Patient states he has had chronic cellulitis of left lower extremity. He thinks his left leg is weeping and more erythematous than usual. He was out working in the yard today when he came in he was profoundly weak and felt unwell. Pt denies LOC, headache, fevers, diaphoresis, visual changes, neck pain, chest pain, breathing difficulties, nausea, vomiting, abdominal pain, back pain, melena, hematochezia, urinary symptoms, numbness, lymphadenopathy, rash, or other complaints. ROS: See above HPI for pertinent positives & negatives. A total of 10 systems reviewed and were otherwise negative. PAST MEDICAL HISTORY:See Below cellulitis, hypothyroidism, hypertension PAST SURGICAL HISTORY:See Below FAMILY HISTORY:See Below SOCIAL HISTORY:See Below HOME MEDICATIONS:See Below ALLERGIES:See Below VITALS:See Below PHYSICAL EXAMINATION: GENERAL: Awake, alert, tired-appearing, in no distress HENT: Normocephalic, atraumatic. Oropharynx unremarkable. EYES: Normal conjunctiva. Sclera non-icteric. NECK: Inspection normal. Non-tender. Supple. No nuchal rigidity. FROM. No masses. RESPIRATORY: Clear to auscultation. No wheezes. No rales. Normal respiratory effort. CARDIAC: Normal rate. Normal rhythm. No murmurs. No rubs. Extremities warm and well perfused. Pulses equal. No JVD. GI: Soft, non-distended. No tenderness to palpation. No rebound or guarding. No masses. RECTAL: Deferred. MUSCULOSKELETAL: Atraumatic. Chest examination reveals no tenderness. The back is symmetrical on inspection without obvious abnormality. There is no CVA tenderness to palpation. No joint edema. LOWER EXTREMITIES: Chronic venous discoloration noted bilaterally. Erythema extending up to the level of the knee on the left. Warmth. NEURO: Normal sensorium. No sensory or motor deficits noted. SKIN: No rash or jaundice noted. ED COURSE: Critical Care: None Amrik Vann MD Past Med/Surg History Medical History (Updated 02/26/20 @ 16:32 by Amrik Vann MD) Anemia Anxiety Atrial fibrillation Basal cell carcinoma removed in office CKD (chronic kidney disease) Deep vein thrombosis Diastolic heart failure DVT (deep venous thrombosis) S/p IVC filter Hypertension Kidney stones Nonischemic cardiomyopathy recent hospital admission. see cardiology consult note for this patient. On home oxygen therapy 02 at 2L n/c hs Osteoarthritis Sleep apnea 02 at 2L n/c Spinal stenosis Ventricular fibrillation Surgical History Sharla filter in place @ [facility] History of blepharoplasty bilt History of cardiac cath at least 20yrs ago, no stents History of kidney surgery 06/30 right kidney removed--"bloody mass that was removed" History of tooth extraction History of total right knee replacement (TKR) ICD (implantable cardioverter-defibrillator) in place 06/2011; 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: No Beliefs That Will Affect Care: Oriental Orthodox Oriental Orthodox Beliefs: No Blood transfusions marital status: Current Living Situation: Spouse current occupational status: retired Other Information That Helps Us Care for You: No Feels Safe at Home: Yes Safety Concerns: Feels Safe At This Time Childhood Exposure to Second-Hand Smoke: No caffeine: Yes Dental Care, Regularly: Yes Physical Activity Frequency: Does not Exercise Seatbelt Use: always Sunscreen Use: Yes Allergies Allergies Allergy/AdvReac Type Severity Reaction Status Date / Time adhesive Allergy Intermediate REDDENED, Verified 02/26/20 17:05 ITCHY SKIN oxybutynin Allergy Unknown Unknown Verified 02/26/20 17:05 ciprofloxacin [From Cipro] AdvReac Mild pain in Verified 02/26/20 17:05 tendons ALL OPIOIDS Allergy Severe "SEVERE" Uncoded 02/26/20 17:05 DELIRIUM Home Meds Home Medications Medication Instructions Recorded Confirmed magnesium oxide 400 mg PO QAM 08/10/18 02/26/20 multivitamin with minerals 1 tab PO QAM 08/10/18 02/26/20 lorazepam 1 mg tablet 0.5 mg PO BID PRN tab 10/19/19 02/26/20 lidocaine 4 % topical patch 2 patch TOP DAILY PRN ea 12/19/19 02/26/20 peg 400-propylene glycol 0.4 %-0.3 2 drops OP BID PRN ml 12/19/19 02/26/20 % eye drops Previous Rx's Medication Instructions Recorded aspirin 81 mg tablet,delayed 81 mg PO QAM #90 tab 07/03/19 release carvedilol 25 mg tablet 12.5 mg PO BID #90 tab 07/03/19 bumetanide 1 mg tablet 2 mg PO BID #60 tab 12/19/19 Results & Data (ED) Vital Signs Vital Signs - 24 hr 02/26/20 15:45 02/26/20 15:52 02/26/20 15:56 Temperature 37.7 C H Temperature Source Oral Pulse Rate 101 H 93 H Pulse Rate from SpO2 Sensor 116 H Respiratory Rate 23 16 Respiratory Effort / Characteristics Non-Labored Spontaneous Respiratory Depth Normal Respiratory Pattern Regular Blood Pressure 151/132 H Blood Pressure Mean 138 Blood Pressure Position Lying Pulse Oximetry 93 94 93 Oxygen Delivery Method Room Air Room Air Sepsis Recent Fever Within 48 Hours Yes Sepsis New/Unexplained Change in Mental Status No Sepsis Action Taken by Nursing Physician Notified 02/26/20 16:00 02/26/20 16:02 02/26/20 16:30 Temperature Temperature Source Pulse Rate 100 H 103 H Pulse Rate from SpO2 Sensor 74 Respiratory Rate 16 Respiratory Effort / Characteristics Respiratory Depth Respiratory Pattern Blood Pressure 108/83 Blood Pressure Mean 98 Blood Pressure Position Pulse Oximetry 92 Oxygen Delivery Method Sepsis Recent Fever Within 48 Hours Sepsis New/Unexplained Change in Mental Status Sepsis Action Taken by Nursing 02/26/20 16:32 02/26/20 17:00 02/26/20 17:01 Temperature Temperature Source Pulse Rate 93 H 98 H 93 H Pulse Rate from SpO2 Sensor 80 80 Respiratory Rate Respiratory Effort / Characteristics Respiratory Depth Respiratory Pattern Blood Pressure 144/71 H 129/80 Blood Pressure Mean 122 105 Blood Pressure Position Pulse Oximetry 93 93 Oxygen Delivery Method Sepsis Recent Fever Within 48 Hours Sepsis New/Unexplained Change in Mental Status Sepsis Action Taken by Nursing 02/26/20 17:30 02/26/20 17:31 02/26/20 18:00 Temperature Temperature Source Pulse Rate 79 82 84 Pulse Rate from SpO2 Sensor 74 87 75 Respiratory Rate Respiratory Effort / Characteristics Respiratory Depth Respiratory Pattern Blood Pressure 142/85 H 104/67 Blood Pressure Mean 93 73 Blood Pressure Position Pulse Oximetry 92 92 91 Oxygen Delivery Method Sepsis Recent Fever Within 48 Hours Sepsis New/Unexplained Change in Mental Status Sepsis Action Taken by Nursing 02/26/20 18:01 02/26/20 18:30 02/26/20 18:31 Temperature Temperature Source Pulse Rate 85 73 86 Pulse Rate from SpO2 Sensor 85 82 80 Respiratory Rate Respiratory Effort / Characteristics Respiratory Depth Respiratory Pattern Blood Pressure 115/64 Blood Pressure Mean 76 Blood Pressure Position Pulse Oximetry 91 92 91 Oxygen Delivery Method Sepsis Recent Fever Within 48 Hours Sepsis New/Unexplained Change in Mental Status Sepsis Action Taken by Nursing 02/26/20 19:00 02/26/20 19:01 02/26/20 19:30 Temperature Temperature Source Pulse Rate 86 77 85 Pulse Rate from SpO2 Sensor 92 H 78 81 Respiratory Rate 14 Respiratory Effort / Characteristics Respiratory Depth Respiratory Pattern Blood Pressure 113/62 121/75 Blood Pressure Mean 88 87 Blood Pressure Position Pulse Oximetry 93 94 94 Oxygen Delivery Method Sepsis Recent Fever Within 48 Hours Sepsis New/Unexplained Change in Mental Status Sepsis Action Taken by Nursing 02/26/20 19:31 Temperature Temperature Source Pulse Rate 80 Pulse Rate from SpO2 Sensor 80 Respiratory Rate Respiratory Effort / Characteristics Respiratory Depth Respiratory Pattern Blood Pressure Blood Pressure Mean Blood Pressure Position Pulse Oximetry 94 Oxygen Delivery Method Sepsis Recent Fever Within 48 Hours Sepsis New/Unexplained Change in Mental Status Sepsis Action Taken by Nursing Laboratory Data Result diagrams: 02/26/20 16:28 02/26/20 16:28 Lab Results 02/26/20 02/26/20 02/26/20 Range/Units 16:28 16:28 16:28 WBC 7.13 (4.8-10.8) K/uL RBC 4.27 L (4.7-6.1) M/uL Hgb 12.1 L (14.0-18.0) g/dL Hct 39.4 L (42-52) % MCV 92.3 (80-100) fL MCH 28.3 (25-34) pg MCHC 30.7 L (32-36) g/dL RDW Std Deviation 53.5 H (36.4-46.3) fL RDW Coeff of Joshua 15.9 H (11.5-14.5) % Plt Count 129 L (130-400) K/uL MPV 10.4 (7.4-10.4) fL Immature Gran % (Auto) 0.3 % Neut % (Auto) 87.8 % Lymph % (Auto) 6.3 % [place] % (Auto) 5.6 % Eos % (Auto) 0.0 % Baso % (Auto) 0.0 % Neut # (Auto) 6.26 (1.4-6.5) K/uL Lymph # (Auto) 0.45 L (1.2-3.4) K/uL [place] # (Auto) 0.40 (0.11-0.59) K/uL Eos # (Auto) 0.00 (0-0.5) K/uL Baso # (Auto) 0.00 (0-0.2) K/uL Immature Gran # (Auto) 0.02 (0.00-0.02) K/uL Sodium 138 (136-145) mmol/L Potassium 4.4 (3.5-5.1) mmol/L Chloride 105 (98-107) mmol/L Carbon Dioxide 26 (21-32) mmol/L Anion Gap 7.0 (3-11) BUN 28 H (7-18) mg/dl Creatinine 1.54 H (0.6-1.4) mg/dl Est Cr Clr Drug Dosing 51.0 ml/min Est GFR ( Amer) 48.7 Est GFR (Non-Af Amer) 42.0 BUN/Creatinine Ratio 18.1 (10-20) Glucose 96 (70-99) mg/dl Lactate 1.6 (0.4-2.0) mmol/L Calcium 11.4 H (8.5-10.1) mg/dl Magnesium 2.0 (1.8-2.4) mg/dl Total Bilirubin 2.4 H (0.2-1) mg/dl AST 20 (15-37) U/L ALT 38 (12-78) U/L Alkaline Phosphatase 116 (45-117) U/L Troponin I 0.017 (0-0.045) ng/ml NT-Pro-B Natriuret Pep 7235 H (0-1800) pg/ml Total Protein 7.6 (6.4-8.2) gm/dl Albumin 3.5 (3.4-5.0) gm/dl Globulin 4.1 H (2.5-4.0) gm/dl Albumin/Globulin Ratio 0.9 (0.9-2) TSH 2.020 (0.300-4.500) uIu/ml Administered Medications Discontinued Medications Acetaminophen (Acetaminophen 500 Mg Tab) 1,000 mg PO NOW STA Stop: 02/26/20 15:59 Last Admin: 02/26/20 17:20 Dose: 1,000 mg Documented by: [id number] Al Hydrox/Mg Hydrox/Simethicone (Aluminum/Magnesium Susp 30 Ml Udc) 15 ml PO NOW STA Stop: 02/26/20 19:05 Last Admin: 02/26/20 19:55 Dose: 15 ml Documented by: [id number] Sodium Chloride (Nss 1000ml) 1,000 mls @ 125 mls/hr IV .Q8H DREAD Stop: 02/26/20 23:59 Last Infusion: 02/26/20 21:36 Dose: 0 mls/hr Documented by: [id number] Admin: 02/26/20 17:55 Dose: 125 mls/hr Documented by: [id number] Ceftriaxone Sodium (Rocephin) 2,000 mg in 70 mls @ 140 mls/hr IV NOW STA Stop: 02/26/20 16:27 Last Infusion: 02/26/20 18:26 Dose: 0 mls/hr Documented by: [id number] Admin: 02/26/20 17:50 Dose: 140 mls/hr Documented by: [id number] Daptomycin 675 mg/ Syringe 13.5 mls @ 6.75 mls/min IV NOW ONE; Protocol Stop: 02/26/20 15:59 Last Admin: 02/26/20 18:27 Dose: 6.75 mls/min Documented by: [id number] Discharge Plan Visit Data Chief Complaint: Weakness Stated Complaint: WEAKNESS ED Provider: Amrik Vann Discharge Problem: Cellulitis of left lower extremity, Weakness Patient Disposition: Admitted As Inpatient Discharge Instructions Interventions: ED Discharge Assessment Last Done: 02/26/20 20:47
[2020-02-26 16:36] LABS: Hematocrit (blood only) 39.4 % (42-52); Hemoglobin 12.1 g/dL (14.0-18.0); Immature Granulocytes # (auto) 0.02 K/uL (0.00-0.02); Immature Granulocytes % (auto) 0.3 %; Lymphocytes # (auto) 0.45 K/uL (1.2-3.4); Lymphocytes % (auto) 6.3 %; Mean Corpuscular Hemoglobin 28.3 pg (25-34); Mean Corpuscular Hgb Conc 30.7 g/dL (32-36); Mean Corpuscular Volume 92.3 fL (80-100); Mean Platelet Volume 10.4 fL (7.4-10.4); Monocytes % (auto) 5.6 %; Neutrophils # (auto) 6.26 K/uL (1.4-6.5); Neutrophils % (auto) 87.8 %; Platelet Count 129 K/uL (130-400); RDW Coefficient of Variation 15.9 % (11.5-14.5); RDW Standard Deviation 53.5 fL (36.4-46.3); Red Blood Count 4.27 M/uL (4.7-6.1); White Blood Count 7.13 K/uL (4.8-10.8)
[2020-02-26 16:56] LABS: Albumin Level 3.5 gm/dl (3.4-5.0); BUN Creatinine Ratio 18.1 (10-20); Calcium 11.4 mg/dl (8.5-10.1); Est GFR (African American) 48.7; Potassium 4.4 mmol/L (3.5-5.1)
[2020-02-26 17:14] LABS: Albumin Globulin Ratio 0.9 (0.9-2); Bilirubin,Total 2.4 mg/dl (0.2-1); Globulin 4.1 gm/dl (2.5-4.0); Thyroid Stimulating Hormone 2.02 uIu/ml (0.300-4.500); Total Protein 7.6 gm/dl (6.4-8.2); Troponin I 0.017 ng/ml (0-0.045)
[2020-02-26] MEDS ORDERED: ALUMINUM/MAGNESIUM SUSP 30 ML UDC PO STA (19:04)
--- NOTE | 2020-02-26 19:37 | History & Physical Report ---
Date of Service February 26, 2020 Assessment & Plan (1) Cellulitis of left lower extremity: Continue daptomycin and ceftriaxone Consult wound care nurse for ulcer on left second toe Cap refill < 2s with palpable pulse therefore US arterial doppler not ordered. (2) Weakness: Generalized. PT/OT. (3) Chronic diastolic (congestive) heart failure: History of this. Non-compliance with diuretics. Will restart his usual bumex dosing and monitor BMP and daily weights. (4) Lower extremity edema: Suspect venous insufficiency and right sided heart failure as above. r/o DVT given history of this with US doppler. (5) Hyperparathyroidism: Suspect cause of hypercalcemia. Appears to be chronic and around baseline. Repeat PTH with morning labs. Not on medication for this. (6) Chest pain: Suspect GERD related. EKG unchanged from prior. Associated with drinking water. Repeat troponin in AM. US doppler as above to assess for DVT, if positive wound consider CT for PE despite filter in place. CXR without acute changes. Consistent with prior GERD episodes as per patient. Maalox PRN. 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 (8) Atrial fibrillation: Not on chronic anticoagulation due to prior hematuria as per patient. (9) CKD (chronic kidney disease) stage 3, GFR 30-59 ml/min: At baseline. Continue to monitor. (10) Hypertension: Continue carvedilol 12.5mg PO BID (11) Gout: Notable history of this. No acute exacerbation. Not on any urate lowering medication. (12) ROLLY (obstructive sleep apnea): Intolerant to CPAP (13) Decreased hearing: (14) DVT prophylaxis: No chemical anticoagulation secondary to hematuria while on anticoagulation. History of Present Illness Chief Complaint: Cellulitis Primary Care Provider: Fracisco Eddy MD Teodoro Benavides is an 79-year-old male who presents to the ER with worsening cellulitis of his left lower extremity. The patient is unable to give me much of a history regarding this. Just mentions he had a prior infection in this leg requiring many months of ciprofloxacin previously. His just noticed the erythema today and notes he is non-compliant with his diuretics and therefore his legs have been more swollen recently. He is non-compliant as he feels he is unable to get anything done when he takes these. He has an ulcer on his left 2nd toe however this was unknown to the patient or his . No known history of MRSA as per patient and his . He denies any fevers, chills, shortness of breath, cough, loss of taste or smell. No known COVID-19 exposure. His is generally concerned she is unable to manage with him at home in his current state of health. He denies any fevers or chills. Allergies Allergy/AdvReac Type Severity Reaction Status Date / Time adhesive Allergy Intermediate REDDENED, Verified 02/26/20 17:05 ITCHY SKIN oxybutynin Allergy Unknown Unknown Verified 02/26/20 17:05 ciprofloxacin [From Cipro] AdvReac Mild pain in Verified 02/26/20 17:05 tendons ALL OPIOIDS Allergy Severe "SEVERE" Uncoded 02/26/20 17:05 DELIRIUM Home Medications Home Medications Medication Instructions Recorded Confirmed Type magnesium oxide 400 mg PO QAM 08/10/18 02/26/20 History multivitamin with minerals 1 tab PO QAM 08/10/18 02/26/20 History aspirin 81 mg tablet,delayed 81 mg PO QAM #90 tab 07/03/19 02/26/20 Rx release carvedilol 25 mg tablet 12.5 mg PO BID #90 tab 07/03/19 02/26/20 Rx lorazepam 1 mg tablet 0.5 mg PO BID PRN tab 10/19/19 02/26/20 History bumetanide 1 mg tablet 2 mg PO BID #60 tab 12/19/19 02/26/20 Rx lidocaine 4 % topical patch 2 patch TOP DAILY PRN ea 12/19/19 02/26/20 History peg 400-propylene glycol 0.4 %-0.3 2 drops OP BID PRN ml 12/19/19 02/26/20 History % eye drops Past Med/Surg History Medical History (Updated 02/27/20 @ 17:46 by Misha Field MD) Anemia Anxiety Atrial fibrillation Basal cell carcinoma removed in office CKD (chronic kidney disease) Deep vein thrombosis Diastolic heart failure DVT (deep venous thrombosis) S/p IVC filter Hypertension Kidney stones Nonischemic cardiomyopathy recent hospital admission. see cardiology consult note for this patient. On home oxygen therapy 02 at 2L n/c hs Osteoarthritis Sleep apnea 02 at 2L n/c Spinal stenosis Ventricular fibrillation Surgical History Sharla filter in place @ [facility] History of blepharoplasty bilt History of cardiac cath at least 20yrs ago, no stents History of kidney surgery 06/30 right kidney removed--"bloody mass that was removed" History of tooth extraction History of total right knee replacement (TKR) ICD (implantable cardioverter-defibrillator) in place 06/2011; 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 Required: No Beliefs That Will Affect Care: Taoist Taoist Beliefs: No Blood transfusions marital status: Current Living Situation: Spouse current occupational status: retired Feels Safe at Home: Yes Childhood Exposure to Second-Hand Smoke: No caffeine: Yes Dental Care, Regularly: Yes Physical Activity Frequency: Does not Exercise Seatbelt Use: always Sunscreen Use: Yes Review of Systems Review of Systems: All systems reviewed & are unremarkable except as noted in HPI & below Physical Exam Constitutional: well developed and + obese; + not well nourished and no acute distress Eyes: + anicteric sclerae; normal pupil size Neck: + short neck and + thick neck Respiratory: normal respiratory effort, lungs clear to auscultation Cardiovascular: Rate/Rhythm: regular rate and + irregularly irregular Extremities: + edema (3+ up to abdomen on the left 2+ on right); no calf tenderness Gastrointestinal (Abdomen): Inspection/Auscultation: + abdomen distended (Patient reports at baseline) and normal bowel sounds Percussion/Palpation: abdomen soft; abdomen nontender, no guarding and abdomen not rigid Skin: + erythema (Significantly more erythematous and left lower extremity from knee to foot, venous stasis changes on the right lower extremity) Ulcer on second toe of left foot. Not previously noticed by patient or his . Likely source of erythema or above Neurologic: moves all extremities and awake; no focal motor deficits (Significant bilateral lower extremity weakness suspect due to leg edema) and not confused Motor/Sensory: + sensory deficit (Numbness from knee distally bilaterally equal) Psychiatric: Orientation: alert, oriented to person and oriented to place; + not oriented to time Genitourinary: no CVA tenderness Results & Data Results & Data ([facility]) Vital Signs (Past 12 Hours) Vital Signs Temp Pulse Resp BP Pulse Ox 02/26/20 15:52 94 02/26/20 15:45 37.7 C H 101 H 23 151/132 H 93 Diagnostic Findings XR chest 1V portable IMPRESSION: Stable marked cardiomegaly. No acute findings. ECG Indication: chest pain Rate (beats per minute): 76 Rhythm: atrial flutter (variable block) Findings: + PVC Comparison ECG Date: from (September 06, 2018) Change: the following changes noted (less PVC burden) Code Status & VTE Plan Code Status Full as discussed with the patient and his . VTE Prophylaxis Plan VTE Prophylaxis will be ordered: Yes PG Care Time/CCT Total # of Minutes Spent Total Time Spent with Patient: Total time spent is greater than 50% in coordination of care (as documented) at patient's floor/unit and/or counseling patient: Coding Level of Care Code 42602 OBS Care - Level 3 Diagnoses Cellulitis of left lower extremity L03.116 Weakness R53.1 Chronic diastolic (congestive) heart failure I50.32 Lower extremity edema R60.0 Hyperparathyroidism E21.3 Chest pain R07.9 Implantable cardioverter-defibrillator (ICD) in situ Z95.810 Atrial fibrillation I48.2 Atrial fibrillation type: permanent CKD (chronic kidney disease) stage 3, GFR 30-59 ml/min N18.3 Hypertension I10 Hypertension type: essential hypertension Gout M10.9 ROLLY (obstructive sleep apnea) G47.33 Decreased hearing H91.90 DVT prophylaxis Z29.9 (1) Atrial fibrillation Atrial fibrillation type: permanent Qualified Code(s): I48.2 - Chronic atrial fibrillation (2) Hypertension Hypertension type: essential hypertension Qualified Code(s): I10 - Essential (primary) hypertension
[2020-02-26] MEDS ORDERED: ONDANSETRON INJ 2 MG/ML 2 ML VIAL IV PRN (21:33)
[2020-02-26] MEDS ORDERED: ACETAMINOPHEN 325 MG TAB PO PRN (21:33)
[2020-02-26] MEDS ORDERED: ALUMINUM/MAGNESIUM SUSP 30 ML UDC PO PRN (21:33)
[2020-02-26] MEDS ORDERED: POLYETHYLENE (MIRALAX) 17 GM PACK PO PRN (21:33)
[2020-02-26] MEDS ORDERED: LORazepam 1 MG TAB PO PRN (21:41)
[2020-02-26] MEDS ORDERED: LIDOCAINE 5% 1 PATCH TD PRN (21:42)
[2020-02-26] MEDS: carvediloL 12.5 MG TAB PO SCH (22:27)
[2020-02-26] MEDS: BUMETANIDE 1 MG TAB PO SCH (22:27)
[2020-02-27 06:01] LABS: Hematocrit (blood only) 35.4 % (42-52); Hemoglobin 11.2 g/dL (14.0-18.0); Mean Corpuscular Hgb Conc 31.6 g/dL (32-36); Mean Corpuscular Volume 91.7 fL (80-100); RDW Standard Deviation 53.5 fL (36.4-46.3); Red Blood Count 3.86 M/uL (4.7-6.1); White Blood Count 6.26 K/uL (4.8-10.8)
[2020-02-27 06:14] LABS: INR 1.4 (0.9-1.1); Partial Thromboplastin Ratio 1.2; Partial Thromboplastin Time 32.7 Seconds (21.0-31.0); Prothrombin Time 14.5 Seconds (9.0-12.0)
[2020-02-27 06:22] LABS: Mean Platelet Volume 10.3 fL (7.4-10.4); Platelet Count 95 K/uL (130-400)
[2020-02-27 06:23] LABS: Immature Granulocytes # (auto) 0.01 K/uL (0.00-0.02); Immature Granulocytes % (auto) 0.2 %; Lymphocytes # (auto) 0.56 K/uL (1.2-3.4); Lymphocytes % (auto) 8.9 %; Monocytes # (auto) 0.44 K/uL (0.11-0.59); Neutrophils # (auto) 5.25 K/uL (1.4-6.5); Neutrophils % (auto) 83.9 %; Platelet Estimate Decreased (Normal)
[2020-02-27 06:29] LABS: Albumin Level 2.8 gm/dl (3.4-5.0); BUN Creatinine Ratio 19.6 (10-20); Bilirubin Direct 0.8 mg/dl (0-0.2); Calcium 10.4 mg/dl (8.5-10.1); Creatinine Clr Calc Pharmacy 51.1 ml/min; Est GFR (African American) 48.7; Potassium 4.3 mmol/L (3.5-5.1)
[2020-02-27 06:34] LABS: Bilirubin,Total 2.2 mg/dl (0.2-1); Total Protein 6.5 gm/dl (6.4-8.2); Troponin I 0.021 ng/ml (0-0.045)
--- NOTE | 2020-02-27 07:27 | Ultrasound Report ---
BILATERAL LOWER EXTREMITY VENOUS DOPPLER CLINICAL HISTORY: Lower extremity swelling. COMPARISON STUDY: Bilateral lower extremity venous Doppler ultrasound September 11, 2018. TECHNIQUE: Sonography of the deep venous system of the bilateral lower extremities was performed. Co mpression and augmentation were evaluated. FINDINGS: The bilateral common femoral, superficial femoral and popliteal veins were compressible. A ugmentation was normal. Flow was shown within the deep calf vessels. Note is made of a few prominent left inguinal lymph nodes that measure up to 2.9 x 1 x 2.2 cm. These nodes contain fatty geremias and are probably benign. IMPRESSION: 1. No evidence of deep venous thrombus within the bilateral lower extremities. 2. Mildly enlarged left inguinal lymph nodes which are nonspecific but probably benign. ACT 112: Negative or not required by law. Electronically signed by: Mendoza Rodarte M.D. 02/27/2020 7:26 AM
[2020-02-27] MEDS ORDERED: PIPERACILL/TAZOBAC CONSULT ACTIVE PRN (08:02)
[2020-02-27] MEDS: MAGNESIUM OXIDE 400 MG TAB PO SCH (08:09)
[2020-02-27] MEDS: BUMETANIDE 1 MG TAB PO SCH ×2 (08:09→16:39)
[2020-02-27] MEDS: carvediloL 12.5 MG TAB PO SCH ×2 (08:09→21:27)
[2020-02-27] MEDS: ASPIRIN 81 MG ECTAB PO SCH (08:09)
[2020-02-27] MEDS: CEROVITE ADV FORMULA TAB PO SCH (08:09)
[2020-02-27] MEDS ORDERED: PNEUMOCOCCAL POLYSACCHARIDES 25 MCG/0.5 ML VIAL/SYR IM ONE (09:00)
[2020-02-27] MEDS ORDERED: PIPERACILLIN/TAZOBACTAM 3.375 GM in DEXTROSE 5% 100 ML IV ONE (09:00)
[2020-02-27] MEDS ORDERED: PNEUMOCOCCAL ADMINISTRATION CHARGE ONE (09:00)
--- NOTE | 2020-02-27 09:19 | Hospitalist Progress Note ---
Date of Service February 27, 2020 Assessment & Plan (1) Bacteremia: Teodoro Benavides is an 79-year-old male who presented to the ER with worsening cellulitis of his left lower extremity. Mentioned he had a prior infection in this leg requiring many months of ciprofloxacin previously. His just noticed the erythema and noted he is non-compliant with his diuretics and therefore his legs have been more swollen recently. He is non-compliant as he feels he is unable to get anything done when he takes these. He has an ulcer on his left 2nd toe however this was unknown to the patient or his . No known history of MRSA as per patient and his . Bacteremia - Blood culture today showed gram negative bacili--follow-up sensitivity results - Patient clinically stable, vitals WNL--no sepsis currently - Currently on zosyn 3.375g IV q8h pending sensitivities - F/U AM CBC Cellulitis of LLE - Ulcer on second toe of left foot, venous stasis changes on both legs - Wound care consulted--continue wound care - IV Zosyn covering cellulitis as well Weakness - Patient has significant weakness precluding usual level of mobility - Consult PT/OT - Anticipate inpatient rehab need upon d/c Chronic diastolic (congestive) heart failure - Noncompliant with diuretics - Restart home bumetanide 2mg PO BID - F/U morning BMP Lower extremity edema - Likely venous insufficiency and diuretic noncompliance - DVT ruled out with US doppler Atrial fibrillation - No current chest discomfort or complaints - Not on anticoagulation due to prior hematuria - Continue carvedilol 12.5mg PO BID CKD - At baseline currently - Monitor AM BMP HTN - Well controlled currently - Continue carvedilol 12.5mg PO BID ROLLY - Intolerant to CPAP (2) Cellulitis of left lower extremity: (3) Weakness: (4) Chronic diastolic (congestive) heart failure: (5) Balance disorder: (6) Lower extremity edema: (7) Hyperparathyroidism: (8) Pacemaker: (9) Atrial fibrillation: (10) CKD (chronic kidney disease) stage 3, GFR 30-59 ml/min: (11) Hypertension: (12) ROLLY (obstructive sleep apnea): (13) DVT prophylaxis: Admission and Anticipated Discharge Date Admission Date: February 26, 2020 Supervising Physician Co-Signing Physician Notes I personally examined the patient and verified all ching points of history and exam, discussed case, and agree with decision making with Dr Bains. very weak - actually when we enter the room to see him he is stuck about senior care between the bed and chair - which are only ~2ft apart - but standing very unsteadily trying to hold himself up between the bed rail and IV pole. i move to try to assist him and he is so weak and moves with such little purpose that we are unalbe to get to either the chair (~6inches behind him) or the bed (where he was relative to the rail he would have to have moved about 1ft forward then 6 inches right) -- because of this we work together to safely sit on the ground - then i get assist from nursing staff. worried about going home soon enough tonio they're selling their house and moving to [place] vitals noted nad heent nc at mmm but very weak breathing unlabored no accessory muscles. very weak at trunk/core muscles - no focal neuro deficits, just no power. b/l LE venous stasis changes maybe more red LLE but not really tender. multiple venous stasis ulcers noted gram neg bacteremia - continue zosyn. probably came from venous ulcers in legs weakness/deconditioning - PT/OT eval and treat, almost certainly will need some form of rehab based on today's events. DVT proph - pharmacologic somewhat concerning between renal function and thrmobocytopenia. follow closely Results & Data Results & [facility] ([facility]) Vital Signs (Past 12 Hours) Vital Signs Temp Pulse Pulse Resp BP Pulse Ox 02/27/20 07:49 36.6 C 68 18 95/67 L 91 02/27/20 03:03 36.9 C 101 H 21 111/72 96 02/26/20 21:45 90 02/26/20 21:27 37.1 C 76 20 131/78 97 Resident Activity Tracking Resident Involvement: Resident Care Provided Care Provided: Adult Hospital Medicine (1) Atrial fibrillation Atrial fibrillation type: permanent Qualified Code(s): I48.2 - Chronic atrial fibrillation (2) Hypertension Hypertension type: essential hypertension Qualified Code(s): I10 - Essential (primary) hypertension
[2020-02-27] MEDS: PIPERACILLIN/TAZOBACTAM 3.375 GM in DEXTROSE 5% 100 ML IV SCH ×2 (14:04→21:25)
[2020-02-27] MEDS ORDERED: cefTRIAXone SODIUM 2,000 MG in DEXTROSE 5% 50 ML IV SCH (16:00)
[2020-02-27] MEDS ORDERED: DAPTOmycin 325 MG in SYRINGE 0 ML IV SCH (18:00)
--- NOTE | 2020-02-27 19:39 | Billing Data ---
Date of Service February 27, 2020 Coding Level of Care Code 14586 Subseq Hosp Care Lvl 3
[2020-02-27 20:37] LABS: Appearance Urine Clear (Clear); Bilirubin Urine Negative (Negative); Blood Urine Negative (Negative); Color Urine Yellow; Glucose Urine UA Negative (Negative); Ketones Urine Negative (Negative); Leukocyte Esterase Urine Negative (Negative); Nitrite Urine Negative (Negative); Protein Urine Negative (Negative); Specific Gravity Urine 1.012 (1.000-1.030); Urobilinogen Urine Negative (Negative)
--- NOTE | 2020-02-27 22:08 | Electrocardiogram Report ---
Test Reason : Blood Pressure : / mmHG Vent. 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
--- NOTE | 2020-02-27 22:17 | Electrocardiogram Report ---
Test Reason : Blood Pressure : / mmHG Vent. Rate : 076 BPM Atrial Rate : 227 BPM P-R Int : 000 ms QRS Dur : 130 ms QT Int : 394 ms P-R-T Axes : 000 -49 093 degrees QTc Int : 443 ms Atrial fibrillation with premature ventricular or aberrantly conducted complexes Left axis deviation Non-specific intra-ventricular conduction block Possible Inferior infarct (cited on or before 06-SEP-2018) Possible Anterior infarct Abnormal ECG When compared with ECG of 26-FEB-2020 16:36, No significant change Confirmed by Cayden Almeida ([id number]) on 02/27/2020 10:17:31 PM Referred By: REFERRED SELF Confirmed By:Cayden Almeida
[2020-02-28] MEDS: PIPERACILLIN/TAZOBACTAM 3.375 GM in DEXTROSE 5% 100 ML IV SCH ×3 (05:09→21:32)
[2020-02-28] MEDS: DICLOFENAC SOD 1% GEL 100 GM TUBE EXT PRN ×4 (05:10→21:33)
[2020-02-28 06:46] LABS: Eosinophils # (auto) 0.11 K/uL (0-0.5); Eosinophils % (auto) 1.8 %; Hematocrit (blood only) 34.2 % (42-52); Hemoglobin 10.9 g/dL (14.0-18.0); Immature Granulocytes # (auto) 0.01 K/uL (0.00-0.02); Immature Granulocytes % (auto) 0.2 %; Lymphocytes # (auto) 0.69 K/uL (1.2-3.4); Lymphocytes % (auto) 11.3 %; Mean Corpuscular Hemoglobin 28.5 pg (25-34); Mean Corpuscular Hgb Conc 31.9 g/dL (32-36); Mean Corpuscular Volume 89.5 fL (80-100); Mean Platelet Volume 10.8 fL (7.4-10.4); Monocytes % (auto) 11.5 %; Neutrophils # (auto) 4.57 K/uL (1.4-6.5); Neutrophils % (auto) 75.2 %; Platelet Count 104 K/uL (130-400); RDW Coefficient of Variation 15.8 % (11.5-14.5); RDW Standard Deviation 51.3 fL (36.4-46.3); Red Blood Count 3.82 M/uL (4.7-6.1); White Blood Count 6.08 K/uL (4.8-10.8)
[2020-02-28 07:20] LABS: BUN Creatinine Ratio 20.8 (10-20); Calcium 10.6 mg/dl (8.5-10.1); Est GFR (African American) 40.8; Est GFR (Non-African American) 35.2; Potassium 3.5 mmol/L (3.5-5.1)
--- NOTE | 2020-02-28 07:51 | Hospitalist Progress Note ---
Date of Service February 28, 2020 Assessment & Plan (1) Bacteremia: Tedooro Benavides is an 79-year-old male who presented to the ER with worsening cellulitis of his left lower extremity. Mentioned he had a prior infection in this leg requiring many months of ciprofloxacin previously. His just noticed the erythema and noted he is non-compliant with his diuretics and therefore his legs have been more swollen recently. He is non-compliant as he feels he is unable to get anything done when he takes these. He has an ulcer on his left 2nd toe however this was unknown to the patient or his . No known history of MRSA as per patient and his . Bacteremia - Blood culture showed gram negative bacilli--follow-up sensitivity results - Patient clinically stable, vitals WNL--no sepsis currently - Currently on Zosyn 3.375g IV q8h pending sensitivities - F/U AM CBC Cellulitis of LLE - Ulcer on second toe of left foot, venous stasis changes on both legs - Wound care consulted--continue wound care - IV Zosyn covering cellulitis as well Weakness - Patient has significant weakness precluding usual level of mobility - Consult PT/OT - per PT: patient able to ambulate 40ft x1 and 25ft x1 yesterday PM - per OT: home health could be apprpriate if patient continues to progress well with functional transfers, bed mobility, and ADLs. Chronic diastolic (congestive) heart failure - Noncompliant with diuretics - Restart home bumetanide 2mg PO BID - BLE edema still present - Monitor clinically - F/U morning BMP Lower extremity edema - Likely venous insufficiency and diuretic noncompliance - DVT ruled out with US doppler Atrial fibrillation - No current chest discomfort or complaints - Not on anticoagulation due to prior hematuria - Continue carvedilol 12.5mg PO BID CKD - Creatinine bumped slightly from 1.54 to 1.78--expected response due to continuation of diuretic regimen - Monitor clinically - F/U AM BMP HTN - Well controlled currently - Continue carvedilol 12.5mg PO BID ROLLY - Intolerant to CPAP DVT prophylaxis: No chemical ppx--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 FENGI: Heart healthy Dispo: Med/surg tele Code: Full Code (2) Cellulitis of left lower extremity: (3) Weakness: (4) Chronic diastolic (congestive) heart failure: (5) Balance disorder: (6) Lower extremity edema: (7) Hyperparathyroidism: (8) Pacemaker: (9) Atrial fibrillation: (10) CKD (chronic kidney disease) stage 3, GFR 30-59 ml/min: (11) Hypertension: (12) ROLLY (obstructive sleep apnea): (13) DVT prophylaxis: Admission and Anticipated Discharge Date Admission Date: February 26, 2020 Supervising Physician Co-Signing Physician Notes I personally examined the patient and verified all ching points of history and exam, discussed case, and agree with decision making with Dr Bains. resting in bed, later visualized walking w PT. extensive discussions w , updated her to the best of our ability and to her satisfaction. vitals noted nad heent nc at mmm but breathing unlabored no accessory muscles. b/l LE ongoing edema about the same as yesterday no new erythema no tracking gram neg bacteremia - continue zosyn pending final ID&S - suprisingly still at "gram neg bacilli" phase - follow. probably came from venous ulcers in legs weakness/deconditioning - PT/OT eval and treat, doing better w PT/OT than it appeared from when i saw him yesterday - but still seems like he would most benefit from rehab. DVT proph - pharmacologic somewhat concerning between renal function and thrombocytopenia. follow closely Subjective Patient is doing well today. Per PT patient yesterday was able to walk 40ft x 1 and 25ft x 1 after incident in his room when he had to be sat down on the floor. He continues to be worried about his upcoming move and expresses wanting to leave hospital today. I spoke to him and explained that he still needs treatment in hospital--he seems to accept this fact, if reluctantly. No new complaints. Denies fever, chills, nausea, vomiting, CP, palpitations, SOB, cough, abd pain, diarrhea. Review of Systems Constitutional: no fever, no chills, no sweats and no fatigue Respiratory: no cough and no dyspnea Cardiovascular: no chest pain and no palpitations Gastrointestinal: + abdominal pain; no nausea, no vomiting, no constipation and no diarrhea/loose stools Genitourinary: no dysuria, no difficulty urinating and no urinary frequency Physical Exam Constitutional: WD/WN, vitals as above no acute distress Respiratory: normal respiratory effort, lungs clear to auscultation Auscultation: + rales; no crackles, no rhonchi and no wheezes Cardiovascular: RRR, no murmur, no edema Heart Sounds: normal S1 and normal S2; no gallop, no murmur and no cardiac rub Extremities: + edema (edema in both legs) Gastrointestinal (Abdomen): normal bowel sounds, soft, nontender, no hepatosplenomegaly Skin: Venous stasis changes on both legs, wounds on left 2nd toe and scabbed Psychiatric: Orientation: alert and oriented x 3 Mood: + irritable mood Results & Data Results & Data ([facility]) Vital Signs (Past 12 Hours) Vital Signs Temp Pulse Pulse Resp BP BP Pulse Ox 02/28/20 07:18 75 02/28/20 04:00 36.7 C 84 18 112/73 94 02/27/20 23:20 76 02/27/20 23:00 37.0 C 82 16 121/73 95 02/27/20 20:01 37.1 C 88 32 H 132/74 96 Resident Activity Tracking Resident Involvement: Resident Care Provided Care Provided: Adult Hospital Medicine (1) Atrial fibrillation Atrial fibrillation type: permanent Qualified Code(s): I48.2 - Chronic atrial fibrillation (2) Hypertension Hypertension type: essential hypertension Qualified Code(s): I10 - Essential (primary) hypertension
[2020-02-28] MEDS: carvediloL 12.5 MG TAB PO SCH ×2 (08:04→21:32)
[2020-02-28] MEDS: MAGNESIUM OXIDE 400 MG TAB PO SCH (08:05)
[2020-02-28] MEDS: ASPIRIN 81 MG ECTAB PO SCH (08:05)
[2020-02-28] MEDS: BUMETANIDE 1 MG TAB PO SCH ×2 (08:05→15:54)
[2020-02-28] MEDS: CEROVITE ADV FORMULA TAB PO SCH (08:05)
--- NOTE | 2020-02-28 17:38 | Billing Data ---
Date of Service February 28, 2020 Coding Level of Care Code 03505 Subseq Hosp Care Lvl 3
[2020-02-29] MEDS: PIPERACILLIN/TAZOBACTAM 3.375 GM in DEXTROSE 5% 100 ML IV SCH ×2 (05:07→14:15)
[2020-02-29 07:15] LABS: Basophils # (auto) 0.01 K/uL (0-0.2); Basophils % (auto) 0.2 %; Eosinophils # (auto) 0.13 K/uL (0-0.5); Eosinophils % (auto) 2.4 %; Hematocrit (blood only) 33.9 % (42-52); Hemoglobin 10.9 g/dL (14.0-18.0); Immature Granulocytes # (auto) 0.01 K/uL (0.00-0.02); Immature Granulocytes % (auto) 0.2 %; Lymphocytes # (auto) 0.69 K/uL (1.2-3.4); Lymphocytes % (auto) 12.5 %; Mean Corpuscular Hemoglobin 28.6 pg (25-34); Mean Corpuscular Hgb Conc 32.2 g/dL (32-36); Mean Platelet Volume 9.9 fL (7.4-10.4); Monocytes # (auto) 0.67 K/uL (0.11-0.59); Monocytes % (auto) 12.1 %; Neutrophils # (auto) 4.02 K/uL (1.4-6.5); Neutrophils % (auto) 72.6 %; Platelet Count 116 K/uL (130-400); RDW Coefficient of Variation 15.9 % (11.5-14.5); RDW Standard Deviation 51.3 fL (36.4-46.3); Red Blood Count 3.81 M/uL (4.7-6.1); White Blood Count 5.53 K/uL (4.8-10.8)
[2020-02-29 07:36] LABS: BUN Creatinine Ratio 22.3 (10-20); Creatinine Clr Calc Pharmacy 40.4 ml/min; Potassium 3.6 mmol/L (3.5-5.1)
--- NOTE | 2020-02-29 08:10 | Hospitalist Progress Note ---
Date of Service February 29, 2020 Assessment & Plan (1) Bacteremia: Teodoro Benavides is an 79-year-old male who presented to the ER with worsening cellulitis of his left lower extremity. Mentioned he had a prior infection in this leg requiring many months of ciprofloxacin previously. His just noticed the erythema and noted he is non-compliant with his diuretics and therefore his legs have been more swollen recently. He is non-compliant as he feels he is unable to get anything done when he takes these. He has an ulcer on his left 2nd toe however this was unknown to the patient or his . No known history of MRSA as per patient and his . Bacteremia - Blood culture showed gram negative bacilli--follow-up sensitivity results - Patient clinically stable, vitals WNL--no sepsis currently - Currently on Zosyn 3.375g IV q8h pending sensitivities - F/U AM CBC Cellulitis of LLE - Ulcer on second toe of left foot, venous stasis changes on both legs - Wound care consulted--continue wound care - IV Zosyn covering cellulitis as well Weakness - Patient has significant weakness precluding usual level of mobility - Consult PT/OT - per PT: patient able to ambulate 15ft x2 and 50ft x2 yesterday PM - per OT: home health could be appropriate if patient continues to progress well with functional transfers, bed mobility, and ADLs. Chronic diastolic (congestive) heart failure - Noncompliant with diuretics - Restart home bumetanide 2mg PO BID - BLE edema still present - Monitor clinically - F/U morning BMP Lower extremity edema - Likely venous insufficiency and diuretic noncompliance - DVT ruled out with US doppler Atrial fibrillation - No current chest discomfort or complaints - Not on anticoagulation due to prior hematuria - Continue carvedilol 12.5mg PO BID CKD - Creatinine bumped slightly from 1.54 to 1.78--expected response due to continuation of diuretic regimen - Monitor clinically - F/U AM BMP HTN - Well controlled currently - Continue carvedilol 12.5mg PO BID ROLLY - Intolerant to CPAP DVT prophylaxis: No chemical ppx--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 FENGI: Heart healthy Dispo: Med/surg tele Code: Full Code (2) Cellulitis of left lower extremity: (3) Weakness: (4) Chronic diastolic (congestive) heart failure: (5) Balance disorder: (6) Lower extremity edema: (7) Hyperparathyroidism: (8) Pacemaker: (9) Atrial fibrillation: (10) CKD (chronic kidney disease) stage 3, GFR 30-59 ml/min: (11) Hypertension: (12) ROLLY (obstructive sleep apnea): (13) DVT prophylaxis: Admission and Anticipated Discharge Date Admission Date: February 26, 2020 Subjective Patient is doing well today in a much better mood than yesterday. Not irritable, more talkative. He asked again today about discharge, spoke to him about possibility of d/c tomorrow depending on response to new antibiotic treatment and PT recommendations. No new complaints. Denies fever, chills, nausea, vomiting, CP, palpitations, SOB, cough, abd pain, diarrhea. Review of Systems Constitutional: + weakness; no fever, no chills, no sweats and no fatigue Respiratory: no cough, no chest congestion and no dyspnea Cardiovascular: + edema (BL LE); no chest pain and no palpitations Gastrointestinal: no abdominal pain, no nausea, no vomiting, no constipation and no diarrhea/loose stools Genitourinary: no dysuria, no difficulty urinating and no urinary frequency Physical Exam Constitutional: WD/WN, vitals as above no acute distress Respiratory: normal respiratory effort, lungs clear to auscultation Auscultation: no crackles, no rales, no rhonchi and no wheezes Cardiovascular: RRR, no murmur, no edema Heart Sounds: normal S1 and normal S2; no gallop, no murmur and no cardiac rub Extremities: + edema (edema in both legs) Gastrointestinal (Abdomen): normal bowel sounds, soft, nontender, no hepat osplenomegaly Psychiatric: A+Ox3, euthymic affect Results & Data Results & Data ([facility]) Vital Signs (Past 12 Hours) Vital Signs Temp Pulse Pulse Resp BP Pulse Ox 02/29/20 07:52 36.5 C 56 L 18 101/66 95 02/29/20 07:02 68 02/29/20 03:09 37.1 C 64 19 104/68 90 02/28/20 23:50 92 H 02/28/20 23:10 36.8 C 90 18 107/73 94 (1) Atrial fibrillation Atrial fibrillation type: permanent Qualified Code(s): I48.2 - Chronic atrial fibrillation (2) Hypertension Hypertension type: essential hypertension Qualified Code(s): I10 - Essential (primary) hypertension
[2020-02-29] MEDS: BUMETANIDE 1 MG TAB PO SCH (08:33)
[2020-02-29] MEDS: carvediloL 12.5 MG TAB PO SCH (08:33)
[2020-02-29] MEDS: MAGNESIUM OXIDE 400 MG TAB PO SCH (08:34)
[2020-02-29] MEDS: ASPIRIN 81 MG ECTAB PO SCH (08:34)
[2020-02-29] MEDS: CEROVITE ADV FORMULA TAB PO SCH (08:34)
[2020-02-29] MEDS ORDERED: ARTIFICIAL TEARS OP PRN (12:14)
--- NOTE | 2020-02-29 13:55 | Discharge Summary ---
Date of Service February 29, 2020 Admission HPI Per Admitting Provider Teodoro Benavides is an 79-year-old male who presents to the ER with worsening cellulitis of his left lower extremity. The patient is unable to give me much of a history regarding this. Just mentions he had a prior infection in this leg requiring many months of ciprofloxacin previously. His just noticed the erythema today and notes he is non-compliant with his diuretics and therefore his legs have been more swollen recently. He is non-compliant as he feels he is unable to get anything done when he takes these. He has an ulcer on his left 2nd toe however this was unknown to the patient or his . No known history of MRSA as per patient and his . He denies any fevers, chills, shortness of breath, cough, loss of taste or smell. No known COVID-19 exposure. His is generally concerned she is unable to manage with him at home in his current state of health. He denies any fevers or chills. Admission Exam Per Admitting Provider Constitutional: well developed and + obese; + not well nourished and no acute distress Eyes: + anicteric sclerae; normal pupil size Neck: + short neck and + thick neck Respiratory: normal respiratory effort, lungs clear to auscultation Cardiovascular: Rate/Rhythm: regular rate and + irregularly irregular Extremities: + edema (3+ up to abdomen on the left 2+ on right); no calf tenderness Gastrointestinal (Abdomen): Inspection/Auscultation: + abdomen distended (Patient reports at baseline) and normal bowel sounds Percussion/Palpation: abdomen soft; abdomen nontender, no guarding and abdomen not rigid Skin: + erythema (Significantly more erythematous and left lower extremity from knee to foot, venous stasis changes on the right lower extremity) Ulcer on second toe of left foot. Not previously noticed by patient or his . Likely source of erythema or above Neurologic: moves all extremities and awake; no focal motor deficits (Significant bilateral lower extremity weakness suspect due to leg edema) and not confused Motor/Sensory: + sensory deficit (Numbness from knee distally bilaterally equal) Psychiatric: Orientation: alert, oriented to person and oriented to place; + not oriented to time Genitourinary: no CVA tenderness Principal Diagnosis LE cellulitis, bacteremia Discharge Exam Constitutional WD/WN, vitals as above no acute distress Respiratory normal respiratory effort, lungs clear to auscultation Auscultation: no crackles, no rales, no rhonchi and no wheezes Cardiovascular RRR, no murmur, no edema Heart Sounds: normal S1 and normal S2; no gallop, no murmur and no cardiac rub Extremities: + edema (edema in both legs) Gastrointestinal (Abdomen) normal bowel sounds, soft, nontender, no hepatosplenomegaly Psychiatric A+Ox3, euthymic affect Orientation: alert and oriented to person; + not oriented to place and + not o riented to time Discharge Data Allergies Allergy/AdvReac Type Severity Reaction Status Date / Time adhesive Allergy Intermediate REDDENED, Verified 02/26/20 17:05 ITCHY SKIN oxybutynin Allergy Unknown Unknown Verified 02/26/20 17:05 ciprofloxacin [From Cipro] AdvReac Mild pain in Verified 02/26/20 17:05 tendons ALL OPIOIDS Allergy Severe "SEVERE" Uncoded 02/26/20 17:05 DELIRIUM Consultations 02/26/20 18:00 ED Decision to Admit Stat 02/27/20 17:39 Consult Case Management - Discharge Planning Routine 02/29/20 09:03 Consult Case Management - Discharge Planning Routine Ordered Studies 02/26/20 19:05 US venous doppler [facility] Urgent Hospital Course (1) Bacteremia: Teodoro Benavides is an 79-year-old male who presented to the ER with worsening cellulitis of his left lower extremity. Mentioned he had a prior infection in this leg requiring many months of ciprofloxacin previously. His just no ticed the erythema and noted he is non-compliant with his diuretics and therefore his legs have been more swollen recently. He is non-compliant as he feels he is unable to get anything done when he takes these. He has an ulcer on his left 2nd toe however this was unknown to the patient or his . No known history of MRSA as per patient and his . Follow up with primary care provider for management of chronic conditions. Bacteremia - Blood culture showed gram negative bacilli--follow-up sensitivity results - Patient clinically stable, vitals WNL--no sepsis currently - Zosyn 3.375g IV q8h pending sensitivities - Switched to cefuroxime 500mg PO q12h x10.5 days--start first dose today PM (02/29/2020) Cellulitis of LLE - Ulcer on second toe of left foot, venous stasis changes on both legs - Wound care in hospital--continue wound care Weakness - Patient has significant weakness precluding usual level of mobility - Consult PT/OT - per PT: patient able to ambulate 15ft x2 and 50ft x2 yesterday PM - per OT: home health could be appropriate if patient continues to progress well with functional transfers, bed mobility, and ADLs. Chronic diastolic (congestive) heart failure - Noncompliant with diuretics - Restarted home bumetanide 2mg PO BID - BLE edema still present - Monitor clinically Lower extremity edema - Likely venous insufficiency and diuretic noncompliance - DVT ruled out with US doppler Atrial fibrillation - No current chest discomfort or complaints - Not on anticoagulation due to prior hematuria - Continued carvedilol 12.5mg PO BID CKD - Creatinine bumped from 1.78 to 1.93 today--continue to monitor HTN - Well controlled currently - Continued carvedilol 12.5mg PO BID ROLLY - Intolerant to CPAP DVT prophylaxis: No chemical ppx--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 FENGI: Heart healthy Dispo: Med/surg tele Code: Full Code (2) Cellulitis of left lower extremity: (3) Weakness: (4) Chronic diastolic (congestive) heart failure: (5) Balance disorder: (6) Lower extremity edema: (7) Hyperparathyroidism: (8) Pacemaker: (9) Atrial fibrillation: (10) CKD (chronic kidney disease) stage 3, GFR 30-59 ml/min: (11) Hypertension: (12) ROLLY (obstructive sleep apnea): (13) DVT prophylaxis: Total Time Total Time Spent Total Time Spent (In Minutes): >30 Discharge Plan Discharge Items Patient Disposition: Transfer Inpatient Rehab Fac Reason For Visit: CELLULITIS Discharge Diagnosis: LE cellulitis, bacteremia Activity: Per Instructions section Non-emergency contact: Primary Care Provider Call non-emergency contact if: your symptoms worsen and your temperature is above 101 Follow-up/Referrals: Fracisco Eddy MD [Primary Care Provider] - 03/01/20 11:00 am (You have a follow up appt with Krissy Valdez on WednesdayMar 01 at 1100am. Please arrive 15 minutes prior to your appt. If this appt does not fit your schedule please call [phone] to reschedule. ) Diet: Heart Healthy Addtl Attending Provider Instructions: You arrived at [facility] due to swelling and redness of your left leg. You were found to have an ulcer on your left second toe and subsequent cellulitis of your leg. Afterwards you were found to have bacteria in your bloodstream as well. You were treated with intravenous antibiotics and will continue to take oral antibiotics upon discharge. While here you were found to also have generalized weakness and as such, physical and occupational therapy suggested you receive inpatient rehabilitation after your hospital stay. As such, you will be transferred to an inpatient rehabilitation facility for continued treatment. Please follow up with your primary care provider at your earliest possible convenience for further management of your chronic conditions. Pending Studies at Discharge: No Stand-Alone Forms: My New [facility] Skilled Items Patient informed of condition?: Yes DNR: No Discharge Level of Care: Acute rehab Communicable Disease: No Discharge Prognosis: Improving Lines: None Urinary Catheter: No Medications and DC Order Prescriptions: New cefuroxime axetil 500 mg tablet 500 mg PO BID Qty: 21 RF: 0 Continued aspirin 81 mg tablet,delayed release (DR/EC) 81 mg PO QAM Qty: 90 RF: 3 carvedilol 25 mg tablet 12.5 mg PO BID Qty: 90 RF: 3 lidocaine 4 % adhesive patch,medicated 2 patch TOP DAILY PRN (Reason: Pain) RF: 0 Systane (propylene glycol) 0.4-0.3 % drops 2 drops OP BID PRN (Reason: Dry Eye(S)) RF: 0 bumetanide 1 mg tablet 2 mg PO BID Qty: 60 RF: 5 lorazepam 1 mg tablet 0.5 mg PO BID PRN (Reason: Agitation) RF: 0 multivitamin with minerals Tablet 1 tab PO QAM RF: 0 magnesium oxide 400 mg Capsule 400 mg PO QAM RF: 0 Discharge Orders: Discharge Order (Routine); Ordered 02/29/20 Ordered By: Misha Field Admission Data Admit Date/Time: 02/26/20 21:16 Attending Provider: Junito Petersen Admit Provider: Ky Tao Primary Care Provider: Fracisco Eddy Other Providers: Prasad Espino ; Ky Tao ; [facility] Other Interventions: Discharge Summary Assessment (RN) Last Done: 02/29/20 15:15 Supervising Physician Co-Signing Physician Notes I personally examined the patient and verified all ching points of history and exam, discussed case, and agree with decision making with Dr Mendez. wants to go home - stable for rehab. after extensive discussions w pt and family - agrees to rehab. vitals noted nad heent nc at mmm but breathing unlabored no accessory muscles. mentation shows questionable insight and capacity. technically oriented x 2 but have to go through multiple iterations of "vaguely correct" answers on location before he gets to [facility], thinks year is 2000 or 2001. gram neg bacteremia - sensitivities finalized. dr mendez d/w pharmacy. finish course w PO abx - total 14 days treatment weakness/deconditioning - PT/OT eval and treat, doing better w PT/OT than it appeared from before but still does not appear at all that he would be safe at home left to be responsible for himself; large fall risk. stable for rehab, however. after extensive discussions he consents to this (although more important, or at least just as important, since his capacity seems impaired, is that his family was fully in favor of rehab) impaired capacity, mentation - and son describe "good days and bad days" at home - and he shows significant slowing in processing things, seems to lack insight - concern on baseline dementia. discussed frankly w family. for ongoing close outpt f/u. CKD3 - creatinine lb today - but likely in the face of diuretics with changed diet in hospital environment. for now will not formally change his diuretic dosing - but would ask that BMP be followed periodically at rehab. Resident Activity Tracking Resident Involvement: Resident Care Provided Care Provided: Adult Hospital Medicine
--- NOTE | 2020-02-29 18:50 | Billing Data ---
Date of Service February 29, 2020 Coding Level of Care Code D/C Day Management >30 mins
== END 2020-02-29 17:07 | DRG 603 ==
LOC: 2N 15:41 → ED 15:41 → 2N 20:47 → SUATTDRO 21:16

== ENCOUNTER 2020-05-03 22:18 | Inpatient (IN) ==
[2020-05-03 22:51] LABS: Basophils # (auto) 0.01 K/uL (0-0.2); Basophils % (auto) 0.1 %; Eosinophils # (auto) 0.21 K/uL (0-0.5); Eosinophils % (auto) 2.9 %; Hematocrit (blood only) 32.6 % (42-52); Hemoglobin 10.3 g/dL (14.0-18.0); Immature Granulocytes # (auto) 0.01 K/uL (0.00-0.02); Immature Granulocytes % (auto) 0.1 %; Lymphocytes # (auto) 0.53 K/uL (1.2-3.4); Lymphocytes % (auto) 7.4 %; Mean Corpuscular Hemoglobin 28.7 pg (25-34); Mean Corpuscular Hgb Conc 31.6 g/dL (32-36); Mean Corpuscular Volume 90.8 fL (80-100); Mean Platelet Volume 10.2 fL (7.4-10.4); Monocytes # (auto) 0.53 K/uL (0.11-0.59); Monocytes % (auto) 7.4 %; Neutrophils # (auto) 5.88 K/uL (1.4-6.5); Neutrophils % (auto) 82.1 %; Platelet Count 117 K/uL (130-400); RDW Standard Deviation 50.1 fL (36.4-46.3); Red Blood Count 3.59 M/uL (4.7-6.1); White Blood Count 7.17 K/uL (4.8-10.8)
--- NOTE | 2020-05-03 22:58 | Emergency Department Note ---
Impression & Plan Sepsis, Cellulitis, Febrile ED Provider Note NAME: JULISSA RIVERA AGE: 79 SEX: M : 1940 ARRIVES VIA: Ambulance INFORMANT: Patient ED PROVIDER(S): Junito Song DO CHIEF COMPLAINT: Weakness HPI: Patient is an 79-year-old male who presents the ER for weakness. He notes he is unable to ambulate. He has worsening pain in his left lower extremity and redness which has been worsening over the past 2 days. He denies any headache or chest pain. No new shortness of breath. No belly pain, nausea, vomiting or diarrhea. No dysuria, urgency or frequency. No other exacerbating or remitting factors. He notes he has a long history of swelling in the bilateral lower extremities. ROS: See above HPI for pertinent positives & negatives. A total of 10 systems reviewed and were otherwise negative. PAST MEDICAL HISTORY:See Below PAST SURGICAL HISTORY:See Below FAMILY HISTORY:See Below SOCIAL HISTORY:See Below HOME MEDICATIONS:See Below ALLERGIES:See Below VITALS:See Below PHYSICAL EXAMINATION: GENERAL: Sitting up in bed, alert, ill-appearing, disheveled EYE EXAM: normal conjunctiva. PERRL and EOM's grossly intact. OROPHARYNX: no exudate, no erythema, lips, buccal mucosa, and tongue normal and mucous membranes are moist NECK: supple, no nuchal rigidity, no adenopathy, non-tender LUNGS: Clear to auscultation. Normal chest wall mechanics HEART: no murmurs, S1 normal and S2 normal ABDOMEN: abdomen soft, non-tender, normo-active bowel sounds, no masses, no rebound or guarding. BACK: Back is symmetrical on inspection and there is no deformity, no midline tenderness, no CVA tenderness. SKIN: no rashes and no bruising UPPER EXTREMITIES: upper extremities are grossly normal. LOWER EXTREMITIES: Bilateral pitting edema with erythema tracking up to left mid thigh NEURO EXAM: Normal sensorium, cranial nerves II-XII grossly intact, normal speech, no gross weakness of arms, no gross weakness of legs. MEDICAL DECISION MAKING: Patient is an 79-year-old male who presents the ER for weakness and left lower extremity pain with redness which has been present for the past 2 days. Upon presentation he is found to be febrile. IV was established blood work was obtained. Labs show no significant leukocytosis. Mild anemia 10.3. INR was normal. BMP with a creatinine of 1.7 consistent with previous. Lactate was normal. Magnesium elevated. T bili slightly elevated 1.5. LFTs troponin was normal. Pro-Edgar slightly elevated at 0.81. Covid was negative. Patient was given IV fluids and daptomycin for the cellulitis. He was updated and discussed with the hospitalist admitted for further work-up. Triage Nursing notes reviewed. Prior medical records reviewed Vital Signs: reviewed and remarkable for febrile and tachy Differential diagnosis: Differential diagnosis includes etiologies such as sepsis, UTI, pneumonia, metabolic, electrolyte abnormalities, cardiac sources, intracerebral event, toxicologic, neurological, as well as others were entertained. ER treatment provided: See below Diagnostics interpreted by me: ECG: Atrial rhythm probable underlying A. fib rate of 101 Multiple PVCs QTC 474 Left axis Poor baseline Ectopy is new from previous EKGs on comparison Cardiac Monitoring: An order was placed for continuous cardiac monitoring. The monitor shows a rate of 88 with afib rhythm. Laboratory studies: As stated above and show below. Imaging studies: Portable AP upright 1 view chest shows no focal infiltrate with a pacemaker in place Consultation(s): Discussed with Dr. Barnard for further evaluation ED COURSE: Procedures: none Critical Care: None Past Med/Surg History Medical History (Updated 05/04/20 @ 00:39 by Junito Song DO) Anemia Anxiety Atrial fibrillation Balance disorder Basal cell carcinoma removed in office Bilateral lower extremity edema Cellulitis of left lower extremity CKD (chronic kidney disease) Deep vein thrombosis Diastolic heart failure DVT (deep venous thrombosis) S/p IVC filter Gout Hypertension Kidney stones Lower extremity edema Nonischemic cardiomyopathy recent hospital admission. see cardiology consult note for this patient. 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 device Family History Father Hypertension Stroke Brother Hypertension Other No family history of adverse response to anesthesia Social History Smoking Status: Never smoker Second Hand Exposure: No; Hx Alcohol Use: Yes Alcohol type: wine Hx Substance Use: No Preferred Language: Mohawk Communication Ability: Effective Visual Impairment: Limited Hearing Ability: Hard of Hearing Full Service Supervisor Required: No Beliefs That Will Affect Care: Druze Druze Beliefs: No Blood transfusions marital status: Current Living Situation: Spouse current occupational status: retired Feels Safe at Home: Yes Childhood Exposure to Second-Hand Smoke: No caffeine: Yes Dental Care, Regularly: Yes Physical Activity Frequency: Does not Exercise Seatbelt Use: always Sunscreen Use: Yes Assistive Devices: Glasses and Walker Allergies Allergies Allergy/AdvReac Type Severity Reaction Status Date / Time adhesive Allergy Intermediate REDDENED, Verified 05/03/20 23:26 ITCHY SKIN oxybutynin Allergy Unknown Unknown Verified 05/03/20 23:26 ciprofloxacin [From Cipro] AdvReac Mild pain in Verified 05/03/20 23:26 tendons ALL OPIOIDS Allergy Severe "SEVERE" Uncoded 05/03/20 23:26 DELIRIUM Home Meds Home Medications Medication Instructions Recorded Confirmed magnesium oxide 400 mg PO QAM 08/10/18 05/03/20 multivitamin with minerals 1 tab PO QAM 08/10/18 05/03/20 lorazepam 1 mg tablet 0.5 mg PO BID PRN tab 10/19/19 05/03/20 lidocaine 4 % topical patch 2 patch TOP DAILY PRN ea 12/19/19 05/03/20 peg 400-propylene glycol 0.4 %-0.3 2 drops OP BID PRN ml 12/19/19 05/03/20 % eye drops acetaminophen 325 mg tablet 650 mg PO Q4H PRN tab 03/12/20 05/03/20 cholecalciferol (vitamin D3) 125 125 mcg PO DAILY 03/12/20 05/03/20 mcg (5,000 unit) capsule docusate sodium 100 mg capsule 100 mg PO BID PRN 03/20/20 05/03/20 Previous Rx's Medication Instructions Recorded aspirin 81 mg tablet,delayed 81 mg PO QAM #90 tab 07/03/19 release carvedilol 25 mg tablet 12.5 mg PO BID #90 tab 07/03/19 bumetanide 1 mg tablet 2 mg PO BID #60 tab 12/19/19 Results & Data (ED) Vital Signs Vital Signs - 24 hr 05/03/20 22:20 05/03/20 22:28 05/03/20 22:30 Temperature 38.5 C H Temperature Source Oral Pulse Rate 81 91 H 84 Pulse Rate from SpO2 Sensor 68 64 Respiratory Rate 20 20 20 Respiratory Depth Normal Blood Pressure 102/64 Blood Pressure Mean 76 Pulse Oximetry 94 93 96 Oxygen Delivery Method Room Air Room Air Room Air Sepsis Recent Fever Within 48 Hours Yes Sepsis New/Unexplained Change in Mental Status No Sepsis Action Taken by Nursing No Action Required 05/03/20 23:00 05/03/20 23:30 05/03/20 23:48 Temperature Temperature Source Pulse Rate 75 71 83 Pulse Rate from SpO2 Sensor 73 74 77 Respiratory Rate 25 H 21 24 Respiratory Depth Blood Pressure 117/65 Blood Pressure Mean 90 Pulse Oximetry 95 93 93 Oxygen Delivery Method Room Air Room Air Room Air Sepsis Recent Fever Within 48 Hours Sepsis New/Unexplained Change in Mental Status Sepsis Action Taken by Nursing Laboratory Data Result diagrams: 05/03/20 22:41 05/03/20 22:41 Lab Results 05/03/20 05/03/20 05/03/20 Range/Units 22:27 22:27 22:41 WBC (4.8-10.8) K/uL RBC (4.7-6.1) M/uL Hgb (14.0-18.0) g/dL Hct (42-52) % MCV (80-100) fL MCH (25-34) pg MCHC (32-36) g/dL RDW Std Deviation (36.4-46.3) fL RDW Coeff of Joshua (11.5-14.5) % Plt Count (130-400) K/uL MPV (7.4-10.4) fL Immature Gran % (Auto) % Neut % (Auto) % Lymph % (Auto) % [place] % (Auto) % Eos % (Auto) % Baso % (Auto) % Neut # (Auto) (1.4-6.5) K/uL Lymph # (Auto) (1.2-3.4) K/uL [place] # (Auto) (0.11-0.59) K/uL Eos # (Auto) (0-0.5) K/uL Baso # (Auto) (0-0.2) K/uL Immature Gran # (Auto) (0.00-0.02) K/uL PT (9.0-12.0) Seconds INR (0.9-1.1) APTT (21.0-31.0) Seconds PTT Ratio Sodium (136-145) mmol/L Potassium (3.5-5.1) mmol/L Chloride (98-107) mmol/L Carbon Dioxide (21-32) mmol/L Anion Gap (3-11) BUN (7-18) mg/dl Creatinine (0.6-1.4) mg/dl Est Cr Clr Drug Dosing ml/min Est GFR ( Amer) Est GFR (Non-Af Amer) BUN/Creatinine Ratio (10-20) Glucose (70-99) mg/dl Lactate (0.4-2.0) mmol/L Calcium (8.5-10.1) mg/dl Magnesium (1.8-2.4) mg/dl Total Bilirubin (0.2-1) mg/dl AST (15-37) U/L ALT (12-78) U/L Alkaline Phosphatase (45-117) U/L Troponin I (0-0.045) ng/ml Total Protein (6.4-8.2) gm/dl Albumin (3.4-5.0) gm/dl Globulin (2.5-4.0) gm/dl Albumin/Globulin Ratio (0.9-2) Procalcitonin 0.81 H (0-0.5) ng/ml COVID-19 Eval Order Covid19 Done at [facility] COVID-19 PCR NEGATIVE (Negative) 05/03/20 05/03/20 05/03/20 Range/Units 22:41 22:41 22:41 WBC 7.17 (4.8-10.8) K/uL RBC 3.59 L (4.7-6.1) M/uL Hgb 10.3 L (14.0-18.0) g/dL Hct 32.6 L (42-52) % MCV 90.8 (80-100) fL MCH 28.7 (25-34) pg MCHC 31.6 L (32-36) g/dL RDW Std Deviation 50.1 H (36.4-46.3) fL RDW Coeff of Joshua 15.0 H (11.5-14.5) % Plt Count 117 L (130-400) K/uL MPV 10.2 (7.4-10.4) fL Immature Gran % (Auto) 0.1 % Neut % (Auto) 82.1 % Lymph % (Auto) 7.4 % [place] % (Auto) 7.4 % Eos % (Auto) 2.9 % Baso % (Auto) 0.1 % Neut # (Auto) 5.88 (1.4-6.5) K/uL Lymph # (Auto) 0.53 L (1.2-3.4) K/uL [place] # (Auto) 0.53 (0.11-0.59) K/uL Eos # (Auto) 0.21 (0-0.5) K/uL Baso # (Auto) 0.01 (0-0.2) K/uL Immature Gran # (Auto) 0.01 (0.00-0.02) K/uL PT 12.8 H (9.0-12.0) Seconds INR 1.2 H (0.9-1.1) APTT 26.4 (21.0-31.0) Seconds PTT Ratio 0.9 Sodium 137 (136-145) mmol/L Potassium 5.0 (3.5-5.1) mmol/L Chloride 105 (98-107) mmol/L Carbon Dioxide 25 (21-32) mmol/L Anion Gap 6.0 (3-11) BUN 39 H (7-18) mg/dl Creatinine 1.73 H (0.6-1.4) mg/dl Est Cr Clr Drug Dosing 48.0 ml/min Est GFR ( Amer) 42.3 Est GFR (Non-Af Amer) 36.5 BUN/Creatinine Ratio 22.5 H (10-20) Glucose 110 H (70-99) mg/dl Lactate (0.4-2.0) mmol/L Calcium 10.7 H (8.5-10.1) mg/dl Magnesium 2.5 H (1.8-2.4) mg/dl Total Bilirubin 1.5 H (0.2-1) mg/dl AST 26 (15-37) U/L ALT 38 (12-78) U/L Alkaline Phosphatase 130 H (45-117) U/L Troponin I < 0.015 (0-0.045) ng/ml Total Protein 7.0 (6.4-8.2) gm/dl Albumin 3.0 L (3.4-5.0) gm/dl Globulin 4.0 (2.5-4.0) gm/dl Albumin/Globulin Ratio 0.8 L (0.9-2) Procalcitonin (0-0.5) ng/ml COVID-19 Eval Order COVID-19 PCR (Negative) 05/03/20 Range/Units 22:41 WBC (4.8-10.8) K/uL RBC (4.7-6.1) M/uL Hgb (14.0-18.0) g/dL Hct (42-52) % MCV (80-100) fL MCH (25-34) pg MCHC (32-36) g/dL RDW Std Deviation (36.4-46.3) fL RDW Coeff of Joshua (11.5-14.5) % Plt Count (130-400) K/uL MPV (7.4-10.4) fL Immature Gran % (Auto) % Neut % (Auto) % Lymph % (Auto) % [place] % (Auto) % Eos % (Auto) % Baso % (Auto) % Neut # (Auto) (1.4-6.5) K/uL Lymph # (Auto) (1.2-3.4) K/uL [place] # (Auto) (0.11-0.59) K/uL Eos # (Auto) (0-0.5) K/uL Baso # (Auto) (0-0.2) K/uL Immature Gran # (Auto) (0.00-0.02) K/uL PT (9.0-12.0) Seconds INR (0.9-1.1) APTT (21.0-31.0) Seconds PTT Ratio Sodium (136-145) mmol/L Potassium (3.5-5.1) mmol/L Chloride (98-107) mmol/L Carbon Dioxide (21-32) mmol/L Anion Gap (3-11) BUN (7-18) mg/dl Creatinine (0.6-1.4) mg/dl Est Cr Clr Drug Dosing ml/min Est GFR ( Amer) Est GFR (Non-Af Amer) BUN/Creatinine Ratio (10-20) Glucose (70-99) mg/dl Lactate 1.3 (0.4-2.0) mmol/L Calcium (8.5-10.1) mg/dl Magnesium (1.8-2.4) mg/dl Total Bilirubin (0.2-1) mg/dl AST (15-37) U/L ALT (12-78) U/L Alkaline Phosphatase (45-117) U/L Troponin I (0-0.045) ng/ml Total Protein (6.4-8.2) gm/dl Albumin (3.4-5.0) gm/dl Globulin (2.5-4.0) gm/dl Albumin/Globulin Ratio (0.9-2) Procalcitonin (0-0.5) ng/ml COVID-19 Eval Order COVID-19 PCR (Negative) Administered Medications Discontinued Medications Acetaminophen (Acetaminophen 325 Mg Tab) 650 mg PO NOW STA Stop: 05/03/20 23:41 Last Admin: 05/04/20 00:22 Dose: 650 mg Documented by: [id number] Daptomycin 600 mg/ Syringe 12 mls @ 6 mls/min IV NOW ONE; Protocol Stop: 05/03/20 23:41 Last Admin: 05/04/20 00:23 Dose: 6 mls/min Documented by: [id number] Sodium Chloride (Nss) 500 mls @ 999 mls/hr IV .Q31M ONE Stop: 05/04/20 00:12 Last Admin: 05/04/20 00:23 Dose: 999 mls/hr Documented by: [id number] Discharge Plan Visit Data Chief Complaint: Illness Stated Complaint: WEAKNESS, UNABLE TO STAND ED Provider: Junito Song Discharge Problem: Sepsis, Cellulitis, Febrile Forms Stand Alone Forms: [facility] Prescriptions Prescriptions: No Action aspirin 81 mg tablet,delayed release (DR/EC) 81 mg PO QAM Qty: 90 RF: 3 carvedilol 25 mg tablet 12.5 mg PO BID Qty: 90 RF: 3 lidocaine 4 % adhesive patch,medicated 2 patch TOP DAILY PRN (Reason: Pain) RF: 0 Systane (propylene glycol) 0.4-0.3 % drops 2 drops OP BID PRN (Reason: Dry Eye(S)) RF: 0 bumetanide 1 mg tablet 2 mg PO BID Qty: 60 RF: 5 acetaminophen 325 mg tablet 650 mg PO Q4H PRN (Reason: Pain) RF: 0 cholecalciferol (vitamin D3) 125 mcg (5,000 unit) capsule 125 mcg PO DAILY RF: 0 docusate sodium 100 mg capsule 100 mg PO BID PRN (Reason: Constipation) RF: 0 lorazepam 1 mg tablet 0.5 mg PO BID PRN (Reason: Agitation) RF: 0 multivitamin with minerals Tablet 1 tab PO QAM RF: 0 magnesium oxide 400 mg Capsule 400 mg PO QAM RF: 0 Discharge Problem: Sepsis Qualifiers: Sepsis type: sepsis due to unspecified organism Sepsis acute organ dysfunction status: unspecified Qualified Code(s): A41.9 - Sepsis, unspecified organism Cellulitis Qualifiers: Site of cellulitis: unspecified site Qualified Code(s): L03.90 - Cellulitis, u nspecified Febrile Qualifiers: Fever type: unspecified Qualified Code(s): R50.9 - Fever, unspecified
[2020-05-03 23:04] LABS: INR 1.2 (0.9-1.1); Partial Thromboplastin Ratio 0.9; Partial Thromboplastin Time 26.4 Seconds (21.0-31.0); Prothrombin Time 12.8 Seconds (9.0-12.0)
[2020-05-03 23:09] LABS: Alanine Aminotransferase 38 U/L (12-78); Aspartate Aminotransferase 26 U/L (15-37); BUN Creatinine Ratio 22.5 (10-20); Blood Urea Nitrogen 39 mg/dl (7-18); Calcium 10.7 mg/dl (8.5-10.1); Carbon Dioxide 25 mmol/L (21-32); Chloride 105 mmol/L (98-107); Est GFR (African American) 42.3; Est GFR (Non-African American) 36.5; Glucose 110 mg/dl (70-99); Magnesium 2.5 mg/dl (1.8-2.4); Sodium 137 mmol/L (136-145)
[2020-05-03 23:14] LABS: Albumin Globulin Ratio 0.8 (0.9-2); Alkaline Phosphatase 130 U/L (45-117); Bilirubin,Total 1.5 mg/dl (0.2-1); Troponin I < 0.015 ng/ml (0-0.045)
[2020-05-03] MEDS ORDERED: DAPTOmycin 600 MG in SYRINGE 0 ML IV ONE (23:40)
[2020-05-03] MEDS ORDERED: ACETAMINOPHEN 325 MG TAB PO STA (23:40)
[2020-05-03] MEDS ORDERED: SODIUM CHLORIDE 0.9% 500 ML IV ONE (23:42)
[2020-05-04] MEDS: ALBUMIN 25% 12.5 GM/50 ML VIAL IV SCH ×6 (01:41→08:42)
[2020-05-04] MEDS ORDERED: DOCUSATE SODIUM 100 MG CAP PO PRN (02:53)
[2020-05-04] MEDS ORDERED: ONDANSETRON INJ 2 MG/ML 2 ML VIAL IV PRN (02:53)
[2020-05-04] MEDS ORDERED: MAGNESIUM HYDROXIDE SUSP 30 ML UDC PO PRN (02:53)
[2020-05-04] MEDS ORDERED: ARTIFICIAL TEARS OP PRN (02:53)
[2020-05-04] MEDS ORDERED: PIPERACILL/TAZOBAC CONSULT ACTIVE PRN (02:53)
[2020-05-04] MEDS ORDERED: ALUMINUM/MAGNESIUM SUSP 30 ML UDC PO PRN (02:53)
[2020-05-04] MEDS ORDERED: ACETAMINOPHEN 325 MG TAB PO PRN (02:53)
[2020-05-04] MEDS ORDERED: LIDOCAINE 5% 1 PATCH TD PRN (02:53)
[2020-05-04] MEDS ORDERED: BUMETANIDE 1 MG in SYRINGE 0 ML IV ONE (03:45)
[2020-05-04] MEDS ORDERED: PIPERACILLIN/TAZOBACTAM 3.375 GM in DEXTROSE 5% 100 ML IV STA (03:58)
--- NOTE | 2020-05-04 05:05 | History & Physical Report ---
Date of Service May 04, 2020 Assessment & Plan (1) Sepsis: Sepsis due to cellulitis of left lower extremity Present on Admission?: Yes (2) Cellulitis of left lower extremity: Started on daptomycin IV in the ED, and will add Zosyn 4.5 g IV every 8 hours. Consult wound care. Placed on Bumex IV to decrease edema to aid in healing. Present on Admission?: Yes (3) Bilateral lower extremity edema: Hold oral Bumex. Placed on Bumex 1 mg IV twice daily. Give 2 doses of albumin IV twice daily. Present on Admission?: Yes (4) Atrial fibrillation: Atrial fibrillation/hypertension/ICD/history of successful resuscitation from sudden cardiac - Continue aspirin 81 mg daily, carvedilol 12.5 mg p.o. twice daily and mag oxide 40 mg every morning. Follow serial BMP and magnesium levels. Present on Admission?: Yes (5) Hypertension: See above Present on Admission?: Yes (6) Implantable cardioverter-defibrillator (ICD) in situ: See above Present on Admission?: Yes (7) History of sudden cardiac successfully resuscitated: See above Present on Admission?: Yes (8) ROLLY (obstructive sleep apnea): CPAP at bedtime if needed Present on Admission?: Yes (9) CKD (chronic kidney disease) stage 3, GFR 30-59 ml/min: Creatinine 1.73 upon admission, within his usual range. Follow laboratory serially. Present on Admission?: Yes (10) Anxiety disorder: Continue lorazepam 0.5 mg p.o. twice daily as needed Present on Admission?: Yes Admission and Anticipated Discharge Date Admission Date: May 04, 2020 History of Present Illness Chief Complaint: The patient presents to the emergency department with symptoms of generalized weakness, ambulatory dysfunction, and worsening discomfort of his left lower extremity which has had increased redness and drainage over the past 2 days. Primary Care Provider: Fracisco Eddy MD The patient is a an 79-year-old male with a past medical history including bilateral lower extremity edema, HFpEF, decreased hearing, mitral regurgitation, nocturnal hypoxia, right ventricular dysfunction, hyperparathyroidism, anemia and chronic disease, lumbar degenerative disc disease, hypertension, anxiety disorder, atrial fibrillation, [place] filter in place, history of DVT, ICD, history of sudden cardiac , CKD stage III, ROLLY and hypercalcemia. He presents with the above symptoms. He had been started on daptomycin IV from the ED. Allergies Allergy/AdvReac Type Severity Reaction Status Date / Time adhesive Allergy Intermediate REDDENED, Verified 05/03/20 23:26 ITCHY SKIN oxybutynin Allergy Unknown Unknown Verified 05/03/20 23:26 ciprofloxacin [From Cipro] AdvReac Mild pain in Verified 05/03/20 23:26 tendons ALL OPIOIDS Allergy Severe "SEVERE" Uncoded 05/03/20 23:26 DELIRIUM Home Medications Home Medications Medication Instructions Recorded Confirmed Type magnesium oxide 400 mg PO QAM 08/10/18 05/03/20 History multivitamin with minerals 1 tab PO QAM 08/10/18 05/03/20 History aspirin 81 mg tablet,delayed 81 mg PO QAM #90 tab 07/03/19 05/03/20 Rx release carvedilol 25 mg tablet 12.5 mg PO BID #90 tab 07/03/19 05/03/20 Rx lorazepam 1 mg tablet 0.5 mg PO BID PRN tab 10/19/19 05/03/20 History bumetanide 1 mg tablet 2 mg PO BID #60 tab 12/19/19 05/03/20 Rx lidocaine 4 % topical patch 2 patch TOP DAILY PRN ea 12/19/19 05/03/20 History peg 400-propylene glycol 0.4 %-0.3 2 drops OP BID PRN ml 12/19/19 05/03/20 History % eye drops acetaminophen 325 mg tablet 650 mg PO Q4H PRN tab 03/12/20 05/03/20 History cholecalciferol (vitamin D3) 125 125 mcg PO DAILY 03/12/20 05/03/20 History mcg (5,000 unit) capsule docusate sodium 100 mg capsule 100 mg PO BID PRN 03/20/20 05/03/20 History Past Med/Surg History Medical History (Updated 05/04/20 @ 05:16 by Ky Tao MD) Anemia Anxiety Atrial fibrillation Balance disorder Basal cell carcinoma removed in office Bilateral lower extremity edema Cellulitis of left lower extremity CKD (chronic kidney disease) Deep vein thrombosis Diastolic heart failure DVT (deep venous thrombosis) S/p IVC filter Gout History of sudden cardiac successfully resuscitated Hypertension Kidney stones Lower extremity edema Nonischemic cardiomyopathy recent hospital admission. see cardiology consult note for this patient. On home oxygen therapy 02 at 2L n/c hs Osteoarthritis Sleep apnea 02 at 2L n/c Spinal stenosis Ventricular fibrillation Weakness Surgical History [place] filter in place @ [facility] History of blepharoplasty bilt History of cardiac cath at least 20yrs ago, no stents History of kidney surgery 06/30 right kidney removed--"bloody mass that was removed" History of tooth extraction History of total right knee replacement (TKR) ICD (implantable cardioverter-defibrillator) in place 06/2011; [facility] device Family History Father Hypertension Stroke Brother Hypertension Other No family history of adverse response to anesthesia Social History Smoking Status: Never smoker Second Hand Exposure: No; Hx Alcohol Use: Yes Alcohol type: wine Hx Substance Use: No Preferred Language: Indonesian Communication Ability: Effective Communication Ability Comment: VERY [place] Visual Impairment: Limited Hearing Ability: Hard of Hearing Card Player Required: No Beliefs That Will Affect Care: None and [employer] Beliefs: NO BLOOD TRANSFUSION marital status: Current Living Situation: Family Current [facility]uation Comment[facility] current occupational status: retired Feels Safe at Home: Yes Safety Concerns: Feels Safe At This Time Childhood Exposure to Second-Hand Smoke: No caffeine: Yes Dental Care, Regularly: Yes Physical Activity Frequency: Does not Exercise Seatbelt Use: always Sunscreen Use: Yes Assistive Devices: Cane, Glasses and Walker Assistive Devices Comment: FELL AT HOME - FELL GETTING OO BATH Review of Systems Review of Systems: Limited due to patient's cognitive status, being somewhat disoriented and confused. The patient denies chest pain, palpitations, sore throat, nausea, vomiting, diarrhea , constipation, abdominal pain, pelvic pain, blood in urine or stool, dysuria, urinary frequency or urgency, loss of consciousness, focal or generalized weakness, numbness or tingling in arms , or night sweats. The review of systems is otherwise negative other than for that already noted above, and at least 10 systems have been reviewed. Physical Exam Physical Exam: The patient is lethargic and disoriented, periorbital edema, lying in bed and in mild respiratory distress. HEENT--PERRL, EOMI, mucous membranes and oropharynx dry. Neck--supple. No JVD. No bruits. Thyroid normal, trachea midline, no adenopathy. Heart--normal S1 and S2. No murmurs, rubs or gallops. Lungs--crackles at bases bilaterally. Mild respiratory distress with accessory muscle use. Abdomen--normal bowel sounds and soft. Nontender. Nondistended. Extremities--bilateral pretibial 3+ pitting edema. Dermatologic--left lower extremity with moderate erythema, with surface abrasion over pretibial surface, and chronic healing laceration left great toe. Neurologic--cranial nerves II through XII grossly intact. Rheumatologic--limited exam Psychiatric-lethargic and disoriented. Results & Data Results & Data ([facility]) Vital Signs (Past 12 Hours) Vital Signs Temp Pulse Pulse Resp BP BP Pulse Ox 05/04/20 02:00 99.5 F 76 20 95/45 L 93 05/04/20 01:57 99.3 F 05/04/20 01:30 79 16 93/52 L 92 05/04/20 01:00 81 16 94/59 L 92 05/04/20 00:30 75 18 98/59 L 94 05/04/20 00:00 85 28 H 98/63 L 92 05/03/20 23:48 83 24 117/65 93 05/03/20 23:30 71 21 93 05/03/20 23:00 75 25 H 95 05/03/20 22:30 84 20 96 05/03/20 22:28 91 H 20 93 05/03/20 22:20 101.3 F H 81 20 102/64 94 Laboratory Results Laboratory Results WBC 7.17 K/uL (4.8-10.8) 05/03/20 22:41 RBC 3.59 M/uL (4.7-6.1) L 05/03/20 22:41 Hgb 10.3 g/dL (14.0-18.0) L 05/03/20 22:41 Hct 32.6 % (42-52) L 05/03/20 22:41 MCV 90.8 fL (80-100) 05/03/20 22:41 MCH 28.7 pg (25-34) 05/03/20 22:41 MCHC 31.6 g/dL (32-36) L 05/03/20 22: RDW Std Deviation 50.1 fL (36.4-46.3) H 05/03/20: RDW Coeff of Joshua 15.0 % (11.5-14.5) H 05/03/20 22:41 Plt Count 117 K/uL (130-400) L 05/03/20 22:41 MPV 10.2 fL (7.4-10.4) 05/03/20 22:41 Immature Gran % (Auto) 0.1 % 05/03/20 22: Neut % (Auto) 82.1 % 05/03/20 22:41 Lymph % (Auto) 7.4 % 05/03/20 22:41 [place] % (Auto) 7.4 % 05/03/20 22:41 Eos % (Auto) 2.9 % 05/03/20 22:41 Baso % (Auto) 0.1 % 05/03/20 22:41 Neut # (Auto) 5.88 K/uL (1.4-6.5) 05/03/20 22:41 Lymph # (Auto) 0.53 K/uL (1.2-3.4) L 05/03/20 22:41 [place] # (Auto) 0.53 K/uL (0.11-0.59) 05/03/20 22:41 Eos # (Auto) 0.21 K/uL (0-0.5) 05/03/20 22:41 Baso # (Auto) 0.01 K/uL (0-0.2) 05/03/20:41 Immature Gran # (Auto) 0.01 K/uL (0.00-0.02) 05/03/20 22:41 PT 12.8 Seconds (9.0-12.0) H 05/03/20 22:41 INR 1.2 (0.9-1.1) H 05/03/20:41 APTT 26.4 Seconds (21.0-31.0) 05/03/20:41 PTT Ratio 0.9 05/03/20 22:41 Sodium 137 mmol/L (136-145) 05/03/20 22:41 Potassium 5.0 mmol/L (3.5-5.1) 05/03/20 22:41 Chloride 105 mmol/L (98-107) 05/03/20 22:41 Carbon Dioxide 25 mmol/L (21-32) 05/03/20 22:41 Anion Gap 6.0 (3-11) 05/03/20 22:41 BUN 39 mg/dl (7-18) H 05/03/20 22:41 Creatinine 1.73 mg/dl (0.6-1.4) H 05/03/20 22:41 Est Cr Clr Drug Dosing 48.0 ml/min 05/03/20 22:41 Est GFR ( Amer) 42.3 05/03/20 22:41 Est GFR (Non-Af Amer) 36.5 05/03/20 22:41 BUN/Creatinine Ratio 22.5 (10-20) H 05/03/20 22:41 Glucose 110 mg/dl (70-99) H 05/03/20 22:41 Lactate 1.3 mmol/L (0.4-2.0) 05/03/20 22:41 Calcium 10.7 mg/dl (8.5-10.1) H 05/03/20 22:41 Magnesium 2.5 mg/dl (1.8-2.4) H 05/03/20 22:41 Total Bilirubin 1.5 mg/dl (0.2-1) H 05/03/20 22:41 AST 26 U/L (15-37) 05/03/20 22:41 ALT 38 U/L (12-78) 05/03/20 22:41 Alkaline Phosphatase 130 U/L (45-117) H 05/03/20 22:41 Troponin I < 0.015 ng/ml (0-0.045) 05/03/20 22:41 Total Protein 7.0 gm/dl (6.4-8.2) 05/03/20 22:41 Albumin 3.0 gm/dl (3.4-5.0) L 05/03/20 22:41 Globulin 4.0 gm/dl (2.5-4.0) 05/03/20 22:41 Albumin/Globulin Ratio 0.8 (0.9-2) L 05/03/20 22:41 Procalcitonin 0.81 ng/ml (0-0.5) H 05/03/20 22:41 COVID-19 Eval Order Covid19 Done at [facility] 05/03/20 22:27 COVID-19 PCR NEGATIVE (Negative) 05/03/20 22:27 Code Status & VTE Plan Code Status Full code VTE Prophylaxis Plan VTE Prophylaxis will be ordered: Yes PG Care Time/CCT Total # of Minutes Spent Total Time Spent with Patient: Total time spent is greater than 50% in coordination of care (as documented) at patient's floor/unit and/or counseling patient: Coding Level of Care Code 42215 Initial Inpt Care Lvl 3 Diagnoses Sepsis A41.9 Sepsis acute organ dysfunction status: unspecified Sepsis type: sepsis due to unspecified organism Cellulitis of left lower extremity L03.116 Bilateral lower extremity edema R60.0 Atrial fibrillation I48.2 Atrial fibrillation type: permanent Hypertension I10 Hypertension type: essential hypertension Implantable cardioverter-defibrillator (ICD) in situ Z95.810 History of sudden cardiac successfully resuscitated Z86.74 ROLLY (obstructive sleep apnea) G47.33 CKD (chronic kidney disease) stage 3, GFR 30-59 ml/min N18.3 Anxiety disorder F41.9 Anxiety disorder type: unspecified anxiety disorder (1) Atrial fibrillation Atrial fibrillation type: permanent Qualified Code(s): I48.2 - Chronic atrial fibrillation (2) Anxiety disorder Anxiety disorder type: unspecified anxiety disorder Qualified Code(s): F41.9 - Anxiety disorder, unspecified (3) Hypertension Hypertension type: essential hypertension Qualified Code(s): I10 - Essential (primary) hypertension (4) Sepsis Sepsis acute organ dysfunction status: unspecified Sepsis type: sepsis due to unspecified organism Qualified Code(s): A41.9 - Sepsis, unspecified organism
--- NOTE | 2020-05-04 08:10 | XRay Report ---
XR chest 1V portable CLINICAL HISTORY: SEPSIS COMPARISON STUDY: 02/26/2020 FINDINGS: The cardiac silhouette remains markedly enlarged with a globular configuration. There is moeller spected left atrial enlargement. There is a left subclavian pacer/defibrillator present. There is no acute parenchymal consolidation. There is no overt failure. No pleural effusions are visualized.[ IMPRESSION: Stable marked cardiomegaly. ACT 112: Negative or not required by law. Electronically signed by: Daniel Hoffman M.D. 05/04/2020 8:09 AM
[2020-05-04] MEDS: ASPIRIN 81 MG ECTAB PO SCH (08:32)
[2020-05-04] MEDS: CEROVITE ADV FORMULA TAB PO SCH (08:33)
[2020-05-04] MEDS: carvediloL 12.5 MG TAB PO SCH ×2 (08:33→22:11)
[2020-05-04] MEDS: MAGNESIUM OXIDE 400 MG TAB PO SCH (08:33)
[2020-05-04] MEDS: HEPARIN SOD 5,000 UNIT/0.5 ML VIAL SQ SCH ×2 (08:33→22:11)
[2020-05-04] MEDS: CHOLECALCIFEROL 1,000 UNITS 25 MCG TAB PO SCH (08:33)
--- NOTE | 2020-05-04 09:40 | Electrocardiogram Report ---
Test Reason : Blood Pressure : / mmHG Vent. Rate : 101 BPM Atrial Rate : 101 BPM P-R Int : 000 ms QRS Dur : 108 ms QT Int : 366 ms P-R-T Axes : 000 -47 069 degrees QTc Int : 474 ms Atrial fibrillation with PVC', Ventricular couplets and triplets Left axis deviation Inferior infarct (cited on or before 06-SEP-2018) Anterior infarct , age undetermined Abnormal ECG When compared with ECG of 26-FEB-2020 19:09, Ventricular couplets and triplets are new Confirmed by Donovan Retana ([id number]) on 05/04/2020 9:40:30 AM Referred By: REFERRED SELF Confirmed By:Donovan Retana
[2020-05-04] MEDS: ADVANCED PROBIOTIC 1250 MG CAPSULE PO SCH (09:48)
[2020-05-04] MEDS: PIPERACILLIN/TAZOBACTAM 3.375 GM in DEXTROSE 5% 100 ML IV SCH ×2 (10:27→17:07)
[2020-05-04] MEDS: BUMETANIDE 1 MG in SYRINGE 0 ML IV SCH ×2 (10:48→17:07)
[2020-05-04] MEDS: ACETAMINOPHEN 325 MG TAB PO PRN (19:35)
--- NOTE | 2020-05-04 21:02 | Hospitalist Progress Note ---
Date of Service May 04, 2020 Assessment & Plan (1) Septicemia: 2nd to GNR and GPC. Repeat blood cultures in am. source - LLE cellulitis. Cardiovascular status is stable. continue zosyn/daptomycin. follow cultures. (2) Cellulitis of left lower extremity: severe LLE cellulitis. chronic LE edema 2nd to chronic cor pulmonale, CKD, etc. cont zosyn/daptomycin. follow cultures. (3) CKD (chronic kidney disease) stage 3, GFR 30-59 ml/min: Cr baseline about 1.7 BMP am (4) Chronic right-sided CHF (congestive heart failure): may have mild decompensation. continue IV bumex BID. stop albumin. (5) ROLLY (obstructive sleep apnea): severe by history cont NC O2 at bedtime (6) Hypercalcemia: primary hyperparathyroidism (elevated PTH levels multiple occasions). stable level (mid 10s). follow. (7) History of DVT (deep vein thrombosis): IVC filter in place. (8) Implantable cardioverter-defibrillator (ICD) in situ: (9) Atrial fibrillation: rates controlled. cont coreg. (10) Diarrhea: check c diff (11) Pulmonary hypertension: severe on previous echo (12) DVT prophylaxis: heparin 5000 BID will need PT/OT consults Admission and Anticipated Discharge Date Admission Date: May 04, 2020 Subjective patient states he simply feels poorly - tired, fatigued. has been "dealing with the infection in the leg" for a long time. he reports diarrhea for a few days. was on antibiotics recently as outpatient for his left leg infection. tele overnight - a.fib. Review of Systems Constitutional: + fatigue; no fever, no chills and no anorexia Respiratory: + dyspnea Cardiovascular: + edema; no chest pain Gastrointestinal: no abdominal pain, no nausea and no vomiting Physical Exam Constitutional: no acute distress and no altered mental status ENMT: external ear and nose normal, oropharynx normal Respiratory: Auscultation: + diminished lung sounds (bases) and + rales (minimal - bases ) Cardiovascular: Rate/Rhythm: regular rate and + irregularly irregular Heart Sounds: normal S1, normal S2 and + murmur (2-3/6 systolic LLSB) Vessels: + JVD (to the jaw ), posterior tibial pulses present and dorsalis pedis pulses present Extremities: + edema (severe -- 3+ b/l ) Gastrointestinal (Abdomen): normal bowel sounds, soft, nontender, no hepatosplenomegaly Skin: severe stasis changes b/l shins; ulceration medial aspect of left great toe; macerated skin covering a large portion of the left wilkinson; erythematous, warm to touch, no drainage Psychiatric: Orientation: alert and oriented x 3 Results & Data Results & Data ([facility]) Vital Signs (Past 12 Hours) Vital Signs Temp Pulse Pulse Pulse Resp BP Pulse Ox 05/04/20 19:53 36.6 C 85 22 125/79 97 05/04/20 17:00 61 05/04/20 15:13 36.9 C 64 20 111/77 97 05/04/20 11:21 36.3 C L 63 20 107/65 Laboratory Results blood cultures - 1 bottle GNR 1 bottle GPC clusters Laboratory Results - last 24 hr 05/03/20 05/03/20 05/03/20 22:27 22:27 22:41 WBC RBC Hgb Hct MCV MCH MCHC RDW Std Deviation RDW Coeff of Joshua Plt Count MPV Immature Gran % (Auto) Neut % (Auto) Lymph % (Auto) [place] % (Auto) Eos % (Auto) Baso % (Auto) Neut # (Auto) Lymph # (Auto) [place] # (Auto) Eos # (Auto) Baso # (Auto) Immature Gran # (Auto) PT INR APTT PTT Ratio Sodium Potassium Chloride Carbon Dioxide Anion Gap BUN Creatinine Est Cr Clr Drug Dosing Est GFR ( Amer) Est GFR (Non-Af Amer) BUN/Creatinine Ratio Glucose Lactate Calcium Magnesium Total Bilirubin AST ALT Alkaline Phosphatase Troponin I Total Protein Albumin Globulin Albumin/Globulin Ratio Procalcitonin 0.81 H COVID-19 Eval Order Covid19 Done at [facility] COVID-19 PCR NEGATIVE Bld Cult Staph aureus PCR Blood Culture MRSA PCR 05/03/20 05/03/20 05/03/20 22:41 22:41 22:41 WBC 7.17 RBC 3.59 L Hgb 10.3 L Hct 32.6 L MCV 90.8 MCH 28.7 MCHC 31.6 L RDW Std Deviation 50.1 H RDW Coeff of Joshua 15.0 H Plt Count 117 L MPV 10.2 Immature Gran % (Auto) 0.1 Neut % (Auto) 82.1 Lymph % (Auto) 7.4 [place] % (Auto) 7.4 Eos % (Auto) 2.9 Baso % (Auto) 0.1 Neut # (Auto) 5.88 Lymph # (Auto) 0.53 L [place] # (Auto) 0.53 Eos # (Auto) 0.21 Baso # (Auto) 0.01 Immature Gran # (Auto) 0.01 PT 12.8 H INR 1.2 H APTT 26.4 PTT Ratio 0.9 Sodium 137 Potassium 5.0 Chloride 105 Carbon Dioxide 25 Anion Gap 6.0 BUN 39 H Creatinine 1.73 H Est Cr Clr Drug Dosing 48.0 Est GFR ( Amer) 42.3 Est GFR (Non-Af Amer) 36.5 BUN/Creatinine Ratio 22.5 H Glucose 110 H Lactate Calcium 10.7 H Magnesium 2.5 H Total Bilirubin 1.5 H AST 26 ALT 38 Alkaline Phosphatase 130 H Troponin I < 0.015 Total Protein 7.0 Albumin 3.0 L Globulin 4.0 Albumin/Globulin Ratio 0.8 L Procalcitonin COVID-19 Eval Order COVID-19 PCR Bld Cult Staph aureus PCR Blood Culture MRSA PCR 05/03/20 05/04/20 22:41 22:41 WBC RBC Hgb Hct MCV MCH MCHC RDW Std Deviation RDW Coeff of Joshua Plt Count MPV Immature Gran % (Auto) Neut % (Auto) Lymph % (Auto) [place] % (Auto) Eos % (Auto) Baso % (Auto) Neut # (Auto) Lymph # (Auto) [place] # (Auto) Eos # (Auto) Baso # (Auto) Immature Gran # (Auto) PT INR APTT PTT Ratio Sodium Potassium Chloride Carbon Dioxide Anion Gap BUN Creatinine Est Cr Clr Drug Dosing Est GFR ( Amer) Est GFR (Non-Af Amer) BUN/Creatinine Ratio Glucose Lactate 1.3 Calcium Magnesium Total Bilirubin AST ALT Alkaline Phosphatase Troponin I Total Protein Albumin Globulin Albumin/Globulin Ratio Procalcitonin COVID-19 Eval Order COVID-19 PCR Bld Cult Staph aureus PCR Negative Blood Culture MRSA PCR Negative PG Care Time/CCT Total # of Minutes Spent Total Time Spent with Patient: Total time spent is greater than 50% in coordination of care (as documented) at patient's floor/unit and/or counseling patient: Coding Level of Care Code 51509 Subseq Hosp Care Lvl 2 Diagnoses Septicemia A41.9 Cellulitis of left lower extremity L03.116 CKD (chronic kidney disease) stage 3, GFR 30-59 ml/min N18.3 Chronic right-sided CHF (congestive heart failure) I50.812 ROLLY (obstructive sleep apnea) G47.33 Hypercalcemia E83.52 History of DVT (deep vein thrombosis) Z86.718 Implantable cardioverter-defibrillator (ICD) in situ Z95.810 Atrial fibrillation I48.2 Atrial fibrillation type: permanent Diarrhea R19.7 Pulmonary hypertension I27.20 DVT prophylaxis Z29.9 (1) Atrial fibrillation Atrial fibrillation type: permanent Qualified Code(s): I48.2 - Chronic atrial fibrillation
[2020-05-04] MEDS: DAPTOmycin 525 MG in SYRINGE 0 ML IV SCH (22:32)
[2020-05-05] MEDS: PIPERACILLIN/TAZOBACTAM 3.375 GM in DEXTROSE 5% 100 ML IV SCH ×3 (02:07→18:19)
[2020-05-05] MEDS: ACETAMINOPHEN 325 MG TAB PO PRN ×3 (04:59→14:46)
[2020-05-05 05:03] LABS: Appearance Urine Clear (Clear); Bacteria Urine Automated Negative (Negative); Bilirubin Urine Negative (Negative); Blood Urine Negative (Negative); Color Urine Yellow; Glucose Urine UA Negative (Negative); Ketones Urine Negative (Negative); Leukocyte Esterase Urine Trace (Negative); Nitrite Urine Negative (Negative); Protein Urine Negative (Negative); RBC Urine Automated 0-4 /hpf (0-4); Specific Gravity Urine 1.016 (1.000-1.030); Urobilinogen Urine Negative (Negative)
[2020-05-05 06:57] LABS: BUN Creatinine Ratio 23.5 (10-20); Calcium 10.5 mg/dl (8.5-10.1); Creatinine Clr Calc Pharmacy 44.9 ml/min; Est GFR (African American) 39.8; Est GFR (Non-African American) 34.3; Potassium 4.1 mmol/L (3.5-5.1)
[2020-05-05] MEDS: MAGNESIUM OXIDE 400 MG TAB PO SCH (08:18)
[2020-05-05] MEDS: CEROVITE ADV FORMULA TAB PO SCH (08:18)
[2020-05-05] MEDS: carvediloL 12.5 MG TAB PO SCH ×2 (08:18→21:43)
[2020-05-05] MEDS: BUMETANIDE 1 MG in SYRINGE 0 ML IV SCH ×2 (08:18→17:15)
[2020-05-05] MEDS: CHOLECALCIFEROL 1,000 UNITS 25 MCG TAB PO SCH (08:18)
[2020-05-05] MEDS: ASPIRIN 81 MG ECTAB PO SCH (08:18)
[2020-05-05] MEDS: ADVANCED PROBIOTIC 1250 MG CAPSULE PO SCH (08:18)
[2020-05-05] MEDS: HEPARIN SOD 5,000 UNIT/0.5 ML VIAL SQ SCH ×2 (08:19→21:43)
[2020-05-05] MEDS: DAPTOmycin 525 MG in SYRINGE 0 ML IV SCH (21:44)
[2020-05-05] MEDS: LORazepam 0.5 MG TAB PO PRN (22:30)
--- NOTE | 2020-05-05 22:31 | Hospitalist Progress Note ---
Date of Service May 05, 2020 Assessment & Plan (1) Septicemia: 2nd to GNR and GPC. still awaiting ID & sensitivites. cont zosyn/daptomycin in meantime. Repeat blood cultures drawn this am. source - LLE cellulitis in setting of severe stasis changes from chronic LE edema. (2) Cellulitis of left lower extremity: severe LLE cellulitis. chronic LE edema 2nd to chronic cor pulmonale, CKD, etc. cont zosyn/daptomycin. follow cultures. (3) Open wound of great toe: left great toe. traumatic. obtain, at minimum, xrays to exclude bony changes that would suggest osteomyelitis; r/o fracture as well. (4) CKD (chronic kidney disease) stage 3, GFR 30-59 ml/min: Cr baseline about 1.7 BMP am Cr remains stable despite diuresis. (5) Chronic right-sided CHF (congestive heart failure): may have mild decompensation. continue IV bumex BID. (6) ROLLY (obstructive sleep apnea): severe by history cont NC O2 at bedtime has refused NIPPV in past (7) Hypercalcemia: primary hyperparathyroidism (elevated PTH levels multiple occasions). stable level (mid 10s). follow. (8) History of DVT (deep vein thrombosis): IVC filter in place. (9) Implantable cardioverter-defibrillator (ICD) in situ: (10) Atrial fibrillation: not on chronic anticoagulation rates controlled. cont coreg. (11) Diarrhea: had prior to admission, but now improved c diff ordered just in case (12) Pulmonary hypertension: severe on previous echo (13) DVT prophylaxis: heparin 5000 BID will need PT/OT consults attempted to call pt's this evening to no avail DID speak with pt's son and gave detailed updated Admission and Anticipated Discharge Date Admission Date: May 04, 2020 Subjective patient c/o mild pain in left leg. he asks for "quick release" pain meds. denies dyspnea or cough or orthopnea. is weak - states "that he knows to call the nurse when he needs to get up." requests referral to [facility] after discharge. Review of Systems Constitutional: + fatigue; no fever, no chills and no anorexia Respiratory: no dyspnea Cardiovascular: no chest pain Gastrointestinal: no abdominal pain, no nausea and no vomiting Physical Exam Constitutional: no acute distress and no altered mental status ENMT: external ear and nose normal, oropharynx normal Respiratory: Auscultation: + diminished lung sounds (bases); no crackles and no wheezes Cardiovascular: Rate/Rhythm: regular rate and + irregularly irregular Heart Sounds: normal S1, normal S2 and + murmur (2-3/6 systolic LLSB) Vessels: + JVD (to the jaw ), posterior tibial pulses present and dorsalis pedis pulses present Extremities: + edema (2-3+ b/l ) Gastrointestinal (Abdomen): normal bowel sounds, soft, nontender, no hepatosplenomegaly Skin: severe stasis changes b/l shins; cellulitis left wilkinson improved; macerated skin left wilkinson mildly improved; weeping clear serous fluid; left great toe, medial aspiect -- linear ulceration, no drainage or cellulitis Psychiatric: Orientation: alert and oriented x 3 Results & Data Results & Data ([facility]) Vital Signs (Past 12 Hours) Vital Signs Temp Pulse Pulse Resp BP BP Pulse Ox 05/05/20 19:25 36.6 C 68 22 119/73 95 05/05/20 16:00 66 05/05/20 15:19 36.5 C 75 20 116/72 99 05/05/20 11:49 36.5 C 61 20 110/71 98 Laboratory Results Laboratory Results - last 24 hr 05/05/20 05/05/20 06:19 Unknown Sodium 138 Potassium 4.1 D Chloride 104 Carbon Dioxide 29 Anion Gap 5.0 BUN 43 H Creatinine 1.82 H Est Cr Clr Drug Dosing 44.9 Est GFR ( Amer) 39.8 Est GFR (Non-Af Amer) 34.3 BUN/Creatinine Ratio 23.5 H Glucose 129 H Calcium 10.5 H Urine Color Yellow Urine Appearance Clear Urine pH 5.0 Ur Specific Marlow 1.016 Urine Protein Negative Urine Glucose (UA) Negative Urine Ketones Negative Urine Blood Negative Urine Nitrite Negative Urine Bilirubin Negative Urine Urobilinogen Negative Ur Leukocyte Esterase Trace H Urine WBC (Auto) 1-5 Urine RBC (Auto) 0-4 U Hyaline Cast (Auto) 1-5 U Epithel Cells (Auto) 5-10 H Urine Bacteria (Auto) Negative blood cx's 05/03 - GNR and GPC clusters; blood cultures 05/05 drawn this am PG Care Time/CCT Total # of Minutes Spent Total Time Spent with Patient: Total time spent is greater than 50% in coordination of care (as documented) at patient's floor/unit and/or counseling patient: Coding Level of Care Code 98211 Subseq Hosp Care Lvl 2 Diagnoses Septicemia A41.9 Cellulitis of left lower extremity L03.116 Open wound of great toe S91.103A CKD (chronic kidney disease) stage 3, GFR 30-59 ml/min N18.3 Chronic right-sided CHF (congestive heart failure) I50.812 ROLLY (obstructive sleep apnea) G47.33 Hypercalcemia E83.52 History of DVT (deep vein thrombosis) Z86.718 Implantable cardioverter-defibrillator (ICD) in situ Z95.810 Atrial fibrillation I48.2 Atrial fibrillation type: permanent Diarrhea R19.7 Pulmonary hypertension I27.20 DVT prophylaxis Z29.9 (1) Atrial fibrillation Atrial fibrillation type: permanent Qualified Code(s): I48.2 - Chronic atrial fibrillation
[2020-05-06] MEDS: PIPERACILLIN/TAZOBACTAM 3.375 GM in DEXTROSE 5% 100 ML IV SCH ×2 (02:07→09:57)
[2020-05-06 07:13] LABS: BUN Creatinine Ratio 24.1 (10-20); Calcium 10.4 mg/dl (8.5-10.1); Creatinine Clr Calc Pharmacy 48.1 ml/min; Est GFR (African American) 43.2; Est GFR (Non-African American) 37.3; Potassium 4.1 mmol/L (3.5-5.1)
[2020-05-06] MEDS: carvediloL 12.5 MG TAB PO SCH ×2 (08:44→20:24)
[2020-05-06] MEDS: BUMETANIDE 1 MG in SYRINGE 0 ML IV SCH ×2 (08:44→17:04)
[2020-05-06] MEDS: CEROVITE ADV FORMULA TAB PO SCH (08:44)
[2020-05-06] MEDS: CHOLECALCIFEROL 1,000 UNITS 25 MCG TAB PO SCH (08:45)
[2020-05-06] MEDS: MAGNESIUM OXIDE 400 MG TAB PO SCH (08:45)
[2020-05-06] MEDS: ADVANCED PROBIOTIC 1250 MG CAPSULE PO SCH (08:45)
[2020-05-06] MEDS: ASPIRIN 81 MG ECTAB PO SCH (08:46)
[2020-05-06] MEDS: HEPARIN SOD 5,000 UNIT/0.5 ML VIAL SQ SCH ×2 (08:47→20:26)
--- NOTE | 2020-05-06 13:37 | XRay Report ---
LEFT FIRST TOE 3 VIEWS CLINICAL HISTORY: Laceration. FINDINGS: 3 views of the left first toe are obtained. No prior studies are available for comparison a t the time of dictation. The skeletal structures are osteopenic. No fracture is identified. Mild oste oarthritic changes at the first metatarsophalangeal joint. There are small marginal erosions at the f irst MTP with overlying soft tissue calcifications. Mild erosions are also seen at the first interpha langeal joint. Soft tissue edema is noted in the first toe. Question an 8 mm linear radiodense foreig n body along the lateral aspect of the first interphalangeal joint. This is only seen on one view. IMPRESSION: 1. Soft tissue edema with no acute bony abnormality identified. 2. Degenerative change at the first metatarsophalangeal joint with possible findings of gout. Clinica l correlation will be essential. 3. Question an 8 mm linear radiodense foreign body along the lateral aspect of the first interphalang eal joint. Electronically signed by: Walker Porter M.D. 05/06/2020 1:35 PM
--- NOTE | 2020-05-06 14:38 | Hospitalist Progress Note ---
Date of Service May 06, 2020 Assessment & Plan (1) Septicemia: 2nd to Serratia and GPC. Infectious disease consult requested . cont zosyn/daptomycin Repeat blood cultures drawn this am. source - LLE cellulitis in setting of severe stasis changes from chronic LE edema. (2) Cellulitis of left lower extremity: severe LLE cellulitis. chronic LE edema 2nd to chronic cor pulmonale, CKD, etc. cont zosyn/daptomycin. f (3) Open wound of great toe: left great toe. traumatic. obtain xrays to exclude bony changes that would suggest osteomyelitis; r/o fracture as well. (4) CKD (chronic kidney disease) stage 3, GFR 30-59 ml/min: Cr baseline about 1.7 BMP am Cr remains stable despite diuresis. (5) Chronic right-sided CHF (congestive heart failure): may have mild decompensation. continue IV bumex BID. (6) ROLLY (obstructive sleep apnea): severe by history cont NC O2 at bedtime has refused NIPPV in past (7) Hypercalcemia: primary hyperparathyroidism (elevated PTH levels multiple occasions). stable level (mid 10s). follow. (8) History of DVT (deep vein thrombosis): IVC filter in place. (9) Implantable cardioverter-defibrillator (ICD) in situ: See above (10) Atrial fibrillation: not on chronic anticoagulation rates controlled. cont coreg. (11) Diarrhea: had prior to admission, but now improved c diff ordered (12) Pulmonary hypertension: severe on previous echo (13) DVT prophylaxis: heparin 5000 BID Disposition: To be determined. Will need PT/OT consults Admission and Anticipated Discharge Date Admission Date: May 04, 2020 Subjective Alert and oriented. is at the bedside. He understands he has Serratia in the bloodstream and also gram-positive cocci awaiting further identification. Infectious disease consultation recommended. Will obtain x-ray of the left great toe since he had a recent injury and laceration. Review of Systems Review of Systems: Constitutional-no fever or chills ENT-no blurred vision, no double vision, no epistaxis, no sore throat Respiratory-no cough, no wheezing, no shortness of breath Cardiac-no palpitations, no chest pain, no syncope GI-no nausea, vomiting, diarrhea, melena, hematochezia -no urinary retention, no urinary incontinence, no dysuria, no hematuria Musculoskeletal-no joint pain, no muscle tenderness Skin-no bruising, no rashes, no pruritus Neuro-no isolated weakness, no paresthesia, no weakness Psych-no depression, no anxiety Physical Exam Physical Exam: General-alert and oriented x3, no fevers, no chills HEENT-head atraumatic and normocephalic, TMs intact bilaterally, pupils equal and reactive to light, extraocular muscles intact Neck-no lymphadenopathy or thyromegaly, trachea midline Chest-clear to auscultation percussion. No rales wheezing or rhonchi Cardiac-irregular rate and rhythm, normal S1 and S2, no murmurs Abdomen-normal bowel sounds, nontender, no hepatosplenomegaly Extremities-no cyanosis, clubbing, or edema. Left lower extremity bandage below the knee and bandage also on the left first metatarsal phalangeal joint of the left first toe Neuro-cranial nerves II through XII intact, motor and sensory function within normal limits, strength symmetrical 5/5, no focal deficits Psych-normal affect, normal mood Results & Data Results & Data ([facility]) Vital Signs (Past 12 Hours) Vital Signs Temp Pulse Pulse Resp BP BP Pulse Ox 05/06/20 11:27 36.8 C 76 16 159/80 H 94 05/06/20 07:45 36.6 C 62 16 107/72 95 05/06/20 07:00 74 05/06/20 03:30 36.6 C 64 20 122/83 95 Laboratory Results 05/03/20 22:41 05/06/20 06:30 PG Care Time/CCT Total # of Minutes Spent Total Time Spent with Patient: Total time spent is greater than 50% in coordination of care (as documented) at patient's floor/unit and/or counseling patient: Coding Level of Care Code 09999 Subseq Hosp Care Lvl 3 Diagnoses Septicemia A41.9 Cellulitis of left lower extremity L03.116 Open wound of great toe S91.103A CKD (chronic kidney disease) stage 3, GFR 30-59 ml/min N18.3 Chronic right-sided CHF (congestive heart failure) I50.812 ROLLY (obstructive sleep apnea) G47.33 Hypercalcemia E83.52 History of DVT (deep vein thrombosis) Z86.718 Implantable cardioverter-defibrillator (ICD) in situ Z95.810 Atrial fibrillation I48.2 Atrial fibrillation type: permanent Diarrhea R19.7 Pulmonary hypertension I27.20 DVT prophylaxis Z29.9 (1) Atrial fibrillation Atrial fibrillation type: permanent Qualified Code(s): I48.2 - Chronic atrial fibrillation
[2020-05-06] MEDS: PIPERACILLIN/TAZOBACTAM 4.5 GM in DEXTROSE 5% 100 ML IV SCH (17:04)
[2020-05-06] MEDS: DAPTOmycin 525 MG in SYRINGE 0 ML IV SCH (21:29)
[2020-05-07] MEDS: ACETAMINOPHEN 325 MG TAB PO PRN ×2 (01:30→23:41)
[2020-05-07] MEDS: PIPERACILLIN/TAZOBACTAM 4.5 GM in DEXTROSE 5% 100 ML IV SCH (01:32)
[2020-05-07] MEDS: LORazepam 0.5 MG TAB PO PRN (03:30)
[2020-05-07] MEDS: HEPARIN SOD 5,000 UNIT/0.5 ML VIAL SQ SCH ×2 (08:58→20:25)
[2020-05-07] MEDS: ASPIRIN 81 MG ECTAB PO SCH (08:59)
[2020-05-07] MEDS: BUMETANIDE 1 MG in SYRINGE 0 ML IV SCH ×2 (08:59→17:11)
[2020-05-07] MEDS: carvediloL 12.5 MG TAB PO SCH ×2 (08:59→21:03)
[2020-05-07] MEDS: CHOLECALCIFEROL 1,000 UNITS 25 MCG TAB PO SCH (09:02)
[2020-05-07] MEDS: CEROVITE ADV FORMULA TAB PO SCH (09:02)
[2020-05-07] MEDS: MAGNESIUM OXIDE 400 MG TAB PO SCH (09:02)
[2020-05-07] MEDS: ADVANCED PROBIOTIC 1250 MG CAPSULE PO SCH (09:02)
[2020-05-07] MEDS: CEFEPIME 2,000 MG in SYRINGE 0 ML IV SCH ×2 (09:16→21:03)
[2020-05-07 12:12] LABS: Basophils # (auto) 0.02 K/uL (0-0.2); Basophils % (auto) 0.4 %; Eosinophils # (auto) 0.48 K/uL (0-0.5); Eosinophils % (auto) 9.8 %; Hematocrit (blood only) 33.4 % (42-52); Hemoglobin 10.3 g/dL (14.0-18.0); Immature Granulocytes # (auto) 0.01 K/uL (0.00-0.02); Immature Granulocytes % (auto) 0.2 %; Lymphocytes # (auto) 0.65 K/uL (1.2-3.4); Lymphocytes % (auto) 13.2 %; Mean Corpuscular Hemoglobin 28.4 pg (25-34); Mean Corpuscular Hgb Conc 30.8 g/dL (32-36); Mean Platelet Volume 9.8 fL (7.4-10.4); Monocytes # (auto) 0.66 K/uL (0.11-0.59); Monocytes % (auto) 13.4 %; Neutrophils # (auto) 3.09 K/uL (1.4-6.5); Platelet Count 139 K/uL (130-400); RDW Coefficient of Variation 14.7 % (11.5-14.5); RDW Standard Deviation 50.4 fL (36.4-46.3); Red Blood Count 3.63 M/uL (4.7-6.1); White Blood Count 4.91 K/uL (4.8-10.8)
[2020-05-07 12:28] LABS: BUN Creatinine Ratio 21.6 (10-20); Calcium 10.8 mg/dl (8.5-10.1); Creatinine Clr Calc Pharmacy 42.1 ml/min; Est GFR (African American) 36.8; Est GFR (Non-African American) 31.8
--- NOTE | 2020-05-07 12:48 | Hospitalist Progress Note ---
Date of Service May 07, 2020 Assessment & Plan (1) Septicemia: 2nd to Serratia and coagulase-negative staph. Infectious disease consult requested . Zosyn switched to cefepime based on sensitivities. Continue daptomycin until now. Infectious disease will probably recommending discontinuing daptomycin. Repeat blood cultures drawn 05/05 are negative to date (2) Cellulitis of left lower extremity: Improving chronic LE edema 2nd to chronic cor pulmonale, CKD, etc. Now on cefepime and daptomycin. f (3) Open wound of great toe: left great toe. traumatic. X-rays negative for any signs of osteomyelitis. Wound care consult and management . (4) CKD (chronic kidney disease) stage 3, GFR 30-59 ml/min: Cr baseline about 1.7 BMP am Cr remains stable despite diuresis. (5) Chronic right-sided CHF (congestive heart failure): may have mild decompensation. continue IV bumex BID. (6) ROLLY (obstructive sleep apnea): severe by history cont NC O2 at bedtime has refused NIPPV in past (7) Hypercalcemia: primary hyperparathyroidism (elevated PTH levels multiple occasions). stable level (mid 10s). follow. (8) History of DVT (deep vein thrombosis): IVC filter in place. (9) Implantable cardioverter-defibrillator (ICD) in situ: See above (10) Atrial fibrillation: not on chronic anticoagulation rates controlled. cont coreg. (11) Diarrhea: had prior to admission, but now improved c diff ordered (12) Pulmonary hypertension: severe on previous echo (13) DVT prophylaxis: heparin 5000 BID Disposition: To be determined. Will need PT/OT consults Admission and Anticipated Discharge Date Admission Date: May 04, 2020 Subjective Alert and pleasant. is at the bedside. Left great toe x-ray negative for signs of osteomyelitis. Serratia in the bloodstream is intermediate sensitivity to Zosyn. Zosyn switched to cefepime. Gram-positive cocci in the blood is coagulase negative staph and probably contaminant. We will continue daptomycin until infectious disease consultation is completed. He has chronic atrial fibrillation and several runs of wide-complex irregular beats which are probably conduction aberrancy rather than ventricular tachycardia. He has an AICD in place. He is asymptomatic in this respect. Review of Systems Review of Systems: Constitutional-no fever or chills ENT-no blurred vision, no double vision, no epistaxis, no sore throat Respiratory-no cough, no wheezing, no shortness of breath Cardiac-no palpitations, no chest pain, no syncope GI-no nausea, vomiting, diarrhea, melena, hematochezia -no urinary retention, no urinary incontinence, no dysuria, no hematuria Musculoskeletal-no joint pain, no muscle tenderness Skin-no bruising, no rashes, no pruritus Neuro-no isolated weakness, no paresthesia, no weakness Psych-no depression, no anxiety Physical Exam Physical Exam: General-alert and oriented x3, no fevers, no chills HEENT-head atraumatic and normocephalic, TMs intact bilaterally, pupils equal and reactive to light, extraocular muscles intact Neck-no lymphadenopathy or thyromegaly, trachea midline Chest-clear to auscultation percussion. No rales wheezing or rhonchi Cardiac-irregular rate and rhythm, normal S1 and S2 Abdomen-normal bowel sounds, nontender, no hepatosplenomegaly Extremities-no cyanosis, clubbing, or edema. Left lower extremity bandaged below the knee with bandaged laceration over the right first MTP joint Neuro-cranial nerves II through XII intact, motor and sensory function within normal limits, no focal deficits Psych-normal affect, normal mood Results & Data Results & Data ([facility]) Vital Signs (Past 12 Hours) Vital Signs Temp Pulse Pulse Resp BP BP Pulse Ox 05/07/20 11:41 36.7 C 77 18 111/66 93 05/07/20 07:49 36.8 C 72 20 137/81 95 05/07/20 07:30 69 05/07/20 03:55 36.7 C 70 18 102/69 93 Laboratory Results 05/07/20 11:55 05/07/20 11:55 PG Care Time/CCT Total # of Minutes Spent Total Time Spent with Patient: Total time spent is greater than 50% in coordination of care (as documented) at patient's floor/unit and/or counseling patient: Coding Level of Care Code 53882 Subseq Hosp Care Lvl 3 Diagnoses Septicemia A41.9 Cellulitis of left lower extremity L03.116 Open wound of great toe S91.103A CKD (chronic kidney disease) stage 3, GFR 30-59 ml/min N18.3 Chronic right-sided CHF (congestive heart failure) I50.812 ROLLY (obstructive sleep apnea) G47.33 Hypercalcemia E83.52 History of DVT (deep vein thrombosis) Z86.718 Implantable cardioverter-defibrillator (ICD) in situ Z95.810 Atrial fibrillation I48.2 Atrial fibrillation type: permanent Diarrhea R19.7 Pulmonary hypertension I27.20 DVT prophylaxis Z29.9 (1) Atrial fibrillation Atrial fibrillation type: permanent Qualified Code(s): I48.2 - Chronic atrial fibrillation
[2020-05-07] MEDS: DAPTOmycin 525 MG in SYRINGE 0 ML IV SCH (21:03)
[2020-05-08 06:44] LABS: Basophils # (auto) 0.04 K/uL (0-0.2); Basophils % (auto) 0.7 %; Eosinophils # (auto) 0.59 K/uL (0-0.5); Eosinophils % (auto) 10.7 %; Hemoglobin 10.9 g/dL (14.0-18.0); Immature Granulocytes # (auto) 0.01 K/uL (0.00-0.02); Immature Granulocytes % (auto) 0.2 %; Lymphocytes # (auto) 0.89 K/uL (1.2-3.4); Lymphocytes % (auto) 16.2 %; Mean Corpuscular Hemoglobin 28.4 pg (25-34); Mean Corpuscular Hgb Conc 31.1 g/dL (32-36); Mean Corpuscular Volume 91.1 fL (80-100); Monocytes # (auto) 0.66 K/uL (0.11-0.59); Neutrophils # (auto) 3.31 K/uL (1.4-6.5); Neutrophils % (auto) 60.2 %; Platelet Count 153 K/uL (130-400); RDW Coefficient of Variation 14.7 % (11.5-14.5); RDW Standard Deviation 49.1 fL (36.4-46.3); Red Blood Count 3.84 M/uL (4.7-6.1)
[2020-05-08 07:11] LABS: BUN Creatinine Ratio 24.8 (10-20); Calcium 11.5 mg/dl (8.5-10.1); Creatinine Clr Calc Pharmacy 45.1 ml/min; Est GFR (African American) 39.5; Est GFR (Non-African American) 34.1; Potassium 4.6 mmol/L (3.5-5.1)
[2020-05-08] MEDS: BUMETANIDE 1 MG in SYRINGE 0 ML IV SCH ×2 (07:59→16:56)
[2020-05-08] MEDS: MAGNESIUM OXIDE 400 MG TAB PO SCH (08:00)
[2020-05-08] MEDS: CHOLECALCIFEROL 1,000 UNITS 25 MCG TAB PO SCH (08:00)
[2020-05-08] MEDS: ADVANCED PROBIOTIC 1250 MG CAPSULE PO SCH (08:00)
[2020-05-08] MEDS: CEROVITE ADV FORMULA TAB PO SCH (08:00)
[2020-05-08] MEDS: ASPIRIN 81 MG ECTAB PO SCH (08:00)
[2020-05-08] MEDS: CEFEPIME 2,000 MG in SYRINGE 0 ML IV SCH ×2 (08:00→20:48)
[2020-05-08] MEDS: HEPARIN SOD 5,000 UNIT/0.5 ML VIAL SQ SCH ×2 (08:05→20:47)
[2020-05-08] MEDS: carvediloL 12.5 MG TAB PO SCH ×2 (09:42→20:47)
--- NOTE | 2020-05-08 18:07 | Hospitalist Progress Note ---
Date of Service May 08, 2020 Assessment & Plan (1) Bacteremia: blood cultures +1/2 bottles Serratia, sensitive to cefepime blood cultures +1/2 bottles coagulase-negative staph 05/05 repeat cultures NGTD Infectious disease consult requested -- they are recommending CT left foot as well as TTE to rule out endocarditis ID recommended cont cefepime, stop dapto believing the coag neg staph is a contaminant (2) Cellulitis of left lower extremity: Improving chronic LE edema 2nd to chronic cor pulmonale, CKD, etc. Now on cefepime and daptomycin Checking CT left foot to rule out osteomyelitis (3) Open wound of great toe: left great toe. traumatic. X-rays negative for any signs of osteomyelitis. Wound care consult and management . (4) CKD (chronic kidney disease) stage 3, GFR 30-59 ml/min: Cr baseline about 1.7 BMP am Cr remains stable despite diuresis. (5) Chronic right-sided CHF (congestive heart failure): may have mild decompensation. continue IV bumex BID. (6) ROLLY (obstructive sleep apnea): severe by history cont NC O2 at bedtime has refused NIPPV in past (7) Hypercalcemia: primary hyperparathyroidism (elevated PTH levels multiple occasions). stable level (mid 10s). follow. (8) History of DVT (deep vein thrombosis): IVC filter in place. (9) Implantable cardioverter-defibrillator (ICD) in situ: See above (10) Atrial fibrillation: not on chronic anticoagulation rates controlled. cont coreg. (11) Diarrhea: had prior to admission, but now improved (12) Pulmonary hypertension: severe on previous echo (13) DVT prophylaxis: heparin 5000 BID PT recommending continued PT up to 3 hours daily. Will likely need home health vs SNF rehab Admission and Anticipated Discharge Date Admission Date: May 04, 2020 Subjective Did not sleep well due to his roommate talking loudly. Patient had ID consult this morning. Patient eating well, toileting. Both legs remain edematous, left leg started weeping today. Denies pain in either foot. No SOB, no nausea or vomiting. No fevers. No diarrhea. Review of Systems Constitutional: no fever, no chills, no fatigue, no weakness, no anorexia, no weight loss and no weight gain Ear, Nose, Mouth, Throat: no nasal congestion, no sore throat and no dysphagia Respiratory: no cough and no dyspnea Cardiovascular: + edema; no chest pain, no dyspnea on exertion, no orthopnea and no palpitations Gastrointestinal: no abdominal pain, no nausea, no vomiting, no hematemesis, no dysphagia, no constipation, no diarrhea/loose stools, no blood in stools and no melena Musculoskeletal: no back pain, no joint pain, no myalgia and no muscle weakness Integumentary: no rash, no lesions, no skin ulcer, no erythema, no dry skin and no pruritus Neurologic: no falls, no localized weakness, no generalized weakness, no numbness, no paresthesia, no tremor(s) and no headache(s) Psychiatric: no depression, no suicidal ideation, no homicidal ideation and no anxiety Endocrine: no cold intolerance and no heat intolerance Hematologic / Lymphatic: no easy bleeding and no easy bruising Physical Exam Constitutional: well developed and well nourished; no acute distress Eyes: PERRL, conjunctivae normal, anicteric sclerae ENMT: Mouth: oral mucous membranes not dry Respiratory: normal respiratory effort; no respiratory distress and no labored breathing Auscultation: lungs clear to auscultation bilaterally; no crackles, no rales, no rhonchi and no wheezes Cardiovascular: Rate/Rhythm: regular rate and regular rhythm Heart Sounds: no murmur and no cardiac rub Vessels: normal peripheral pulses and radial pulses present; no JVD Extremities: + edema (4+ bilateral pitting edema) Gastrointestinal (Abdomen): Inspection/Auscultation: abdomen normal to inspection and normal bowel sounds; abdomen not distended Percussion/Palpation: abdomen soft; abdomen nontender, no guarding, abdomen not rigid and no hepatosplenomegaly Musculoskeletal: Head/Neck/Chest: normocephalic and head atraumatic Spine: no cervical spinal tenderness, no cervical muscular tenderness, no thoracic spinal tenderness and no lumbar spinal tenderness Skin: bilateral LE with purplish chronic venous stasis dermatitis, left leg lateral aspect is weeping clear serous fluid Neurologic: CN's II-XI intact bilaterally and moves all extremities Motor/Sensory: no tremor and no sensory deficit Psychiatric: Orientation: alert, oriented to person, oriented to place and oriented to time Apperance: appropriately groomed; not disheveled Affect: euthymic affect; no anxious affect and no tearful affect Genitourinary: no Hernandez catheter Results & Data Results & Data ([facility]) Vital Signs (Past 12 Hours) Vital Signs Temp Pulse Pulse Resp BP BP Pulse Ox 05/08/20 15:53 36.4 C L 66 20 137/85 96 05/08/20 11:00 36.4 C L 59 L 18 114/70 97 05/08/20 07:36 82 05/08/20 07:25 36.7 C 60 18 122/77 97 Laboratory Results Abnormal lab results 05/08/20 05/08/20 Range/Units 06:30 06:30 RBC 3.84 L (4.7-6.1) M/uL Hgb 10.9 L (14.0-18.0) g/dL Hct 35.0 L (42-52) % MCHC 31.1 L (32-36) g/dL RDW Std Deviation 49.1 H (36.4-46.3) fL RDW Coeff of Joshua 14.7 H (11.5-14.5) % Lymph # (Auto) 0.89 L (1.2-3.4) K/uL Hooker # (Auto) 0.66 H (0.11-0.59) K/uL Eos # (Auto) 0.59 H (0-0.5) K/uL BUN 45 H (7-18) mg/dl Creatinine 1.83 H (0.6-1.4) mg/dl BUN/Creatinine Ratio 24.8 H (10-20) Calcium 11.5 H (8.5-10.1) mg/dl Medications Administered Current Inpatient Medications Acetaminophen (Acetaminophen 325 Mg Tab) 650 mg PO Q4H PRN PRN Reason: Pain or Fever Stop: 06/03/20 02:52 Last Admin: 05/07/20 23:41 Dose: 650 mg Documented by: Al Hydrox/Mg Hydrox/Simethicone (Aluminum/Magnesium Susp 30 Ml Udc) 15 ml PO Q 4H PRN PRN Reason: Dyspepsia Stop: 06/03/20 02:52 Artificial Tears (Artificial Tears) 2 drops OP BID PRN PRN Reason: Dry Eye(S) Stop: 06/03/20 02:52 Aspirin (Aspirin 81 Mg Ectab) [facility] [place] Stop: 06/03/20 08:59 Last Admin: 05/08/20 08:00 Dose: 81 mg Documented by: Carvedilol (Carvedilol 12.5 Mg Tab) 12.5 mg PO BID DREAD Stop: 06/03/20 08:59 Last Admin: 05/08/20 09:42 Dose: 12.5 mg Documented by: Docusate Sodium (Docusate Sodium 100 Mg Cap) 100 mg PO BID PRN PRN Reason: Constipation Stop: 06/03/20 02:52 Heparin Sodium (Porcine) (Heparin Sod 5,000 Unit/0.5 Ml Vial) 5,000 units SQ Q12 DREAD Stop: 06/03/20 08:59 Last Admin: 05/08/20 08:05 Dose: Not Given Documented by: Bumetanide 1 mg/ Syringe 4 mls @ 4 mls/min IV DAILY@0900,1700 [facility] Stop: 06/03/20 08:59 Last Admin: 05/08/20 16:56 Dose: 4 mls/min Documented by: Daptomycin 525 mg/ Syringe 10.5 mls @ 5.25 mls/min IV Q24H [facility]; Protocol Stop: 05/10/20 21:59 Last Admin: 05/07/20 21:03 Dose: 5.25 mls/min Documented by: Cefepime HCl 2,000 mg/ Syringe 20 mls @ 5 mls/min IV Q12H [facility]; Protocol Stop: 05/21/20 08:59 Last Admin: 05/08/20 08:00 Dose: 5 mls/min Documented by: Lactobacillus Acidoph/Casei/Rhamnos (Advanced Probiotic 1250 Mg Capsule) 2 cap PO DAILY DREAD Stop: 06/03/20 08:59 Last Admin: 05/08/20 08:00 Dose: 2 cap Documented by: Lidocaine (Lidocaine 5% 1 Patch) 2 patch TD DAILY PRN PRN Reason: Pain Stop: 06/03/20 02:52 Lorazepam (Lorazepam 0.5 Mg Tab) 0.5 mg PO BID PRN PRN Reason: Agitation Stop: 06/03/20 02:52 Last Admin: 05/07/20 03:30 Dose: 0.5 mg Documented by: Magnesium Hydroxide (Magnesium Hydroxide Susp 30 Ml Udc) 30 ml PO Q12H PRN PRN Reason: Constipation Stop: 06/03/20 02:52 Magnesium Oxide (Magnesium Oxide 400 Mg Tab) 400 mg PO QAM DREAD Stop: 06/03/20 08:59 Last Admin: 05/08/20 08:00 Dose: 400 mg Documented by: Miscellaneous Information (Daptomycin Consult Active) 1 ea N/A UD PRN PRN Reason: Consult Stop: 06/03/20 02:52 Multivitamins/Minerals (Cerovite Adv Formula Tab) 1 tab PO QAM DREAD Stop: 06/03/20 08:59 Last Admin: 05/08/20 08:00 Dose: 1 tab Documented by: Ondansetron HCl (Ondansetron Inj 2 Mg/Ml 2 Ml Vial) 4 mg IV Q6H PRN PRN Reason: Nausea Stop: 06/03/20 02:52 Vitamin D (Cholecalciferol 1,000 Units 25 Mcg Tab) 5,000 units PO DAILY [facility] Stop: 06/03/20 08:59 Last Admin: 05/08/20 08:00 Dose: 5,000 units Documented by: PG Care Time/CCT Total # of Minutes Spent Total Time Spent with Patient: Total time spent is greater than 50% in coordination of care (as documented) at patient's floor/unit and/or counseling patient: Coding Level of Care Code 09976 Subseq Hosp Care Lvl 3 Diagnoses Bacteremia R78.81 Cellulitis of left lower extremity L03.116 Open wound of great toe S91.102A Encounter type: initial encounter Laterality: left CKD (chronic kidney disease) stage 3, GFR 30-59 ml/min N18.30 Chronic kidney disease stage 3 subtype: unspecified whether 3a or 3b Chronic right-sided CHF (congestive heart failure) I50.812 ROLLY (obstructive sleep apnea) G47.33 Hypercalcemia E83.52 History of DVT (deep vein thrombosis) Z86.718 Implantable cardioverter-defibrillator (ICD) in situ Z95.810 Atrial fibrillation I48.2 Atrial fibrillation type: permanent Diarrhea R19.7 Diarrhea type: unspecified type Pulmonary hypertension I27.20 DVT prophylaxis Z29.9 (1) Open wound of great toe Encounter type: initial encounter Laterality: left Qualified Code(s): S91.102A - Unspecified open wound of left great toe without damage to nail, initial encounter (2) CKD (chronic kidney disease) stage 3, GFR 30-59 ml/min Chronic kidney disease stage 3 subtype: unspecified whether 3a or 3b Qualified Code(s): N18.30 - Chronic kidney disease, stage 3 unspecified (3) Atrial fibrillation Atrial fibrillation type: permanent Qualified Code(s): I48.2 - Chronic atrial fibrillation (4) Diarrhea Diarrhea type: unspecified type Qualified Code(s): R19.7 - Diarrhea, unspecified
[2020-05-08] MEDS: DAPTOmycin 525 MG in SYRINGE 0 ML IV SCH (21:24)
[2020-05-08] MEDS: LORazepam 0.5 MG TAB PO PRN (23:44)
[2020-05-09 06:17] LABS: Basophils # (auto) 0.05 K/uL (0-0.2); Basophils % (auto) 0.7 %; Eosinophils # (auto) 0.75 K/uL (0-0.5); Eosinophils % (auto) 10.8 %; Hematocrit (blood only) 33.1 % (42-52); Hemoglobin 10.2 g/dL (14.0-18.0); Immature Granulocytes # (auto) 0.03 K/uL (0.00-0.02); Immature Granulocytes % (auto) 0.4 %; Lymphocytes # (auto) 1.02 K/uL (1.2-3.4); Lymphocytes % (auto) 14.7 %; Mean Corpuscular Hemoglobin 28.3 pg (25-34); Mean Corpuscular Hgb Conc 30.8 g/dL (32-36); Mean Corpuscular Volume 91.9 fL (80-100); Monocytes # (auto) 0.72 K/uL (0.11-0.59); Monocytes % (auto) 10.4 %; Neutrophils # (auto) 4.37 K/uL (1.4-6.5); Platelet Count 179 K/uL (130-400); RDW Coefficient of Variation 14.6 % (11.5-14.5); RDW Standard Deviation 49.8 fL (36.4-46.3); White Blood Count 6.94 K/uL (4.8-10.8)
[2020-05-09 06:44] LABS: BUN Creatinine Ratio 27.4 (10-20); C Reactive Protein 2.79 mg/dl (0-0.29); Calcium 11.3 mg/dl (8.5-10.1); Creatinine Clr Calc Pharmacy 44.3 ml/min; Est GFR (African American) 39.5; Est GFR (Non-African American) 34.1; Potassium 4.5 mmol/L (3.5-5.1)
[2020-05-09] MEDS ORDERED: PERFLUTREN LIPID MICROSPHERE (DEFINITY) IV ONE (07:28)
--- NOTE | 2020-05-09 09:28 | CT Scan Report ---
CT SCAN OF THE LEFT FOOT WITHOUT IV CONTRAST CLINICAL HISTORY: Left foot infection. COMPARISON STUDY: Radiographs of the left first toe dated 05/06/2020. TECHNIQUE: CT scan of the left foot is performed from the distal tibia and fibula to the base of the foot. Images are reviewed in the axial, sagittal, and coronal planes. IV contrast was not administere d for this examination. A dose lowering technique was utilized adhering to the principles of ALARA. FINDINGS: The skeletal structures are heterogeneously osteopenic. No acute fracture is seen. The ankl e mortise is intact. Moderate osteoarthritic change is seen at the first metatarsophalangeal and inte rphalangeal joints. Marginal erosions are present at both joints with overlying soft tissue edema and calcifications. Milder osteoarthritic change seen throughout the remainder of the midfoot. There are small dorsal and plantar calcaneal enthesophytes. Diffuse soft tissue edema is present throughout th e foot. No radiodense foreign body is identified. There is no soft tissue gas. The regional musculatu re shows generalized atrophy. Soft tissue calcifications are also seen around the medial and lateral malleolar. The Achilles tendon is intact as visualized. No organized fluid collection is seen to sugg est abscess. IMPRESSION: 1. Diffuse soft tissue edema is present throughout the foot. Correlate clinically for evidence of caleb lulitis. 2. No organized fluid collection is seen to suggest abscess. 3. Osteopenia with no acute fracture identified. 4. Degenerative change is seen at the first metatarsophalangeal and interphalangeal joints as above w ith associated marginal erosions and hazy overlying soft tissue calcifications. The appearance favors an inflammatory/erosive arthropathy such as gout. Superimposed infection/osteomyelitis would be impo ssible to exclude by any imaging modality and clinical correlation will be essential. 5. Milder degenerative change throughout the remainder of the foot as above. ACT 112: Negative or not required by law. Dictated: 05/09/2020 8:58 AM Transcribed: 05/09/2020 9:14 AM Nellie [id number] Javier Electronically signed by: Walker Porter M.D. 05/09/2020 9:27 AM
[2020-05-09] MEDS: ASPIRIN 81 MG ECTAB PO SCH (09:58)
[2020-05-09] MEDS: carvediloL 12.5 MG TAB PO SCH ×2 (09:58→20:27)
[2020-05-09] MEDS: BUMETANIDE 1 MG in SYRINGE 0 ML IV SCH ×2 (09:58→17:03)
[2020-05-09] MEDS: MAGNESIUM OXIDE 400 MG TAB PO SCH (09:58)
[2020-05-09] MEDS: CEFEPIME 2,000 MG in SYRINGE 0 ML IV SCH ×2 (09:59→20:26)
[2020-05-09] MEDS: CHOLECALCIFEROL 1,000 UNITS 25 MCG TAB PO SCH (09:59)
[2020-05-09] MEDS: CEROVITE ADV FORMULA TAB PO SCH (09:59)
[2020-05-09] MEDS: ADVANCED PROBIOTIC 1250 MG CAPSULE PO SCH (09:59)
[2020-05-09] MEDS: HEPARIN SOD 5,000 UNIT/0.5 ML VIAL SQ SCH ×2 (10:11→20:29)
--- NOTE | 2020-05-09 11:37 | XCELERA ---
[id number]
--- NOTE | 2020-05-09 13:11 | Orthopedic Consultation ---
Date of Consultation May 09, 2020 Assessment & Plan (1) Open wound of great toe: Wound dehiscence due to laceration left great toe. Subsequent infection and cellulitis. No evidence of any fluid collection to drain. I do not believe he has osteomyelitis of the joint has this is most consistent with old history of gout and degenerative changes. Recommend continue with wound care and or wound clinic as needed and allow wound to heal by secondary intention. May be prolonged due to health issues and venous stasis issues of the left leg. Elevate leg when possible. Patient can be weightbearing as tolerated. Continue antibiotics per medical service. If condition substantially worsens then reevaluate by Dr. Blackmon ,foot and ankle specialist. History of Present Illness Attending Physician: Shena Ribera MD History of Present Illness 79-year-old male admitted for infection left foot. Patient history was that he recently moved to a new location and was having some difficulty with the apparatus in the shower fell back and cut his toe on a plastic object. Had a laceration and had it sutured in the ER and had the sutures removed but then had a wound dehiscence. Patient has subsequent infection. Patient has medical issues with chronic venous stasis changes in the legs. Allergies Allergy/AdvReac Type Severity Reaction Status Date / Time adhesive Allergy Intermediate REDDENED, Verified 05/03/20 23:26 ITCHY SKIN oxybutynin Allergy Unknown Unknown Verified 05/03/20 23:26 ciprofloxacin [From Cipro] AdvReac Mild pain in Verified 05/03/20 23:26 tendons ALL OPIOIDS Allergy Severe "SEVERE" Uncoded 05/03/20 23:26 DELIRIUM Home Medications Home Medications Medication Instructions Recorded Confirmed Type magnesium oxide 400 mg PO QAM 08/10/18 05/03/20 History multivitamin with minerals 1 tab PO QAM 08/10/18 05/03/20 History aspirin 81 mg tablet,delayed 81 mg PO QAM #90 tab 07/03/19 05/03/20 Rx release carvedilol 25 mg tablet 12.5 mg PO BID #90 tab 07/03/19 05/03/20 Rx lorazepam 1 mg tablet 0.5 mg PO BID PRN tab 10/19/19 05/03/20 History bumetanide 1 mg tablet 2 mg PO BID #60 tab 12/19/19 05/03/20 Rx lidocaine 4 % topical patch 2 patch TOP DAILY PRN ea 12/19/19 05/03/20 History peg 400-propylene glycol 0.4 %-0.3 2 drops OP BID PRN ml 12/19/19 05/03/20 History % eye drops acetaminophen 325 mg tablet 650 mg PO Q4H PRN tab 03/12/20 05/03/20 History cholecalciferol (vitamin D3) 125 125 mcg PO DAILY 03/12/20 05/03/20 History mcg (5,000 unit) capsule docusate sodium 100 mg capsule 100 mg PO BID PRN 03/20/20 05/03/20 History Patient History Medical History (Updated 05/08/20 @ 18:18 by Shena Ribera MD) Anemia Anxiety Atrial fibrillation Balance disorder Basal cell carcinoma removed in office Bilateral lower extremity edema Cellulitis of left lower extremity CKD (chronic kidney disease) Deep vein thrombosis Diastolic heart failure DVT (deep venous thrombosis) S/p IVC filter Gout History of sudden cardiac successfully resuscitated Hypertension Kidney stones Lower extremity edema Nonischemic cardiomyopathy recent hospital admission. see cardiology consult note for this patient. On home oxygen therapy 02 at 2L n/c hs Osteoarthritis Sleep apnea 02 at 2L n/c Spinal stenosis Ventricular fibrillation Weakness Surgical History Sharla filter in place @ [facility] History of blepharoplasty bilt History of cardiac cath at least 20yrs ago, no stents History of kidney surgery 06/30 right kidney removed--"bloody mass that was removed" History of tooth extraction History of total right knee replacement (TKR) ICD (implantable cardioverter-defibrillator) in place 06/2011; [facility] device Family History Father Hypertension Stroke Brother Hypertension Other No family history of adverse response to anesthesia Social History Smoking Status: Never smoker Second Hand Exposure: No; Hx Alcohol Use: Yes Alcohol type: wine Hx Substance Use: No Preferred Language: [place] Communication Ability: Effective Communication Ability Comment: [place] Visual Impairment: Limited Hearing Ability: Hard of Hearing Electric Gas Appliances Demonstrator Required: No Beliefs That Will Affect Care: None and Anabaptism Anabaptism Beliefs: NO BLOOD TRANSFUSION marital status: Current Living Situation: Family Current Living Situation Comment: [facility] current occupational status: retired Feels Safe at Home: Yes Safety Concerns: Feels Safe At This Time Childhood Exposure to Second-Hand Smoke: No caffeine: Yes Dental Care, Regularly: Yes Physical Activity Frequency: Does not Exercise Seatbelt Use: always Sunscreen Use: Yes Assistive Devices: Walker Assistive Devices Comment: FELL AT HOME - FELL GETTING OO BATH Review of Systems Review of Systems: Patient has a positive history of gout in the past. He has had gout in his left great toe. He was taking protein drinks at the time which in part resulted in gout. Physical Exam Physical Exam: Both lower extremities have some venous stasis changes. The left much worse than the right. Has purplish discoloration of his calf down to his foot. He has bandages around the left lower leg and over his great toe. Great toe is a oblique old laceration with wound dehiscence which is about a 4 cm laceration which is widened about 5 mm. Appears to be granulation tissue in the area there is no pus draining out of the wound and minimal drainage. Results & Data ([facility]) Vital Signs (Past 12 Hours) Vital Signs Temp Pulse Pulse Resp BP BP Pulse Ox 05/09/20 11:00 36.7 C 61 18 122/73 94 05/09/20 08:00 36.4 C L 78 68 20 123/89 95 05/09/20 07:27 67 05/09/20 03:56 36.6 C 74 18 128/80 94 Reviewed imaging of the great toe demonstrating no fluid collection. Does not appear to be any bone edema on the MRI. Does have degenerative changes of the IP joint of the great toe with periarticular cystic changes and degenerative changes in that joint which is consistent with gout and DJD. More likely due to his history consistent with that than any active infection as there is no bone edema noted. (1) Open wound of great toe Encounter type: initial encounter Laterality: left Qualified Code(s): S91.102A - Unspecified open wound of left great toe without damage to nail, initial encounter
--- NOTE | 2020-05-09 16:46 | Hospitalist Progress Note ---
Date of Service May 09, 2020 Assessment & Plan (1) Bacteremia: -6 blood cultures +1/2 bottles Serratia, sensitive to cefepime 11-6 blood cultures +1/2 bottles coagulase-negative staph - repeat cultures NGTD 05-04 to 05-09 received dapto and cefepime Infectious disease consult placed ID recommended cont cefepime and stop dapto ID says coag neg staph is a contaminant ID recommended CT left foot as well as TTE to rule out endocarditis TTE negative for vegetations, CT left foot negative for osteomyelitis Needs 14 day course for bacteremia: Receiving 7 days cefepime 05-04 to 05-10. Will finish final 7 days with trimeth/sulfa if OK with ID. (2) Open wound of great toe: traumatic injury of left great toe, sutured and subsequently wound dehisced admitted with infected wound treated with cefepime, dapto X-rays negative for any signs of osteomyelitis. CT left foot without bone edema to suggest osteomyelitis, but with bone destruction thought to be related to history of gout Orthopedics consult -- no osteomyelitis, no surgery indicated at this time Wound care consult and management Discharge instructions: clean with saline, fill with aquacel ag and secure with optifoam. Change every other day and as needed for drainage. will need home health for wound care (3) Cellulitis of left lower extremity: Likely related to chronic venous stasis dermatitis Wound care instructions: Clean with saline, cover with xeroform, ABD and secure with kerlix. Change every day and as needed for drainage. (4) Chronic right-sided CHF (congestive heart failure): acute on chronic CHF with preserved EF and cor pulmonale decompensated with 4+ bilateral LE edema son tells me patient refuses his diuretics at home continue IV bumex BID 05-03 119.1kg 05-09 112.9kg (5) CKD (chronic kidney disease) stage 3, GFR 30-59 ml/min: Cr baseline about 1.7 BMP daily Cr remains stable despite diuresis (6) ROLLY (obstructive sleep apnea): severe by history cont NC O2 at bedtime has refused NIPPV in past (7) Hypercalcemia: primary hyperparathyroidism (elevated PTH levels multiple occasions). stable level (mid 10s). follow. (8) History of DVT (deep vein thrombosis): IVC filter in place. (9) Implantable cardioverter-defibrillator (ICD) in situ: See above (10) Atrial fibrillation: not on chronic anticoagulation rates controlled. cont coreg. (11) Diarrhea: had prior to admission, but now improved (12) Pulmonary hypertension: severe on previous echo (13) DVT prophylaxis: heparin 5000 BID PT recommending continued PT up to 3 hours daily. Will likely need home health vs SNF rehab Admission and Anticipated Discharge Date Admission Date: May 04, 2020 Subjective Patient very upset -- frustrated with bed alarm. Says his roommate can get up on his own and is laughing at the patient. Patient wants to go home. He is eating well. Ambulating with walker with PT. His lower extremity edema continues to improve. He denies chest pain and dyspnea. Left foot wound is not painful. Review of Systems Constitutional: no fever, no chills, no fatigue, no weakness, no anorexia, no weight loss and no weight gain Ear, Nose, Mouth, Throat: no nasal congestion, no sore throat and no dysphagia Respiratory: no cough and no dyspnea Cardiovascular: + edema; no chest pain, no dyspnea on exertion, no orthopnea and no palpitations Gastrointestinal: no abdominal pain, no nausea, no vomiting, no hematemesis, no dysphagia, no constipation, no diarrhea/loose stools, no blood in stools and no melena Musculoskeletal: no back pain, no joint pain, no myalgia and no muscle weakness Integumentary: + lesions; no rash, no skin ulcer, no erythema, no dry skin and no pruritus Neurologic: no falls, no localized weakness, no generalized weakness, no numbness, no paresthesia, no tremor(s) and no headache(s) Psychiatric: no depression, no suicidal ideation, no homicidal ideation and no anxiety Endocrine: no cold intolerance and no heat intolerance Hematologic / Lymphatic: no easy bleeding and no easy bruising Physical Exam Constitutional: well developed and well nourished; no acute distress Eyes: PERRL, conjunctivae normal, anicteric sclerae ENMT: Mouth: oral mucous membranes not dry Respiratory: normal respiratory effort; no respiratory distress and no labored breathing Auscultation: lungs clear to auscultation bilaterally; no crackles, no rales, no rhonchi and no wheezes Cardiovascular: Rate/Rhythm: regular rate and regular rhythm Heart Sounds: no murmur and no cardiac rub Vessels: normal peripheral pulses and radial pulses present; no JVD Extremities: + edema (4+ bilateral pitting edema) Gastrointestinal (Abdomen): Inspection/Auscultation: abdomen normal to inspection and normal bowel sounds; abdomen not distended Percussion/Palpation: abdomen soft; abdomen nontender, no guarding, abdomen not rigid and no hepatosplenomegaly Musculoskeletal: Head/Neck/Chest: normocephalic and head atraumatic Spine: no cervical spinal tenderness, no cervical muscular tenderness, no thoracic spinal tenderness and no lumbar spinal tenderness Skin: left foot wrapped, left foot wound non purulent, non erythematous, at base of left 1st toe, bilateral lower extremity venous statis dermatitis Neurologic: CN's II-XI intact bilaterally and moves all extremities Motor/Sensory: no tremor and no sensory deficit Psychiatric: Orientation: alert, oriented to person, oriented to place and oriented to time Apperance: appropriately groomed; not disheveled Affect: + anxious affect; + affect not euthymic and no tearful affect Results & Data Results & Data ([facility]) Vital Signs (Past 12 Hours) Vital Signs Temp Pulse Pulse Resp BP Pulse Ox 05/09/20 16:00 36.7 C 69 18 111/70 96 05/09/20 11:00 36.7 C 61 18 122/73 94 05/09/20 08:00 36.4 C L 78 68 20 123/89 95 05/09/20 07:27 67 Laboratory Results Abnormal lab results 05/09/20 05/09/20 05/09/20 Range/Units 05:33 05:33 05:33 RBC 3.60 L (4.7-6.1) M/uL Hgb 10.2 L (14.0-18.0) g/dL Hct 33.1 L (42-52) % MCHC 30.8 L (32-36) g/dL RDW Std Deviation 49.8 H (36.4-46.3) fL RDW Coeff of Joshua 14.6 H (11.5-14.5) % Lymph # (Auto) 1.02 L (1.2-3.4) K/uL [place] # (Auto) 0.72 H (0.11-0.59) K/uL Eos # (Auto) 0.75 H (0-0.5) K/uL Immature Gran # (Auto) 0.03 H (0.00-0.02) K/uL ESR 42 H (0-14) mm/hr BUN 50 H (7-18) mg/dl Creatinine 1.83 H (0.6-1.4) mg/dl BUN/Creatinine Ratio 27.4 H (10-20) Calcium 11.3 H (8.5-10.1) mg/dl C-Reactive Protein 2.79 H (0-0.29) mg/dl Medications Administered Current Inpatient Medications Acetaminophen (Acetaminophen 325 Mg Tab) 650 mg PO Q4H PRN PRN Reason: Pain or Fever Stop: 06/03/20 02:52 Last Admin: 05/07/20 23:41 Dose: 650 mg Documented by: Al Hydrox/Mg Hydrox/Simethicone (Aluminum/Magnesium Susp 30 Ml Udc) 15 ml PO Q4H PRN PRN Reason: Dyspepsia Stop: 06/03/20 02:52 Artificial Tears (Artificial Tears) 2 drops OP BID PRN PRN Reason: Dry Eye(S) Stop: 06/03/20 02:52 Aspirin (Aspirin 81 Mg Ectab) 81 mg PO QAM [facility] Stop: 06/03/20 08:59 Last Admin: 05/09/20 09:58 Dose: 81 mg Documented by: Carvedilol (Carvedilol 12.5 Mg Tab) 12.5 mg PO BID [facility] Stop: 06/03/20 08:59 Last Admin: 05/09/20 09:58 Dose: 12.5 mg Documented by: Docusate Sodium (Docusate Sodium 100 Mg Cap) 100 mg PO BID PRN PRN Reason: Constipation Stop: 06/03/20 02:52 Heparin Sodium (Porcine) (Heparin Sod 5,000 Unit/0.5 Ml Vial) 5,000 units SQ Q12 [facility] Stop: 06/03/20 08:59 Last Admin: 05/09/20 10:11 Dose: Not Given Documented by: Bumetanide 1 mg/ Syringe 4 mls @ 4 mls/min IV DAILY@0900,1700 [facility] Stop: 06/03/20 08:59 Last Admin: 05/09/20 09:58 Dose: 4 mls/min Documented by: Daptomycin 525 mg/ Syringe 10.5 mls @ 5.25 mls/min IV Q24H [facility]; Protocol Stop: 05/10/20 21:59 Last Admin: 05/08/20 21:24 Dose: 5.25 mls/min Documented by: Cefepime HCl 2,000 mg/ Syringe 20 mls @ 5 mls/min IV Q12H [facility]; Protocol Stop: 05/21/20 08:59 Last Admin: 05/09/20 09:59 Dose: 5 mls/min Documented by: Lactobacillus Acidoph/Casei/Rhamnos (Advanced Probiotic 1250 Mg Capsule) 2 cap PO DAILY [facility] Stop: 06/03/20 08:59 Last Admin: 05/09/20 09:59 Dose: 2 cap Documented by: Lidocaine (Lidocaine 5% 1 Patch) 2 patch TD DAILY PRN PRN Reason: Pain Stop: 06/03/20 02:52 Lorazepam (Lorazepam 0.5 Mg Tab) 0.5 mg PO BID PRN PRN Reason: Agitation Stop: 06/03/20 02:52 Last Admin: 05/08/20 23:44 Dose: 0.5 mg Documented by: Magnesium Hydroxide (Magnesium Hydroxide Susp 30 Ml Udc) 30 ml PO Q12H PRN PRN Reason: Constipation Stop: 06/03/20 02:52 Magnesium Oxide (Magnesium Oxide 400 Mg Tab) 400 mg PO QAM [facility] Stop: 06/03/20 08:59 Last Admin: 05/09/20 09:58 Dose: 400 mg Documented by: Miscellaneous Information (Daptomycin Consult Active) 1 ea N/A UD PRN PRN Reason: Consult Stop: 06/03/20 02:52 Multivitamins/Minerals (Cerovite Adv Formula Tab) 1 tab PO QAM [facility] Stop: 06/03/20 08:59 Last Admin: 05/09/20 09:59 Dose: 1 tab Documented by: Ondansetron HCl (Ondansetron Inj 2 Mg/Ml 2 Ml Vial) 4 mg IV Q6H PRN PRN Reason: Nausea Stop: 06/03/20 02:52 Vitamin D (Cholecalciferol 1,000 Units 25 Mcg Tab) 5,000 units PO DAILY [facility] Stop: 06/03/20 08:59 Last Admin: 05/09/20 09:59 Dose: 5,000 units Documented by: PG Care Time/CCT Total # of Minutes Spent Total Time Spent with Patient: Total time spent is greater than 50% in coordination of care (as documented) at patient's floor/unit and/or counseling patient: Coding Level of Care Code 33732 Subseq Hosp Care Lvl 3 Diagnoses Bacteremia R78.81 Open wound of great toe S91.102A Encounter type: initial encounter Laterality: left Cellulitis of left lower extremity L03.116 Chronic right-sided CHF (congestive heart failure) I50.812 CKD (chronic kidney disease) stage 3, GFR 30-59 ml/min N18.30 Chronic kidney disease stage 3 subtype: unspecified whether 3a or 3b ROLLY (obstructive sleep apnea) G47.33 Hypercalcemia E83.52 History of DVT (deep vein thrombosis) Z86.718 Implantable cardioverter-defibrillator (ICD) in situ Z95.810 Atrial fibrillation I48.2 Atrial fibrillation type: permanent Diarrhea R19.7 Diarrhea type: unspecified type Pulmonary hypertension I27.20 DVT prophylaxis Z29.9 (1) Open wound of great toe Encounter type: initial encounter Laterality: left Qualified Code(s): S91.102A - Unspecified open wound of left great toe without damage to nail, initial encounter (2) CKD (chronic kidney disease) stage 3, GFR 30-59 ml/min Chronic kidney disease stage 3 subtype: unspecified whether 3a or 3b Qualified Code(s): N18.30 - Chronic kidney disease, stage 3 unspecified (3) Atrial fibrillation Atrial fibrillation type: permanent Qualified Code(s): I48.2 - Chronic atrial fibrillation (4) Diarrhea Diarrhea type: unspecified type Qualified Code(s): R19.7 - Diarrhea, unspecified
[2020-05-10 06:51] LABS: Basophils # (auto) 0.04 K/uL (0-0.2); Basophils % (auto) 0.6 %; Hematocrit (blood only) 33.3 % (42-52); Hemoglobin 10.2 g/dL (14.0-18.0); Immature Granulocytes # (auto) 0.03 K/uL (0.00-0.02); Immature Granulocytes % (auto) 0.4 %; Lymphocytes # (auto) 1.15 K/uL (1.2-3.4); Lymphocytes % (auto) 17.2 %; Mean Corpuscular Hemoglobin 27.9 pg (25-34); Mean Corpuscular Hgb Conc 30.6 g/dL (32-36); Mean Corpuscular Volume 91.2 fL (80-100); Mean Platelet Volume 10.1 fL (7.4-10.4); Monocytes # (auto) 0.63 K/uL (0.11-0.59); Monocytes % (auto) 9.4 %; Neutrophils # (auto) 4.02 K/uL (1.4-6.5); Neutrophils % (auto) 60.4 %; Platelet Count 188 K/uL (130-400); RDW Coefficient of Variation 14.6 % (11.5-14.5); RDW Standard Deviation 49.2 fL (36.4-46.3); Red Blood Count 3.65 M/uL (4.7-6.1); White Blood Count 6.67 K/uL (4.8-10.8)
[2020-05-10 07:15] LABS: BUN Creatinine Ratio 29.6 (10-20); Calcium 11.4 mg/dl (8.5-10.1); Creatinine Clr Calc Pharmacy 43.5 ml/min; Est GFR (African American) 38.7; Est GFR (Non-African American) 33.4; Magnesium 2.4 mg/dl (1.8-2.4); Potassium 4.5 mmol/L (3.5-5.1)
[2020-05-10] MEDS: CEROVITE ADV FORMULA TAB PO SCH (07:55)
[2020-05-10] MEDS: MAGNESIUM OXIDE 400 MG TAB PO SCH (07:56)
[2020-05-10] MEDS: ASPIRIN 81 MG ECTAB PO SCH (07:56)
[2020-05-10] MEDS: carvediloL 12.5 MG TAB PO SCH (07:56)
[2020-05-10] MEDS: BUMETANIDE 1 MG in SYRINGE 0 ML IV SCH (07:56)
[2020-05-10] MEDS: CHOLECALCIFEROL 1,000 UNITS 25 MCG TAB PO SCH (07:56)
[2020-05-10] MEDS: ADVANCED PROBIOTIC 1250 MG CAPSULE PO SCH (07:57)
[2020-05-10] MEDS: HEPARIN SOD 5,000 UNIT/0.5 ML VIAL SQ SCH (07:58)
[2020-05-10] MEDS: CEFEPIME 2,000 MG in SYRINGE 0 ML IV SCH (08:04)
--- NOTE | 2020-05-10 14:08 | Discharge Summary ---
Date of Service May 10, 2020 Admission HPI Per Admitting Provider The patient is a an 79-year-old male with a past medical history including bilateral lower extremity edema, HFpEF, decreased hearing, mitral regurgitation, nocturnal hypoxia, right ventricular dysfunction, hyperparathyroidism, anemia and chronic disease, lumbar degenerative disc disease, hypertension, anxiety disorder, atrial fibrillation, [place] filter in place, history of DVT, ICD, history of sudden cardiac , CKD stage III, ROLLY and hypercalcemia. He presents with the above symptoms. He had been started on daptomycin IV from the ED. Principal Diagnosis bacteremia related to left foot wound Discharge Exam Constitutional well developed and well nourished; no acute distress Eyes PERRL, conjunctivae normal, anicteric sclerae ENMT Mouth: oral mucous membranes not dry Respiratory normal respiratory effort; no respiratory distress and no labored breathing Auscultation: lungs clear to auscultation bilaterally; no crackles, no rales, no rhonchi and no wheezes Cardiovascular Rate/Rhythm: regular rate and regular rhythm Heart Sounds: no murmur and no cardiac rub Vessels: normal peripheral pulses and radial pulses present; no JVD Extremities: + edema (improved 3+ bilateral pitting edema) Gastrointestinal (Abdomen) Inspection/Auscultation: abdomen normal to inspection and normal bowel sounds; abdomen not distended Percussion/Palpation: abdomen soft; abdomen nontender, no guarding, abdomen not rigid and no hepatosplenomegaly Musculoskeletal Head/Neck/Chest: normocephalic and head atraumatic Spine: no cervical spinal tenderness, no cervical muscular tenderness, no thoracic spinal tenderness and no lumbar spinal tenderness Neurologic CN's II-XI intact bilaterally and moves all extremities Motor/Sensory: no tremor and no sensory deficit Psychiatric Orientation: alert, oriented to person, oriented to place and oriented to time Apperance: appropriately groomed; not disheveled Affect: + anxious affect; + affect not euthymic and no tearful affect Discharge Data Allergies Allergy/AdvReac Type Severity Reaction Status Date / Time adhesive Allergy Intermediate REDDENED, Verified 05/03/20 23:26 ITCHY SKIN oxybutynin Allergy Unknown Unknown Verified 05/03/20 23:26 ciprofloxacin [From Cipro] AdvReac Mild pain in Verified 05/03/20 23:26 tendons ALL OPIOIDS Allergy Severe "SEVERE" Uncoded 05/03/20 23:26 DELIRIUM Consultations 05/03/20 23:43 ED Decision to Admit Stat 05/04/20 02:53 Consult Case Management - Discharge Planning Routine 05/06/20 08:56 Consult Infectious Diseases Routine 05/09/20 11:40 Consult Orthopedic Surgery Routine Ordered Studies 05/09/20 06:09 CT foot LT wo con Routine Hospital Course (1) Bacteremia: 11-6 blood cultures +1/2 bottles Serratia, sensitive to cefepime 11-6 blood cultures +1/2 bottles coagulase-negative staph 11-8 repeat cultures NGTD 05-04 to 05-09 received dapto and cefepime Infectious disease consult placed ID recommended cont cefepime and stop dapto ID says coag neg staph is a contaminant ID recommended CT left foot as well as TTE to rule out endocarditis TTE negative for vegetations, CT left foot negative for osteomyelitis Needs 14 day course for bacteremia: Receiving 7 days cefepime 05-04 to 05-10. Will finish final 7 days with trimeth/sulfa. Personally discussed with ID Dr. Chanel Frey who agrees with plan. (2) Open wound of great toe: traumatic injury of left great toe, sutured and subsequently wound dehisced admitted with infected wound treated with cefepime, dapto X-rays negative for any signs of osteomyelitis. CT left foot without bone edema to suggest osteomyelitis, but with bone destruction thought to be related to history of gout Orthopedics consult -- no osteomyelitis, no surgery indicated at this time Wound care consult and management Discharge instructions: clean with saline, fill with aquacel ag and secure with optifoam. Change every other day and as needed for drainage. will need home health for wound care (3) Cellulitis of left lower extremity: Likely related to chronic venous stasis dermatitis Wound care instructions: Clean with saline, cover with xeroform, ABD and secure with kerlix. Change every day and as needed for drainage. (4) Chronic right-sided CHF (congestive heart failure): acute on chronic CHF with preserved EF and cor pulmonale decompensated with 4+ bilateral LE edema son tells me patient refuses his diuretics at home continue IV bumex BID and transition back to bumex PO on discharge 05-03 119.1kg 05-09 112.9kg 05-10 112.5kg (5) CKD (chronic kidney disease) stage 3, GFR 30-59 ml/min: Cr baseline about 1.7 BMP daily Cr remains stable despite diuresis (6) ROLLY (obstructive sleep apnea): severe by history cont NC O2 at bedtime has refused NIPPV in past (7) Hypercalcemia: primary hyperparathyroidism (elevated PTH levels multiple occasions). stable level (mid 10s). follow. (8) History of DVT (deep vein thrombosis): IVC filter in place. (9) Implantable cardioverter-defibrillator (ICD) in situ: See above (10) Atrial fibrillation: not on chronic anticoagulation rates controlled. cont coreg. (11) Diarrhea: had prior to admission, but now improved (12) Pulmonary hypertension: severe on previous echo (13) DVT prophylaxis: heparin 5000 BID PT recommending continued PT up to 3 hours daily. Going home with home health, PT and wound care Total Time Total Time Spent Total Time Spent (In Minutes): 40 Total Time Includes: Examination of the Patient, Discharge Planning, Medication Reconciliation and Communication With Other Providers Discharge Plan Discharge Items Patient Disposition: Home - Home Health Services Reason For Visit: LLE CELLULITIS, CHF EXACERBATION Discharge Diagnosis: 1. bacteremia (bacteria in the bloodstream) 2. left foot wound 3. left leg cellulitis (infection of the skin) 4. acute on chronic diastolic and right sided heart failure Activity: Resume your previous activity Non-emergency contact: Primary Care Provider Call non-emergency contact if: you have any medication questions Follow-up/Referrals: Fracisco Eddy MD [Primary Care Provider] - 05/14/20 2:15 pm (see within one week for CBC, BMP and follow up of your hospitalization) Diet: Heart Healthy Addtl Attending Provider Instructions: 1. Weigh yourself every morning after you use the toilet 2. If you gave 3 pounds over 24 hours or 5 pounds in one week, call your primary care doctor 3. Continue to take your bumex twice daily -- this is very important for your left foot wound to heal 4. Continue wound care to left leg: Clean with saline. Cover with xeroform, ABD and secure with kerlix. Change dressing every day and as needed for drainage. 5. Continue wound care to the left foot wound: Clean with saline. Fill with aquacel ag and secure with optifoam. Change every other day and as needed for drainage. 6. Continue physical therapy 7. Take trimethoprim-sulfamethoxazole (Bactrim) twice daily until they are gone. Take your first dose tonight when you get home. 8. See your primary care doctor within one week to follow up on the issues we addressed this hospitalization Pending Studies at Discharge: No Stand-Alone Forms: My [facility], Smoking Cessation Medications and DC Order Prescriptions: New Advanced Probiotic 625 mg (10 billion cell) Capsule 2 cap PO DAILY Qty: 30 RF: 0 sulfamethoxazole-trimethoprim 800-160 mg Tablet 1 tab PO Q12 Qty: 17 RF: 0 Continued aspirin 81 mg tablet,delayed release (DR/EC) 81 mg PO QAM Qty: 90 RF: 3 carvedilol 25 mg tablet 12.5 mg PO BID Qty: 90 RF: 3 lidocaine 4 % adhesive patch,medicated 2 patch TOP DAILY PRN (Reason: Pain) RF: 0 Systane (propylene glycol) 0.4-0.3 % drops 2 drops OP BID PRN (Reason: Dry Eye(S)) RF: 0 bumetanide 1 mg tablet 2 mg PO BID Qty: 60 RF: 5 acetaminophen 325 mg tablet 650 mg PO Q4H PRN (Reason: Pain) RF: 0 cholecalciferol (vitamin D3) 125 mcg (5,000 unit) capsule 125 mcg PO DAILY RF: 0 docusate sodium 100 mg capsule 100 mg PO BID PRN (Reason: Constipation) RF: 0 lorazepam 1 mg tablet 0.5 mg PO BID PRN (Reason: Agitation) RF: 0 multivitamin with minerals Tablet 1 tab PO QAM RF: 0 magnesium oxide 400 mg Capsule 400 mg PO QAM RF: 0 Discharge Orders: Discharge Order (Routine); Ordered 05/10/20 Ordered By: Shena Ribera Admission Data Admit Date/Time: 05/04/20 01:30 Attending Provider: Shena Ribera Admit Provider: Ky Tao Primary Care Provider: Fracisco Eddy Other Providers: Ky Tao ; Patrick Gibson ; Immanuel Owens ; Lokesh Brian I. ; Rigo Morrison II ; Chanel Frey. ; Carlos Jules ; Elias Blackmon ; [facility] Healthcare Other Interventions: Discharge Summary Assessment (RN) Last Done: 05/10/20 12:53 Coding Level of Care Code D/C Day Management >30 mins Diagnoses Bacteremia R78.81 Open wound of great toe S91.102A Encounter type: initial encounter Laterality: left Cellulitis of left lower extremity L03.116 Chronic right-sided CHF (congestive heart failure) I50.812 CKD (chronic kidney disease) stage 3, GFR 30-59 ml/min N18.30 Chronic kidney disease stage 3 subtype: unspecified whether 3a or 3b ROLLY (obstructive sleep apnea) G47.33 Hypercalcemia E83.52 History of DVT (deep vein thrombosis) Z86.718 Implantable cardioverter-defibrillator (ICD) in situ Z95.810 Atrial fibrillation I48.2 Atrial fibrillation type: permanent Diarrhea R19.7 Diarrhea type: unspecified type Pulmonary hypertension I27.20 DVT prophylaxis Z29.9
[2020-05-10] MEDS ORDERED: SULFAMETHOXAZOLE/TRIMETHOPRIM DS 800/160MG TAB PO SCH (21:00)
== END 2020-05-10 16:20 | disposition home health service (06) | DRG 871 ==
LOC: ED 22:18 → 2N 05-04 01:30 → SUATTDRO 05-04 01:30 → 2N 05-04 01:55

== ENCOUNTER 2020-11-17 18:20 | Inpatient (IN) ==
[2020-11-17] MEDS ORDERED: CEFEPIME 2,000 MG/20 ML VIAL IV STA (18:37)
--- NOTE | 2020-11-17 18:42 | Emergency Department Note ---
Impression & Plan Fever, Cellulitis of left leg, Fall, Weakness ED Provider Note INFORMANT: Patient, ED PROVIDER(S): Amrik Vann MD CHIEF COMPLAINT: Fall PLAN: Disposition: Admitted Condition: Good Outpatient prescription management: none Referral: None for [place] in the MEDICAL DECISION MAKING: Patient presented to emergency department after a controlled fall. He is why states he has not been doing well and she is very concerned about his ability to be at home. The patient was found to be febrile. He was given Tylenol prehospital. His left leg is erythematous and this is concerning for cellulitis. The patient has recently been treated for cellulitis. An IV was established. His CBC and chemistry panel reveals a mild thrombocytopenia and anemia. He had some mild baseline renal insufficiency. Urinalysis was unremarkable. Covid testing was negative. Patient was given a dose of IV cefepime. Chest imaging was performed and there was a possible right lower lobe abnormality. Chest CT was performed. No pneumonia or mass seen. Cardiomegaly noted. Due to the patient's weakness, fall and his difficulty at home coupled with the fever and likely recurring cellulitis further management was felt to be necessary in the hospital. The was very much in agreement. Patient did agree. Consultation was made with Dr. Ky Tao of the [facility] service. Patient was evaluated in the ER for further management. Triage Nursing notes reviewed and agree them. Vital Signs: reviewed and remarkable for fever Differential diagnosis: Infection, dehydration, metabolic abnormality, hypo/hyperglycemia, electrolyte disturbance, anemia, hypoxia, cardiac sources, intracerebral event, toxicologic, neurologic, as well as other pathologies. Diagnostics interpreted by me: ECG: Twelve-lead ECG reveals atrial fibrillation at 86 bpm. Left axis deviation. Inferior and anterior Q waves present. Frequent PVCs noted. No ST elevation. Cardiac Monitoring: Cardiac monitoring ordered by me: The patient was placed on continuous cardiac monitoring and observed. It revealed atrial fibrillation with PVCs at 77 bpm. Imaging studies: Chest x-ray and CT scan as above. I refer you to the EMR for further details. HPI: The patient is a 80 year old male who presents to the Emergency Room with complaints of fall. This started this afternoon and is described as controlled. Patient denies any injury. He states that he got weak. The patient also notes the following associated symptoms, fever, chills. The patient has been given Tylenol for relieving factors. Current pain is rated as 0/10. EMS noted patient was mildly bradycardic. Has history of atrial fibrillation. Patient is also recently been treated for cellulitis. pt denies LOC, headache, diaphoresis, vi sual changes, neck pain, chest pain, breathing difficulties, nausea, vomiting, abdominal pain, back pain, melena, urinary issues, numbness, or other complaints. ROS: See above HPI for pertinent positives & negatives. A total of 10 systems reviewed and were otherwise negative. PAST MEDICAL HISTORY:See Below , A. fib, hypertension, cellulitis PAST SURGICAL HISTORY:See Below, FAMILY HISTORY:See Below SOCIAL HISTORY:See Below, HOME MEDICATIONS:See Below ALLERGIES:See Below VITALS:See Below PHYSICAL EXAMINATION: GENERAL: Awake, tired appearing appearing, in no distress HENT: Normocephalic, atraumatic. Oropharynx unremarkable. EYES: Normal conjunctiva. Sclera non-icteric. NECK: Inspection normal. Non-tender. Supple. No nuchal rigidity. FROM. No masses. RESPIRATORY: Clear to auscultation. No wheezes. No rales. Normal respiratory effort. CARDIAC: Normal rate. Irregular rhythm. No murmurs. No rubs. Extremities warm and well perfused. Pulses equal. No JVD. GI: Soft, non-distended. No tenderness to palpation. No rebound or guarding. No masses. RECTAL: Deferred. MUSCULOSKELETAL: Atraumatic. Chest examination reveals no tenderness. The back is symmetrical on inspection without obvious abnormality. There is no CVA tenderness to palpation. No joint edema. LOWER EXTREMITIES: Calves are equal size bilaterally and non-tender. 2+ edema. Bilateral chronic venous discoloration however there is significant left-sided erythematous discoloration. NEURO: Normal sensorium. No sensory or motor deficits noted. SKIN: No rash or jaundice noted. Amrik Vann MD Past Med/Surg History Medical History Anemia Anxiety Atrial fibrillation Balance disorder Basal cell carcinoma Bilateral lower extremity edema Cellulitis of left lower extremity CKD (chronic kidney disease) Deep vein thrombosis Diastolic heart failure DVT (deep venous thrombosis) Gout Hypertension Implantable cardioverter-defibrillator (ICD) in situ Kidney stones Lower extremity edema Nonischemic cardiomyopathy On home oxygen therapy Osteoarthritis Sepsis Sleep apnea Spinal stenosis Ventricular fibrillation Weakness Surgical History Newton filter in place History of blepharoplasty History of cardiac cath History of kidney surgery History of tooth extraction History of total right knee replacement (TKR) ICD (implantable cardioverter-defibrillator) in place Family History Father Hypertension Stroke Brother Hypertension Other No family history of adverse response to anesthesia Denies family history of Ovarian cancer Prostate cancer Myocardial infarction Breast cancer Colorectal cancer Social History Smoking Status: Never smoker Second Hand Exposure: No; Hx Alcohol Use: Yes Alcohol type: wine Alcohol Intake Frequency: Monthly or Less Hx Substance Use: No Preferred Language: Singaporean Communication Ability: Effective Visual Impairment: Limited Hearing Ability: Hard of Hearing 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 Beliefs That Will Affect Care: None and Jain Jain Beliefs: NO BLOOD TRANSFUSION marital status: Current Living Situation: Family Current Living Situation Comment: [facility] current occupational status: retired How many Children do You have: 2 Feels Safe at Home: Yes Childhood Exposure to Second-Hand Smoke: No caffeine: Yes Dental Care, Regularly: Yes Physical Activity Frequency: Does not Exercise Seatbelt Use: always Sunscreen Use: Yes Assistive Devices: Glasses and Walker Allergies Allergies Allergy/AdvReac Type Severity Reaction Status Date / Time adhesive Allergy Intermediate REDDENED, Verified 11/17/20 18:54 ITCHY SKIN latex Allergy Unknown SKIN Verified 11/17/20 18:54 IRRITATION oxybutynin Allergy Unknown Unknown Verified 11/17/20 18:54 ciprofloxacin [From Cipro] AdvReac Mild pain in Verified 11/17/20 18:54 tendons ALL OPIOIDS Allergy Severe "SEVERE" Uncoded 11/17/20 18:54 DELIRIUM Home Meds Home Medications Medication Instructions Recorded Confirmed multivitamin with minerals 1 tab PO QAM 08/10/18 11/17/20 peg 400-propylene glycol 0.4 %-0.3 2 drops OP BID PRN ml 12/19/19 11/17/20 % eye drops acetaminophen 325 mg tablet 650 mg PO Q4H PRN tab 03/12/20 11/17/20 cholecalciferol (vitamin D3) 125 125 mcg PO DAILY 03/12/20 11/17/20 mcg (5,000 unit) capsule Beet Root Supplement 1 tab PO DAILY 09/19/20 11/17/20 bumetanide 1 mg tablet 1 mg PO DAILY tab 11/13/20 11/17/20 gentamicin 0.1 % topical ointment 1 applic TOPICAL Q OTHER DAY PRN g 11/13/20 11/17/20 Previous Rx's Medication Instructions Recorded aspirin 81 mg tablet,delayed 81 mg PO QAM #90 tab 07/03/19 release L.acidop,janelle,lac,rha-B.lac,kodi 2 cap PO DAILY #30 cap 05/10/20 [Advanced Probiotic] carvedilol 25 mg tablet 12.5 mg PO BID #90 tab 05/29/20 lorazepam 1 mg tablet 0.5 mg PO BID PRN #30 tab 10/24/20 Results & Data (ED) Vital Signs Vital Signs - 24 hr 11/17/20 18:25 11/17/20 18:27 11/17/20 18:29 Temperature 37.6 C H Temperature Source Oral Pulse Rate 96 H 96 H 96 H Pulse Rate [Apical] 96 H Pulse Rate from SpO2 Sensor 49 L Respiratory Rate 23 22 20 Respiratory Effort / Characteristics Non-Labored Spontaneous Respiratory Depth Normal Respiratory Pattern Regular Blood Pressure 128/73 128/73 Blood Pressure [Right Arm] 128/73 Blood Pressure Mean 91 91 Blood Pressure Mean [Right Arm] 91 Pulse Oximetry 93 93 Oxygen Delivery Method Room Air Sepsis Recent Fever Within 48 Hours Yes Sepsis New/Unexplained Change in Mental Status No Sepsis Action Taken by Nursing No Action Required 11/17/20 18:30 11/17/20 19:00 11/17/20 19:16 Temperature Temperature Source Pulse Rate 84 91 H Pulse Rate [Apical] Pulse Rate from SpO2 Sensor 62 85 Respiratory Rate 22 32 H 26 H Respiratory Effort / Characteristics Respiratory Depth Respiratory Pattern Blood Pressure 128/73 Blood Pressure [Right Arm] Blood Pressure Mean 91 Blood Pressure Mean [Right Arm] Pulse Oximetry 94 94 94 Oxygen Delivery Method Room Air Sepsis Recent Fever Within 48 Hours Sepsis New/Unexplained Change in Mental Status Sepsis Action Taken by Nursing 11/17/20 19:37 11/17/20 20:00 11/17/20 20:30 Temperature Temperature Source Pulse Rate 78 81 79 Pulse Rate [Apical] Pulse Rate from SpO2 Sensor 89 83 79 Respiratory Rate 29 H 28 H 34 H Respiratory Effort / Characteristics Respiratory Depth Respiratory Pattern Blood Pressure 102/64 105/56 L 98/64 L Blood Pressure [Right Arm] Blood Pressure Mean 76 72 75 Blood Pressure Mean [Right Arm] Pulse Oximetry 91 91 92 Oxygen Delivery Method Sepsis Recent Fever Within 48 Hours Sepsis New/Unexplained Change in Mental Status Sepsis Action Taken by Nursing 11/17/20 21:00 11/17/20 21:30 11/17/20 22:00 Temperature Temperature Source Pulse Rate 79 106 H 70 Pulse Rate [Apical] Pulse Rate from SpO2 Sensor 75 88 74 Respiratory Rate 29 H 27 H 24 Respiratory Effort / Characteristics Respiratory Depth Respiratory Pattern Blood Pressure 115/63 115/64 110/58 L Blood Pressure [Right Arm] Blood Pressure Mean 80 81 75 Blood Pressure Mean [Right Arm] Pulse Oximetry 95 95 97 Oxygen Delivery Method Sepsis Recent Fever Within 48 Hours Sepsis New/Unexplained Change in Mental Status Sepsis Action Taken by Nursing 11/17/20 22:30 Temperature Temperature Source Pulse Rate 77 Pulse Rate [Apical] Pulse Rate from SpO2 Sensor 78 Respiratory Rate 27 H Respiratory Effort / Characteristics Respiratory Depth Respiratory Pattern Blood Pressure 101/55 L Blood Pressure [Right Arm] Blood Pressure Mean 70 Blood Pressure Mean [Right Arm] Pulse Oximetry 95 Oxygen Delivery Method Sepsis Recent Fever Within 48 Hours Sepsis New/Unexplained Change in Mental Status Sepsis Action Taken by Nursing Laboratory Data Result diagrams: 11/17/20 19:20 11/17/20 19:20 Lab Results 11/17/20 11/17/20 11/17/20 Range/Units 18:50 18:50 19:20 WBC 10.22 (4.8-10.8) K/uL RBC 3.81 L (4.7-6.1) M/uL Hgb 10.7 L (14.0-18.0) g/dL Hct 33.4 L (42-52) % MCV 87.7 (80-100) fL MCH 28.1 (25-34) pg MCHC 32.0 (32-36) g/dL RDW Std Deviation 51.7 H (36.4-46.3) fL RDW Coeff of Joshua 16.3 H (11.5-14.5) % Plt Count 86 L (130-400) K/uL MPV 10.3 (7.4-10.4) fL Immature Gran % (Auto) 0.3 % Neut % (Auto) 89.9 % Lymph % (Auto) 4.1 % [place] % (Auto) 5.5 % Eos % (Auto) 0.1 % Baso % (Auto) 0.1 % Neut # (Auto) 9.19 H (1.4-6.5) K/uL Lymph # (Auto) 0.42 L (1.2-3.4) K/uL [place] # (Auto) 0.56 (0.11-0.59) K/uL Eos # (Auto) 0.01 (0-0.5) K/uL Baso # (Auto) 0.01 (0-0.2) K/uL Immature Gran # (Auto) 0.03 H (0.00-0.02) K/uL Platelet Estimate Decreased L (Normal) Sodium (136-145) mmol/L Potassium (3.5-5.1) mmol/L Chloride (98-107) mmol/L Carbon Dioxide (21-32) mmol/L Anion Gap (3-11) BUN (7-18) mg/dl Creatinine (0.6-1.4) mg/dl Est Cr Clr Drug Dosing ml/min Est GFR ( Amer) ml/min Est GFR (Non-Af Amer) ml/min BUN/Creatinine Ratio (10-20) Glucose (70-99) mg/dl Calcium (8.5-10.1) mg/dl Magnesium (1.8-2.4) mg/dl Total Bilirubin (0.2-1) mg/dl AST (15-37) U/L ALT (12-78) U/L Alkaline Phosphatase (45-117) U/L Total Protein (6.4-8.2) gm/dl Albumin (3.4-5.0) gm/dl Globulin (2.5-4.0) gm/dl Albumin/Globulin Ratio (0.9-2) TSH (0.300-4.500) uIu/ml Urine Color Urine Appearance (Clear) Urine pH (4.5-7.5) Ur Specific [place] (1.000-1.030) Urine Protein (Negative) Urine Glucose (UA) (Negative) Urine Ketones (Negative) Urine Blood (Negative) Urine Nitrite (Negative) Urine Bilirubin (Negative) Urine Urobilinogen (Negative) Ur Leukocyte Esterase (Negative) Urine WBC (Auto) (0-5) /hpf Urine RBC (Auto) (0-4) /hpf U Hyaline Cast (Auto) (0-5) /lpf U Epithel Cells (Auto) (0-5) /lpf Urine Bacteria (Auto) (Negative) COVID-19 Eval Order Covid19 at [facility] SARS-CoV-2 (PCR) NEGATIVE (Negative) 11/17/20 11/17/20 Range/Units 19:20 21:30 WBC (4.8-10.8) K/uL RBC (4.7-6.1) M/uL Hgb (14.0-18.0) g/dL Hct (42-52) % MCV (80-100) fL MCH (25-34) pg MCHC (32-36) g/dL RDW Std Deviation (36.4-46.3) fL RDW Coeff of Joshua (11.5-14.5) % Plt Count (130-400) K/uL MPV (7.4-10.4) fL Immature Gran % (Auto) % Neut % (Auto) % Lymph % (Auto) % [place] % (Auto) % Eos % (Auto) % Baso % (Auto) % Neut # (Auto) (1.4-6.5) K/uL Lymph # (Auto) (1.2-3.4) K/uL [place] # (Auto) (0.11-0.59) K/uL Eos # (Auto) (0-0.5) K/uL Baso # (Auto) (0-0.2) K/uL Immature Gran # (Auto) (0.00-0.02) K/uL Platelet Estimate (Normal) Sodium 138 (136-145) mmol/L Potassium 4.3 (3.5-5.1) mmol/L Chloride 106 (98-107) mmol/L Carbon Dioxide 27 (21-32) mmol/L Anion Gap 5.0 (3-11) BUN 35 H (7-18) mg/dl Creatinine 1.64 H (0.6-1.4) mg/dl Est Cr Clr Drug Dosing 45.5 ml/min Est GFR ( Amer) 44.8 ml/min Est GFR (Non-Af Amer) 38.6 ml/min BUN/Creatinine Ratio 21.4 H (10-20) Glucose 105 H (70-99) mg/dl Calcium 11.4 H (8.5-10.1) mg/dl Magnesium 2.1 (1.8-2.4) mg/dl Total Bilirubin 1.8 H (0.2-1) mg/dl AST 26 (15-37) U/L ALT 40 (12-78) U/L Alkaline Phosphatase 92 (45-117) U/L Total Protein 6.7 (6.4-8.2) gm/dl Albumin 3.2 L (3.4-5.0) gm/dl Globulin 3.5 (2.5-4.0) gm/dl Albumin/Globulin Ratio 0.9 (0.9-2) TSH 1.600 (0.300-4.500) uIu/ml Urine Color Yellow Urine Appearance Clear (Clear) Urine pH 5.0 (4.5-7.5) Ur Specific [place] 1.019 (1.000-1.030) Urine Protein Negative (Negative) Urine Glucose (UA) Negative (Negative) Urine Ketones Negative (Negative) Urine Blood Negative (Negative) Urine Nitrite Negative (Negative) Urine Bilirubin Negative (Negative) Urine Urobilinogen Negative (Negative) Ur Leukocyte Esterase Trace H (Negative) Urine WBC (Auto) 1-5 (0-5) /hpf Urine RBC (Auto) 0-4 (0-4) /hpf U Hyaline Cast (Auto) 1-5 (0-5) /lpf U Epithel Cells (Auto) 10-20 H (0-5) /lpf Urine Bacteria (Auto) Negative (Negative) COVID-19 Eval Order SARS-CoV-2 (PCR) (Negative) Administered Medications Sodium Chloride (Nss 1000ml) 1,000 mls @ 125 mls/hr IV .Q8H DREAD Stop: 11/18/20 02:44 Last Admin: 11/17/20 18:54 Dose: 125 mls/hr Documented by: [id number] Discontinued Medications Cefepime HCl (Maxipime) 2,000 mg in 20 mls @ 5 mls/min IV NOW STA; Protocol Stop: 11/17/20 18:40 Last Admin: 11/17/20 19:24 Dose: 5 mls/min Documented by: [id number] Imaging Data Radiologist's Impression: Chest X-Ray 11/17/20 18:37 XR chest 1V portable HISTORY: weakness COMPARISON: Chest 05/03/2020. FINDINGS: No pneumothorax. No pleural effusions. The cardiac silhouette remains enlarged. There is a left-sided single lead pacemaker. Abnormal lobular density overlying the right heart border which may represent a hernia. Follow-up chest CT recommended for confirmation. No evidence for pulmonary edema. IMPRESSION: Lobular density overlying the right heart border which may represent a large hiatus hernia versus the enlarged heart. Follow-up chest CT recommended for further evaluation. ACT 112: Negative or not required by law. Electronically signed by: Brian Nunn M.D. 11/17/2020 8:20 PM Discharge Plan Visit Data Chief Complaint: Fall ED Provider: Amrik Vann Discharge Problem: Fever, Cellulitis of left leg, Fall, Weakness Discharge Instructions Interventions: ED Discharge Assessment Last Done: 11/17/20 23:12
[2020-11-17] MEDS ORDERED: SODIUM CHLORIDE 0.9% 1000ML 1,000 ML IV SCH (18:45)
[2020-11-17 19:43] LABS: Hematocrit (blood only) 33.4 % (42-52); Hemoglobin 10.7 g/dL (14.0-18.0); Mean Corpuscular Hemoglobin 28.1 pg (25-34); Mean Corpuscular Volume 87.7 fL (80-100); RDW Coefficient of Variation 16.3 % (11.5-14.5); RDW Standard Deviation 51.7 fL (36.4-46.3); Red Blood Count 3.81 M/uL (4.7-6.1); White Blood Count 10.22 K/uL (4.8-10.8)
[2020-11-17 20:02] LABS: Basophils # (auto) 0.01 K/uL (0-0.2); Basophils % (auto) 0.1 %; Eosinophils # (auto) 0.01 K/uL (0-0.5); Eosinophils % (auto) 0.1 %; Immature Granulocytes # (auto) 0.03 K/uL (0.00-0.02); Immature Granulocytes % (auto) 0.3 %; Lymphocytes # (auto) 0.42 K/uL (1.2-3.4); Lymphocytes % (auto) 4.1 %; Mean Platelet Volume 10.3 fL (7.4-10.4); Monocytes # (auto) 0.56 K/uL (0.11-0.59); Monocytes % (auto) 5.5 %; Neutrophils # (auto) 9.19 K/uL (1.4-6.5); Neutrophils % (auto) 89.9 %; Platelet Count 86 K/uL (130-400); Platelet Estimate Decreased (Normal)
[2020-11-17 20:05] LABS: Albumin Level 3.2 gm/dl (3.4-5.0); BUN Creatinine Ratio 21.4 (10-20); Calcium 11.4 mg/dl (8.5-10.1); Creatinine Clr Calc Pharmacy 45.5 ml/min; Est GFR (African American) 44.8 ml/min; Est GFR (Non-African American) 38.6 ml/min; Magnesium 2.1 mg/dl (1.8-2.4); Potassium 4.3 mmol/L (3.5-5.1)
[2020-11-17 20:16] LABS: Albumin Globulin Ratio 0.9 (0.9-2); Bilirubin,Total 1.8 mg/dl (0.2-1); Globulin 3.5 gm/dl (2.5-4.0); Thyroid Stimulating Hormone 1.6 uIu/ml (0.300-4.500); Total Protein 6.7 gm/dl (6.4-8.2)
--- NOTE | 2020-11-17 20:21 | XRay Report ---
XR chest 1V portable HISTORY: weakness COMPARISON: Chest 05/03/2020. FINDINGS: No pneumothorax. No pleural effusions. The cardiac silhouette remains enlarged. There is a left-sided single lead pacemaker. Abnormal lobular density overlying the right heart border which may represent a hernia. Follow-up chest CT recommended for confirmation. No evidence for pulmonary edema . IMPRESSION: Lobular density overlying the right heart border which may represent a large hiatus hernia versus the enlarged heart. Follow-up chest CT recommended for further evaluation. ACT 112: Negative or not required by law. Electronically signed by: Brian Nunn M.D. 11/17/2020 8:20 PM
[2020-11-17] MEDS ORDERED: SODIUM CHLORIDE 0.9% 1000ML 500 ML IV ONE (21:21)
[2020-11-17 21:48] LABS: Appearance Urine Clear (Clear); Bacteria Urine Automated Negative (Negative); Bilirubin Urine Negative (Negative); Blood Urine Negative (Negative); Color Urine Yellow; Glucose Urine UA Negative (Negative); Ketones Urine Negative (Negative); Leukocyte Esterase Urine Trace (Negative); Nitrite Urine Negative (Negative); Protein Urine Negative (Negative); RBC Urine Automated 0-4 /hpf (0-4); Specific Gravity Urine 1.019 (1.000-1.030); Urobilinogen Urine Negative (Negative)
--- NOTE | 2020-11-17 22:24 | History & Physical Report ---
Date of Service November 17, 2020 Assessment & Plan (1) Multiple falls: Patient is a very pleasant 80 year old male with PMHx Afib, Hyperparathyroidism, CKD Stage III, HFpEF, s/p ICD placement, CVI, HTN, Anxiety, that present initially for a fall earlier this afternoon which patient described as "weakness in my thighs" and "just went down." Patient states that this is at least the 3rd incident of a fall since moving to his current residence 8 months ago. Fall secondary to B/L LE weakness -Differential including Hypercalcemia secondary to hyperparathyroidism, chronic afib worsening weakness, chronic LE edema from HFpEF and CVI, over all deconditioning -Will order for PT/OT while inpatient -Will also order for interrogation of ICD Hypercalcemia, likely secondary to hx hyperparathyroidism -Patient with history of hyperparathyroidism -Calcium 11.4 today, appears to have been elevated chronically as far back as 2018 -Will order for Parathyroid level and Vitamin D level -Will give one dose of Pamidronate 60mg QD now Cellulitis of L Leg -While appears mostly resolved, still somewhat concerning especially with patient's described episode of chills at home and possible fever -Will cover with Zosyn for pseudomonas and Daptomycin for MRSA at this time Afib -Chronic and currently present -Continue carvedilol 12.5mg BID -Not currently on anticoagulation, through chart review it appears patient has declined in the past due to concerns of possibly requiring blood transfusions which patient refuses (Tenriism). Also noted in patient's chart history are GI bleeding and Hematuria. -Though declining anticoagulation, patient is still on Aspirin. HFpEF -Continue Bumex 1mg QD -Daily Weights -I/O -Monitor closely for fluid overload while gently hydrating for acute on chronic CKD -Clinically does not appear to be in overload at this time CKD III -Mild elevation at this time Cr 1.64 -Will give gentle hydration LR 80ml/hr x1 L -Monitor closely for fluid overload Nonischemic Cardiomyopathy -S/P ICD placement - interrogation ordered -Continue carvedilol -Last Echo 05/09/20 showing EF 50-55% and severely dilated L atrium and R atrium. Anxiety/Insomnia -Notes he takes 1/2 tablet of Lorazepam at bed time for sleep -Concerns that with the increased falls since moving, this may be further contributing to his weakness and imbalance during the daytime hours -Discussed with patient about holding Lorazepam at this time to which he is agreeable -Will give Melatonin 3mg qhs for sleep PRN Thrombocytopenia and Normocytic Anemia -Notable for platelet count 86 and Hgb 10.7 -Patient with hx CKD -Will order for peripheral smear to r/o pseudothrombocytopenia -?mild hemolytic anemia with chronic elevated bilirubin, though suspect the bilirubin increase is from [place]. Patient without abdominal pain or elevated LFTs otherwise. Dispo: Med/Surg Telemetry for monitoring of rhythm, IV antibiotics, lowering of calcium levels, and PT/OT evaluations. FEN: HH Low Na diet DVT: Hx of Richton IVC filter in place, will hold chemoprophylaxis at this time due to patients concerns of bleed. Code: Full (2) Cellulitis of left leg: (3) Weakness: (4) Chronic venous insufficiency of lower extremity: (5) Chronic right-sided CHF (congestive heart failure): (6) Hyperparathyroidism: (7) Hypertension: (8) Anxiety disorder: (9) Atrial fibrillation: (10) Pacemaker: (11) Hypercalcemia: (12) ROLLY (obstructive sleep apnea): (13) CKD (chronic kidney disease) stage 3, GFR 30-59 ml/min: History of Present Illness Chief Complaint: Fall at home, LE weakness Primary Care Provider: Fracisco Eddy MD Patient is a very pleasant 80 year old male with PMHx Afib, Hyperparathyroidism, CKD Stage III, HFpEF, s/p ICD placement, CVI, HTN, Anxiety, that present initially for a fall earlier this afternoon which patient described as "weakness in my thighs" and "just went down." Patient notes that since moving to [facility] in [place] this is the 3rd time in which the patient has fallen. He states that at baseline he is "wobbly" and requires a walker in order to get around, however, today he was coming out of the restroom and going to change some clothing whenever he noted that "my thighs stopped working" and that he "just fell." He and his note that she was able to help brace his fall slightly and that he did not hit his head on the departure downwards. His then called EMT volunteers to assist in getting Teodoro back up, at which point EMS was called and transported the patient to the ED. Patient's also notes that this morning the patient seemed different in the sense that he seemed more tired and had low appetite. She states that he took an after breakfast nap and that they spent the rest of the day on the porch drinking water and lemonade (no alcohol), prior to the event of his fall around 5-6PM. Of note, patient does note that he had been dealing with cellulitis of his L leg and had been seeing the wound clinic for management. His recent cultures had grown Pseudomonas and was treated with Cefdinir. Currently patient states that he feels fairly well other than a bit tired. He denies any current pain. Denies any current fever, chills, SOB, chest pain, abdominal pain. 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 Drinks 1 drink/month Allergies Allergy/AdvReac Type Severity Reaction Status Date / Time adhesive Allergy Intermediate REDDENED, Verified 11/17/20 18:54 ITCHY SKIN latex Allergy Unknown SKIN Verified 11/17/20 18:54 IRRITATION oxybutynin Allergy Unknown Unknown Verified 11/17/20 18:54 ciprofloxacin [From Cipro] AdvReac Mild pain in Verified 11/17/20 18:54 tendons ALL OPIOIDS Allergy Severe "SEVERE" Uncoded 11/17/20 18:54 DELIRIUM Home Medications Medication Instructions Recorded Confirmed Type multivitamin with minerals 1 tab PO QAM 08/10/18 11/17/20 History aspirin 81 mg tablet,delayed 81 mg PO QAM #90 tab 07/03/19 11/17/20 Rx release peg 400-propylene glycol 0.4 %-0.3 2 drops OP BID PRN ml 12/19/19 11/17/20 History % eye drops acetaminophen 325 mg tablet 650 mg PO Q4H PRN tab 03/12/20 11/17/20 History cholecalciferol (vitamin D3) 125 125 mcg PO DAILY 03/12/20 11/17/20 History mcg (5,000 unit) capsule L.acidop,janelle,lac,rha-B.lac,kodi 2 cap PO DAILY #30 cap 05/10/20 11/17/20 Rx [Advanced Probiotic] carvedilol 25 mg tablet 12.5 mg PO BID #90 tab 05/29/20 11/17/20 Rx Beet Root Supplement 1 tab PO DAILY 09/19/20 11/17/20 History lorazepam 1 mg tablet 0.5 mg PO BID PRN #30 tab 10/24/20 11/17/20 Rx bumetanide 1 mg tablet 1 mg PO DAILY tab 11/13/20 11/17/20 History gentamicin 0.1 % topical ointment 1 applic TOPICAL Q OTHER DAY PRN g 11/13/20 11/17/20 History Past Med/Surg History Medical History Anemia Anxiety Atrial fibrillation Balance disorder Basal cell carcinoma Bilateral lower extremity edema Cellulitis of left lower extremity CKD (chronic kidney disease) Deep vein thrombosis Diastolic heart failure DVT (deep venous thrombosis) Gout Hypertension Implantable cardioverter-defibrillator (ICD) in situ Kidney stones Lower extremity edema Nonischemic cardiomyopathy On home oxygen therapy Osteoarthritis Sepsis Sleep apnea Spinal stenosis Ventricular fibrillation Weakness Surgical History Richton filter in place History of blepharoplasty History of cardiac cath History of kidney surgery History of tooth extraction History of total right knee replacement (TKR) ICD (implantable cardioverter-defibrillator) in place Family History Father Hypertension Stroke Brother Hypertension Other No family history of adverse response to anesthesia Denies family history of Ovarian cancer Prostate cancer Myocardial infarction Breast cancer Colorectal cancer Social History Smoking Status: Never smoker Second Hand Exposure: No; Do You Dip or Chew Tobacco: No; Hx Alcohol Use: No Hx Substance Use: No Preferred Language: Divehi Communication Ability: Effective Visual Impairment: Limited Hearing Ability: Hard of Hearing 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 Required: No Beliefs That Will Affect Care: Holiness Holiness Beliefs: Jehovas Witness no blood tranfusions marital status: Current Living Situation: Spouse Current Living Situation Comment: [facility] current occupational status: retired How many Children do You have: 2 Other Information That Helps Us Care for You: No Feels Safe at Home: Yes Safety Concerns: Feels Safe At This Time Childhood Exposure to Second-Hand Smoke: No caffeine: Yes Dental Care, Regularly: Yes Physical Activity Frequency: Does not Exercise Seatbelt Use: always Sunscreen Use: Yes Assistive Devices: Cane, Walker and Wheelchair Review of Systems Review of Systems: All systems reviewed & are unremarkable except as noted in Subjective Physical Exam Constitutional: + frail appearing and cooperative; no acute distress Eyes: PERRL, conjunctivae normal, anicteric sclerae ENMT: external ear and nose normal, oropharynx normal Respiratory: normal respiratory effort, lungs clear to auscultation Cardiovascular: Rate/Rhythm: + irregularly irregular Heart Sounds: + murmur (2/6 LUIS FERNANDO ) Vessels: posterior tibial pulses present and dorsalis pedis pulses present; no JVD Extremities: + edema (2+ b/l ); no calf tenderness Gastrointestinal (Abdomen): Inspection/Auscultation: abdomen normal to inspection and normal bowel sounds; abdomen not distended Percussion/Palpation: + abdomen tender (Slight TTP in the epigastric region ) and abdomen soft; no guarding and abdomen not rigid Musculoskeletal: Head/Neck/Chest: normocephalic and head atraumatic Skin: Mild erythema and warmth of the L anterior distal LE compared to the R, no tenderness to palpation Neurologic: PERRL, EOMI, accommodation nl, no face palsy, no dysarthria awake Psychiatric: Orientation: alert and oriented x 3 Results & Data Results & Data ([facility]) Vital Signs (Past 12 Hours) Vital Signs Temp Pulse Pulse Resp BP BP Pulse Ox 11/17/20 22:00 70 24 110/58 L 97 11/17/20 21:30 106 H 27 H 115/64 95 11/17/20 21:00 79 29 H 115/63 95 11/17/20 20:30 79 34 H 98/64 L 92 11/17/20 20:00 81 28 H 105/56 L 91 11/17/20 19:37 78 29 H 102/64 91 11/17/20 19:16 26 H 94 11/17/20 19:00 91 H 32 H 128/73 94 11/17/20 18:30 84 22 94 11/17/20 18:29 37.6 C H 96 H 96 H 20 128/73 128/73 93 11/17/20 18:27 96 H 22 11/17/20 18:25 96 H 23 128/73 93 Supervising Physician Co-Signing Physician Notes Attending addendum: I have physically seen this patient, have supervised the medical residents activities, and agree with the H&P unless as otherwise noted. Assessment and Plan: Multiple falls/generalized weakness/hypercalcemia- We will consult PT/OT Hypercalcemia/hyperparathyroidism- No active treatment noted Calcium 11.4 upon admission. Check 25-hydroxy vitamin D level and parathyroid hormone level Pamidronate 60 mg IV x1 Follow serial BMP and magnesium levels Cellulitis of left lower extremity- Daptomycin IV and Zosyn IV A. fib/HFpEF/nonischemic cardiomyopathy/history of sudden cardiac /status post ICD- Continue usual meds Remaining orders and notations as noted Resident Activity Tracking Resident Involvement: Resident Care Provided Care Provided: Adult [facility] Medicine (1) CKD (chronic kidney disease) stage 3, GFR 30-59 ml/min Chronic kidney disease stage 3 subtype: unspecified whether 3a or 3b Qualified Code(s): N18.30 - Chronic kidney disease, stage 3 unspecified (2) Anxiety disorder Anxiety disorder type: unspecified anxiety disorder Qualified Code(s): F41.9 - Anxiety disorder, unspecified (3) Atrial fibrillation Atrial fibrillation type: permanent Qualified Code(s): I48.2 - Chronic atrial fibrillation (4) Hypertension Hypertension type: essential hypertension Qualified Code(s): I10 - Essential (primary) hypertension
[2020-11-18] MEDS ORDERED: MELATONIN 3 MG TAB PO PRN (00:25)
[2020-11-18] MEDS ORDERED: PIPERACILL/TAZOBAC CONSULT ACTIVE PRN (00:25)
[2020-11-18] MEDS: ACETAMINOPHEN 500 MG TAB PO PRN (00:49)
[2020-11-18] MEDS ORDERED: DAPTOmycin 325 MG in SYRINGE 0 ML IV SCH (01:00)
[2020-11-18] MEDS ORDERED: PAMIDRONATE DISODIUM 60 MG in SODIUM CHLORIDE 0.9% 1000ML 1,000 ML IV ONE (01:00)
[2020-11-18] MEDS: PIPERACILLIN/TAZOBACTAM 3.375 GM in DEXTROSE 5% 100 ML IV SCH ×3 (01:21→17:39)
[2020-11-18] MEDS ORDERED: LACTATED RINGER'S 1,000 ML IV SCH (05:00)
[2020-11-18 06:53] LABS: Hematocrit (blood only) 32.8 % (42-52); Hemoglobin 10.4 g/dL (14.0-18.0); Mean Corpuscular Hgb Conc 31.7 g/dL (32-36); Mean Corpuscular Volume 88.2 fL (80-100); RDW Coefficient of Variation 16.4 % (11.5-14.5); RDW Standard Deviation 53.3 fL (36.4-46.3); Red Blood Count 3.72 M/uL (4.7-6.1); White Blood Count 7.12 K/uL (4.8-10.8)
[2020-11-18 06:54] LABS: Mean Platelet Volume 10.1 fL (7.4-10.4); Platelet Count 78 K/uL (130-400)
[2020-11-18 07:20] LABS: Basophils # (auto) 0.01 K/uL (0-0.2); Basophils % (auto) 0.1 %; Eosinophils # (auto) 0.09 K/uL (0-0.5); Eosinophils % (auto) 1.3 %; Immature Granulocytes # (auto) 0.03 K/uL (0.00-0.02); Immature Granulocytes % (auto) 0.4 %; Lymphocytes # (auto) 0.68 K/uL (1.2-3.4); Lymphocytes % (auto) 9.6 %; Monocytes # (auto) 0.47 K/uL (0.11-0.59); Monocytes % (auto) 6.6 %; Neutrophils # (auto) 5.84 K/uL (1.4-6.5)
[2020-11-18 07:25] LABS: Albumin Level 2.9 gm/dl (3.4-5.0); BUN Creatinine Ratio 20.8 (10-20); Calcium 10.6 mg/dl (8.5-10.1); Creatinine Clr Calc Pharmacy 38.3 ml/min; Est GFR (African American) 45.1 ml/min; Est GFR (Non-African American) 38.9 ml/min; Magnesium 2.3 mg/dl (1.8-2.4); Potassium 4.3 mmol/L (3.5-5.1)
[2020-11-18 07:27] LABS: Albumin Globulin Ratio 0.8 (0.9-2); Bilirubin,Total 1.7 mg/dl (0.2-1); Globulin 3.6 gm/dl (2.5-4.0); Total Protein 6.5 gm/dl (6.4-8.2)
--- NOTE | 2020-11-18 07:57 | CT Scan Report ---
CT chest diagnostic wo con CLINICAL HISTORY: Abnormal chest x-ray. WEAKNESS COMPARISON STUDY: Chest x-ray dated 11/17/2020, chest CT dated 06/28/2011 CT DOSE: 552.38 mGy.cm TECHNIQUE: CT of the thorax was performed from the thoracic inlet to the lung bases. Images are revi ewed in the axial, sagittal, and coronal planes. IV contrast was not administered for this examinatio n. A dose lowering technique was utilized adhering to the principles of ALARA. FINDINGS: Thyroid: There is 16mm right lobe thyroid nodule. Thoracic aorta: The ascending thoracic aorta measures 37 mm. Heart: The heart is enlarged with a small pericardial effusion. There is left atrial dilatation. The enlarged heart and small pericardial effusion explain the chest x-ray findings. There are coronary ar santana calcifications. Pacemaker electrodes are visualized. Lungs and pleural spaces: There are nodular opacities at the right lung base, atelectatic versus infe ctious/inflammatory. There is trace right pleural fluid. Mediastinum: There is no evidence of pathologic mediastinal lymphadenopathy Tram: There is no evidence of pathologic hilar adenopathy given the limitations of a noncontrast stud y. Axilla: There is no evidence of pathologic axillary lymphadenopathy. Upper abdomen: There is trace ascites. There are multiple low density and high density renal masses statistically representing a combination of renal cysts and hyperdense cysts although accurate charac terization is limited given the lack of intravenous contrast. Skeletal structures: There are no lytic or blastic osseous lesions. IMPRESSION: 1. Mild nodular airspace opacities the right lung base, atelectatic versus infectious/inflammatory 2. Trace right pleural effusion 3. Moderate cardiac enlargement and small pericardial effusion which explains the chest x-ray finding s 4. Multiple indeterminate right renal masses, likely representing a combination of cysts and hyperden se cysts. ACT 112: Negative or not required by law. Electronically signed by: Daniel Hoffman M.D. 11/18/2020 7:56 AM
[2020-11-18] MEDS: carvediloL 12.5 MG TAB PO SCH ×2 (08:26→20:06)
[2020-11-18] MEDS: BUMETANIDE 1 MG TAB PO SCH (08:26)
[2020-11-18] MEDS: ASPIRIN 81 MG ECTAB PO SCH (08:26)
[2020-11-18] MEDS: ADVANCED PROBIOTIC 1250 MG CAPSULE PO SCH (08:27)
[2020-11-18] MEDS: CHOLECALCIFEROL 1,000 UNITS 25 MCG TAB PO SCH (08:27)
--- NOTE | 2020-11-18 13:32 | Electrocardiogram Report ---
Test Reason : Blood Pressure : / mmHG Vent. Rate : 086 BPM Atrial Rate : 375 BPM P-R Int : 000 ms QRS Dur : 118 ms QT Int : 362 ms P-R-T Axes : 000 -54 080 degrees QTc Int : 433 ms Atrial fibrillation with premature ventricular or aberrantly conducted complexes Left axis deviation Inferior infarct (cited on or before 06-SEP-2018) Anterior infarct (cited on or before 06-SEP-2018) Abnormal ECG When compared with ECG of 03-MAY-2020 22:27, No significant change Confirmed by Blaise Yañez ([id number]) on 11/18/2020 1:31:50 PM Referred By: REFERRED SELF Confirmed By:Blaise Yañez
--- NOTE | 2020-11-18 23:43 | Hospitalist Progress Note ---
Date of Service November 18, 2020 Assessment & Plan (1) Multiple falls: Patient is a very pleasant 80 year old male with PMHx Afib, Hyperparathyroidism, CKD Stage III, HFpEF, s/p ICD placement, CVI, HTN, Anxiety, that present initially for a fall earlier this afternoon which patient described as "weakness in my thighs" and "just went down." Patient states that this is at least the 3rd incident of a fall since moving to his current residence 8 months ago. Fall secondary to B/L LE weakness -likely just due to progressive weakness, deconditioning, neuropathy -PT and OT recommend rehab, will continue to discuss with patient and his family Hypercalcemia, secondary to hyperparathyroidism -Patient with history of hyperparathyroidism -Calcium 11.4 on admission, down slightly to 10.6, gave pamidronate on admission PTH pending reviewed records, always has Ca levels > 10, this is nothing new, doubt it caused his fall Cellulitis of L Leg -possible cellulitis but skin not warm/hot, not tender, WBC normal and he just finished 4 week course of abx with wound clinic continue antibiotics for now but likely stop on 11/19 Afib -Chronic and currently present -Continue carvedilol 12.5mg BID -Not currently on anticoagulation, through chart review it appears patient has declined in the past due to concerns of possibly requiring blood transfusions which patient refuses (Alevism). Also noted in patient's chart history are GI bleeding and Hematuria. -Though declining anticoagulation, patient is still on Aspirin. HFpEF -Continue Bumex 1mg QD -Daily Weights -I/O -he is euvolemic CKD III - Cr stable at 1.58 -Will give gentle hydration LR 80ml/hr x1 L, stop today -Monitor closely for fluid overload Nonischemic Cardiomyopathy -S/P ICD placement - interrogation ordered -Continue carvedilol -Last Echo 05/09/20 showing EF 50-55% and severely dilated L atrium and R atrium. Anxiety/Insomnia -Notes he takes 1/2 tablet of Lorazepam at bed time for sleep -Concerns that with the increased falls since moving, this may be further contributing to his weakness and imbalance during the daytime hours -Discussed with patient about holding Lorazepam at this time to which he is agreeable -Will give Melatonin 3mg qhs for sleep PRN Thrombocytopenia and Normocytic Anemia -Notable for platelet count 90's and Hb 10 no major issues on peripheral smear likely from CKD, anemia chronic disease Dispo: Med/Surg Telemetry for monitoring of rhythm, IV antibiotics, lowering of calcium levels, and PT/OT evaluations. FEN: HH Low Na diet DVT: Hx of [place] IVC filter in place, will hold chemoprophylaxis at this time due to patients concerns of bleed. Code: Full (2) Cellulitis of left leg: (3) Weakness: (4) Chronic venous insufficiency of lower extremity: (5) Chronic right-sided CHF (congestive heart failure): (6) Hyperparathyroidism: (7) Hypertension: (8) Anxiety disorder: (9) Atrial fibrillation: (10) Pacemaker: (11) Hypercalcemia: (12) ROLLY (obstructive sleep apnea): (13) CKD (chronic kidney disease) stage 3, GFR 30-59 ml/min: Admission and Anticipated Discharge Date Admission Date: November 17, 2020 Subjective patient feeling fine today, no major issues he says that his left leg feels normal, no pain, not hot, he was just discharged from the wound clinic a week ago his breathing is stable, no chest pain, no fever reviewed labs, WBC normal, Hb 10, plts 80's Ca down to 10.6, but reviewing prior records this is baseline with his hyper PTH, PTH level still pending Cr stable, making urine eating well PT/OT evaluations gave click scores of 19 and 16 respectively patient does not really want to consider rehab, will discuss further tomorrow Review of Systems Review of Systems: All systems reviewed & are unremarkable except as noted in Subjective Constitutional: no fever, no chills, no sweats, no fatigue and no weakness Respiratory: no cough and no dyspnea Cardiovascular: no chest pain Neurologic: + gait abnormality (wide, shuffling), + unsteadiness and + numbness (and tingling in feet, neuropathy) Physical Exam Constitutional: well developed, well nourished and comfortable; no acute distress and not edematous Neck: trachea midline, no thyromegaly Respiratory: normal respiratory effort, lungs clear to auscultation Cardiovascular: Rate/Rhythm: regular rate and regular rhythm Heart Sounds: normal S1 and normal S2; no murmur Vessels: normal peripheral pulses; no JVD Extremities: normal capillary refill and + edema (non pitting bilaterally); no calf tenderness Gastrointestinal (Abdomen): normal bowel sounds, soft, nontender, no hepatosplenomegaly Musculoskeletal: Head/Neck/Chest: normocephalic, head atraumatic and neck supple Extremities: + abnormal strength (leg strength 4 out of 5); no cyanosis, no clubbing and no petechiae Skin: + erythema (dark discoloration of legs bilaterally, venous stasis changes) Neurologic: patellar DTR's 2+ bilat, sensation intact and PERRL, EOMI, accommodation nl, no face palsy, no dysarthria Psychiatric: A+Ox3, euthymic affect Lymphatic: no cervical or axillary lymphadenopathy Results & Data Results & Data ([facility]) Vital Signs (Past 12 Hours) Vital Signs Temp Pulse Pulse Pulse Resp BP Pulse Ox 11/18/20 23:17 36.8 C 102 H 22 122/76 96 11/18/20 18:42 36.5 C 88 20 148/85 H 96 11/18/20 16:36 72 11/18/20 15:44 36.6 C 74 20 128/79 95 11/18/20 11:46 36.5 C 78 20 108/70 94 Laboratory Results Laboratory Results - last 24 hr 11/17/20 11/17/20 11/18/20 19:20 19:20 06:29 WBC 7.12 RBC 3.72 L Hgb 10.4 L Hct 32.8 L MCV 88.2 MCH 28.0 MCHC 31.7 L RDW Std Deviation 53.3 H RDW Coeff of Joshua 16.4 H Plt Count 78 L MPV 10.1 Immature Gran % (Auto) 0.4 Neut % (Auto) 82.0 Lymph % (Auto) 9.6 [place] % (Auto) 6.6 Eos % (Auto) 1.3 Baso % (Auto) 0.1 Neut # (Auto) 5.84 Lymph # (Auto) 0.68 L [place] # (Auto) 0.47 Eos # (Auto) 0.09 Baso # (Auto) 0.01 Immature Gran # (Auto) 0.03 H Absolute Nucleated RBC 0.00 Nucleated RBC % (auto) 0.0 Peripher Smr Path Cons Sodium Potassium Chloride Carbon Dioxide Anion Gap BUN Creatinine Est Cr Clr Drug Dosing Est GFR ( Amer) Est GFR (Non-Af Amer) BUN/Creatinine Ratio Glucose Calcium Magnesium Total Bilirubin AST ALT Alkaline Phosphatase Total Protein Albumin Globulin Albumin/Globulin Ratio 25-OH Vitamin D Total 70.4 11/18/20 06:29 WBC RBC Hgb Hct MCV MCH MCHC RDW Std Deviation RDW Coeff of Joshua Plt Count MPV Immature Gran % (Auto) Neut % (Auto) Lymph % (Auto) [place] % (Auto) Eos % (Auto) Baso % (Auto) Neut # (Auto) Lymph # (Auto) [place] # (Auto) Eos # (Auto) Baso # (Auto) Immature Gran # (Auto) Absolute Nucleated RBC Nucleated RBC % (auto) Peripher Smr Path Cons Sodium 140 Potassium 4.3 Chloride 109 H Carbon Dioxide 26 Anion Gap 5.0 BUN 34 H Creatinine 1.63 H Est Cr Clr Drug Dosing 38.3 Est GFR ( Amer) 45.1 Est GFR (Non-Af Amer) 38.9 BUN/Creatinine Ratio 20.8 H Glucose 98 Calcium 10.6 H Magnesium 2.3 Total Bilirubin 1.7 H AST 25 ALT 39 Alkaline Phosphatase 85 Total Protein 6.5 Albumin 2.9 L Globulin 3.6 Albumin/Globulin Ratio 0.8 L 25-OH Vitamin D Total Medications Administered Current Inpatient Medications Acetaminophen (Acetaminophen 500 Mg Tab) 1,000 mg PO Q8H PRN PRN Reason: pain Stop: 12/18/20 00:30 Last Admin: 11/18/20 00:49 Dose: 1,000 mg Documented by: Aspirin (Aspirin 81 Mg Ectab) 81 mg PO QAM [facility] Stop: 12/18/20 08:59 Last Admin: 11/18/20 08:26 Dose: 81 mg Documented by: Bumetanide (Bumetanide 1 Mg Tab) 1 mg PO DAILY [facility] Stop: 12/18/20 08:59 Last Admin: 11/18/20 08:26 Dose: 1 mg Documented by: Carvedilol (Carvedilol 12.5 Mg Tab) 12.5 mg PO BID [facility] Stop: 12/18/20 08:59 Last Admin: 11/18/20 20:06 Dose: 12.5 mg Documented by: Piperacillin Sod/Tazobactam (Sod 3.375 gm/ Dextrose) 115 mls @ 28.75 mls/hr IV Q8H [facility]; Protocol Stop: 11/25/20 00:59 Last Infusion: 11/18/20 21:41 Dose: Infused Documented by: Daptomycin 300 mg/ Syringe 6 mls @ 3.25 mls/min IV Q24H [facility]; Protocol Stop: 11/25/20 00:59 Lactobacillus Acidoph/Casei/Rhamnos (Advanced Probiotic 1250 Mg Capsule) 2 cap PO DAILY [facility] Stop: 12/18/20 08:59 Last Admin: 11/18/20 08:27 Dose: 2 cap Documented by: Melatonin (Melatonin 3 Mg Tab) 3 mg PO HS PRN PRN Reason: Sleep Stop: 12/18/20 00:24 Last Admin: 11/18/20 04:15 Dose: 3 mg Documented by: Miscellaneous Information (Daptomycin Consult Active) 1 ea N/A UD PRN PRN Reason: Consult Stop: 12/18/20 00:24 Miscellaneous Information (Piperacill/Tazobac Consult Active) 1 ea N/A UD PRN PRN Reason: Consult Stop: 12/18/20 00:24 Vitamin D (Cholecalciferol 1,000 Units 25 Mcg Tab) 5,000 units PO DAILY [facility] Stop: 12/18/20 08:59 Last Admin: 11/18/20 08:27 Dose: 5,000 units Documented by: PG Care Time/CCT Total # of Minutes Spent Total Time Spent with Patient: Total time spent is greater than 50% in coordination of care (as documented) at patient's floor/unit and/or counseling patient: Coding Level of Care Code 47172 Subseq Hosp Care Lvl 3 Diagnoses Multiple falls R29.6 Cellulitis of left leg L03.116 Weakness R53.1 Chronic venous insufficiency of lower extremity I87.2 Chronic right-sided CHF (congestive heart failure) I50.812 Hyperparathyroidism E21.3 Hypertension I10 Hypertension type: essential hypertension Anxiety disorder F41.9 Anxiety disorder type: unspecified anxiety disorder Atrial fibrillation I48.2 Atrial fibrillation type: permanent Pacemaker Z95.0 Hypercalcemia E83.52 ROLLY (obstructive sleep apnea) G47.33 CKD (chronic kidney disease) stage 3, GFR 30-59 ml/min N18.30 Chronic kidney disease stage 3 subtype: unspecified whether 3a or 3b (1) CKD (chronic kidney disease) stage 3, GFR 30-59 ml/min Chronic kidney disease stage 3 subtype: unspecified whether 3a or 3b Qualified Code(s): N18.30 - Chronic kidney disease, stage 3 unspecified (2) Anxiety disorder Anxiety disorder type: unspecified anxiety disorder Qualified Code(s): F41.9 - Anxiety disorder, unspecified (3) Atrial fibrillation Atrial fibrillation type: permanent Qualified Code(s): I48.2 - Chronic atrial fibrillation (4) Hypertension Hypertension type: essential hypertension Qualified Code(s): I10 - Essential (primary) hypertension
[2020-11-19] MEDS ORDERED: DAPTOmycin 300 MG in SYRINGE 0 ML IV SCH (01:00)
[2020-11-19] MEDS: PIPERACILLIN/TAZOBACTAM 3.375 GM in DEXTROSE 5% 100 ML IV SCH ×3 (01:09→08:45)
--- NOTE | 2020-11-19 05:10 | Billing Data ---
Date of Service November 19, 2020 Coding Level of Care Code 16211 Initial Inpt Care Lvl 3
[2020-11-19 08:37] LABS: Hematocrit (blood only) 32.6 % (42-52); Hemoglobin 10.3 g/dL (14.0-18.0); Mean Corpuscular Hemoglobin 28.3 pg (25-34); Mean Corpuscular Hgb Conc 31.6 g/dL (32-36); Mean Corpuscular Volume 89.6 fL (80-100); RDW Coefficient of Variation 16.5 % (11.5-14.5); RDW Standard Deviation 54.8 fL (36.4-46.3); Red Blood Count 3.64 M/uL (4.7-6.1); White Blood Count 7.38 K/uL (4.8-10.8)
[2020-11-19] MEDS: ASPIRIN 81 MG ECTAB PO SCH (08:37)
[2020-11-19] MEDS: carvediloL 12.5 MG TAB PO SCH ×2 (08:37→23:01)
[2020-11-19] MEDS: BUMETANIDE 1 MG TAB PO SCH (08:37)
[2020-11-19] MEDS: ADVANCED PROBIOTIC 1250 MG CAPSULE PO SCH (08:38)
[2020-11-19] MEDS: CHOLECALCIFEROL 1,000 UNITS 25 MCG TAB PO SCH (08:38)
[2020-11-19 08:56] LABS: Mean Platelet Volume 11.4 fL (7.4-10.4); Platelet Count 95 K/uL (130-400)
[2020-11-19 09:01] LABS: BUN Creatinine Ratio 19.4 (10-20); Calcium 10.5 mg/dl (8.5-10.1); Creatinine Clr Calc Pharmacy 47.5 ml/min; Est GFR (African American) 46.8 ml/min; Est GFR (Non-African American) 40.4 ml/min
--- NOTE | 2020-11-19 23:16 | Hospitalist Progress Note ---
Date of Service November 19, 2020 Assessment & Plan (1) Multiple falls: Patient is a very pleasant 80 year old male with PMHx Afib, Hyperparathyroidism, CKD Stage III, HFpEF, s/p ICD placement, CVI, HTN, Anxiety, that present initially for a fall earlier this afternoon which patient described as "weakness in my thighs" and "just went down." Patient states that this is at least the 3rd incident of a fall since moving to his current residence 8 months ago. Fall secondary to B/L LE weakness -likely just due to progressive weakness, deconditioning, neuropathy -PT and OT recommend rehab, will have him re-evaluated tomorrow as he is getting a little stronger per son, he might have been using too many medications or inappropriate timing would recommend tapering off of hydralazine Hypercalcemia, secondary to hyperparathyroidism -Patient with history of hyperparathyroidism -Calcium 11.4 on admission, down slightly to 10.5, gave pamidronate on admission PTH is > 200 but not as high as it has been in the past reviewed records, always has Ca levels > 10, this is nothing new, doubt it caused his fall Cellulitis of L Leg -possible cellulitis but skin not warm/hot, not tender, WBC normal and he just finished 4 week course of abx with wound clinic stop antibiotics today and observe Afib -Chronic and currently present -Continue carvedilol 12.5mg BID -Not currently on anticoagulation, through chart review it appears patient has declined in the past due to concerns of possibly requiring blood transfusions which patient refuses (Mandaeism). Also noted in patient's chart history are GI bleeding and Hematuria. -Though declining anticoagulation, patient is still on Aspirin. HFpEF -Continue Bumex 1mg QD -Daily Weights -I/O -he is euvolemic CKD III - Cr stable at 1.5 -drinking well, IV fluids off since yesterday, examines euvolemic -Monitor closely for fluid overload Nonischemic Cardiomyopathy -S/P ICD placement - interrogation ordered -Continue carvedilol -Last Echo 05/09/20 showing EF 50-55% and severely dilated L atrium and R atrium. Anxiety/Insomnia -continue to hold Lorazepam per patient's son he may be taking too much or taking at inappropriate times -Will give Melatonin 3mg qhs for sleep PRN Thrombocytopenia and Normocytic Anemia -Notable for platelet count 90's and Hb 10 no major issues on peripheral smear likely from CKD, anemia chronic disease Dispo: Med/Surg Telemetry for monitoring of rhythm, IV antibiotics, lowering of calcium levels, and PT/OT evaluations. FEN: HH Low Na diet DVT: Hx of [place] IVC filter in place, will hold chemoprophylaxis at this time due to patients concerns of bleed. Code: Full (2) Cellulitis of left leg: (3) Weakness: (4) Chronic venous insufficiency of lower extremity: (5) Chronic right-sided CHF (congestive heart failure): (6) Hyperparathyroidism: (7) Hypertension: (8) Anxiety disorder: (9) Atrial fibrillation: (10) Pacemaker: (11) Hypercalcemia: (12) ROLLY (obstructive sleep apnea): (13) CKD (chronic kidney disease) stage 3, GFR 30-59 ml/min: Admission and Anticipated Discharge Date Admission Date: November 17, 2020 Subjective patient is feeling stronger, wants to go home today, he is able to stand up from the bed, ambulate with walker labs are stable, specifically calcium, Cr, Hb and platelets eating fairly well, no GI symptoms, urinating normally no fever/chills, stopped IV antibiotics today discussed discharge plan, his has some concerns about him going home, I would agree will have PT/OT evaluate again tomorrow, asked him to consider SNF spoke with his son outside the room, he indicated that sometimes the patient will take lorazepam when he is not supposed to he says that the patient's will not always give them to him and then the patient will find them, take them late at night he suspects this as a possibility of what lead him to fall of note he has been fine here off the Lorazepam Review of Systems Review of Systems: All systems reviewed & are unremarkable except as noted in Subjective Physical Exam Constitutional: well developed, well nourished and comfortable; no acute distress and not edematous Neck: trachea midline, no thyromegaly Respiratory: normal respiratory effort, lungs clear to auscultation Cardiovascular: Rate/Rhythm: regular rate and + irregularly irregular Heart Sounds: normal S1 and normal S2; no murmur Vessels: normal peripheral pulses; no JVD Extremities: normal capillary refill and + edema (non pitting bilaterally); no calf tenderness Gastrointestinal (Abdomen): normal bowel sounds, soft, nontender, no hepatosplenomegaly Musculoskeletal: Head/Neck/Chest: normocephalic, head atraumatic and neck supple Extremities: + abnormal strength (leg strength 4 out of 5); no cyanosis, no clubbing and no petechiae Skin: + erythema (dark discoloration of legs bilaterally, venous stasis changes) Neurologic: patellar DTR's 2+ bilat, sensation intact and PERRL, EOMI, accommodation nl, no face palsy, no dysarthria Psychiatric: A+Ox3, euthymic affect Lymphatic: no cervical or axillary lymphadenopathy Results & Data Results & Data ([facility]) Vital Signs (Past 12 Hours) Vital Signs Temp Pulse Resp BP Pulse Ox 11/19/20 20:00 37.0 C 80 20 143/94 H 97 11/19/20 16:00 36.3 C L 77 18 131/88 94 11/19/20 11:51 37 C 68 18 116/69 97 Laboratory Results Laboratory Results - last 24 hr 11/19/20 11/19/20 11/19/20 05:45 05:45 05:48 WBC 7.38 RBC 3.64 L Hgb 10.3 L Hct 32.6 L MCV 89.6 MCH 28.3 MCHC 31.6 L RDW Std Deviation 54.8 H RDW Coeff of Joshua 16.5 H Plt Count 95 L MPV 11.4 H Sodium 139 Potassium 4.0 Chloride 108 H Carbon Dioxide 24 Anion Gap 7.0 BUN 31 H Creatinine 1.58 H Est Cr Clr Drug Dosing 47.5 Est GFR ( Amer) 46.8 Est GFR (Non-Af Amer) 40.4 BUN/Creatinine Ratio 19.4 Glucose 95 Calcium 10.5 H PTH Intact 237.7 H Medications Administered Current Inpatient Medications Acetaminophen (Acetaminophen 500 Mg Tab) 1,000 mg PO Q8H PRN PRN Reason: pain Stop: 12/18/20 00:30 Last Admin: 11/18/20 00:49 Dose: 1,000 mg Documented by: Aspirin (Aspirin 81 Mg Ectab) 81 mg PO QAM [facility] Stop: 12/18/20 08:59 Last Admin: 11/19/20 08:37 Dose: 81 mg Documented by: Bumetanide (Bumetanide 1 Mg Tab) 1 mg PO DAILY [facility] Stop: 12/18/20 08:59 Last Admin: 11/19/20 08:37 Dose: 1 mg Documented by: Carvedilol (Carvedilol 12.5 Mg Tab) 12.5 mg PO BID [facility] Stop: 12/18/20 08:59 Last Admin: 11/19/20 23:01 Dose: 12.5 mg Documented by: Lactobacillus Acidoph/Casei/Rhamnos (Advanced Probiotic 1250 Mg Capsule) 2 cap PO DAILY [facility] Stop: 12/18/20 08:59 Last Admin: 11/19/20 08:38 Dose: 2 cap Documented by: Melatonin (Melatonin 3 Mg Tab) 3 mg PO HS PRN PRN Reason: Sleep Stop: 12/18/20 00:24 Last Admin: 11/18/20 04:15 Dose: 3 mg Documented by: Vitamin D (Cholecalciferol 1,000 Units 25 Mcg Tab) 5,000 units PO DAILY [facility] Stop: 12/18/20 08:59 Last Admin: 11/19/20 08:38 Dose: 5,000 units Documented by: PG Care Time/CCT Total # of Minutes Spent Total Time Spent with Patient: Total time spent is greater than 50% in coordination of care (as documented) at patient's floor/unit and/or counseling patient: Coding Level of Care Code 65779 Subseq Hosp Care Lvl 2 Diagnoses Multiple falls R29.6 Cellulitis of left leg L03.116 Weakness R53.1 Chronic venous insufficiency of lower extremity I87.2 Chronic right-sided CHF (congestive heart failure) I50.812 Hyperparathyroidism E21.3 Hypertension I10 Hypertension type: essential hypertension Anxiety disorder F41.9 Anxiety disorder type: unspecified anxiety disorder Atrial fibrillation I48.2 Atrial fibrillation type: permanent Pacemaker Z95.0 Hypercalcemia E83.52 ROLLY (obstructive sleep apnea) G47.33 CKD (chronic kidney disease) stage 3, GFR 30-59 ml/min N18.30 Chronic kidney disease stage 3 subtype: unspecified whether 3a or 3b (1) Hypertension Hypertension type: essential hypertension Qualified Code(s): I10 - Essential (primary) hypertension (2) Anxiety disorder Anxiety disorder type: unspecified anxiety disorder Qualified Code(s): F41.9 - Anxiety disorder, unspecified (3) Atrial fibrillation Atrial fibrillation type: permanent Qualified Code(s): I48.2 - Chronic atrial fibrillation (4) CKD (chronic kidney disease) stage 3, GFR 30-59 ml/min Chronic kidney disease stage 3 subtype: unspecified whether 3a or 3b Qualified Code(s): N18.30 - Chronic kidney disease, stage 3 unspecified
[2020-11-19] MEDS ORDERED: Nursing to Pharmacy Communication SCH (23:45)
[2020-11-20] MEDS ORDERED: LIDOCAINE 5% 1 PATCH TD SCH ×2 (00:15→00:30)
[2020-11-20] MEDS ORDERED: Nursing to Pharmacy Communication SCH (00:30)
[2020-11-20] MEDS: ACETAMINOPHEN 500 MG TAB PO PRN (05:19)
[2020-11-20] MEDS: ADVANCED PROBIOTIC 1250 MG CAPSULE PO SCH (08:42)
[2020-11-20] MEDS: carvediloL 12.5 MG TAB PO SCH (08:43)
[2020-11-20] MEDS: BUMETANIDE 1 MG TAB PO SCH (08:43)
[2020-11-20] MEDS: ASPIRIN 81 MG ECTAB PO SCH (08:43)
[2020-11-20] MEDS: CHOLECALCIFEROL 1,000 UNITS 25 MCG TAB PO SCH (08:43)
--- NOTE | 2020-11-20 15:50 | Discharge Summary ---
Date of Service November 20, 2020 Admission HPI Per Admitting Provider Patient is a very pleasant 80 year old male with PMHx Afib, Hyperparathyroidism, CKD Stage III, HFpEF, s/p ICD placement, CVI, HTN, Anxiety, that present initially for a fall earlier this afternoon which patient described as "weakness in my thighs" and "just went down." Patient notes that since moving to [facility] in [place] this is the 3rd time in which the patient has fallen. He states that at baseline he is "wobbly" and requires a walker in order to get around, however, today he was coming out of the restroom and going to change some clothing whenever he noted that "my thighs stopped working" and that he "just fell." He and his note that she was able to help brace his fall slightly and that he did not hit his head on the departure downwards. His then called EMT volunteers to assist in getting Teodoro back up, at which point EMS was called and transported the patient to the ED. Patient's also notes that this morning the patient seemed different in the sense that he seemed more tired and had low appetite. She states that he took an after breakfast nap and that they spent the rest of the day on the porch drinking water and lemonade (no alcohol), prior to the event of his fall around 5-6PM. Of note, patient does note that he had been dealing with cellulitis of his L leg and had been seeing the wound clinic for management. His recent cultures had grown Pseudomonas and was treated with Cefdinir. Currently patient states that he feels fairly well other than a bit tired. He denies any current pain. Denies any current fever, chills, SOB, chest pain, abdominal pain. 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 Drinks 1 drink/month Principal Diagnosis Fall, suspect due to lorazepam use at night Discharge Exam Constitutional well developed, well nourished and comfortable; no acute distress and not edematous Neck trachea midline, no thyromegaly Respiratory normal respiratory effort, lungs clear to auscultation Cardiovascular Rate/Rhythm: regular rate and + irregularly irregular Heart Sounds: normal S1 and normal S2; no murmur Vessels: normal peripheral pulses; no JVD Extremities: normal capillary refill and + edema (non pitting bilaterally); no calf tenderness Gastrointestinal (Abdomen) normal bowel sounds, soft, nontender, no hepatosplenomegaly Musculoskeletal Head/Neck/Chest: normocephalic, head atraumatic and neck supple Extremities: + abnormal strength (leg strength 4 out of 5); no cyanosis, no clubbing and no petechiae Skin + erythema (dark discoloration of legs bilaterally, venous stasis changes) Neurologic patellar DTR's 2+ bilat, sensation intact and PERRL, EOMI, accommodation nl, no face palsy, no dysarthria Psychiatric A+Ox3, euthymic affect Lymphatic no cervical or axillary lymphadenopathy Discharge Data Allergies Allergy/AdvReac Type Severity Reaction Status Date / Time adhesive Allergy Intermediate REDDENED, Verified 11/17/20 18:54 ITCHY SKIN latex Allergy Unknown SKIN Verified 11/17/20 18:54 IRRITATION oxybutynin Allergy Unknown Unknown Verified 11/17/20 18:54 ciprofloxacin [From Cipro] AdvReac Mild pain in Verified 11/17/20 18:54 tendons ALL OPIOIDS Allergy Severe "SEVERE" Uncoded 11/17/20 18:54 DELIRIUM Consultations 11/17/20 21:20 ED Decision to Admit Stat Ordered Studies 11/17/20 20:23 CT chest diagnostic wo con Urgent Hospital Course (1) Multiple falls: Patient is a very pleasant 80 year old male with PMHx Afib, Hyperparathyroidism, CKD Stage III, HFpEF, s/p ICD placement, CVI, HTN, Anxiety, that present initially for a fall earlier this afternoon which patient described as "weakness in my thighs" and "just went down." Patient states that this is at least the 3rd incident of a fall since moving to his current residence 8 months ago. Fall secondary to B/L LE weakness -likely due to overuse of lorazepam, per and son he will take in the middle of the night, sometimes a whole pill (1mg) he has been off lorazepam for 3 days, his says he has so much clarity while here doing well with PT/OT, walked 250 feet in the hallway, completely independent with transfers and ambulating in the room Benzodiazepine, fdc use and adverse effects of confusion/weakness - has been taking 0.5mg HS for 2-3 years per and son, they suspect he will take 1mg sometimes his goes to bed earlier than him so he takes whatever dose he wants, she says some nights he just stares off completely has been without lorazepam for three days, she reports he is much more alert, he is stronger would not want to continue to be off of it cold turkey due to risk of withdrawal seizure will prescribe him 0.25mg HS for 8 more days then stop follow up with PCP, can try Melatonin for sleep aide, given his age there are not too many good options, perhaps Trazodone would be good place to start Hypercalcemia, secondary to hyperparathyroidism -Patient with history of hyperparathyroidism -Calcium 11.4 on admission, down slightly to 10.5, gave pamidronate on admission PTH is > 200 but not as high as it has been in the past reviewed records, always has Ca levels > 10, this is nothing new, doubt it caused his fall Cellulitis of L Leg -possible cellulitis but skin not warm/hot, not tender, WBC normal and he just finished 4 week course of abx with wound clinic he is concerned about an open area caused when he was transferred into CT scan small skin tear will cover him with Doxycycline for a few days, get home RN to check on the skin Afib -Chronic and currently present -Continue carvedilol 12.5mg BID -Not currently on anticoagulation, through chart review it appears patient has declined in the past due to concerns of possibly requiring blood transfusions which patient refuses (Shinto). Also noted in patient's chart history are GI bleeding and Hematuria. -Though declining anticoagulation, patient is still on Aspirin. HFpEF -Continue Bumex 1mg QD -Daily Weights -I/O -he is euvolemic CKD III - Cr stable at 1.5 -drinking well, IV fluids off since yesterday, examines euvolemic -Monitor closely for fluid overload Nonischemic Cardiomyopathy -S/P ICD placement -Continue carvedilol -Last Echo 05/09/20 showing EF 50-55% and severely dilated L atrium and R atrium. Anxiety/Insomnia - held Lorazepam on admission, per his he has been taking 0.5mg HS for 2-3 years consistently per patient's son he may be taking too much or taking at inappropriate times, will take a full 1mg tablet in the middle of the night his goes to bed much earlier than him so no one monitors how much he takes -Will give Melatonin 3mg qhs for sleep PRN cannot stop the lorazepam cold turkey due to risk of withdrawal seizure, prescribe 0.25mg HS for 8 days then stop could try Trazodone as sleep aide? follow up with PCP Thrombocytopenia and Normocytic Anemia -Notable for platelet count 90's and Hb 10 no major issues on peripheral smear likely from CKD, anemia chronic disease Dispo: discharge to home with home health and home PT/OT evaluations, taper off of lorazepam, follow up with PCP FEN: HH Low Na diet DVT: Hx of [place] IVC filter in place, will hold chemoprophylaxis at this time due to patients concerns of bleed. Code: Full (2) Weakness: (3) Chronic venous insufficiency of lower extremity: (4) Chronic right-sided CHF (congestive heart failure): (5) Hyperparathyroidism: (6) Hypertension: (7) Anxiety disorder: (8) Atrial fibrillation: (9) Pacemaker: (10) Hypercalcemia: (11) ROLLY (obstructive sleep apnea): (12) CKD (chronic kidney disease) stage 3, GFR 30-59 ml/min: Total Time Total Time Spent Total Time Spent (In Minutes): 40 Total Time Includes: Examination of the Patient, Discharge Planning and Medication Reconciliation Discharge Plan Discharge Items Patient Disposition: Home - Home Health Services Reason For Visit: FALL, HYPERCALCEMIA, WEAKNESS Discharge Diagnosis: Fall, confusion due to Lorazepam Hypercalcemia Venous stasis changes in legs Activity: Resume your previous activity Exercise/Sports: Gradually increase as tolerated Weightbearing: Full weightbearing Non-emergency contact: Primary Care Provider Call non-emergency contact if: you have any medication questions and your symptoms worsen Follow-up/Referrals: Fracisco Eddy MD [Primary Care Provider] - 11/22/20 2:30 pm (one week) Diet: Regular Addtl Attending Provider Instructions: Medications: - MELATONIN: take 3mg at night - DOXYCYCLINE: take twice a day for three days to cover open skin, can start tonight - LORAZEPAM: very likely this is causing some weakness and confusion at home cannot stop completely cold turkey since you have been taking it for at least two years will give you a new prescription for 0.25mg at night (this is half of a 0.5mg tablet) can take this at night for 7-8 days and then stop when the prescription is done Weakness and falls unclear etiology but most logical explanation would be medication side effect from Lorazepam not safe to take at your age and with possibly taking too much and taking too late at night you did quite well with physical therapy today, walked 250 feet, recommend that you always use your walker when ambulating calcium is at your baseline level, renal function normal, no evidence of acute infection, specifically no cellulitis in left leg stable blood pressure and no arrhythmia on monitor will get home health and home therapy follow up with Dr Eddy Insomnia: the next 7-8 days you can take the Lorazepam 0.25mg (1/2 of a 0.5mg tablet) as well as Melatonin 3mg and Tylenol 650mg after you complete this short taper from Lorazepam then recommend you only take the Melatonin and Tylenol Pending Studies at Discharge: No Stand-Alone Forms: My [facility] [employer], Smoking Cessation Medications and DC Order Prescriptions: New melatonin 3 mg Tablet 3 mg PO HS PRN (Reason: sleep) Qty: 30 RF: 0 lorazepam 0.5 mg tablet 0.25 mg PO HS 7 Days Qty: 4 RF: 0 Continued Beet Root Supplement 1 tab PO DAILY RF: 0 aspirin 81 mg tablet,delayed release (DR/EC) 81 mg PO QAM Qty: 90 RF: 3 Systane (propylene glycol) 0.4-0.3 % drops 2 drops OP BID PRN (Reason: Dry Eye(S)) RF: 0 acetaminophen 325 mg tablet 650 mg PO Q4H PRN (Reason: Pain) RF: 0 cholecalciferol (vitamin D3) 125 mcg (5,000 unit) capsule 125 mcg PO DAILY RF: 0 bumetanide 1 mg tablet 1 mg PO DAILY RF: 0 gentamicin 0.1 % ointment 1 applic topical Q OTHER DAY PRN (Reason: Skin Irritation) RF: 0 carvedilol 25 mg tablet 12.5 mg PO BID Qty: 90 RF: 3 Advanced Probiotic 625 mg (10 billion cell) Capsule 2 cap PO DAILY Qty: 30 RF: 0 multivitamin with minerals Tablet 1 tab PO QAM RF: 0 Discontinued lorazepam 1 mg tablet 0.5 mg PO BID PRN (Reason: Agitation) Qty: 30 RF: 0 Discharge Orders: Discharge Order (Routine); Ordered 11/20/20 Ordered By: Anuj Padilla Admission Data Admit Date/Time: 11/17/20 22:30 Attending Provider: Anuj Padilla Admit Provider: Randy Barron Primary Care Provider: Fracisco Eddy Other Providers: Ky Tao Other Interventions: Discharge Summary Assessment (RN) Last Done: 11/20/20 15:52 Coding Level of Care Code D/C Day Management >30 mins Diagnoses Multiple falls R29.6 Weakness R53.1 Chronic venous insufficiency of lower extremity I87.2 Chronic right-sided CHF (congestive heart failure) I50.812 Hyperparathyroidism E21.3 Hypertension I10 Hypertension type: essential hypertension Anxiety disorder F41.9 Anxiety disorder type: unspecified anxiety disorder Atrial fibrillation I48.2 Atrial fibrillation type: permanent Pacemaker Z95.0 Hypercalcemia E83.52 ROLLY (obstructive sleep apnea) G47.33 CKD (chronic kidney disease) stage 3, GFR 30-59 ml/min N18.30 Chronic kidney disease stage 3 subtype: unspecified whether 3a or 3b
== END 2020-11-20 16:39 | disposition home health service (06) | DRG 918 ==
LOC: ED 18:20 → 2N 22:30 → SUATTDRO 22:30 → 2N 23:12

== ENCOUNTER 2021-05-02 17:21 | Inpatient (IN) ==
--- NOTE | 2021-05-02 17:26 | Emergency Department Note ---
Impression & Plan AICD discharge, Chronic right-sided CHF (congestive heart failure), Sepsis, Atrial fibrillation, Cellulitis of left lower extremity, CKD (chronic kidney disease) ED Provider Note NAME: JULISSA RIVERA AGE: 80 SEX: M ARRIVES VIA: Ambulance INFORMANT: Patient, ED PROVIDER(S): Dewayne Campbell MD CHIEF COMPLAINT: Weakness, feverish. PLAN: Disposition: Admit MEDICAL DECISION MAKING: The patient is a pleasant 80-year-old gentleman with a complicated past medical history of nonischemic cardiomyopathy status post AICD, Atrial fibrillation, DVT not on AC s/p IV filter who presents to the emergency department for evaluation of generalized weakness and feverishness came on suddenly this afternoon. Prior today the patient has been in his normal recent state of health. His reports that they both had routine cardiology appointments today and his evaluation was reassuring per her knowledge. It was only upon going home from their appointment that he suddenly began to feel chills and weak and after returning from the bathroom he suddenly was unable to hold himself up and she reports that she helped guide him to the ground where he sat down on the floor. They also report that during this period of acute weakness that he suddenly felt as though his ICD shocked him which he reports did occur years ago. She denies any sudden fall, head strike or loss of consciousness. Reports that he did receive his COVID-19 booster and influenza immunization 2 days ago. Otherwise they deny any known COVID-19 exposures. Of note the patient admits he has memory problems and his concurs. She reports recently he had expressed to her that he would not want CPR. However at this time he reports that he would want CPR if needed and so he continues to remain full code at this time. On arrival patient is acute on chronically ill-appearing but no acute distress, febrile to 38.5 with heart rate in the 90s-100s and blood pressure hypotensive with systolic in the 80s. This was not fluid responsive with improvement into the 90s/50s without worsening respiratory status. Patient does appear clinically dry despite chronic bilateral lower extremity edema. His left lower leg has mild erythema, warmth and a 4 cm superficial ulceration of the distal pretibial region with serous weeping. There is no area of fluctuance. Interrogation of the patient's [facility] AICD was performed. Report was obtained and results were reviewed with maintenance technician. It does appear that the patient did have a shock that correlates with what the patient described this afternoon where he was having SVT/A. fib with RVR in the 180s but did have a transient episode of rate in the 200s which did meet the threshold for V. fib and defibrillation and so he received a shock. However review of the event per the maintenance technician does show narrow complex and was not V. fib or V. tach. Moreover this did not cardiovert following defibrillation, rather his rate gradually slowed spontaneously. EKG demonstrates atrial flutter/fibrillation with PVCs. No overt ST elevation. Chest x-ray was negative for acute cardiopulmonary process. WBC 11.8K, nonspecific. H/H 10/31.7 similar to prior range of values. Platelets within normal limits. ESR is mildly elevated at 43 with CRP mildly elevated at 1.4. Chemistry without metabolic acidosis. Creatinine 1.7 within prior range of values. Initial lactic acid elevated at 3.2 but did clear to 1.8, within normal limits. LFTs without significant abnormality. Troponin 0.016, within normal limits. BNP 5300 decreased from prior value of 7K. Procalcitonin is mildly elevated at 1.02 however in the setting of the patient CKD. UA without convincing evidence of infection. COVID-19 PCR was negative. Lyme screen was negative. Patient's blood pressure did remain stable with IV fluid hydration however still low with systolic blood pressure in the 90s. CT of the head, chest and abdomen pelvis were performed. Note is made of stable small pericardial effusion that is similar to prior. Additionally, left inguinal lymphadenopathy is noted which likely reflects the patient's known left lower extremity cellulitis. I performed a limited bedside cardiac US and small pericardial effusion is appreciated. No Tamponade. Patient was treated empirically for sepsis with Zosyn and daptomycin on arrival. Patient and his at the bedside ultimately were in agreement with plan for admission. Case was discussed with Dr. Brian, [facility] hospitalist, who will evaluate the patient for admission. Triage Nursing notes reviewed and agree them. Prior medical records reviewed Vital Signs: reviewed and remarkable for hypotension. Differential diagnosis: Sepsis, UTI, pneumonia, metabolic, electrolyte abnormalities, cardiac sources, intracerebral event, toxicologic, neurologic, as well as other pathologies. ER treatment provided: See below. Diagnostics interpreted by me: ECG: Atrial flutter with variable AV block, 97 bpm, LAFB, no overt ST elevation or depression. Cardiac Monitoring: An order for continuous cardiac monitoring was placed and demonstrated Atrial flutter with variable AV block, 97 bpm, PVCs Laboratory studies: See below Imaging studies: See below Consultation(s): Case was discussed with Dr. Brian, [facility] hospitalist, who will evaluate the patient for admission. HPI: The patient is a pleasant 80-year-old gentleman with a complicated past medical history of nonischemic cardiomyopathy status post AICD, Atrial fibrillation, DVT not on AC s/p IV filter who presents to the emergency department for evaluation of generalized weakness and feverishness came on suddenly this afternoon. Prior today the patient has been in his normal recent state of health. His reports that they both had routine cardiology appointments today and his evaluation was reassuring per her knowledge. It was only upon going home from their appointment that he suddenly began to feel chills and weak and after returning from the bathroom he suddenly was unable to hold himself up and she reports that she helped guide him to the ground where he sat down on the floor. They also report that during this period of acute weakness that he suddenly felt as though his ICD shocked him which he reports did occur years ago. She denies any sudden fall, head strike or loss of consciousness. Reports that he did receive his COVID-19 booster and influenza immunization 2 days ago. Otherwise they deny any known COVID-19 exposures. Of note the patient admits he has memory problems and his concurs. She reports recently he had expressed to her that he would not want CPR. However at this time he reports that he would want CPR if needed and so he continues to remain full code at this time. ROS: See above HPI for pertinent positives & negatives. A total of 10 systems reviewed and were otherwise negative. PAST MEDICAL HISTORY:See Below PAST SURGICAL HISTORY:See Below FAMILY HISTORY:See Below SOCIAL HISTORY:See Below HOME MEDICATIONS:See Below ALLERGIES:See Below VITALS:See Below PHYSICAL EXAMINATION: GENERAL: Awake, alert, acute on chronically ill-appearing, in no distress HENT: Normocephalic, atraumatic. Oropharynx with dry mucous membranes and otherwise unremarkable. EYES: Normal conjunctiva. Sclera non-icteric. NECK: Supple. No nuchal rigidity. FROM. No JVD. RESPIRATORY: Clear to auscultation. CARDIAC: Regular rate, irregular rhythm. Extremities warm and well perfused. Pulses equal. ABDOMEN: Soft, non-distended. No tenderness to palpation. No rebound or guarding. No masses. RECTAL: Deferred. MUSCULOSKELETAL: Chest examination reveals no tenderness. The back is symmetrical on inspection without obvious abnormality. There is no CVA tenderness to palpation. No joint edema. LOWER EXTREMITIES: 2+ bilateral lower extremity edema. His left lower leg has mild erythema, warmth and a 4 cm superficial ulceration of the distal pretibial region with serous weeping. There is no area of fluctuance. NEURO: No focal sensory or motor deficits noted. SKIN: No jaundice noted. Mild patch of erythema at the base of the posterior neck. No induration. No annular morphology. Nontender. ED COURSE: Limited Point of Care Cardiac Ultrasound performed by me: Indication: Hypotension. Findings: Limited echocardiography revealed small pericardial effusion. Afib. No Tamponade. Impression: Small pericardial effusion without tamponade. -- Critical Care: I have personally spent greater than 75 minutes of critical care time in the direct management of this patient. This includes bedside care, interpretation of diagnostic studies, and testing, discussion with consultants, patient, and family members, and other required patient management activities. This 75 minutes is in excess of all separately billable procedures. Dewayne Campbell MD Past Med/Surg History Medical History Anemia Anxiety Atrial fibrillation Balance disorder Basal cell carcinoma removed in office Bilateral lower extremity edema Cellulitis of left lower extremity CKD (chronic kidney disease) Deep vein thrombosis Diastolic heart failure DVT (deep venous thrombosis) S/p IVC filter Fall Fever Gout Hypertension Implantable cardioverter-defibrillator (ICD) in situ Kidney stones Lower extremity edema Nonischemic cardiomyopathy recent hospital admission. see cardiology consult note for this patient. On home oxygen therapy 02 at 2L n/c hs Osteoarthritis Sepsis Sleep apnea 02 at 2L n/c Spinal stenosis Ventricular fibrillation Weakness Surgical History [place] filter in place @ [facility] History of blepharoplasty bilt History of cardiac cath at least 20yrs ago, no stents History of kidney surgery 06/30 right kidney removed--"bloody mass that was removed" History of tooth extraction History of total right knee replacement (TKR) ICD (implantable cardioverter-defibrillator) in place 06/2011; [facility] device Family History Father Hypertension Stroke Brother Hypertension Other No family history of adverse response to anesthesia Denies family history of Ovarian cancer Prostate cancer Myocardial infarction Breast cancer Colorectal cancer Social History Smoking Status: Never smoker Second Hand Exposure: No; Hx Alcohol Use: Yes Alcohol type: other Alcohol Intake Frequency: Monthly or Less Hx Substance Use: No Preferred Language: Norwegian Communication Ability: Effective Visual Impairment: Limited Hearing Ability: Hard of Hearing General Worker Required: No Beliefs That Will Affect Care: Episcopal Episcopal Beliefs: NO BLOOD TRANSFUSIONS marital status: Current Living Situation: Spouse Current Living Situation Comment: [facility] current occupational status: retired How many Children do You have: 2 Feels Safe at Home: Yes Safety Concerns: Feels Safe At This Time Childhood Exposure to Second-Hand Smoke: No caffeine: Yes Dental Care, Regularly: Yes Physical Activity Frequency: Does not Exercise Seatbelt Use: always Sunscreen Use: Yes Assistive Devices: Cane, Glasses and Walker Allergies Allergies Allergy/AdvReac Type Severity Reaction Status Date / Time adhesive Allergy Intermediate REDDENED, Verified 05/02/21 19:11 ITCHY SKIN latex Allergy Unknown SKIN Verified 05/02/21 19:11 IRRITATION oxybutynin Allergy Unknown Unknown Verified 05/02/21 19:11 ciprofloxacin [From Cipro] AdvReac Mild pain in Verified 05/02/21 19:11 tendons ALL OPIOIDS Allergy Severe "SEVERE" Uncoded 05/02/21 19:11 DELIRIUM Home Meds Home Medications Medication Instructions Recorded Confirmed multivitamin with minerals 1 tab PO QAM 08/10/18 05/02/21 cholecalciferol (vitamin D3) 125 125 mcg PO HS 03/12/20 05/02/21 mcg (5,000 unit) capsule Beet Root Supplement 1 tab PO QAM 09/19/20 05/02/21 carvedilol 6.25 mg tablet (Coreg) 6.25 mg PO BID 04/06/21 05/02/21 melatonin 3 mg tablet 3 mg PO HS 04/06/21 05/02/21 escitalopram oxalate 5 mg tablet 5 mg PO QAM 05/02/21 05/02/21 (Lexapro) Previous Rx's Medication Instructions Recorded aspirin 81 mg tablet,delayed 81 mg PO QAM #90 tab 07/03/19 release bumetanide 1 mg tablet 1 mg PO BID #30 tab 04/15/21 Results & Data (ED) Vital Signs Vital Signs - 24 hr 05/02/21 16:31 05/02/21 17:39 05/02/21 17:44 Temperature 38.5 C H 38.5 C H Temperature Source Oral Oral Pulse Rate 92 H Pulse Rate [Right Finger] 92 H Pulse Rate from SpO2 Sensor Respiratory Rate 32 H 32 H Respiratory Effort / Characteristics Respiratory Depth Normal Blood Pressure 115/67 Blood Pressure [Left Arm] 115/67 Blood Pressure Mean 83 Blood Pressure Mean [Left Arm] 83 Pulse Oximetry 89 L 89 L 89 L Oxygen Delivery Method Room Air Room Air Room Air Oxygen Flow Rate Sepsis Recent Fever Within 48 Hours Yes Sepsis New/Unexplained Change in Mental Status No Sepsis Action Taken by Nursing Physician Notified 05/02/21 17:45 05/02/21 17:50 05/02/21 18:00 Temperature Temperature Source Pulse Rate 88 98 H 93 H Pulse Rate [Right Finger] Pulse Rate from SpO2 Sensor 93 H 91 H 86 Respiratory Rate 31 H 31 H 31 H Respiratory Effort / Characteristics Respiratory Depth Blood Pressure 90/55 L Blood Pressure [Left Arm] Blood Pressure Mean 66 Blood Pressure Mean [Left Arm] Pulse Oximetry 93 93 93 Oxygen Delivery Method Nasal Cannula Nasal Cannula Nasal Cannula Oxygen Flow Rate 2 2 2 Sepsis Recent Fever Within 48 Hours Sepsis New/Unexplained Change in Mental Status Sepsis Action Taken by Nursing 05/02/21 18:09 05/02/21 18:10 05/02/21 18:20 Temperature Temperature Source Pulse Rate 92 H 88 Pulse Rate [Right Finger] Pulse Rate from SpO2 Sensor 87 89 Respiratory Rate 29 H 31 H Respiratory Effort / Characteristics Non-Labored Respiratory Depth Blood Pressure Blood Pressure [Left Arm] Blood Pressure Mean Blood Pressure Mean [Left Arm] Pulse Oximetry 93 94 Oxygen Delivery Method Nasal Cannula Oxygen Flow Rate 2 2 Sepsis Recent Fever Within 48 Hours Sepsis New/Unexplained Change in Mental Status Sepsis Action Taken by Nursing 05/02/21 18:30 05/02/21 18:39 05/02/21 18:40 Temperature Temperature Source Pulse Rate 97 H 92 H Pulse Rate [Right Finger] Pulse Rate from SpO2 Sensor 91 H 93 H Respiratory Rate 23 24 Respiratory Effort / Characteristics Non-Labored Respiratory Depth Blood Pressure 93/53 L Blood Pressure [Left Arm] Blood Pressure Mean 66 Blood Pressure Mean [Left Arm] Pulse Oximetry 94 95 Oxygen Delivery Method Oxygen Flow Rate 2 2 Sepsis Recent Fever Within 48 Hours Sepsis New/Unexplained Change in Mental Status Sepsis Action Taken by Nursing 05/02/21 18:50 05/02/21 19:00 05/02/21 19:09 Temperature Temperature Source Pulse Rate 83 82 Pulse Rate [Right Finger] Pulse Rate from SpO2 Sensor 84 85 Respiratory Rate 22 28 H Respiratory Effort / Characteristics Non-Labored Respiratory Depth Blood Pressure 93/61 L Blood Pressure [Left Arm] Blood Pressure Mean 71 Blood Pressure Mean [Left Arm] Pulse Oximetry 95 96 Oxygen Delivery Method Oxygen Flow Rate 2 2 Sepsis Recent Fever Within 48 Hours Sepsis New/Unexplained Change in Mental Status Sepsis Action Taken by Nursing 05/02/21 19:10 05/02/21 19:27 05/02/21 19:28 Temperature Temperature Source Pulse Rate 89 Pulse Rate [Right Finger] Pulse Rate from SpO2 Sensor 80 Respiratory Rate 40 H Respiratory Effort / Characteristics Non-Labored Non-Labored Respiratory Depth Blood Pressure Blood Pressure [Left Arm] Blood Pressure Mean Blood Pressure Mean [Left Arm] Pulse Oximetry 98 Oxygen Delivery Method Oxygen Flow Rate 2 Sepsis Recent Fever Within 48 Hours Sepsis New/Unexplained Change in Mental Status Sepsis Action Taken by Nursing 05/02/21 19:34 05/02/21 19:40 05/02/21 19:50 Temperature Temperature Source Pulse Rate 89 88 85 Pulse Rate [Right Finger] Pulse Rate from SpO2 Sensor 81 82 88 Respiratory Rate 30 H 32 H 28 H Respiratory Effort / Characteristics Respiratory Depth Blood Pressure Blood Pressure [Left Arm] Blood Pressure Mean Blood Pressure Mean [Left Arm] Pulse Oximetry 95 97 97 Oxygen Delivery Method Oxygen Flow Rate Sepsis Recent Fever Within 48 Hours Sepsis New/Unexplained Change in Mental Status Sepsis Action Taken by Nursing 05/02/21 20:00 05/02/21 20:10 05/02/21 20:20 Temperature Temperature Source Pulse Rate 99 H 83 82 Pulse Rate [Right Finger] Pulse Rate from SpO2 Sensor 83 89 91 H Respiratory Rate 21 30 H 29 H Respiratory Effort / Characteristics Respiratory Depth Blood Pressure 104/66 Blood Pressure [Left Arm] Blood Pressure Mean 78 Blood Pressure Mean [Left Arm] Pulse Oximetry 97 95 96 Oxygen Delivery Method Oxygen Flow Rate Sepsis Recent Fever Within 48 Hours Sepsis New/Unexplained Change in Mental Status Sepsis Action Taken by Nursing 05/02/21 20:30 05/02/21 20:40 05/02/21 20:50 Temperature Temperature Source Pulse Rate 91 H 83 80 Pulse Rate [Right Finger] Pulse Rate from SpO2 Sensor 92 H 88 80 Respiratory Rate 28 H 22 36 H Respiratory Effort / Characteristics Respiratory Depth Blood Pressure 91/60 L Blood Pressure [Left Arm] Blood Pressure Mean 70 Blood Pressure Mean [Left Arm] Pulse Oximetry 96 96 97 Oxygen Delivery Method Oxygen Flow Rate Sepsis Recent Fever Within 48 Hours Sepsis New/Unexplained Change in Mental Status Sepsis Action Taken by Nursing 05/02/21 20:57 05/02/21 21:00 05/02/21 21:10 Temperature 37.3 C Temperature Source Oral Pulse Rate 81 85 Pulse Rate [Right Finger] Pulse Rate from SpO2 Sensor 90 Respiratory Rate 31 H 24 Respiratory Effort / Characteristics Respiratory Depth Blood Pressure 91/59 L Blood Pressure [Left Arm] Blood Pressure Mean 69 Blood Pressure Mean [Left Arm] Pulse Oximetry 89 L Oxygen Delivery Method Oxygen Flow Rate Sepsis Recent Fever Within 48 Hours Sepsis New/Unexplained Change in Mental Status Sepsis Action Taken by Nursing Laboratory Data Attestation: I reviewed the patient's lab results. Result diagrams: 05/02/21 17:35 05/02/21 17:35 Lab Results 05/02/21 05/02/21 05/02/21 Range/Units 17:35 17:35 17:35 WBC 11.86 H (4.8-10.8) K/uL RBC 3.52 L (4.7-6.1) M/uL Hgb 10.0 L (14.0-18.0) g/dL Hct 31.7 L (42-52) % MCV 90.1 (80-100) fL MCH 28.4 (25-34) pg MCHC 31.5 L (32-36) g/dL RDW Std Deviation 46.7 H (36.4-46.3) fL RDW Coeff of Joshua 14.2 (11.5-14.5) % Plt Count 141 (130-400) K/uL MPV 9.8 (7.4-10.4) fL Immature Gran % (Auto) 0.3 % Neut % (Auto) 92.7 % Lymph % (Auto) 1.9 % Weston % (Auto) 5.0 % Eos % (Auto) 0.1 % Baso % (Auto) 0.0 % Neut # (Auto) 11.00 H (1.4-6.5) K/uL Lymph # (Auto) 0.23 L (1.2-3.4) K/uL Weston # (Auto) 0.59 (0.11-0.59) K/uL Eos # (Auto) 0.01 (0-0.5) K/uL Baso # (Auto) 0.00 (0-0.2) K/uL Immature Gran # (Auto) 0.03 H (0.00-0.02) K/uL ESR (0-20) mm/hr PT 11.7 (9.0-12.0) Seconds INR 1.2 H (0.9-1.1) APTT 24.5 (21.0-31.0) Seconds PTT Ratio 0.9 Sodium 136 (136-145) mmol/L Potassium 4.6 (3.5-5.1) mmol/L Chloride 105 (98-107) mmol/L Carbon Dioxide 21 (21-32) mmol/L Anion Gap 10.0 (3-11) BUN 45 H (7-18) mg/dl Creatinine 1.74 H (0.6-1.4) mg/dl Est Cr Clr Drug Dosing Not Reportable Est GFR ( Amer) 41.7 ml/min Est GFR (Non-Af Amer) 36.0 ml/min BUN/Creatinine Ratio 25.7 H (10-20) Glucose 118 H (70-99) mg/dl Lactate (0.4-2.0) mmol/L Calcium 10.5 H (8.5-10.1) mg/dl Phosphorus 2.0 L (2.5-4.9) mg/dl Magnesium 2.1 (1.8-2.4) mg/dl Total Bilirubin 1.1 H (0.2-1) mg/dl Direct Bilirubin 0.6 H (0-0.2) mg/dl AST 21 (15-37) U/L ALT 38 (12-78) U/L Alkaline Phosphatase 125 H (45-117) U/L Troponin I 0.016 (0-0.045) ng/ml C-Reactive Protein 1.40 H (0-0.29) mg/dl NT-Pro-B Natriuret Pep 5349 H (0-1800) pg/ml Total Protein 6.8 (6.4-8.2) gm/dl Albumin 2.7 L (3.4-5.0) gm/dl Globulin 4.1 H (2.5-4.0) gm/dl Albumin/Globulin Ratio 0.7 L (0.9-2) Procalcitonin (0-0.5) ng/ml TSH 3.140 (0.300-4.500) uIu/ml Lyme Disease IgG Ab (Negative) Lyme Disease IgM Ab (Negative) COVID-19 Eval Order SARS-CoV-2 (PCR) (Negative) 05/02/21 05/02/21 05/02/21 Range/Units 17:35 17:35 17:35 WBC (4.8-10.8) K/uL RBC (4.7-6.1) M/uL Hgb (14.0-18.0) g/dL Hct (42-52) % MCV (80-100) fL MCH (25-34) pg MCHC (32-36) g/dL RDW Std Deviation (36.4-46.3) fL RDW Coeff of Joshua (11.5-14.5) % Plt Count (130-400) K/uL MPV (7.4-10.4) fL Immature Gran % (Auto) % Neut % (Auto) % Lymph % (Auto) % Weston % (Auto) % Eos % (Auto) % Baso % (Auto) % Neut # (Auto) (1.4-6.5) K/uL Lymph # (Auto) (1.2-3.4) K/uL Weston # (Auto) (0.11-0.59) K/uL Eos # (Auto) (0-0.5) K/uL Baso # (Auto) (0-0.2) K/uL Immature Gran # (Auto) (0.00-0.02) K/uL ESR 43 H (0-20) mm/hr PT (9.0-12.0) Seconds INR (0.9-1.1) APTT (21.0-31.0) Seconds PTT Ratio Sodium (136-145) mmol/L Potassium (3.5-5.1) mmol/L Chloride (98-107) mmol/L Carbon Dioxide (21-32) mmol/L Anion Gap (3-11) BUN (7-18) mg/dl Creatinine (0.6-1.4) mg/dl Est Cr Clr Drug Dosing Est GFR ( Amer) ml/min Est GFR (Non-Af Amer) ml/min BUN/Creatinine Ratio (10-20) Glucose (70-99) mg/dl Lactate 3.2 H* (0.4-2.0) mmol/L Calcium (8.5-10.1) mg/dl Phosphorus (2.5-4.9) mg/dl Magnesium (1.8-2.4) mg/dl Total Bilirubin (0.2-1) mg/dl Direct Bilirubin (0-0.2) mg/dl AST (15-37) U/L ALT (12-78) U/L Alkaline Phosphatase (45-117) U/L Troponin I (0-0.045) ng/ml C-Reactive Protein (0-0.29) mg/dl NT-Pro-B Natriuret Pep (0-1800) pg/ml Total Protein (6.4-8.2) gm/dl Albumin (3.4-5.0) gm/dl Globulin (2.5-4.0) gm/dl Albumin/Globulin Ratio (0.9-2) Procalcitonin 1.02 H (0-0.5) ng/ml TSH (0.300-4.500) uIu/ml Lyme Disease IgG Ab Negative (Negative) Lyme Disease IgM Ab Negative (Negative) COVID-19 Eval Order SARS-CoV-2 (PCR) (Negative) 05/02/21 05/02/21 05/02/21 Range/Units 18:06 18:06 19:55 WBC (4.8-10.8) K/uL RBC (4.7-6.1) M/uL Hgb (14.0-18.0) g/dL Hct (42-52) % MCV (80-100) fL MCH (25-34) pg MCHC (32-36) g/dL RDW Std Deviation (36.4-46.3) fL RDW Coeff of Joshua (11.5-14.5) % Plt Count (130-400) K/uL MPV (7.4-10.4) fL Immature Gran % (Auto) % Neut % (Auto) % Lymph % (Auto) % Weston % (Auto) % Eos % (Auto) % Baso % (Auto) % Neut # (Auto) (1.4-6.5) K/uL Lymph # (Auto) (1.2-3.4) K/uL Weston # (Auto) (0.11-0.59) K/uL Eos # (Auto) (0-0.5) K/uL Baso # (Auto) (0-0.2) K/uL Immature Gran # (Auto) (0.00-0.02) K/uL ESR (0-20) mm/hr PT (9.0-12.0) Seconds INR (0.9-1.1) APTT (21.0-31.0) Seconds PTT Ratio Sodium (136-145) mmol/L Potassium (3.5-5.1) mmol/L Chloride (98-107) mmol/L Carbon Dioxide (21-32) mmol/L Anion Gap (3-11) BUN (7-18) mg/dl Creatinine (0.6-1.4) mg/dl Est Cr Clr Drug Dosing Est GFR ( Amer) ml/min Est GFR (Non-Af Amer) ml/min BUN/Creatinine Ratio (10-20) Glucose (70-99) mg/dl Lactate 1.8 (0.4-2.0) mmol/L Calcium (8.5-10.1) mg/dl Phosphorus (2.5-4.9) mg/dl Magnesium (1.8-2.4) mg/dl Total Bilirubin (0.2-1) mg/dl Direct Bilirubin (0-0.2) mg/dl AST (15-37) U/L ALT (12-78) U/L Alkaline Phosphatase (45-117) U/L Troponin I (0-0.045) ng/ml C-Reactive Protein (0-0.29) mg/dl NT-Pro-B Natriuret Pep (0-1800) pg/ml Total Protein (6.4-8.2) gm/dl Albumin (3.4-5.0) gm/dl Globulin (2.5-4.0) gm/dl Albumin/Globulin Ratio (0.9-2) Procalcitonin (0-0.5) ng/ml TSH (0.300-4.500) uIu/ml Lyme Disease IgG Ab (Negative) Lyme Disease IgM Ab (Negative) COVID-19 Eval Order Covid19 at [facility] SARS-CoV-2 (PCR) NEGATIVE (Negative) Administered Medications Acetaminophen (Acetaminophen 325 Mg Tab) 650 mg PO Q4H PRN PRN Reason: pain/fever Stop: 06/01/21 22:24 Last Admin: 05/03/21 00:00 Dose: 650 mg Documented by: [id number] Piperacillin Sod/Tazobactam (Sod 3.375 gm/ Dextrose) 115 mls @ 28.75 mls/hr IV Q8H [facility]; Protocol Stop: 05/10/21 00:59 Last Infusion: 05/03/21 05:06 Dose: 0 mls/hr Documented by: [id number] Admin: 05/03/21 01:04 Dose: 28.8 mls/hr Documented by: [id number] Lactated Ringer's (Lr) 1,000 mls @ 80 mls/hr IV .[id number] [facility] Stop: 05/03/21 13:14 Last Admin: 05/03/21 01:05 Dose: 80 mls/hr Documented by: [id number] Lidocaine (Lidocaine 5% 1 Patch) 1 patch TD QAM [facility] Stop: 06/01/21 20:14 Last Admin: 05/02/21 20:18 Dose: 1 patch Documented by: [id number] Miscellaneous (Remove Lidoderm Patch) 1 ea N/A DAILY@2100 [facility] Stop: 06/01/21 20:59 Last Admin: 05/02/21 22:29 Dose: 1 ea Documented by: [id number] Discontinued Medications Enoxaparin Sodium (Enoxaparin Inj 40 Mg/0.4 Ml Syr) 40 mg SQ Q24H [facility] Stop: 06/01/21 22:24 Last Admin: 05/02/21 23:28 Dose: Not Given Documented by: [id number] Piperacillin Sod/Tazobactam Sod (Zosyn) 4.5 gm in 120 mls @ 240 mls/hr IV NOW ONE Stop: 05/02/21 18:15 Last Infusion: 05/02/21 18:40 Dose: 0 mls/hr Documented by: [id number] Infusion: 05/02/21 18:25 Dose: 0 mls/hr Documented by: [id number] Admin: 05/02/21 18:04 Dose: 240 mls/hr Documented by: [id number] Acetaminophen (Ofirmev) 1,000 mg in 100 mls @ 400 mls/hr IV NOW STA Stop: 05/02/21 18:03 Last Admin: 05/02/21 17:57 Dose: Not Given Documented by: [id number] Sodium Chloride (Nss) 500 mls @ 999 mls/hr IV .Q31M ONE Stop: 05/02/21 18:41 Last Infusion: 05/02/21 19:22 Dose: 0 mls/hr Documented by: [id number] Infusion: 05/02/21 18:40 Dose: 0 mls/hr Documented by: [id number] Admin: 05/02/21 18:25 Dose: 999 mls/hr Documented by: [id number] Daptomycin 630 mg/ Syringe 12.6 mls @ 6.3 mls/min IV NOW ONE; Protocol Stop: 05/02/21 18:14 Last Admin: 05/02/21 19:45 Dose: 6.3 mls/min Documented by: [id number] Sodium Chloride (Nss) 500 mls @ 999 mls/hr IV .Q31M ONE Stop: 05/02/21 19:07 Last Infusion: 05/02/21 19:23 Dose: 0 mls/hr Documented by: [id number] Infusion: 05/02/21 19:22 Dose: 0 mls/hr Documented by: [id number] Admin: 05/02/21 18:40 Dose: 999 mls/hr Documented by: [id number] Sodium Chloride (Nss) 500 mls @ 999 mls/hr IV .Q31M ONE Stop: 05/02/21 21:01 Last Infusion: 05/02/21 21:56 Dose: 0 mls/hr Documented by: [id number] Admin: 05/02/21 21:10 Dose: 999 mls/hr Documented by: [id number] Magnesium Sulfate/Dextrose (Magnesium Sulfate / D5w) 1 gm in 100 mls @ 50 mls/hr IV Q2H STA Stop: 05/02/21 23:17 Last Infusion: 05/03/21 00:37 Dose: 0 mls/hr Documented by: [id number] Admin: 05/02/21 22:29 Dose: 50 mls/hr Documented by: [id number] Sodium Phosphate 9 mmol/ (Sodium Chloride) 253 mls @ 88 mls/hr IV ONE ONE Stop: 05/03/21 00:37 Last Infusion: 05/03/21 02:06 Dose: 0 mls/hr Documented by: [id number] Admin: 05/02/21 22:29 Dose: 88 mls/hr Documented by: [id number] Magnesium Sulfate/Dextrose (Magnesium Sulfate / D5w) 1 gm in 100 mls @ 50 mls/hr IV ONE ONE Stop: 05/03/21 02:44 Last Infusion: 05/03/21 02:40 Dose: 0 mls/hr Documented by: [id number] Admin: 05/03/21 00:39 Dose: 50 mls/hr Documented by: [id number] Ibuprofen (Ibuprofen 200 Mg Tab) 400 mg PO NOW STA Stop: 05/03/21 03:10 Last Admin: 05/03/21 04:04 Dose: 400 mg Documented by: [id number] Miscellaneous (Patient's Height And/Or Weight Needed) 1 ea N/A Q15M DREAD Stop: 06/01/21 22:44 Last Admin: 05/03/21 00:04 Dose: Not Given Documented by: [id number] Admin: 05/03/21 00:03 Dose: Not Given Documented by: [id number] Admin: 05/03/21 00:03 Dose: Not Given Documented by: [id number] Admin: 05/03/21 00:03 Dose: Not Given Documented by: [id number] Admin: 05/02/21 22:56 Dose: 1 ea Documented by: [id number] Imaging Data Radiologist's Impression: Chest X-Ray 05/02/21 17:39 XR chest 1V portable CLINICAL HISTORY: SEPSIS COMPARISON STUDY: Chest radiograph and chest CT November 17, 2020. FINDINGS: [Pacer/AICD remains in place. Cardiomegaly is unchanged. There is no evidence for pulmonary edema. No consolidation is identified. The appearance of the chest is unchanged. No pneumothorax or pleural effusion is identified. IMPRESSION: No acute cardiopulmonary findings. No change in appearance of the chest. Cardiomegaly. ACT 112: Negative or not required by law. Electronically signed by: Mendoza Rodarte M.D. 05/02/2021 6:02 PM Abdomen/Pelvis CT 05/02/21 18:37 CT OF THE ABDOMEN AND PELVIS WITHOUT CONTRAST CLINICAL HISTORY: sepsis, confusion COMPARISON STUDY: CT of the abdomen and pelvis August 20, 2012. Renal ultrasound September 11, 2015. TECHNIQUE: Axial images of the abdomen and pelvis were obtained without IV contrast. Images were reviewed in the axial, sagittal, and coronal planes. Automated exposure control was utilized for the study. A dose lowering technique was utilized adhering to the principles of ALARA. FINDINGS: Please note that the chest CT will be reported separately. Marked cardiomegaly and a small pericardial effusion are better depicted on that exam. This exam is compromised given lack of IV contrast. Liver surface is lobulated. A 4.4 cm caudate lobe lesion was shown to represent a hemangioma on prior contrast enhanced CT. No biliary or pancreatic ductal dilatation is noted. Sensitivity for detection of additional hepatic lesions is diminished on this examination. There is mild splenomegaly. The adrenal glands and pancreas are unremarkable. There is a gallstone within the gallbladder. There is no pericholecystic infiltration. IVC filters in place. There are postoperative findings within the upper pole the left kidney. Multiple bilateral renal lesions are suboptimally assessed on this unenhanced examination. There is no evidence for a bowel obstruction. Colonic diverticulosis is noted without evidence for acute diverticulitis. There are multiple mildly enlarged left inguinal lymph nodes. Index node measures 1.6 cm in short axis diameter. No acute fracture or suspicious lesion is identified within the visualized skeletal structures. IMPRESSION: 1. No bowel obstruction. Colonic diverticulosis without evidence for acute dive rticulitis. 2. Exam compromised given artifact and lack of IV contrast. 3. Several mildly enlarged left inguinal lymph nodes. These are indeterminate. These may be reactive however metastatic or lymphoproliferative process is within the differential. Short-term follow-up CT is recommended to ensure stability/resolution. 4. Cholelithiasis. No pericholecystic infiltration. 5. Multiple bilateral renal lesions. Although suboptimally assessed on this unenhanced exam, the probably reflect a combination of simple and hyperdense cysts. 6. Possible cirrhosis. Trace perihepatic ascites. Mild splenomegaly. ACT 112: Negative or not required by law. Electronically signed by: Mendoza Rodarte M.D. 05/02/2021 8:[address] 05/02/21 18:37 CT OF THE CHEST WITHOUT IV CONTRAST CLINICAL HISTORY: sepsis, confusion COMPARISON STUDY: Chest CT November 17, 2020. Chest radiograph performed earlier today. CT DOSE: 2949.27 mGy.cm TECHNIQUE: Axial images of the chest were obtained without IV contrast. Images were reviewed in the axial, sagittal, and coronal planes. IV contrast was not administered for this examination. Automated exposure control was utilized for the study. A dose lowering technique was utilized adhering to the principles of ALARA. FINDINGS: Left subclavian pacer/AICD remains in place. Marked cardiomegaly is unchanged. A small pericardial effusion is also unchanged since CT of November 17, 2020. No enlarged thoracic lymph nodes are present. Central airways are patent. There is no consolidation to suggest pneumonia. Mild subpleural opacities represent atelectasis. There is no pneumothorax or pleural effusion. Abdomen and pelvis will be reported separately. No acute fracture or suspicious lesion is identified within the visualized bony thorax. IMPRESSION: 1. No acute process within the chest on unenhanced exam. 2. Stable marked cardiomegaly and a small pericardial effusion. 3. Subpleural opacities consistent with atelectasis. ACT 112: Negative or not required by law. Electronically signed by: Mendoza Rodarte M.D. 05/02/2021 7:[address] 05/02/21 18:37 CT OF THE HEAD WITHOUT CONTRAST CLINICAL HISTORY: sepsis, confusion COMPARISON STUDY: Head CT March 18, 2020. TECHNIQUE: Helical axial images of the head were obtained without IV contrast. Automated exposure control was utilized for the study. A dose lowering technique was utilized adhering to the principles of ALARA. FINDINGS: This study is mildly compromised by motion artifact. No acute intracr anial hemorrhage, midline shift or mass effect is present. Ventricular system is stable. Basal cisterns are patent. There are no extra axial collections. White matter hypodensity suggests small vessel disease. A right parieto-occipital infarct is unchanged. There are no findings to suggest acute dural sinus thrombosis or acute territorial infarct. There is mild polypoid sinus mucosal thickening. IMPRESSION: 1. No acute intracranial findings. Exam mildly compromised by motion artifact. 2. No significant change in appearance of the brain. 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 ACT 112: Negative or not required by law. Electronically signed by: Mendoza Rodarte M.D. 05/02/2021 7:45 PM Discharge Plan Visit Data Chief Complaint: Weakness Stated Complaint: FALL, CHEST PAIN ED Provider: Dewayne Campbell Discharge Problem: AICD discharge, Chronic right-sided CHF (congestive heart failure), Sepsis, Atrial fibrillation, Cellulitis of left lower extremity, CKD (chronic kidney dis ease) Patient Disposition: Admitted As Inpatient Discharge Instructions Interventions: ED Discharge Assessment Last Done: 05/02/21 22:23 Discharge Problem: Sepsis Qualifiers: Sepsis type: sepsis due to unspecified organism Sepsis acute organ dysfunction status: unspecified Qualified Code(s): A41.9 - Sepsis, unspecified organism Atrial fibrillation Qualifiers: Atrial fibrillation type: longstanding persistent Qualified Code(s): I48.11 - Longstanding persistent atrial fibrillation CKD (chronic kidney disease) Qualifiers: Chronic kidney disease stage: unspecified stage Qualified Code(s): N18.9 - Chronic kidney disease, unspecified
[2021-05-02] MEDS ORDERED: PIPERACILL/TAZOBAC CONSULT ACTIVE PRN (17:46)
[2021-05-02] MEDS ORDERED: PIPERACILLIN/TAZOBACTAM 4.5 GM/120 ML BAG IV ONE (17:46)
[2021-05-02] MEDS ORDERED: ACETAMINOPHEN 1,000 MG/100 ML VIAL IV STA (17:49)
[2021-05-02 17:58] LABS: Eosinophils # (auto) 0.01 K/uL (0-0.5); Eosinophils % (auto) 0.1 %; Hematocrit (blood only) 31.7 % (42-52); Immature Granulocytes # (auto) 0.03 K/uL (0.00-0.02); Immature Granulocytes % (auto) 0.3 %; Lymphocytes # (auto) 0.23 K/uL (1.2-3.4); Lymphocytes % (auto) 1.9 %; Mean Corpuscular Hemoglobin 28.4 pg (25-34); Mean Corpuscular Hgb Conc 31.5 g/dL (32-36); Mean Corpuscular Volume 90.1 fL (80-100); Mean Platelet Volume 9.8 fL (7.4-10.4); Monocytes # (auto) 0.59 K/uL (0.11-0.59); Neutrophils % (auto) 92.7 %; Platelet Count 141 K/uL (130-400); RDW Coefficient of Variation 14.2 % (11.5-14.5); RDW Standard Deviation 46.7 fL (36.4-46.3); Red Blood Count 3.52 M/uL (4.7-6.1); White Blood Count 11.86 K/uL (4.8-10.8)
--- NOTE | 2021-05-02 18:04 | XRay Report ---
XR chest 1V portable CLINICAL HISTORY: SEPSIS COMPARISON STUDY: Chest radiograph and chest CT November 17, 2020. FINDINGS: [Pacer/AICD remains in place. Cardiomegaly is unchanged. There is no evidence for pulmonary edema. No consolidation is identified. The appearance of the chest is unchanged. No pneumothorax or pleural effusion is identified. IMPRESSION: No acute cardiopulmonary findings. No change in appearance of the chest. Cardiomegaly. ACT 112: Negative or not required by law. Electronically signed by: Mendoza Rodarte M.D. 05/02/2021 6:02 PM
[2021-05-02 18:10] LABS: INR 1.2 (0.9-1.1); Partial Thromboplastin Ratio 0.9; Partial Thromboplastin Time 24.5 Seconds (21.0-31.0); Prothrombin Time 11.7 Seconds (9.0-12.0)
[2021-05-02] MEDS ORDERED: SODIUM CHLORIDE 0.9% 500 ML IV ONE ×3 (18:11→20:31)
[2021-05-02] MEDS ORDERED: DAPTOMYCIN IV ONE (18:13)
[2021-05-02 18:20] LABS: Alanine Aminotransferase 38 U/L (12-78); Albumin Level 2.7 gm/dl (3.4-5.0); Aspartate Aminotransferase 21 U/L (15-37); BUN Creatinine Ratio 25.7 (10-20); Bilirubin Direct 0.6 mg/dl (0-0.2); Blood Urea Nitrogen 45 mg/dl (7-18); Calcium 10.5 mg/dl (8.5-10.1); Carbon Dioxide 21 mmol/L (21-32); Chloride 105 mmol/L (98-107); Est GFR (African American) 41.7 ml/min; Glucose 118 mg/dl (70-99); Magnesium 2.1 mg/dl (1.8-2.4); Potassium 4.6 mmol/L (3.5-5.1); Sodium 136 mmol/L (136-145)
[2021-05-02 18:28] LABS: Albumin Globulin Ratio 0.7 (0.9-2); Alkaline Phosphatase 125 U/L (45-117); Bilirubin,Total 1.1 mg/dl (0.2-1); Globulin 4.1 gm/dl (2.5-4.0); NT Pro B Type Natriuretic Pept 5349 pg/ml (0-1800); Total Protein 6.8 gm/dl (6.4-8.2); Troponin I 0.016 ng/ml (0-0.045)
[2021-05-02 18:47] LABS: Procalcitonin 1.02 ng/ml (0-0.5)
[2021-05-02 18:53] LABS: Lyme Ab IgG w/WB Rflx Negative (Negative); Lyme Ab IgM w/WB Rflx Negative (Negative)
--- NOTE | 2021-05-02 19:46 | CT Scan Report ---
CT OF THE HEAD WITHOUT CONTRAST CLINICAL HISTORY: sepsis, confusion COMPARISON STUDY: Head CT March 18, 2020. TECHNIQUE: Helical axial images of the head were obtained without IV contrast. Automated exposure con trol was utilized for the study. A dose lowering technique was utilized adhering to the principles o f ALARA. FINDINGS: This study is mildly compromised by motion artifact. No acute intracranial hemorrhage, midl ine shift or mass effect is present. Ventricular system is stable. Basal cisterns are patent. There a re no extra axial collections. White matter hypodensity suggests small vessel disease. A right pariet o-occipital infarct is unchanged. There are no findings to suggest acute dural sinus thrombosis or ac jade territorial infarct. There is mild polypoid sinus mucosal thickening. IMPRESSION: 1. No acute intracranial findings. Exam mildly compromised by motion artifact. 2. No significant change in appearance of the brain. 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 ACT 112: Negative or not required by law. Electronically signed by: Mendoza Rodarte M.D. 05/02/2021 7:45 PM
--- NOTE | 2021-05-02 19:52 | CT Scan Report ---
CT OF THE CHEST WITHOUT IV CONTRAST CLINICAL HISTORY: sepsis, confusion COMPARISON STUDY: Chest CT November 17, 2020. Chest radiograph performed earlier today. CT DOSE: 2949.27 mGy.cm TECHNIQUE: Axial images of the chest were obtained without IV contrast. Images were reviewed in the axial, sagittal, and coronal planes. IV contrast was not administered for this examination. Automat ed exposure control was utilized for the study. A dose lowering technique was utilized adhering to t he principles of ALARA. FINDINGS: Left subclavian pacer/AICD remains in place. Marked cardiomegaly is unchanged. A small per icardial effusion is also unchanged since CT of November 17, 2020. No enlarged thoracic lymph nodes are pr esent. Central airways are patent. There is no consolidation to suggest pneumonia. Mild subpleural op acities represent atelectasis. There is no pneumothorax or pleural effusion. Abdomen and pelvis will be reported separately. No acute fracture or suspicious lesion is identified within the visualized [place] thorax. IMPRESSION: 1. No acute process within the chest on unenhanced exam. 2. Stable marked cardiomegaly and a small pericardial effusion. 3. Subpleural opacities consistent with atelectasis. ACT 112: Negative or not required by law. Electronically signed by: Mendoza Rodarte M.D. 05/02/2021 7:50 PM
--- NOTE | 2021-05-02 20:03 | CT Scan Report ---
CT OF THE ABDOMEN AND PELVIS WITHOUT CONTRAST CLINICAL HISTORY: sepsis, confusion COMPARISON STUDY: CT of the abdomen and pelvis August 20, 2012. Renal ultrasound September 11, 2015. TECHNIQUE: Axial images of the abdomen and pelvis were obtained without IV contrast. Images were revi ewed in the axial, sagittal, and coronal planes. Automated exposure control was utilized for the shiva dy. A dose lowering technique was utilized adhering to the principles of ALARA. FINDINGS: Please note that the chest CT will be reported separately. Marked cardiomegaly and a small pericardial effusion are better depicted on that exam. This exam is compromised given lack of IV cont rast. Liver surface is lobulated. A 4.4 cm caudate lobe lesion was shown to represent a hemangioma on prior contrast enhanced CT. No biliary or pancreatic ductal dilatation is noted. Sensitivity for det ection of additional hepatic lesions is diminished on this examination. There is mild splenomegaly. T he adrenal glands and pancreas are unremarkable. There is a gallstone within the gallbladder. There i s no pericholecystic infiltration. IVC filters in place. There are postoperative findings within the upper pole the left kidney. Multiple bilateral renal lesions are suboptimally assessed on this unenha nced examination. There is no evidence for a bowel obstruction. Colonic diverticulosis is noted witho ut evidence for acute diverticulitis. There are multiple mildly enlarged left inguinal lymph nodes. I ndex node measures 1.6 cm in short axis diameter. No acute fracture or suspicious lesion is identifie d within the visualized skeletal structures. IMPRESSION: 1. No bowel obstruction. Colonic diverticulosis without evidence for acute diverticulitis. 2. Exam compromised given artifact and lack of IV contrast. 3. Several mildly enlarged left inguinal lymph nodes. These are indeterminate. These may be reactive however metastatic or lymphoproliferative process is within the differential. Short-term follow-up CT is recommended to ensure stability/resolution. 4. Cholelithiasis. No pericholecystic infiltration. 5. Multiple bilateral renal lesions. Although suboptimally assessed on this unenhanced exam, the prob ably reflect a combination of simple and hyperdense cysts. 6. Possible cirrhosis. Trace perihepatic ascites. Mild splenomegaly. ACT 112: Negative or not required by law. Electronically signed by: Mendoza Rodarte M.D. 05/02/2021 8:01 PM
[2021-05-02 20:10] LABS: Appearance Urine Clear (Clear); Bacteria Urine Automated Negative (Negative); Bilirubin Urine Negative (Negative); Blood Urine Negative (Negative); Color Urine Yellow; Epithelial Cell Urine Auto >30 /lpf (0-5); Glucose Urine UA Negative (Negative); Ketones Urine Negative (Negative); Leukocyte Esterase Urine Negative (Negative); Nitrite Urine Negative (Negative); Protein Urine 1+ (Negative); Specific Gravity Urine 1.017 (1.000-1.030); Urobilinogen Urine Negative (Negative)
[2021-05-02] MEDS: LIDOCAINE 5% 1 PATCH TD SCH (20:18)
[2021-05-02] MEDS ORDERED: SODIUM PHOSPHATE 3 MMOL/1 ML INFUSION IV STA (21:18)
[2021-05-02] MEDS ORDERED: MAGNESIUM SULFATE / D5W 1 GM/100 ML BAG IV STA (21:18)
--- NOTE | 2021-05-02 21:19 | History & Physical Report ---
Date of Service May 02, 2021 Assessment & Plan (1) Sepsis: Plan: 80yo male presenting with sepsis, source unclear at this time. 4/4 SIRS on arrival - Febrile to 38.5, HR 92, RR 32, WBC=11.86 on arrival. Blood pressure borderline low at 93/66 during my encounter. He does have an elevated Procalcitonin at 1.02, CRP of 1.4 as well as lactate of 3.2 which normalized to 1.8 after IVF. Workup for source of infection thus far with largely normal appearing UA, nega tive Lyme, Negative Covid. CXR with no acute cardiopulmonary findings. CT of the abdomen with enlarged left inguinal nodes as well as cholelithiasis, multiple bilateral renal lesions otherwise no acute source of infection identified. CT of the chest with no acute process - small stable pericardial effusion as well as subpleural opacities consistent with atelectasis. Suspect LLE cellulitis as possible source of infection vs inflammatory response following Influenza and Covid vaccines. -Admit to medical with telemetry -Follow blood cultures sent in ER -Carlos area of cellulitis on LLE and monitor for progression -Empiric antibiotic coverage with Daptomycin and Zosyn - of note, patient has grown Pseudomonas from his LLE in the past -Wound care as needed -Tylenol as needed (2) AICD discharge: Plan: Patient reports a single AICD discharge at the time that he became weak at home and needed to be lowered to the ground. He denies chest pain, palpitations. Interrogation revealed SVT at rate of 200 that was shocked. Troponin=0.016. No acute ischemic changes noted on EKG -Telemetry monitoring -Electrolyte repletion - will give Mg as well as sodium PO4 -Repeat chemistry in AM (3) Rib pain: Plan: Patient reports acute pain in right ribs after being placed on bed in CT. -Check rib series -Lidoderm patch -Tylenol PRN (4) Atrial fibrillation: Plan: Chronic. Rate controlled. -Will hold Carvedilol for now given borderline low blood pressure -Cardiac monitoring -Patient currently not on anticoagulation - was previously offered anticoagulation, however, declined due to concern for bleeding complications and possibly requiring a blood transfusion. -Continue ASA (5) CKD (chronic kidney disease) stage 3, GFR 30-59 ml/min: Plan: Chronic. BUN=45 and Cr=1.75 which is near baseline. Patient is eating and drinking without difficulty. -Electrolyte repletion - Mg and PO4 -Hold Bumex due to borderline low blood pressure -Patient received 1.5L NSS in ER. -Continue gentle IVF - LR at 80mL/hr x 1 liter in setting of presumed infection with close attention to volume status (6) Anemia in chronic kidney disease: Plan: Normochromic, normocytic anemia with Hgb=10, Hct=31.7 which is near baseline. No active bleeding. Of note, patient is [employer] and declines transfusion of blood products -Continue to monitor (7) Hypertension: Plan: Blood pressure borderline low at present -Hold Carvedilol and Bumex -Continue to monitor (8) Anxiety disorder: Plan: Chronic -Continue Escitalopram 5mg po qAM (9) ROLLY (obstructive sleep apnea): Plan: Chronic -Nocturnal O2 as needed (10) Chronic right-sided CHF (congestive heart failure): Plan: Appears compensated -Cautious fluids -Holding Bumex for now pending improvement in blood pressure -Holding Coreg for now pending improvement in blood pressure Plan: F/E/N - LR at 80mL/hr x 1 liter, electrolyte repletion, PO as tolerated with aspiration precautions Ppx - Lovenox Code - Full Dispo -Medical/Tele PT/OT evaluations appreciated History of Present Illness Chief Complaint: sepsis Primary Care Provider: Fracisco Eddy MD Teodoro Benavides is an 80yo male with history of NICM with prior VF, AICD in place, HTN, Gout, CKD, AF presenting with weakness and fever. Patient had his Covid-19 booster as well as his influenza vaccine administered 2 days ago. He was feeling fairly well following his vaccinations. Today he had a routine followup appointment with Dr. Retana of Cardiology. The appointment went well with no new concerns or medication changes. Upon return to [facility] patient developed generalized weakness and fever with rigors. He was having difficulty ambulating and his helped to lower him to the floor. He had a single discharge from his AICD. EMS was called and transported him to [facility]. Upon arrival patient febrile at 38.5, HR elevated at 92, blood pressure 90/55, RR of 32 saturating 89% on room air. He was administered Tylenol and IVF as well as antibiotics. During my encounter patient was stating that he "has a lot of pain" all over. He is specifically complaining of right rib pain that started after being moved from the bed at CT scan. He has chronic chest discomfort which is stable and unchanged. He denies palpitations, cough, SOB. He denies abdominal pain, nausea, vomiting, diarrhea, constipation. He denies dysuria, difficulty urinating or flank pain. He did not lose consciousness or undergo any trauma this evening. He has a LLE cellulitis which he feels is improving. He denies worsening pain, drainage, odor, redness or swelling to the area. No additional complaints at this time. ER Course: Zosyn, Daptomycin, NSS x 1L, Tylenol x 1 gm Allergies Allergy/AdvReac Type Severity Reaction Status Date / Time adhesive Allergy Intermediate REDDENED, Verified 05/02/21 19:11 ITCHY SKIN latex Allergy Unknown SKIN Verified 05/02/21 19:11 IRRITATION oxybutynin Allergy Unknown Unknown Verified 05/02/21 19:11 ciprofloxacin [From Cipro] AdvReac Mild pain in Verified 05/02/21 19:11 tendons ALL OPIOIDS Allergy Severe "SEVERE" Uncoded 05/02/21 19:11 DELIRIUM Home Medications Medication Instructions Recorded Confirmed Type multivitamin with minerals 1 tab PO QAM 08/10/18 05/02/21 History aspirin 81 mg tablet,delayed 81 mg PO QAM #90 tab 07/03/19 05/02/21 Rx release cholecalciferol (vitamin D3) 125 125 mcg PO HS 03/12/20 05/02/21 History mcg (5,000 unit) capsule Beet Root Supplement 1 tab PO QAM 09/19/20 05/02/21 History carvedilol 6.25 mg tablet (Coreg) 6.25 mg PO BID 04/06/21 05/02/21 History melatonin 3 mg tablet 3 mg PO HS 04/06/21 05/02/21 History bumetanide 1 mg tablet 1 mg PO BID #30 tab 04/15/21 05/02/21 Rx escitalopram oxalate 5 mg tablet 5 mg PO QAM 05/02/21 05/02/21 History (Lexapro) Past Med/Surg History Medical History (Updated 05/03/21 @ 00:17 by Christen Brian DO) Anemia Anxiety Atrial fibrillation Balance disorder Basal cell carcinoma removed in office Bilateral lower extremity edema Cellulitis of left lower extremity CKD (chronic kidney disease) Deep vein thrombosis Diastolic heart failure DVT (deep venous thrombosis) S/p IVC filter Fall Fever Gout Hypertension Implantable cardioverter-defibrillator (ICD) in situ Kidney stones Lower extremity edema Nonischemic cardiomyopathy recent hospital admission. see cardiology consult note for this patient. On home oxygen therapy 02 at 2L n/c hs Osteoarthritis Sepsis Sleep apnea 02 at 2L n/c Spinal stenosis Ventricular fibrillation Weakness Surgical History [place] filter in place @ [facility] History of blepharoplasty bilt History of cardiac cath at least 20yrs ago, no stents History of kidney surgery 06/30 right kidney removed--"bloody mass that was removed" History of tooth extraction History of total right knee replacement (TKR) ICD (implantable cardioverter-defibrillator) in place 06/2011; [facility] device Family History Father Hypertension Stroke Brother Hypertension Other No family history of adverse response to anesthesia Denies family history of Ovarian cancer Prostate cancer Myocardial infarction Breast cancer Colorectal cancer Social History Smoking Status: Never smoker Second Hand Exposure: No; Hx Alcohol Use: Yes Alcohol type: other Alcohol Intake Frequency: Monthly or Less Hx Substance Use: No Preferred Language: Kazakh Communication Ability: Effective Visual Impairment: Limited Hearing Ability: Hard of Hearing Manager Photo Required: No Beliefs That Will Affect Care: Confucianism Confucianism Beliefs: NO BLOOD TRANSFUSIONS marital status: Current Living Situation: Spouse Current Living Situation Comment: [facility] current occupational status: retired How many Children do You have: 2 Feels Safe at Home: Yes Safety Concerns: Feels Safe At This Time Childhood Exposure to Second-Hand Smoke: No caffeine: Yes Dental Care, Regularly: Yes Physical Activity Frequency: Does not Exercise Seatbelt Use: always Sunscreen Use: Yes Assistive Devices: Cane, Glasses and Walker Review of Systems Review of Systems: All systems reviewed & are unremarkable except as noted in HPI & below Physical Exam Physical Exam: General: patient resting comfortably,appears fatigued but NAD, non-toxic in appearance, AA&O x 4 Skin: warm, dry, redness with healing sores of LLE at ankle, no crepitus, bullae or lymphangitic streaking, chronic stasis changes present of bilateral LE HEENT: NC/AT, PERRL, EOMI, anicteric sclera, conjunctiva without injection, external ear normal to inspection and nontender, nares patent, moist mucus membranes, dentition intact, no oropharyngeal lesions, neck supple, trachea midline, no LAD, no thyromegaly, no JVD Heart: +S1/S2, irregularly irregular, 3/6 LUIS FERNANDO at LSB Lungs: equal air entry bilaterally, no rales/rhonchi/wheezes Abd: +BS, soft, NT/ND, no masses/organomegaly/ascites Ext: warm, 2+ pulses in UE/LE bilaterally, no clubbing/cyanosis, 1+ edema bilaterally Neuro: nonfocal, patient AA&O x 4, speech intact, no facial droop, moving all extremities on command with equal strength 5/5 Results & Data Results & Data ([facility]) Vital Signs (Past 12 Hours) Vital Signs Temp Pulse Pulse Resp BP BP Pulse Ox 05/02/21 20:57 37.3 C 05/02/21 20:50 80 36 H 97 05/02/21 20:40 83 22 96 05/02/21 20:30 91 H 28 H 91/60 L 96 05/02/21 20:20 82 29 H 96 05/02/21 20:10 83 30 H 95 05/02/21 20:00 99 H 21 104/66 97 05/02/21 19:50 85 28 H 97 05/02/21 19:40 88 32 H 97 05/02/21 19:34 89 30 H 95 05/02/21 19:10 89 40 H 98 05/02/21 19:00 82 28 H 93/61 L 96 05/02/21 18:50 83 22 95 05/02/21 18:40 92 H 24 95 05/02/21 18:30 97 H 23 93/53 L 94 05/02/21 18:20 88 31 H 94 05/02/21 18:10 92 H 29 H 93 05/02/21 18:00 93 H 31 H 93 05/02/21 17:50 98 H 31 H 93 05/02/21 17:45 88 31 H 90/55 L 93 05/02/21 17:44 38.5 C H 92 H 32 H 115/67 89 L 05/02/21 17:39 89 L 05/02/21 16:31 38.5 C H 92 H 32 H 115/67 89 L Laboratory Results Laboratory Results WBC 11.86 K/uL (4.8-10.8) H 05/02/21 17:35 RBC 3.52 M/uL (4.7-6.1) L 05/02/21 17:35 Hgb 10.0 g/dL (14.0-18.0) L 05/02/21 17:35 Hct 31.7 % (42-52) L 05/02/21 17:35 MCV 90.1 fL (80-100) 05/02/21 17:35 MCH 28.4 pg (25-34) 05/02/21 17:35 MCHC 31.5 g/dL (32-36) L 05/02/21 17:35 RDW Std Deviation 46.7 fL (36.4-46.3) H 05/02/21 17:35 RDW Coeff of Joshua 14.2 % (11.5-14.5) 05/02/21 17:35 Plt Count 141 K/uL (130-400) 05/02/21 17:35 MPV 9.8 fL (7.4-10.4) 05/02/21 17:35 Immature Gran % (Auto) 0.3 % 05/02/21 17:35 Neut % (Auto) 92.7 % 05/02/21 17:35 Lymph % (Auto) 1.9 % 05/02/21 17:35 Meagher % (Auto) 5.0 % 05/02/21 17:35 Eos % (Auto) 0.1 % 05/02/21 17:35 Baso % (Auto) 0.0 % 05/02/21 17:35 Neut # (Auto) 11.00 K/uL (1.4-6.5) H 05/02/21 17:35 Lymph # (Auto) 0.23 K/uL (1.2-3.4) L 05/02/21 17:35 Meagher # (Auto) 0.59 K/uL (0.11-0.59) 05/02/21 17:35 Eos # (Auto) 0.01 K/uL (0-0.5) 05/02/21 17:35 Baso # (Auto) 0.00 K/uL (0-0.2) 05/02/21 17:35 Immature Gran # (Auto) 0.03 K/uL (0.00-0.02) H 05/02/21 17:35 ESR 43 mm/hr (0-20) H 05/02/21 17:35 PT 11.7 Seconds (9.0-12.0) 05/02/21 17:35 INR 1.2 (0.9-1.1) H 05/02/21 17:35 APTT 24.5 Seconds (21.0-31.0) 05/02/21 17:35 PTT Ratio 0.9 05/02/21 17:35 Sodium 136 mmol/L (136-145) 05/02/21 17:35 Potassium 4.6 mmol/L (3.5-5.1) 05/02/21 17:35 Chloride 105 mmol/L (98-107) 05/02/21 17:35 Carbon Dioxide 21 mmol/L (21-32) 05/02/21 17:35 Anion Gap 10.0 (3-11) 05/02/21 17:35 BUN 45 mg/dl (7-18) H 05/02/21 17:35 Creatinine 1.74 mg/dl (0.6-1.4) H 05/02/21 17:35 Est Cr Clr Drug Dosing Not Reportable 05/02/21 17:35 Est GFR ( Amer) 41.7 ml/min 05/02/21 17:35 Est GFR (Non-Af Amer) 36.0 ml/min 05/02/21 17:35 BUN/Creatinine Ratio 25.7 (10-20) H 05/02/21 17:35 Glucose 118 mg/dl (70-99) H 05/02/21 17:35 Lactate 1.8 mmol/L (0.4-2.0) 05/02/21 19:55 Calcium 10.5 mg/dl (8.5-10.1) H 05/02/21 17:35 Phosphorus 2.0 mg/dl (2.5-4.9) L 05/02/21 17:35 Magnesium 2.1 mg/dl (1.8-2.4) 05/02/21 17:35 Total Bilirubin 1.1 mg/dl (0.2-1) H 05/02/21 17:35 Direct Bilirubin 0.6 mg/dl (0-0.2) H 05/02/21 17:35 AST 21 U/L (15-37) 05/02/21 17:35 ALT 38 U/L (12-78) 05/02/21 17:35 Alkaline Phosphatase 125 U/L (45-117) H 05/02/21 17:35 Troponin I 0.016 ng/ml (0-0.045) 05/02/21 17:35 C-Reactive Protein 1.40 mg/dl (0-0.29) H 05/02/21 17:35 NT-Pro-B Natriuret Pep 5349 pg/ml (0-1800) H 05/02/21 17:35 Total Protein 6.8 gm/dl (6.4-8.2) 05/02/21 17:35 Albumin 2.7 gm/dl (3.4-5.0) L 05/02/21 17:35 Globulin 4.1 gm/dl (2.5-4.0) H 05/02/21 17:35 Albumin/Globulin Ratio 0.7 (0.9-2) L 05/02/21 17:35 Procalcitonin 1.02 ng/ml (0-0.5) H 05/02/21 17:35 TSH 3.140 uIu/ml (0.300-4.500) 05/02/21 17:35 Urine Color Yellow 05/02/21 Unknown Urine Appearance Clear (Clear) 05/02/21 Unknown Urine pH 5.0 (4.5-7.5) 05/02/21 Unknown Ur Specific [place] 1.017 (1.000-1.030) 05/02/21 Unknown Urine Protein 1+ (Negative) H 05/02/21 Unknown Urine Glucose (UA) Negative (Negative) 05/02/21 Unknown Urine Ketones Negative (Negative) 05/02/21 Unknown Urine Blood Negative (Negative) 05/02/21 Unknown Urine Nitrite Negative (Negative) 05/02/21 Unknown Urine Bilirubin Negative (Negative) 05/02/21 Unknown Urine Urobilinogen Negative (Negative) 05/02/21 Unknown Ur Leukocyte Esterase Negative (Negative) 05/02/21 Unknown Urine WBC (Auto) 1-5 /hpf (0-5) 05/02/21 Unknown Urine RBC (Auto) 5-10 /hpf (0-4) H 05/02/21 Unknown U Hyaline Cast (Auto) 1-5 /lpf (0-5) 05/02/21 Unknown U Epithel Cells (Auto) >30 /lpf (0-5) H 05/02/21 Unknown Urine Bacteria (Auto) Negative (Negative) 05/02/21 Unknown Lyme Disease IgG Ab Negative (Negative) 05/02/21 17:35 Lyme Disease IgM Ab Negative (Negative) 05/02/21 17:35 COVID-19 Eval Order Covid19 at [facility] 05/02/21 18:06 SARS-CoV-2 (PCR) NEGATIVE (Negative) 05/02/21 18:06 Impressions Chest X-Ray 05/02/21 17:39 XR chest 1V portable CLINICAL HISTORY: SEPSIS COMPARISON STUDY: Chest radiograph and chest CT November 17, 2020. FINDINGS: [Pacer/AICD remains in place. Cardiomegaly is unchanged. There is no evidence for pulmonary edema. No consolidation is identified. The appearance of the chest is unchanged. No pneumothorax or pleural effusion is identified. IMPRESSION: No acute cardiopulmonary findings. No change in appearance of the chest. Cardiomegaly. ACT 112: Negative or not required by law. Electronically signed by: Mendoza Rodarte M.D. 05/02/2021 6:02 PM Abdomen/Pelvis CT 05/02/21 18:37 CT OF THE ABDOMEN AND PELVIS WITHOUT CONTRAST CLINICAL HISTORY: sepsis, confusion COMPARISON STUDY: CT of the abdomen and pelvis August 20, 2012. Renal ultrasound September 11, 2015. TECHNIQUE: Axial images of the abdomen and pelvis were obtained without IV contrast. Images were reviewed in the axial, sagittal, and coronal planes. Automated exposure control was utilized for the study. A dose lowering technique was utilized adhering to the principles of ALARA. FINDINGS: Please note that the chest CT will be reported separately. Marked cardiomegaly and a small pericardial effusion are better depicted on that exam. This exam is compromised given lack of IV contrast. Liver surface is lobulated. A 4.4 cm caudate lobe lesion was shown to represent a hemangioma on prior contrast enhanced CT. No biliary or pancreatic ductal dilatation is noted. Sensitivity for detection of additional hepatic lesions is diminished on this examination. There is mild splenomegaly. The adrenal glands and pancreas are unremarkable. There is a gallstone within the gallbladder. There is no pericholecystic infiltration. IVC filters in place. There are postoperative findings within the upper pole the left kidney. Multiple bilateral renal lesions are suboptimally assessed on this unenhanced examination. There is no evidence for a bowel obstruction. Colonic diverticulosis is noted without evidence for acute diverticulitis. There are multiple mildly enlarged left inguinal lymph nodes. Index node measures 1.6 cm in short axis diameter. No acute fracture or suspicious lesion is identified within the visualized skeletal structures. IMPRESSION: 1. No bowel obstruction. Colonic diverticulosis without evidence for acute diverticulitis. 2. Exam compromised given artifact and lack of IV contrast. 3. Several mildly enlarged left inguinal lymph nodes. These are indeterminate. These may be reactive however metastatic or lymphoproliferative process is within the differential. Short-term follow-up CT is recommended to ensure stability/resolution. 4. Cholelithiasis. No pericholecystic infiltration. 5. Multiple bilateral renal lesions. Although suboptimally assessed on this unenhanced exam, the probably reflect a combination of simple and hyperdense cysts. 6. Possible cirrhosis. Trace perihepatic ascites. Mild splenomegaly. ACT 112: Negative or not required by law. Electronically signed by: Mendoza Rodarte M.D. 05/02/2021 8:[address] 05/02/21 18:37 CT OF THE CHEST WITHOUT IV CONTRAST CLINICAL HISTORY: sepsis, confusion COMPARISON STUDY: Chest CT November 17, 2020. Chest radiograph performed earlier today. CT DOSE: 2949.27 mGy.cm TECHNIQUE: Axial images of the chest were obtained without IV contrast. Images were reviewed in the axial, sagittal, and coronal planes. IV contrast was not administered for this examination. Automated exposure control was utilized for the study. A dose lowering technique was utilized adhering to the principles of ALARA. FINDINGS: Left subclavian pacer/AICD remains in place. Marked cardiomegaly is unchanged. A small pericardial effusion is also unchanged since CT of November 17, 2020. No enlarged thoracic lymph nodes are present. Central airways are patent. There is no consolidation to suggest pneumonia. Mild subpleural opacities represent atelectasis. There is no pneumothorax or pleural effusion. Abdomen and pelvis will be reported separately. No acute fracture or suspicious lesion is identified within the visualized bony thorax. IMPRESSION: 1. No acute process within the chest on unenhanced exam. 2. Stable marked cardiomegaly and a small pericardial effusion. 3. Subpleural opacities consistent with atelectasis. ACT 112: Negative or not required by law. Electronically signed by: Mendoza Rodarte M.D. 05/02/2021 7:[address] 05/02/21 18:37 CT OF THE HEAD WITHOUT CONTRAST CLINICAL HISTORY: sepsis, confusion COMPARISON STUDY: Head CT March 18, 2020. TECHNIQUE: Helical axial images of the head were obtained without IV contrast. Automated exposure control was utilized for the study. A dose lowering technique was utilized adhering to the principles of ALARA. FINDINGS: This study is mildly compromised by motion artifact. No acute intracranial hemorrhage, midline shift or mass effect is present. Ventricular system is stable. Basal cisterns are patent. There are no extra axial collections. White matter hypodensity suggests small vessel disease. A right parieto-occipital infarct is unchanged. There are no findings to suggest acute dural sinus thrombosis or acute territorial infarct. There is mild polypoid sinus mucosal thickening. IMPRESSION: 1. No acute intracranial findings. Exam mildly compromised by motion artifact. 2. No significant change in appearance of the brain. 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 ACT 112: Negative or not required by law. Electronically signed by: Mendoza Rodarte M.D. 05/02/2021 7:45 PM ECG Additional Comments: EKG wtih AF at 99bpm Code Status & VTE Plan VTE Prophylaxis Plan VTE Prophylaxis will be ordered: Yes PG Care Time/CCT Total # of Minutes Spent Total Time Spent with Patient: Total time spent is greater than 50% in coordination of care (as documented) at patient's floor/unit and/or counseling patient: Coding Level of Care Code 02932 Initial Inpt Care Lvl 3 Diagnoses Anemia in chronic kidney disease N18.9; D63.1 Hypertension I10 Hypertension type: essential hypertension Anxiety disorder F41.9 Anxiety disorder type: unspecified anxiety disorder Atrial fibrillation I48.2 Atrial fibrillation type: permanent CKD (chronic kidney disease) stage 3, GFR 30-59 ml/min N18.30 Chronic kidney disease stage 3 subtype: unspecified whether 3a or 3b ROLLY (obstructive sleep apnea) G47.33 Sepsis A41.9 AICD discharge Z45.02 Rib pain R07.81 Chronic right-sided CHF (congestive heart failure) I50.812 (1) CKD (chronic kidney disease) stage 3, GFR 30-59 ml/min Chronic kidney disease stage 3 subtype: unspecified whether 3a or 3b Qualified Code(s): N18.30 - Chronic kidney disease, stage 3 unspecified (2) Anxiety disorder Anxiety disorder type: unspecified anxiety disorder Qualified Code(s): F41.9 - Anxiety disorder, unspecified (3) Atrial fibrillation Atrial fibrillation type: permanent Qualified Code(s): I48.2 - Chronic atrial fibrillation (4) Hypertension Hypertension type: essential hypertension Qualified Code(s): I10 - Essential (primary) hypertension
[2021-05-02] MEDS ORDERED: SODIUM PHOSPHATE 9 MMOL in SODIUM CHLORIDE 0.9% 250 ML IV ONE (21:45)
[2021-05-02] MEDS ORDERED: ONDANSETRON INJ 2 MG/ML 2 ML VIAL IV PRN (22:25)
[2021-05-02] MEDS ORDERED: ENOXAPARIN INJ 40 MG/0.4 ML SYR SQ SCH (22:25)
[2021-05-02] MEDS: PATIENT'S HEIGHT AND/OR WEIGHT NEEDED SCH (22:56)
[2021-05-03] MEDS: PATIENT'S HEIGHT AND/OR WEIGHT NEEDED SCH ×2 (00:03→00:04)
[2021-05-03] MEDS ORDERED: PIPERACILL/TAZOBAC CONSULT ACTIVE PRN (00:12)
[2021-05-03] MEDS ORDERED: LACTATED RINGER'S 1,000 ML IV SCH (00:45)
[2021-05-03] MEDS ORDERED: MAGNESIUM SULFATE / D5W 1 GM/100 ML BAG IV ONE (00:45)
[2021-05-03] MEDS: PIPERACILLIN/TAZOBACTAM 3.375 GM in DEXTROSE 5% 100 ML IV SCH ×3 (01:04→17:34)
[2021-05-03] MEDS ORDERED: IBUPROFEN 200 MG TAB PO STA (03:09)
[2021-05-03 06:58] LABS: Hematocrit (blood only) 29.3 % (42-52); Hemoglobin 9.2 g/dL (14.0-18.0); Immature Granulocytes # (auto) 0.04 K/uL (0.00-0.02); Immature Granulocytes % (auto) 0.3 %; Lymphocytes # (auto) 0.55 K/uL (1.2-3.4); Lymphocytes % (auto) 4.1 %; Mean Corpuscular Hemoglobin 28.4 pg (25-34); Mean Corpuscular Hgb Conc 31.4 g/dL (32-36); Mean Corpuscular Volume 90.4 fL (80-100); Mean Platelet Volume 10.1 fL (7.4-10.4); Monocytes # (auto) 0.57 K/uL (0.11-0.59); Monocytes % (auto) 4.2 %; Neutrophils # (auto) 12.37 K/uL (1.4-6.5); Neutrophils % (auto) 91.4 %; Platelet Count 115 K/uL (130-400); RDW Coefficient of Variation 14.5 % (11.5-14.5); RDW Standard Deviation 47.8 fL (36.4-46.3); Red Blood Count 3.24 M/uL (4.7-6.1); White Blood Count 13.53 K/uL (4.8-10.8)
[2021-05-03 07:32] LABS: Albumin Level 2.3 gm/dl (3.4-5.0); BUN Creatinine Ratio 24.5 (10-20); Bilirubin Direct 0.5 mg/dl (0-0.2); Creatinine Clr Calc Pharmacy 41.2 ml/min; Est GFR (Non-African American) 32.8 ml/min; Potassium 4.5 mmol/L (3.5-5.1)
[2021-05-03 07:37] LABS: Bilirubin,Total 1.1 mg/dl (0.2-1); Total Protein 6.1 gm/dl (6.4-8.2)
--- NOTE | 2021-05-03 08:25 | XRay Report ---
XR ribs RT min 2V HISTORY: 80 years-old Male right rib pain acute right-sided rib pain COMPARISON: Chest CT same day also 11/17/2020. TECHNIQUE: 4 views the right ribs FINDINGS: Cardiomegaly with subclavian pacer/AICD. Degenerative changes of the spine and right shoulder. No acu te displaced rib fracture identified. Subtle chronic anterior right second rib fractures seen on CT a re not well evaluated by radiography. IVC filter. Surgical clips of the left abdomen. IMPRESSION: No acute rib fracture identified. ACT 112: Negative or not required by law. The above report was generated using voice recognition software. It may contain grammatical, syntax o r spelling errors. Electronically signed by: Davion Padron M.D. 05/03/2021 8:24 AM
[2021-05-03] MEDS: ASPIRIN 81 MG ECTAB PO SCH (09:15)
[2021-05-03] MEDS: ESCITALOPRAM OXALATE 10 MG TAB PO SCH (09:15)
[2021-05-03] MEDS: ENOXAPARIN INJ 40 MG/0.4 ML SYR SQ SCH (09:16)
[2021-05-03] MEDS: ACETAMINOPHEN 325 MG TAB PO PRN ×2 (09:30)
[2021-05-03] MEDS: LIDOCAINE 5% 1 PATCH TD SCH (12:42)
[2021-05-03] MEDS: LACTATED RINGER'S 1,000 ML IV SCH ×2 (15:20→23:19)
[2021-05-03] MEDS ORDERED: DAPTOmycin 350 MG in SYRINGE 0 ML IV SCH (20:00)
[2021-05-03] MEDS: MELATONIN 3 MG TAB PO SCH (20:35)
--- NOTE | 2021-05-03 22:03 | Hospitalist Progress Note ---
Date of Service May 03, 2021 Assessment & Plan (1) Sepsis: Plan: 80yo male presenting with sepsis, source unclear at this time. 4/4 SIRS on arrival - Febrile to 38.5, HR 92, RR 32, WBC=11.86 on arrival. Blood pressure borderline low at 93/66 during my encounter. He does have an elevated Procalcitonin at 1.02, CRP of 1.4 as well as lactate of 3.2 which normalized to 1.8 after IVF. Workup for source of infection thus far with largely normal appearing UA, nega tive Lyme, Negative Covid. CXR with no acute cardiopulmonary findings. CT of the abdomen with enlarged left inguinal nodes as well as cholelithiasis, multiple bilateral renal lesions otherwise no acute source of infection identified. CT of the chest with no acute process - small stable pericardial effusion as well as subpleural opacities consistent with atelectasis. Suspect LLE cellulitis as possible source of infection vs inflammatory response following Influenza and Covid vaccines. -Admit to medical with telemetry -Blood cultures are positive. Awaiting sensitivies LIKELY SOURCE IS CELLULITIS -Carlos area of cellulitis on LLE and monitor for progression -Empiric antibiotic coverage with Daptomycin and Zosyn - of note, patient has grown Pseudomonas from his LLE in the past -Wound care as needed -Tylenol as needed (2) AICD discharge: Plan: Patient reports a single AICD discharge at the time that he became weak at home and needed to be lowered to the ground. He denies chest pain, palpitations. Interrogation revealed SVT at rate of 200 that was shocked. Troponin=0.016. No acute ischemic changes noted on EKG -Telemetry monitoring -Electrolyte repletion (3) Rib pain: Plan: Patient reports acute pain in right ribs after being placed on bed in [place]. -Check rib series -Lidoderm patch -Tylenol PRN (4) Atrial fibrillation: Plan: Chronic. Rate controlled. -Will hold Carvedilol for now given borderline low blood pressure -Cardiac monitoring -Patient currently not on anticoagulation - was previously offered anticoagulation, however, declined due to concern for bleeding complications and possibly requiring a blood transfusion. -Continue ASA (5) CKD (chronic kidney disease) stage 3, GFR 30-59 ml/min: Plan: Chronic. BUN=45 and Cr=1.75 which is near baseline. Patient is eating and drinking without difficulty. -Electrolyte repletion - Mg and PO4 -Hold Bumex due to borderline low blood pressure -Patient received 1.5L NSS in ER. -Continue gentle IVF - LR at 80mL/hr x 1 liter in setting of presumed infection with close attention to volume status (6) Anemia in chronic kidney disease: Plan: Normochromic, normocytic anemia with Hgb=10, Hct=31.7 which is near baseline. No active bleeding. Of note, patient is Jehova's Witness and declines transfusion of blood products -Continue to monitor (7) Hypertension: Plan: Blood pressure borderline low at present -Hold Carvedilol and Bumex -Continue to monitor (8) Anxiety disorder: Plan: Chronic -Continue Escitalopram 5mg po qAM (9) ROLLY (obstructive sleep apnea): Plan: Chronic -Nocturnal O2 as needed (10) Chronic right-sided CHF (congestive heart failure): Plan: Appears compensated -Cautious fluids -Holding Bumex for now pending improvement in blood pressure -Holding Coreg for now pending improvement in blood pressure Plan: F/E/N - LR at 80mL/hr x 1 liter, electrolyte repletion, PO as tolerated with aspiration precautions Ppx - Lovenox Code - Full Dispo -Medical/Tele PT/OT evaluations appreciated Admission and Anticipated Discharge Date Admission Date: May 02, 2021 Subjective Patient reports no new symptoms. Updated his . Review of Systems Review of Systems: All systems reviewed & are unremarkable except as noted in HPI & below Physical Exam Physical Exam: General: patient resting comfortably,appears fatigued but NAD, non-toxic in appearance, AA&O x 4 Skin: warm, dry, redness with healing sores of LLE at ankle, no crepitus, bullae or lymphangitic streaking, chronic stasis changes present of bilateral LE HEENT: NC/AT, PERRL, EOMI, anicteric sclera, conjunctiva without injection, external ear normal to inspection and nontender, nares patent, moist mucus membranes, dentition intact, no oropharyngeal lesions, neck supple, trachea midline, no LAD, no thyromegaly, no JVD Heart: +S1/S2, irregularly irregular, 3/6 LUIS FERNANDO at LSB Lungs: equal air entry bilaterally, no rales/rhonchi/wheezes Abd: +BS, soft, NT/ND, no masses/organomegaly/ascites Ext: warm, 2+ pulses in UE/LE bilaterally, no clubbing/cyanosis, 1+ edema bilaterally Neuro: nonfocal, patient AA&O x 4, speech intact, no facial droop, moving all extremities on command with equal strength 5/5 Results & Data Results & Data ([facility]) Vital Signs (Past 12 Hours) Vital Signs Temp Pulse Pulse Resp BP Pulse Ox 05/03/21 19:43 36.7 C 71 18 110/72 98 05/03/21 16:00 36.8 C 66 18 87/52 L 95 05/03/21 15:05 98 05/03/21 14:19 62 05/03/21 12:01 36.5 C 66 18 91/54 L 98 PG Care Time/CCT Total # of Minutes Spent Total Time Spent with Patient: Total time spent is greater than 50% in coordination of care (as documented) at patient's floor/unit and/or counseling patient: Coding Level of Care Code 46693 Subseq Hosp Care Lvl 3 Diagnoses Sepsis A41.9 AICD discharge Z45.02 Rib pain R07.81 Atrial fibrillation I48.2 Atrial fibrillation type: permanent CKD (chronic kidney disease) stage 3, GFR 30-59 ml/min N18.30 Chronic kidney disease stage 3 subtype: unspecified whether 3a or 3b Anemia in chronic kidney disease N18.9; D63.1 Hypertension I10 Hypertension type: essential hypertension Anxiety disorder F41.9 Anxiety disorder type: unspecified anxiety disorder ROLLY (obstructive sleep apnea) G47.33 Chronic right-sided CHF (congestive heart failure) I50.812 Time Spent (min) 45 (1) Atrial fibrillation Atrial fibrillation type: permanent Qualified Code(s): I48.2 - Chronic atrial fibrillation (2) CKD (chronic kidney disease) stage 3, GFR 30-59 ml/min Chronic kidney disease stage 3 subtype: unspecified whether 3a or 3b Qualified Code(s): N18.30 - Chronic kidney disease, stage 3 unspecified (3) Hypertension Hypertension type: essential hypertension Qualified Code(s): I10 - Essential (primary) hypertension (4) Anxiety disorder Anxiety disorder type: unspecified anxiety disorder Qualified Code(s): F41.9 - Anxiety disorder, unspecified
--- NOTE | 2021-05-03 23:04 | Electrocardiogram Report ---
Test Reason : Blood Pressure : / mmHG Vent. Rate : 097 BPM Atrial Rate : 312 BPM P-R Int : 000 ms QRS Dur : 122 ms QT Int : 350 ms P-R-T Axes : 000 -48 083 degrees QTc Int : 444 ms Atrial fibrillation Left anterior fascicular block Cannot rule out Inferior infarct (cited on or before 06-SEP-2018) Abnormal ECG When compared with ECG of 17-NOV-2020 19:14, Premature ventricular complexes are no longer Present Confirmed by Cayden Almeida ([id number]) on 05/03/2021 11:03:59 PM Referred By: REFERRED SELF Confirmed By:Cayden Almeida
--- NOTE | 2021-05-03 23:08 | Electrocardiogram Report ---
Test Reason : Blood Pressure : / mmHG Vent. Rate : 099 BPM Atrial Rate : 089 BPM P-R Int : 000 ms QRS Dur : 112 ms QT Int : 314 ms P-R-T Axes : 000 -48 074 degrees QTc Int : 402 ms Atrial fibrillation with premature ventricular or aberrantly conducted complexes Left axis deviation Inferior infarct (cited on or before 06-SEP-2018) Anterior infarct , age undetermined Abnormal ECG When compared with ECG of 02-MAY-2021 17:34, Premature ventricular complexes are now Present Confirmed by Cayden Almeida ([id number]) on 05/03/2021 11:08:09 PM Referred By: REFERRED SELF Confirmed By:Cayden Almeida
[2021-05-04] MEDS: PIPERACILLIN/TAZOBACTAM 3.375 GM in DEXTROSE 5% 100 ML IV SCH ×3 (01:00→16:59)
[2021-05-04] MEDS: ACETAMINOPHEN 325 MG TAB PO PRN ×3 (03:07→21:36)
[2021-05-04 08:42] LABS: Creatinine Clr Calc Pharmacy 41.7 ml/min; Est GFR (African American) 38.5 ml/min; Est GFR (Non-African American) 33.2 ml/min
[2021-05-04 08:46] LABS: BUN Creatinine Ratio 26.2 (10-20); Calcium 9.9 mg/dl (8.5-10.1); Creatinine Clr Calc Pharmacy 42.1 ml/min; Est GFR (Non-African American) 33.6 ml/min; Potassium 4.3 mmol/L (3.5-5.1)
[2021-05-04] MEDS: ESCITALOPRAM OXALATE 10 MG TAB PO SCH (09:33)
[2021-05-04] MEDS: ASPIRIN 81 MG ECTAB PO SCH (09:33)
[2021-05-04] MEDS: ENOXAPARIN INJ 40 MG/0.4 ML SYR SQ SCH (09:34)
[2021-05-04] MEDS: LIDOCAINE 5% 1 PATCH TD SCH (09:35)
[2021-05-04 11:39] LABS: Basophils # (auto) 0.01 K/uL (0-0.2); Basophils % (auto) 0.1 %; Eosinophils # (auto) 0.19 K/uL (0-0.5); Eosinophils % (auto) 2.4 %; Hematocrit (blood only) 29.4 % (42-52); Hemoglobin 9.1 g/dL (14.0-18.0); Lymphocytes # (auto) 0.62 K/uL (1.2-3.4); Lymphocytes % (auto) 7.8 %; Mean Corpuscular Hemoglobin 28.3 pg (25-34); Mean Corpuscular Volume 91.3 fL (80-100); Monocytes % (auto) 7.5 %; Neutrophils # (auto) 6.58 K/uL (1.4-6.5); Neutrophils % (auto) 82.2 %; Platelet Count 105 K/uL (130-400); RDW Coefficient of Variation 14.5 % (11.5-14.5); RDW Standard Deviation 48.7 fL (36.4-46.3); Red Blood Count 3.22 M/uL (4.7-6.1)
[2021-05-04 11:58] LABS: BUN Creatinine Ratio 25.1 (10-20); Calcium 9.5 mg/dl (8.5-10.1); Creatinine Clr Calc Pharmacy 41.2 ml/min; Est GFR (Non-African American) 32.8 ml/min; Potassium 4.1 mmol/L (3.5-5.1)
[2021-05-04] MEDS: MELATONIN 3 MG TAB PO SCH (20:34)
--- NOTE | 2021-05-04 21:24 | Hospitalist Progress Note ---
Date of Service May 04, 2021 Assessment & Plan (1) Sepsis: Plan: 80yo male presenting with sepsis, source unclear at this time. 4/4 SIRS on arrival - Febrile to 38.5, HR 92, RR 32, WBC=11.86 on arrival. Blood pressure borderline low at 93/66 during my encounter. He does have an elevated Procalcitonin at 1.02, CRP of 1.4 as well as lactate of 3.2 which normalized to 1.8 after IVF. Workup for source of infection thus far with largely normal appearing UA, nega tive Lyme, Negative Covid. CXR with no acute cardiopulmonary findings. CT of the abdomen with enlarged left inguinal nodes as well as cholelithiasis, multiple bilateral renal lesions otherwise no acute source of infection identified. CT of the chest with no acute process - small stable pericardial effusion as well as subpleural opacities consistent with atelectasis. Suspect LLE cellulitis as possible source of infection vs inflammatory response following Influenza and Covid vaccines. -Admit to medical with telemetry -Blood cultures are positive: corynebacterium. will be sent to [facility] for sensitivites, repeat blood culture LIKELY SOURCE IS CELLULITIS -WBC improving. -Carlos area of cellulitis on LLE and monitor for progression -Empiric antibiotic coverage with Daptomycin and Zosyn - of note, patient has grown Pseudomonas from his LLE in the past -Wound care as needed -Tylenol as needed -likely will need IV antibiotics at discharge. (2) AICD discharge: Plan: Patient reports a single AICD discharge at the time that he became weak at home and needed to be lowered to the ground. He denies chest pain, palpitations. Interrogation revealed SVT at rate of 200 that was shocked. Troponin=0.016. No acute ischemic changes noted on EKG -Telemetry monitoring -Electrolyte repletion (3) Rib pain: Plan: Patient reports acute pain in right ribs after being placed on bed in CT. -Check rib series -Lidoderm patch -Tylenol PRN (4) Atrial fibrillation: Plan: Chronic. Rate controlled. -Will hold Carvedilol for now given borderline low blood pressure -Cardiac monitoring -Patient currently not on anticoagulation - was previously offered anticoagulation, however, declined due to concern for bleeding complications and possibly requiring a blood transfusion. -Continue ASA (5) CKD (chronic kidney disease) stage 3, GFR 30-59 ml/min: Plan: Chronic. BUN=45 and Cr=1.75 which is near baseline. Patient is eating and drinking without difficulty. -Electrolyte repletion - Mg and PO4 -Hold Bumex due to borderline low blood pressure -Patient received 2.5L IVF in first 24 hours. in ER. -Completed additional LR at 125ml/hr x 2 liters (6) Anemia in chronic kidney disease: Plan: Normochromic, normocytic anemia with Hgb=10, Hct=31.7 which is near baseline. No active bleeding. Of note, patient is [employer]hova's Witness and declines transfusion of blood products -Continue to monitor (7) Hypertension: Plan: Blood pressure borderline low at present -Hold Carvedilol and Bumex -Continue to monitor (8) Anxiety disorder: Plan: Chronic -Continue Escitalopram 5mg po qAM (9) ROLLY (obstructive sleep apnea): Plan: Chronic -Nocturnal O2 as needed (10) Chronic right-sided CHF (congestive heart failure): Plan: Appears compensated -Cautious fluids -Holding Bumex for now pending improvement in blood pressure -Holding Coreg for now pending improvement in blood pressure Plan: Ppx - Lovenox Code - Full Dispo -Medical/Tele PT/OT evaluations appreciated Admission and Anticipated Discharge Date Admission Date: May 02, 2021 Subjective Patient reports no new symptoms. Updated his son. Review of Systems Review of Systems: All systems reviewed & are unremarkable except as noted in HPI & below Physical Exam Physical Exam: General: patient resting comfortably,appears fatigued but NAD, non-toxic in appearance, AA&O x 4 Skin: warm, dry, redness with healing sores of LLE at ankle, no crepitus, bullae or lymphangitic streaking, chronic stasis changes present of bilateral LE HEENT: NC/AT, PERRL, EOMI, anicteric sclera, conjunctiva without injection, external ear normal to inspection and nontender, nares patent, moist mucus membranes, dentition intact, no oropharyngeal lesions, neck supple, trachea midline, no LAD, no thyromegaly, no JVD Heart: +S1/S2, irregularly irregular, 3/6 LUIS FERNANDO at LSB Lungs: equal air entry bilaterally, no rales/rhonchi/wheezes Abd: +BS, soft, NT/ND, no masses/organomegaly/ascites Ext: warm, 2+ pulses in UE/LE bilaterally, no clubbing/cyanosis, 1+ edema bilaterally Neuro: nonfocal, patient AA&O x 4, speech intact, no facial droop, moving all extremities on command with equal strength 5/5 Results & Data Results & Data ([facility]) Vital Signs (Past 12 Hours) Vital Signs Temp Pulse Pulse Resp BP BP Pulse Ox 05/04/21 19:32 37.0 C 80 19 124/77 97 05/04/21 16:00 86 05/04/21 15:54 37.0 C 72 18 108/62 98 05/04/21 11:34 37.0 C 56 L 18 101/69 95 PG Care Time/CCT Total # of Minutes Spent Total Time Spent with Patient: Total time spent is greater than 50% in coordination of care (as documented) at patient's floor/unit and/or counseling patient: Coding Level of Care Code 57374 Subseq Hosp Care Lvl 2 Diagnoses Sepsis A41.9 AICD discharge Z45.02 Rib pain R07.81 Atrial fibrillation I48.2 Atrial fibrillation type: permanent CKD (chronic kidney disease) stage 3, GFR 30-59 ml/min N18.30 Chronic kidney disease stage 3 subtype: unspecified whether 3a or 3b Anemia in chronic kidney disease N18.9; D63.1 Hypertension I10 Hypertension type: essential hypertension Anxiety disorder F41.9 Anxiety disorder type: unspecified anxiety disorder ROLLY (obstructive sleep apnea) G47.33 Chronic right-sided CHF (congestive heart failure) I50.812 (1) Atrial fibrillation Atrial fibrillation type: permanent Qualified Code(s): I48.2 - Chronic atrial fibrillation (2) CKD (chronic kidney disease) stage 3, GFR 30-59 ml/min Chronic kidney disease stage 3 subtype: unspecified whether 3a or 3b Qualified Code(s): N18.30 - Chronic kidney disease, stage 3 unspecified (3) Hypertension Hypertension type: essential hypertension Qualified Code(s): I10 - Essential (primary) hypertension (4) Anxiety disorder Anxiety disorder type: unspecified anxiety disorder Qualified Code(s): F41.9 - Anxiety disorder, unspecified
[2021-05-05] MEDS: PIPERACILLIN/TAZOBACTAM 3.375 GM in DEXTROSE 5% 100 ML IV SCH ×3 (00:51→16:10)
[2021-05-05] MEDS ORDERED: diphenhydrAMINE Capsule 25 MG CAP PO ONE (02:20)
[2021-05-05] MEDS: ACETAMINOPHEN 325 MG TAB PO PRN ×2 (02:27→20:10)
[2021-05-05 04:48] LABS: Basophils # (auto) 0.01 K/uL (0-0.2); Basophils % (auto) 0.2 %; Eosinophils # (auto) 0.24 K/uL (0-0.5); Eosinophils % (auto) 3.7 %; Hematocrit (blood only) 30.9 % (42-52); Hemoglobin 9.5 g/dL (14.0-18.0); Immature Granulocytes # (auto) 0.01 K/uL (0.00-0.02); Immature Granulocytes % (auto) 0.2 %; Lymphocytes # (auto) 0.83 K/uL (1.2-3.4); Lymphocytes % (auto) 12.7 %; Mean Corpuscular Hemoglobin 28.2 pg (25-34); Mean Corpuscular Hgb Conc 30.7 g/dL (32-36); Mean Corpuscular Volume 91.7 fL (80-100); Mean Platelet Volume 10.3 fL (7.4-10.4); Monocytes # (auto) 0.59 K/uL (0.11-0.59); Neutrophils # (auto) 4.85 K/uL (1.4-6.5); Neutrophils % (auto) 74.2 %; Platelet Count 121 K/uL (130-400); RDW Coefficient of Variation 14.5 % (11.5-14.5); RDW Standard Deviation 48.7 fL (36.4-46.3); Red Blood Count 3.37 M/uL (4.7-6.1); White Blood Count 6.53 K/uL (4.8-10.8)
[2021-05-05 05:10] LABS: BUN Creatinine Ratio 23.7 (10-20); Calcium 9.5 mg/dl (8.5-10.1); Creatinine Clr Calc Pharmacy 41.7 ml/min; Est GFR (African American) 38.5 ml/min; Est GFR (Non-African American) 33.2 ml/min; Magnesium 2.6 mg/dl (1.8-2.4); Potassium 4.1 mmol/L (3.5-5.1)
[2021-05-05 05:15] LABS: Phosphorus 3.1 mg/dl (2.5-4.9)
[2021-05-05] MEDS ORDERED: VANCOMYCIN CONSULT ACTIVE PRN (09:24)
[2021-05-05] MEDS ORDERED: VANCOMYCIN HCL 2,750 MG in SODIUM CHLORIDE 0.9% 500 ML IV ONE (10:00)
[2021-05-05] MEDS: ESCITALOPRAM OXALATE 10 MG TAB PO SCH (10:15)
[2021-05-05] MEDS: ASPIRIN 81 MG ECTAB PO SCH (10:16)
[2021-05-05] MEDS: LIDOCAINE 5% 1 PATCH TD SCH (10:17)
[2021-05-05] MEDS: ENOXAPARIN INJ 40 MG/0.4 ML SYR SQ SCH (10:22)
--- NOTE | 2021-05-05 11:40 | Pharmacy Report ---
Pharmacy Vanc AUC Short Note - Date of Service May 05, 2021 - Assessment & Plan Assessment 80 year old M receiving vancomycin for treatment of bacteremia. Pertinent microbiologic data includes: blood culture growing corynebacterium in all blood cultures from 05/02/21. Repeat cultures from 05/04/21 pending Day # 1 of antimicrobial therapy. Plan Vancomycin * AUC/PEYMAN is the preferred PK/PD target for vancomycin * AUC guided dosing is effective and associated with decreased risk of nephrotoxicity compared to traditional trough targets * vancomycin 1250 mg IV q24 hours is predicted to achieve target AUC/PEYMAN of 400- 600 mg/L.hr and may be associated with a 15 % risk of nephrotoxicity * Trough ordered for: 05/07/21 prior to steady state to ensure adequate concentrations are being achieved Pharmacy will continue to follow and will adjust dose/frequency as necessary. Thank you.
--- NOTE | 2021-05-05 17:08 | Hospitalist Progress Note ---
Date of Service May 05, 2021 Assessment & Plan (1) Sepsis: Plan: 80yo male presenting with sepsis, source unclear at this time. 4/4 SIRS on arrival - Febrile to 38.5, HR 92, RR 32, WBC=11.86 on arrival. On admission had elevated Procalcitonin at 1.02, CRP of 1.4 as well as lactate of 3.2 which normalized to 1.8 after IVF. Workup for source of infection thus far with largely normal appearing UA, negative Lyme, Negative Covid. CXR with no acute cardiopulmonary findings. CT of the abdomen with enlarged left inguinal nodes as well as cholelithiasis, multiple bilateral renal lesions otherwise no acute source of infection identified. CT of the chest with no acute process - small stable pericardial effusion as well as subpleural opacities consistent with atelectasis. Suspect LLE cellulitis as possible source of infection vs inflammatory response following Influenza and Covid vaccines. Sepsis 2/2 left lower extremity cellulitis, corynebacterium bacteremia Lyme negative, Covid negative, CXR normal, CTabdomen with enlarged left inguinal lymph nodes, CT chest with no acute findings Left lower extremity with venous ulcers and superimposed cellulitis, clinically improving White blood cell count improving 3/4 blood cultures positive for corynebacterium, given multiple bottles positive across 2 sets will treat as real. Discussed with pharmacy will treat with vancomycin, discontinue Zosyn tomorrow. Dapto not preferred due to variable resistance Formal sensitivities pending send out Anticipate 14-day course of IV antibiotics at discharge, will require ultrasound-guided peripheral placement. This will not be able to be placed until cultures negative for minimum 48-72 hours -Wound care as needed -Tylenol as needed (2) AICD discharge: Plan: Patient reports a single AICD discharge at the time that he became weak at home and needed to be lowered to the ground. He denies chest pain, palpitations. Interrogation revealed SVT at rate of 200 that was shocked. Troponin=0.016. No acute ischemic changes noted on EKG -Telemetry monitoring -Electrolyte repletion (3) Rib pain: Plan: Patient reports acute pain in right ribs after being placed on bed in CT. -Lidoderm patch -Tylenol PRN (4) Atrial fibrillation: Plan: Chronic. Rate controlled. -Labetalol initially held for hypotension, blood pressure 138/86 today, will resume -Cardiac monitoring -Patient currently not on anticoagulation - was previously offered anticoa gulation, however, declined due to concern for bleeding complications and possibly requiring a blood transfusion. -Continue ASA (5) CKD (chronic kidney disease) stage 3, GFR 30-59 ml/min: Plan: Chronic. BUN=45 and Cr=1.75 which is near baseline. Patient is eating and drinking without difficulty. -Electrolyte repletion - Mg and PO4 -Hold Bumex due to borderline low blood pressure -Patient received 2.5L IVF in first 24 hours. in ER. -Completed additional LR at 125ml/hr x 2 liters (6) Anemia in chronic kidney disease: Plan: Normochromic, normocytic anemia with Hgb=10, Hct=31.7 which is near baseline. No active bleeding. Of note, patient is Jehova's Witness and declines transfusion of blood products -Continue to monitor (7) Hypertension: Plan: Blood pressure borderline low at present -Carvedilol/Bumex resumed -Continue to monitor (8) Anxiety disorder: Plan: Chronic -Continue Escitalopram 5mg po qAM (9) ROLLY (obstructive sleep apnea): Plan: Chronic -Nocturnal O2 as needed (10) Chronic right-sided CHF (congestive heart failure): Plan: Appears compensated -Cautious fluids -Resumed Bumex for now pending improvement in blood pressure -Resumed Coreg for now pending improvement in blood pressure Plan: Ppx - Lovenox Code - Full Dispo -Medical/Tele PT/OT pending Admission and Anticipated Discharge Date Admission Date: May 02, 2021 Subjective Seen at the bedside in the morning, and at afternoon in the presence of his and son. Patient reports he feels okay, is very concerned because he has felt weak and is afraid of falling. Otherwise reports he feels "okay "denies fever, chills, sweats, chest pain, chest pressure, shortness of breath, difficulty breathing, shaking chills, and night sweats. Reports his appetite is okay, has eaten today and is without nausea, vomiting, diarrhea, or constipation. Viewed plan as noted in H&P with patient, his , and his son. No other questions or concerns at bedside. Review of Systems Review of Systems: All systems reviewed & are unremarkable except as noted in Subjective Physical Exam Physical Exam: General: A&Ox3. NAD. Cooperative. HEENT: Atraumatic, normocephalic. Pulm: CTAB A&P. -wheezes, -rales, -rhonchi. Symmetrical chest rise. No increase work of breathing. No respiratory distress. Cardiac: RRR, -mrg. Radial pulses intact and symmetrical. Abdominal: Nontender, nondistended, soft. BS present. Extremities: Left lower anterior leg with to ask venous ulcers with minimal surrounding erythema, no purulent discharge. 1X right lower anterior leg venous ulcer. PT pulses palpable bilaterally. Wound seen in the presence of wound care, redressed in morning sensation to soft touch in hands and feet intact, ankle dorsiflexion/plantar flexion 5/5 bilaterally. Results & Data Results & Data ([facility]) Vital Signs (Past 12 Hours) Vital Signs Temp Pulse Pulse Resp BP BP Pulse Ox 05/05/21 15:40 36.5 C 78 18 138/86 95 05/05/21 15:17 84 05/05/21 12:00 36.7 C 66 18 123/75 98 05/05/21 08:00 36.9 C 88 56 L 20 131/79 96 PG Care Time/CCT Total # of Minutes Spent Total Time Spent with Patient: Total time spent is greater than 50% in coordination of care (as documented) at patient's floor/unit and/or counseling patient: Coding Level of Care Code 28051 Subseq Hosp Care Lvl 3 Diagnoses Sepsis A41.9 AICD discharge Z45.02 Rib pain R07.81 Atrial fibrillation I48.2 Atrial fibrillation type: permanent CKD (chronic kidney disease) stage 3, GFR 30-59 ml/min N18.30 Chronic kidney disease stage 3 subtype: unspecified whether 3a or 3b Anemia in chronic kidney disease N18.9; D63.1 Hypertension I10 Hypertension type: essential hypertension Anxiety disorder F41.9 Anxiety disorder type: unspecified anxiety disorder ROLLY (obstructive sleep apnea) G47.33 Chronic right-sided CHF (congestive heart failure) I50.812 (1) Atrial fibrillation Atrial fibrillation type: permanent Qualified Code(s): I48.2 - Chronic atrial fibrillation (2) CKD (chronic kidney disease) stage 3, GFR 30-59 ml/min Chronic kidney disease stage 3 subtype: unspecified whether 3a or 3b Qualified Code(s): N18.30 - Chronic kidney disease, stage 3 unspecified (3) Hypertension Hypertension type: essential hypertension Qualified Code(s): I10 - Essential (primary) hypertension (4) Anxiety disorder Anxiety disorder type: unspecified anxiety disorder Qualified Code(s): F41.9 - Anxiety disorder, unspecified
[2021-05-05] MEDS: BUMETANIDE 1 MG TAB PO SCH (19:54)
[2021-05-05] MEDS: carvediloL 6.25 MG TAB PO SCH (19:55)
[2021-05-05] MEDS: MELATONIN 3 MG TAB PO SCH (19:55)
[2021-05-05] MEDS: diphenhydrAMINE Capsule 25 MG CAP PO PRN (23:47)
[2021-05-06] MEDS: ACETAMINOPHEN 325 MG TAB PO PRN ×2 (00:48→20:48)
[2021-05-06 07:09] LABS: Basophils # (auto) 0.01 K/uL (0-0.2); Basophils % (auto) 0.2 %; Eosinophils # (auto) 0.12 K/uL (0-0.5); Eosinophils % (auto) 2.1 %; Hemoglobin 9.6 g/dL (14.0-18.0); Immature Granulocytes # (auto) 0.02 K/uL (0.00-0.02); Immature Granulocytes % (auto) 0.4 %; Lymphocytes # (auto) 0.64 K/uL (1.2-3.4); Lymphocytes % (auto) 11.3 %; Mean Corpuscular Hemoglobin 27.5 pg (25-34); Mean Corpuscular Volume 88.8 fL (80-100); Monocytes # (auto) 0.57 K/uL (0.11-0.59); Monocytes % (auto) 10.1 %; Neutrophils # (auto) 4.29 K/uL (1.4-6.5); Neutrophils % (auto) 75.9 %; Platelet Count 123 K/uL (130-400); RDW Coefficient of Variation 14.4 % (11.5-14.5); RDW Standard Deviation 47.4 fL (36.4-46.3); Red Blood Count 3.49 M/uL (4.7-6.1); White Blood Count 5.65 K/uL (4.8-10.8)
[2021-05-06 07:43] LABS: Albumin Level 2.1 gm/dl (3.4-5.0); BUN Creatinine Ratio 22.7 (10-20); Calcium 9.8 mg/dl (8.5-10.1); Creatinine Clr Calc Pharmacy 50.7 ml/min; Est GFR (African American) 48.3 ml/min; Est GFR (Non-African American) 41.7 ml/min; Potassium 4.1 mmol/L (3.5-5.1)
[2021-05-06 07:45] LABS: Albumin Globulin Ratio 0.5 (0.9-2); Bilirubin,Total 0.7 mg/dl (0.2-1); Globulin 4.3 gm/dl (2.5-4.0); Total Protein 6.4 gm/dl (6.4-8.2)
[2021-05-06] MEDS: carvediloL 6.25 MG TAB PO SCH ×2 (07:49→20:49)
[2021-05-06] MEDS: BUMETANIDE 1 MG TAB PO SCH ×2 (07:49→20:48)
[2021-05-06] MEDS: ASPIRIN 81 MG ECTAB PO SCH (07:49)
[2021-05-06] MEDS: ESCITALOPRAM OXALATE 10 MG TAB PO SCH (07:50)
[2021-05-06] MEDS: ENOXAPARIN INJ 40 MG/0.4 ML SYR SQ SCH (07:50)
[2021-05-06] MEDS: LIDOCAINE 5% 1 PATCH TD SCH (07:50)
[2021-05-06] MEDS: VANCOMYCIN HCL 1,250 MG in SODIUM CHLORIDE 0.9% 250 ML IV SCH (10:38)
--- NOTE | 2021-05-06 18:09 | Hospitalist Progress Note ---
Date of Service May 06, 2021 Assessment & Plan (1) Sepsis: Plan: 80yo male presenting with sepsis, source unclear at this time. 4/4 SIRS on arrival - Febrile to 38.5, HR 92, RR 32, WBC=11.86 on arrival. On admission had elevated Procalcitonin at 1.02, CRP of 1.4 as well as lactate of 3.2 which normalized to 1.8 after IVF.Workup for source of infection thus far with largely normal appearing UA, negative Lyme, Negative Covid. CXR with no acute cardiopulmonary findings. CT of the abdomen with enlarged left inguinal nodes as well as cholelithiasis, multiple bilateral renal lesions otherwise no acute source of infection identified. CT of the chest with no acute process - small stable pericardial effusion as well as subpleural opacities consistent with atelectasis. Suspect LLE cellulitis as possible source of infection vs inflammatory response following Influenza and Covid vaccines. Sepsis 2/2 left lower extremity cellulitis, corynebacterium bacteremia Lyme negative, Covid negative, CXR normal, CTabdomen with enlarged left inguinal lymph nodes, CT chest with no acute findings Left lower extremity with venous ulcers and superimposed cellulitis, clinically improving White blood cell count improving 3/4 blood cultures positive for corynebacterium, given multiple bottles positive across 2 sets will treat as real. Discussed with pharmacy will treat with vancomycin, discontinue Zosyn tomorrow. Dapto not preferred due to variable resistance Formal sensitivities pending send out Anticipate 14-day course of IV antibiotics at discharge. Vancomycin unable to be given by ultrasound-guided peripheral, anticipate PICC placement 05/07. Pursuing home health services through case management, patient does not think he is able to perform infusions at home. We will follow up based on home services available, and discussed dosing regimens with pharmacy. -Wound care as needed -Tylenol as needed (2) AICD discharge: Plan: Patient reports a single AICD discharge at the time that he became weak at home and needed to be lowered to the ground. He denies chest pain, palpitations. Interrogation revealed SVT at rate of 200 that was shocked. Troponin=0.016. No acute ischemic changes noted on EKG -Telemetry monitoring -Electrolyte repletion (3) Rib pain: Plan: Patient reports acute pain in right ribs after being placed on bed in [place]. -Lidoderm patch -Tylenol PRN (4) Atrial fibrillation: Plan: Chronic. Rate controlled. -Continue beta-jane -Cardiac monitoring -Patient currently not on anticoagulation - was previously offered anticoagulation, however, declined due to concern for bleeding complications and possibly requiring a blood transfusion. -Continue ASA (5) CKD (chronic kidney disease) stage 3, GFR 30-59 ml/min: Plan: Chronic. BUN=45 and Cr=1.75 which is near baseline. Patient is eating and drinking without difficulty. -Electrolyte repletion - Mg and PO4 -Hold Bumex due to borderline low blood pressure -Patient received 2.5L IVF in first 24 hours. in ER. -Completed additional LR at 125ml/hr x 2 liters (6) Anemia in chronic kidney disease: Plan: Normochromic, normocytic anemia with Hgb=10, Hct=31.7 which is near baseline. No active bleeding. Of note, patient is [employer] and declines transfusion of blood products -Continue to monitor (7) Hypertension: Plan: Blood pressure borderline low at present -Carvedilol/Bumex resumed -Continue to monitor (8) Anxiety disorder: Plan: Chronic -Continue Escitalopram 5mg po qAM (9) ROLLY (obstructive sleep apnea): Plan: Chronic -Nocturnal O2 as needed (10) Chronic right-sided CHF (congestive heart failure): Plan: Appears compensated -Cautious fluids Continue Bumex and Coreg Plan: Ppx - Lovenox Code - Full Dispo -Medical/Tele PT/OT pending Admission and Anticipated Discharge Date Admission Date: May 02, 2021 Jesse Valerio is seen at the bedside today. He reports he feels clinically unchanged, is fatigued and reports his legs hurt after standing, but do not hurt at rest. Denies fever, chills, sweats, chest pain, chest pressure no shortness of breath, difficulty breathing. Seen by physical therapy this afternoon. Reports he is very concerned about his antibiotics, and does not feel he or his are able to perform home infusions of antibiotics. We will continue discussed with case management Review of Systems Review of Systems: All systems reviewed & are unremarkable except as noted in Subjective Physical Exam Physical Exam: General: A&Ox3. NAD. Cooperative. HEENT: Atraumatic, normocephalic. Pulm: CTAB A&P. -wheezes, -rales, -rhonchi. Symmetrical chest rise. No increase work of breathing. No respiratory distress. Cardiac: RRR, -mrg. Radial pulses intact and symmetrical. Abdominal: Nontender, nondistended, soft. BS present. Extremities: Left lower anterior leg with to ask venous ulcers with minimal surrounding erythema, no purulent discharge. 1X right lower anterior leg venous ulcer. PT pulses palpable bilaterally. Wound seen in the presence of wound care, redressed in morning sensation to soft touch in hands and feet intact, ankle dorsiflexion/plantar flexion 5/5 bilaterally. Results & Data Results & Data ([facility]) Vital Signs (Past 12 Hours) Vital Signs Temp Pulse Pulse Resp BP BP Pulse Ox 05/06/21 15:17 36.8 C 71 20 138/70 94 05/06/21 10:57 36.8 C 86 18 116/80 93 05/06/21 07:43 36.7 C 78 18 136/79 94 05/06/21 06:39 90 PG Care Time/CCT Total # of Minutes Spent Total Time Spent with Patient: Total time spent is greater than 50% in coordination of care (as documented) at patient's floor/unit and/or counseling patient: Coding Level of Care Code 57167 Subseq Hosp Care Lvl 2 Diagnoses Sepsis A41.9 AICD discharge Z45.02 Rib pain R07.81 Atrial fibrillation I48.2 Atrial fibrillation type: permanent CKD (chronic kidney disease) stage 3, GFR 30-59 ml/min N18.30 Chronic kidney disease stage 3 subtype: unspecified whether 3a or 3b Anemia in chronic kidney disease N18.9; D63.1 Hypertension I10 Hypertension type: essential hypertension Anxiety disorder F41.9 Anxiety disorder type: unspecified anxiety disorder ROLLY (obstructive sleep apnea) G47.33 Chronic right-sided CHF (congestive heart failure) I50.812 (1) Atrial fibrillation Atrial fibrillation type: permanent Qualified Code(s): I48.2 - Chronic atrial fibrillation (2) CKD (chronic kidney disease) stage 3, GFR 30-59 ml/min Chronic kidney disease stage 3 subtype: unspecified whether 3a or 3b Qualified Code(s): N18.30 - Chronic kidney disease, stage 3 unspecified (3) Hypertension Hypertension type: essential hypertension Qualified Code(s): I10 - Essential (primary) hypertension (4) Anxiety disorder Anxiety disorder type: unspecified anxiety disorder Qualified Code(s): F41.9 - Anxiety disorder, unspecified
[2021-05-06] MEDS: diphenhydrAMINE Capsule 25 MG CAP PO PRN (20:48)
[2021-05-06] MEDS: MELATONIN 3 MG TAB PO SCH (20:49)
[2021-05-07] MEDS: BUMETANIDE 1 MG TAB PO SCH ×2 (07:42→20:38)
[2021-05-07] MEDS: ASPIRIN 81 MG ECTAB PO SCH (07:42)
[2021-05-07] MEDS: LIDOCAINE 5% 1 PATCH TD SCH ×2 (07:43→15:21)
[2021-05-07] MEDS: carvediloL 6.25 MG TAB PO SCH ×2 (07:43→20:37)
[2021-05-07] MEDS: ESCITALOPRAM OXALATE 10 MG TAB PO SCH (07:43)
[2021-05-07] MEDS: ENOXAPARIN INJ 40 MG/0.4 ML SYR SQ SCH (07:47)
[2021-05-07] MEDS ORDERED: VANCOMYCIN TROUGH ONE (09:30)
[2021-05-07] MEDS: VANCOMYCIN HCL 1,250 MG in SODIUM CHLORIDE 0.9% 250 ML IV SCH (09:52)
[2021-05-07 10:35] LABS: Basophils # (auto) 0.01 K/uL (0-0.2); Basophils % (auto) 0.2 %; Eosinophils # (auto) 0.08 K/uL (0-0.5); Eosinophils % (auto) 1.3 %; Hematocrit (blood only) 30.3 % (42-52); Hemoglobin 9.6 g/dL (14.0-18.0); Immature Granulocytes # (auto) 0.04 K/uL (0.00-0.02); Immature Granulocytes % (auto) 0.7 %; Lymphocytes # (auto) 0.78 K/uL (1.2-3.4); Lymphocytes % (auto) 13.1 %; Mean Corpuscular Hgb Conc 31.7 g/dL (32-36); Mean Corpuscular Volume 88.3 fL (80-100); Mean Platelet Volume 9.4 fL (7.4-10.4); Monocytes % (auto) 13.5 %; Neutrophils # (auto) 4.23 K/uL (1.4-6.5); Neutrophils % (auto) 71.2 %; Platelet Count 127 K/uL (130-400); RDW Coefficient of Variation 14.4 % (11.5-14.5); RDW Standard Deviation 46.9 fL (36.4-46.3); Red Blood Count 3.43 M/uL (4.7-6.1); White Blood Count 5.94 K/uL (4.8-10.8)
[2021-05-07 10:56] LABS: BUN Creatinine Ratio 25.5 (10-20); Calcium 10.1 mg/dl (8.5-10.1); Est GFR (African American) 49.9 ml/min; Potassium 4.4 mmol/L (3.5-5.1)
[2021-05-07] MEDS: ACETAMINOPHEN 325 MG TAB PO PRN (11:13)
--- NOTE | 2021-05-07 12:11 | Hospitalist Progress Note ---
Date of Service May 07, 2021 Assessment & Plan (1) Sepsis: Plan: 80yo male presenting with sepsis, source unclear at this time. 4/4 SIRS on arrival - Febrile to 38.5, HR 92, RR 32, WBC=11.86 on arrival. On admission had elevated Procalcitonin at 1.02, CRP of 1.4 as well as lactate of 3.2 which normalized to 1.8 after IVF.Workup for source of infection thus far with largely normal appearing UA, negative Lyme, Negative Covid. CXR with no acute cardiopulmonary findings. CT of the abdomen with enlarged left inguinal nodes as well as cholelithiasis, multiple bilateral renal lesions otherwise no acute source of infection identified. CT of the chest with no acute process - small stable pericardial effusion as well as subpleural opacities consistent with atelectasis. Suspect LLE cellulitis as possible source of infection vs inflammatory response following Influenza and Covid vaccines. Sepsis 2/2 left lower extremity cellulitis, corynebacterium bacteremia Lyme negative, Covid negative, CXR normal, CTabdomen with enlarged left inguinal lymph nodes, CT chest with no acute findings Left lower extremity with venous ulcers and superimposed cellulitis, clinically improving White blood cell count improving 4/4 blood cultures positive for corynebacterium (2 bcb from 2 sites), given multiple bottles positive across 2 sets will treat as real. Discussed with pharmacy will require treatment with vancomycin. Dapto not preferred due to variable resistance. No reasonable oral alternative. Formal sensitivities pending send out, Anticipate 14-day course of IV antibiotics from . Vancomycin unable to be given by ultrasound-guided peripheral. PICC consent obtained and placement ordered. Discussed risk of bleeding, infection, perforation, and thrombosis with patient. Pt understands the need for at least 14 days of IV antibiotics, however he is not comfortable with doing these either with the assistance of his or son at home. He reports he would like home health to do this, discussed with case sonia thomas; unfortunately, home health is unable to see him daily to perform this service. PT/OT assessed today, recommend inpatient rehab. Patient agreeable to this on afternoon family meeting. -Wound care as needed -Tylenol as needed (2) AICD discharge: Plan: Patient reports a single AICD discharge at the time that he became weak at home and needed to be lowered to the ground. He denies chest pain, palpitations. Interrogation revealed SVT at rate of 200 that was shocked. Troponin=0.016. No acute ischemic changes noted on EKG -Telemetry monitoring -Electrolyte repletion (3) Rib pain: Plan: Patient reports acute pain in right ribs after being placed on bed in [place]. -Lidoderm patch -Tylenol PRN (4) Atrial fibrillation: Plan: Chronic. Rate controlled. -Continue beta-jane -Cardiac monitoring -Patient currently not on anticoagulation - was previously offered anticoagulation, however, declined due to concern for bleeding complications and possibly requiring a blood transfusion. -Continue ASA (5) CKD (chronic kidney disease) stage 3, GFR 30-59 ml/min: Plan: Chronic. BUN=45 and Cr=1.75 which is near baseline. Patient is eating and drinking without difficulty. -Electrolyte repletion - Mg and PO4 -Trend BMP Continue Bumex (6) Anemia in chronic kidney disease: Plan: Normochromic, normocytic anemia with Hgb=10, Hct=31.7 which is near baseline. No active bleeding. Of note, patient is [employer] and declines transf usion of blood products -Continue to monitor (7) Hypertension: Plan: Blood pressure borderline low at present -Carvedilol/Bumex resumed -Continue to monitor (8) Anxiety disorder: Plan: Chronic -Continue Escitalopram 5mg po qAM (9) ROLLY (obstructive sleep apnea): Plan: Chronic -Nocturnal O2 as needed (10) Chronic right-sided CHF (congestive heart failure): Plan: Appears compensated -Cautious fluids Continue Bumex and Coreg Plan: Ppx - Lovenox Code - Full Dispo -Medical/Tele. Dispo planning ongoing, see above Admission and Anticipated Discharge Date Admission Date: May 02, 2021 Jesse Valerio seen at the bedside today, case reviewed and discussed. He is agreeable to PICC placement after risk/benefits placement and consent is signed. He understands the need for at least 14 days of IV antibiotics, however he is not comfortable with doing these either with the assistance of his or son at home. He reports he would like home health to do this, discussed with case management home health is unable to see him daily to perform the service. Case management discussed alternative options, patient does not want to pursue placement at SNF/rehab facility at this time. On PT reevaluation he was noted to be very weak, and recommended inpatient rehab. Patient's and son are coming in this afternoon, will revisit for logistical planning with care team and family when available. On reassessment and family meeting, patient agreeable to rehab. Otherwise he feels unchanged from prior, denies chest pain/chest pressure, difficulty breathing/shortness of breath/fever/chills/nausea/vomiting/diarrhea today. Review of Systems Review of Systems: All systems reviewed & are unremarkable except as noted in Subjective Physical Exam Physical Exam: General: A&Ox3. NAD. Cooperative. HEENT: Atraumatic, normocephalic. Pulm: CTAB A&P. -wheezes, -rales, -rhonchi. Symmetrical chest rise. No increase work of breathing. No respiratory distress. Cardiac: RRR, -mrg. Radial pulses intact and symmetrical. Abdominal: Nontender, nondistended, soft. BS present. Extremities: Left anterior and right anterior lower leg with compression stocking and dressing in place, C/D/I. No spreading erythema appreciated underneath compression dressing. Sensation to soft touch intact in feet bilaterally. PT pulse intact bilaterally. Results & Data Results & Data ([facility]) Vital Signs (Past 12 Hours) Vital Signs Temp Pulse Pulse Resp BP BP Pulse Ox 05/07/21 12:03 36.5 C 65 19 121/70 94 05/07/21 07:11 36.5 C 79 18 120/74 94 05/07/21 07:02 89 05/07/21 04:00 37.0 C 84 16 121/66 92 05/07/21 02:47 36.8 C 40 L 18 131/73 93 PG Care Time/CCT Total # of Minutes Spent Total Time Spent with Patient: Total time spent is greater than 50% in coordination of care (as documented) at patient's floor/unit and/or counseling patient: Coding Level of Care Code 19479 Subseq Hosp Care Lvl 3 Diagnoses Sepsis A41.9 AICD discharge Z45.02 Rib pain R07.81 Atrial fibrillation I48.2 Atrial fibrillation type: permanent CKD (chronic kidney disease) stage 3, GFR 30-59 ml/min N18.30 Chronic kidney disease stage 3 subtype: unspecified whether 3a or 3b Anemia in chronic kidney disease N18.9; D63.1 Hypertension I10 Hypertension type: essential hypertension Anxiety disorder F41.9 Anxiety disorder type: unspecified anxiety disorder ROLLY (obstructive sleep apnea) G47.33 Chronic right-sided CHF (congestive heart failure) I50.812 (1) CKD (chronic kidney disease) stage 3, GFR 30-59 ml/min Chronic kidney disease stage 3 subtype: unspecified whether 3a or 3b Qualified Code(s): N18.30 - Chronic kidney disease, stage 3 unspecified (2) Anxiety disorder Anxiety disorder type: unspecified anxiety disorder Qualified Code(s): F41.9 - Anxiety disorder, unspecified (3) Atrial fibrillation Atrial fibrillation type: permanent Qualified Code(s): I48.2 - Chronic atrial fibrillation (4) Hypertension Hypertension type: essential hypertension Qualified Code(s): I10 - Essential (primary) hypertension
--- NOTE | 2021-05-07 15:25 | XRay Report ---
XR chest 1V portable CLINICAL HISTORY: picc tip placment. COMPARISON STUDY: 05/02/2021 TECHNIQUE: 1 view of the chest FINDINGS: Single frontal view of the chest demonstrates the heart to again be enlarged with a precardiac pacer in place. There has been interval placement of a PICC line from the left side with its tip coiled upo n itself in the distal SVC. The lungs are clear of alveolar opacities. There is evidence for a small right pleural effusion on the current study. There is no evidence for left pleural effusion. There is no evidence for vascular congestion. There is no acute osseous pathology. IMPRESSION: Interval development of small right pleural effusion. No other acute chest disease. Tip o f left-sided PICC line is curled upon itself in the distal SVC. ACT 112: Negative or not required by law. Electronically signed by: Ben Wilkerson M.D. 05/07/2021 3:24 PM
--- NOTE | 2021-05-07 16:09 | XRay Report ---
XR chest 1V portable CLINICAL HISTORY: picc tip placement TECHNIQUE: Single frontal radiograph of the chest was obtained. Comparison: Comparison is made to chest one view 05/07/2021 at 1459 hours FINDINGS: Interval placement of a left PICC with the tip in the lower SVC. Cardiomegaly is noted. There is a ri ght retrocardiac opacity, comparable to prior exam. Small right pleural effusion is again seen. IMPRESSION: 1. Satisfactory position of left PICC. 2. Stable cardiomegaly. 3. Stable small right pleural effusion and right retrocardiac opacities. ACT 112: Negative or not required by law. Electronically signed by: Anuj Swift M.D. 05/07/2021 4:08 PM
[2021-05-07] MEDS: MELATONIN 3 MG TAB PO SCH (20:38)
[2021-05-08] MEDS: diphenhydrAMINE Capsule 25 MG CAP PO PRN (01:56)
[2021-05-08] MEDS: ACETAMINOPHEN 325 MG TAB PO PRN ×2 (01:58→10:03)
[2021-05-08] MEDS: ASPIRIN 81 MG ECTAB PO SCH (09:54)
[2021-05-08] MEDS: BUMETANIDE 1 MG TAB PO SCH (09:54)
[2021-05-08] MEDS: carvediloL 6.25 MG TAB PO SCH (09:54)
[2021-05-08] MEDS: ESCITALOPRAM OXALATE 10 MG TAB PO SCH (09:55)
[2021-05-08] MEDS: LIDOCAINE 5% 1 PATCH TD SCH ×2 (09:55→09:56)
[2021-05-08] MEDS: VANCOMYCIN HCL 1,250 MG in SODIUM CHLORIDE 0.9% 250 ML IV SCH (09:56)
[2021-05-08] MEDS: ENOXAPARIN INJ 40 MG/0.4 ML SYR SQ SCH (09:58)
--- NOTE | 2021-05-08 10:28 | Discharge Summary ---
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 Patient had his Covid-19 booster as well as his influenza vaccine administered 2 days ago. He was feeling fairly well following his vaccinations. Today he had a routine followup appointment with Dr. Retana of Cardiology. The appointment went well with no new concerns or medication changes. Upon return to [place] patient developed generalized weakness and fever with rigors. He was having difficulty ambulating and his helped to lower him to the floor. He had a single discharge from his AICD. EMS was called and transported him to [facility]. Upon arrival patient febrile at 38.5, HR elevated at 92, blood pressure 90/55, RR of 32 saturating 89% on room air. He was administered Tylenol and IVF as well as antibiotics. During my encounter patient was stating that he "has a lot of pain" all over. He is specifically complaining of right rib pain that started after being moved from the bed at CT scan. He has chronic chest discomfort which is stable and unchanged. He denies palpitations, cough, SOB. He denies abdominal pain, nausea, vomiting, diarrhea, constipation. He denies dysuria, difficulty urinating or flank pain. He did not lose consciousness or undergo any trauma this evening. He has a LLE cellulitis which he feels is improving. He denies worsening pain, drainage, odor, redness or swelling to the area. No additional complaints at this time. ER Course: Zosyn, Daptomycin, NSS x 1L, Tylenol x 1 gm Admission Exam Per Admitting Provider General: patient resting comfortably,appears fatigued but NAD, non-toxic in appearance, AA&O x 4 Skin: warm, dry, redness with healing sores of LLE at ankle, no crepitus, bullae or lymphangitic streaking, chronic stasis changes present of bilateral LE HEENT: NC/AT, PERRL, EOMI, anicteric sclera, conjunctiva without injection, external ear normal to inspection and nontender, nares patent, moist mucus membranes, dentition intact, no oropharyngeal lesions, neck supple, trachea midline, no LAD, no thyromegaly, no JVD Heart: +S1/S2, irregularly irregular, 3/6 LUIS FERNANDO at LSB Lungs: equal air entry bilaterally, no rales/rhonchi/wheezes Abd: +BS, soft, NT/ND, no masses/organomegaly/ascites Ext: warm, 2+ pulses in UE/LE bilaterally, no clubbing/cyanosis, 1+ edema bilaterally Neuro: nonfocal, patient AA&O x 4, speech intact, no facial droop, moving all extremities on command with equal strength 5/5 Principal Diagnosis Corynebacteria bacteremia 2/2 cellulitis of left lower extremity venous ulcer Discharge Exam General: A&Ox3. NAD. Cooperative. HEENT: Atraumatic, normocephalic. Pupils equal and reactive to light. Extraocular movements intact without nystagmus. Vision and hearing grossly intact. Pulm: CTAB A&P. -wheezes, -rales, -rhonchi. Symmetrical chest rise. No increase work of breathing. No respiratory distress. Cardiac: RRR, -mrg. Radial pulses intact and symmetrical. Abdominal: Nontender, nondistended, soft. BS present. Extremities: Left anterior and right anterior lower leg with compression stocking and dressing in place, C/D/I. No erythema appreciated. Sensation to soft touch intact in feet bilaterally. PT pulse intact bilaterally. Ankle dorsiflexion/plantar flexion 5/5, manager research and development strength 5/5 bilaterally. 2 cm mobile subcutaneous mass consistent with lipoma in left distal anterior forearm, unchanged per patient. in place, C/D/I in left upper arm. Discharge Data Allergies Allergy/AdvReac Type Severity Reaction Status Date / Time adhesive Allergy Intermediate REDDENED, Verified 05/02/21 19:11 ITCHY SKIN latex Allergy Unknown SKIN Verified 05/02/21 19:11 IRRITATION oxybutynin Allergy Unknown Unknown Verified 05/02/21 19:11 ciprofloxacin [From Cipro] AdvReac Mild pain in Verified 05/02/21 19:11 tendons ALL OPIOIDS Allergy Severe "SEVERE" Uncoded 05/02/21 19:11 DELIRIUM Consultations 05/02/21 20:31 ED Decision to Admit Stat Ordered Studies 05/02/21 18:37 CT abd pelvis wo con Stat CT chest diagnostic wo con Stat CT head/brain wo con Stat 05/02/21 20:31 US point of care ultrasound Stat Hospital Course (1) Sepsis: 80yo male presenting with sepsis 4/4 SIRS on arrival - Febrile to 38.5, HR 92, RR 32, WBC=11.86 on arrival. On admission had elevated Procalcitonin at 1.02, CRP of 1.4 as well as lactate of 3.2 which normalized to 1.8 after IVF.Workup for source of infection thus far with largely normal appearing UA, negative Lyme, Negative Covid. CXR with no acute cardiopulmonary findings. CT of the abdomen with enlarged left inguinal nodes as well as cholelithiasis, multiple bilateral renal lesions otherwise no acute source of infection identified. CT of the chest with no acute process - small stable pericardial effusion as well as subpleural opacities consistent with atelectasis. 4/4 blood culture bottles were positive for corynebacterium, patient was felt to have corynebacterium sepsis/bacteremia due to infected left lower extremity cellulitis To do as outpatient: 1. Complete 14 days of IV vancomycin for corynebacterium bacteremia () 2. Weekly CBC/BMP 3. Vancomycin trough level in 4 days, adjustment in daily vancomycin dose as needed 4. Remove PICC as soon as antibiotics completed to reduce risk of thrombosis, of note not on anticoagulation for A. fib as noted below 5. Strength/rehab 6. PCP follow-up within 1 week 7. Routine cardiology follow-up 8. Continue venous ulcer wound care, elevation/wraps and compression as needed. Follow-up with wound care after discharge from rehab. Sepsis 2/2 left lower extremity cellulitis, corynebacterium bacteremia Lyme negative, Covid negative, CXR normal, CTabdomen with enlarged left inguinal lymph nodes, CT chest with no acute findings Left lower extremity with venous ulcers and superimposed cellulitis on admission clinically improved White blood cell count peaked at 13.3, normalized with vancomycin therapy 4/4 blood cultures positive for corynebacterium (2 bcb from 2 sites), given multiple bottles positive across 2 sets will treat as real. Discussed with pharmacy will require treatment with vancomycin. Dapto not preferred due to variable resistance. No reasonable oral alternative. Formal sensitivities pending send out at time of discharge Anticipate 14-day course of IV antibiotics from . Vancomycin unable to be given by ultrasound-guided peripheral. PICC consent obtained and placement ordered. Discussed risk of bleeding, infection, perforation, and thrombosis with patient. Pt understands the need for at least 14 days of IV antibiotics, however he is not comfortable with doing these either with the assistance of his or son at home. He reports he would like home health to do this, discussed with case management; unfortunately, home health is unable to see him daily to perform this service. PT/OT recommended rehab, patient discharged to acute rehab (2) AICD discharge: Patient reports a single AICD discharge at the time that he became weak at home and needed to be lowered to the ground. He denies chest pain, palpitations. Interrogation revealed SVT at rate of 200 that was shocked. Troponin=0.016. No acute ischemic changes noted on EKG -Telemetry monitoring -Electrolyte repletion A. fib treatment as below (3) Rib pain: Patient reports acute pain in right ribs after being placed on bed in CT. -Lidoderm patch -Tylenol PRN (4) Atrial fibrillation: Chronic. Rate controlled. -Continue carvedilol -Cardiac monitoring -Patient currently not on anticoagulation - was previously offered anticoagulation, however, declined due to concern for bleeding complications and possibly requiring a blood transfusion. -Continue ASA (5) CKD (chronic kidney disease) stage 3, GFR 30-59 ml/min: Chronic. On admission BUN=45 and Cr=1.75 which is near baseline. Patient was eating and drinking without difficulty. Electrolytes were repleted as needed during admission, creatinine down trended with treatment of sepsis as above Creatinine 1.5 at baseline at time of discharge Continue Bumex (6) Anemia in chronic kidney disease: Normochromic, normocytic anemia with Hgb=10, Hct=31.7 which is near baseline. No active bleeding. Of note, patient is [employer] and declines transfusion of blood products -Continue to monitor (7) Hypertension: Blood pressure borderline low at present -Carvedilol/Bumex as above -Continue to monitor (8) Anxiety disorder: Chronic -Continue Escitalopram 5mg po qAM (9) ROLLY (obstructive sleep apnea): Chronic -Nocturnal O2 as needed (10) Chronic right-sided CHF (congestive heart failure): Appears compensated -Cautious fluids Continue Bumex and Coreg Total Time Total Time Spent Total Time Spent (In Minutes): Time spent preparing discharge on day of discharge including direct patient care, documentation, review of labs and images, and coordination of care approximately 40 minutes. Discharge Plan Discharge Items Patient Disposition: Transfer Inpatient Rehab Fac Reason For Visit: WEAKNESS, ICD DISCHARGE Discharge Diagnosis: Cellulitis Bacteremia Activity: Per Instructions section Non-emergency contact: Primary Care Provider Call non-emergency contact if: you have any medication questions, your symptoms worsen, your pain is not controlled, your pain is worsening and your pain is unusual for you Follow-up/Referrals: Fracisco Eddy MD [Primary Care Provider] - Tamia Elaine CRNP [Nurse Practitioner] - Clifford Sadler DO [Outside Practitioners] - (F/u within 1 month) Diet: Heart Healthy Addtl Attending Provider Instructions: You are seen in the hospital and were found to have infected venous ulcers of the left leg, and bacteria in the bloodstream (a condition called bacteremia). Your blood cultures were positive for a bacteria which is normally considered a contaminant or normal part of the skin, however this grew in 4 out of 4 blood culture samples indicating a true infection. You have been prescribed antibiotics through an IV line as noted below. You have been prescribed an antibiotic, vancomycin. Vancomycin is an IV only medication. A PICC line has been placed so that you may receive this medication as an outpatient. You will require a total of 14 days of treatment, anticipate daily treatment until 05/18/2021. Please have vancomycin 1250 mg infused daily at rehab or by health services. Blood work including a CBC, vancomycin level, and CMP should be drawn weekly. Rehab will draw these labs for you. You have had a PICC line placed, a type of IV, during admissions that you can receive the antibiotics above. As soon as your antibiotic course is completed, this IV should be removed to reduce risk of infection and blood clots. A followup appointment is being scheduled for you with your primary care physician Dr. Eddy. You should be seen seen within 2 weeks. You should receive a call to confirm this appointment. If you do not receive a call within 48 hours to confirm this appointment, or need to change this appointment, please call the provider's office at the number above. You should be seen by wound care to follow the healing of the ulcers on your legs. Even when the infection is treated, the ulcers themselves will require additional time to heal. In order to promote healing you should use gentle compression of the legs and elevate them for least 20 minutes 3 times daily. Please follow-up with wound care at rehab, and then with the wound care clinic after discharge for additional treatment recommendations. If you develop any new or worsening symptoms including fever, chills, sweats, chest pain, chest pressure, difficulty breathing, uncontrolled nausea/vomiting, rash, wheezing, passing out or nearly passing out, bleeding, black/bloody bowel movements, or other new or concerning symptoms please call your primary care physician, or call 911 for re-evaluation in the emergency department if you are very concerned. Pending Studies at Discharge: Yes (Follow-up CBC, CMP, vancomycin levels) Stand-Alone Forms: My [facility] Skilled Items Patient informed of condition?: Yes DNR: No Discharge Level of Care: Acute rehab Communicable Disease: No Discharge Prognosis: Stable Lines: PICC Urinary Catheter: No Medications and DC Order Prescriptions: New vancomycin 1.25 gram recon soln 1.25 g IV Q24H 10 Days Qty: 10 RF: 0 Continued Beet Root Supplement 1 tab PO QAM RF: 0 aspirin 81 mg tablet,delayed release (DR/EC) 81 mg PO QAM Qty: 90 RF: 3 bumetanide 1 mg tablet 1 mg PO BID Qty: 30 RF: 3 cholecalciferol (vitamin D3) 125 mcg (5,000 unit) capsule 125 mcg PO HS RF: 0 multivitamin with minerals Tablet 1 tab PO QAM RF: 0 carvedilol [Coreg] 6.25 mg tablet 6.25 mg PO BID RF: 0 melatonin 3 mg tablet 3 mg PO HS RF: 0 escitalopram oxalate [Lexapro] 5 mg tablet 5 mg PO QAM RF: 0 Discharge Orders: Discharge Order (Routine); Ordered 05/08/21 Ordered By: Fracisco Yanes Admission Data Admit Date/Time: 05/02/21 21:18 Attending Provider: Fracisco Yanes Admit Provider: Christen Brian Primary Care Provider: Fracisco Eddy Other Providers: Christen Brian ; [facility],Referral Center ; [facility] Coding Level of Care Code D/C DAY MANAGEMENT >30 MINS Diagnoses Sepsis A41.9 AICD discharge Z45.02 Rib pain R07.81 Atrial fibrillation I48.2 Atrial fibrillation type: permanent CKD (chronic kidney disease) stage 3, GFR 30-59 ml/min N18.30 Chronic kidney disease stage 3 subtype: unspecified whether 3a or 3b Anemia in chronic kidney disease N18.9; D63.1 Hypertension I10 Hypertension type: essential hypertension Anxiety disorder F41.9 Anxiety disorder type: unspecified anxiety disorder ROLLY (obstructive sleep apnea) G47.33 Chronic right-sided CHF (congestive heart failure) I50.812
[2021-05-08 11:26] LABS: Basophils # (auto) 0.01 K/uL (0-0.2); Basophils % (auto) 0.2 %; Eosinophils # (auto) 0.11 K/uL (0-0.5); Eosinophils % (auto) 1.8 %; Hemoglobin 9.7 g/dL (14.0-18.0); Immature Granulocytes # (auto) 0.07 K/uL (0.00-0.02); Immature Granulocytes % (auto) 1.2 %; Lymphocytes # (auto) 0.77 K/uL (1.2-3.4); Lymphocytes % (auto) 12.9 %; Mean Corpuscular Hemoglobin 28.1 pg (25-34); Mean Corpuscular Hgb Conc 31.3 g/dL (32-36); Mean Corpuscular Volume 89.9 fL (80-100); Mean Platelet Volume 9.4 fL (7.4-10.4); Monocytes # (auto) 0.71 K/uL (0.11-0.59); Monocytes % (auto) 11.9 %; Neutrophils # (auto) 4.31 K/uL (1.4-6.5); Platelet Count 135 K/uL (130-400); RDW Coefficient of Variation 14.2 % (11.5-14.5); RDW Standard Deviation 46.6 fL (36.4-46.3); Red Blood Count 3.45 M/uL (4.7-6.1); White Blood Count 5.98 K/uL (4.8-10.8)
[2021-05-08 11:50] LABS: BUN Creatinine Ratio 27.1 (10-20); Calcium 10.4 mg/dl (8.5-10.1); Creatinine Clr Calc Pharmacy 52.3 ml/min; Est GFR (African American) 50.3 ml/min; Est GFR (Non-African American) 43.4 ml/min; Potassium 4.4 mmol/L (3.5-5.1)
[2021-05-09] MEDS ORDERED: VANCOMYCIN TROUGH ONE (09:30)
== END 2021-05-08 14:55 | DRG 871 ==
LOC: ED 17:21 → SUATTDRO 21:18 → 2N 21:18
DX: I83.028 Varicose veins of left lower extremity with ulcer other part of lower leg; I31.3 Pericardial effusion (noninflammatory); Z88.1 Allergy status to other antibiotic agents; M10.9 Gout, unspecified; I47.1 Supraventricular tachycardia; I50.812 Chronic right heart failure; I95.9 Hypotension, unspecified; F41.9 Anxiety disorder, unspecified; I49.01 Ventricular fibrillation; Z91.040 Latex allergy status; I48.20 Chronic atrial fibrillation, unspecified; R07.81 Pleurodynia; L97.521 Non-pressure chronic ulcer of other part of left foot limited to breakdown of skin; I13.0 Hypertensive heart and chronic kidney disease with heart failure and stage 1 through stage 4 chronic kidney disease, or unspecified chronic kidney disease; I48.92 Unspecified atrial flutter; I50.32 Chronic diastolic (congestive) heart failure; Z86.718 Personal history of other venous thrombosis and embolism; D63.1 Anemia in chronic kidney disease; G47.33 Obstructive sleep apnea (adult) (pediatric); A41.89 Other specified sepsis; N18.30 Chronic kidney disease, stage 3 unspecified; I42.9 Cardiomyopathy, unspecified; L03.116 Cellulitis of left lower limb; J98.11 Atelectasis; Z95.828 Presence of other vascular implants and grafts; Z95.810 Presence of automatic (implantable) cardiac defibrillator